=== PATIENT | female | born 1950 | race Caucasian/White ===

== ENCOUNTER 2023-01-20 10:33 | Outpatient (OUT) | payer MEDICARE, OTHER, SELFPAY ==
[2023-01-20 11:55] LABS: Alanine Aminotransferase 11 U/L (14-59); Albumin Globulin Ratio 0.6; Albumin Level 3.2 g/dL (3.4-5.0); Alkaline Phosphatase 88 U/L (46-116); Anion Gap 12.5; Aspartate Amino Transferase 9 U/L (15-37); BUN Creatinine Ratio 31.6; Bilirubin Total 0.4 mg/dL (0.2-1.0); Calcium 9.2 mg/dL (8.5-10.1); Carbon Dioxide 27.6 mmol/L (21.0-32.0); Chloride 102 mmol/L (98-107); Estimated GFR (African America >60 (>=60); Estimated GFR (Non-African Ame >60 (>=60); Glucose 208 mg/dL (74-106); Potassium 4.1 mmol/L (3.5-5.1); Sodium 138 mmol/L (136-145); Total Protein 8.2 g/dL (6.4-8.2)
[2023-01-20 14:35] LABS: Estimated Average Glucose 114 mg/dL; Glycohemoglobin A1C 5.6 % (4.5-6.2)
== END 2023-01-20 10:34 | disposition home or self-care (01) ==
LOC: LAB 10:38
PROVIDERS: PCP Family Medicine; Visit Provider Family Medicine
DX: E11.9 Type 2 diabetes mellitus without complications (principal)
CPT/HCPCS: 36415; 80053; 83036

== ENCOUNTER 2023-06-23 08:54 | Outpatient (OUT) | payer MEDICARE, OTHER, SELFPAY ==
--- NOTE | 2023-06-23 08:58 | MM_ITS ---
Patient Name: KEI JENSEN MR#: [id number] : 1950 Exam Date: 06/23/2023 Ordering Doctor: NANCY Pérez CNP RADIOLOGY REPORT PROCEDURE: MM TOMOSYNTHESIS SCREENING BI COMPARISON: None. INDICATIONS: Screening Calculator Name NCI Breast Cancer Risk Assessment Tool 5 Year Breast Cancer Risk 1.60% Lifetime Breast Cancer Risk 4.30% Personal Breast Cancer No Personal Ovarian Cancer No Treatments None Family Cancers None LOCATION: [facility] BREAST COMPOSITION: Heterogeneously dense,which may obscure small masses. FINDINGS: DIAGNOSTIC CATEGORY 0--INCOMPLETE: NEED ADDITIONAL IMAGING EVALUATION. RIGHT BREAST: No significant suspicious finding. Coarse benign-appearing calcifications within posterior inferior breast approximately 6 o'clock. LEFT BREAST: Grouping of tiny punctate calcifications within posterior upper-outer quadrant approximately 3 o'clock. No prior studies for comparison. Spot magnification views and ultrasound evaluation recommended. RECOMMENDATIONS: ADDITIONAL MAMMOGRAPHIC VIEWS REQUIRED: LEFT BREAST - LEFT CRANIOCAUDAL SPOT MAGNIFICATION VIEW - LEFT OBLIQUE SPOT MAGNIFICATION VIEW - ULTRASOUND: LEFT BREAST PLEASE NOTE: A NORMAL MAMMOGRAM DOES NOT EXCLUDE THE POSSIBILITY OF BREAST CANCER. A CLINICALLY SUSPICIOUS PALPABLE LUMP SHOULD BE BIOPSIED. Dictated by: Ming Recio M.D. on 06/25/2023 at 13:41 Approved by: Ming Recio M.D. on 06/25/2023 at 13:46
--- NOTE | 2023-06-23 08:58 | XR_ITS ---
[address] [address] Patient Name: KEI JENSEN MRN: [id number] date: 1950 Sex: F Assigned Patient Location: [facility] Current Patient Location: LAB Accession/Order Number: [id number] Exam Date: 06/23/2023 09:23 Report Date: 06/23/2023 10:02 At the request of: MAGNO ANTHONY Procedure: XR DEXA axial skeleton EXAMINATION: XR DEXA axial skeleton HISTORY: Osteoporosis M81.0 COMPARISON: No relevant comparison available. TECHNIQUE: Dual-energy X-ray absorptiometry (DXA) was performed. FINDINGS: SPINE ANALYSIS: Average bone mineral density is 1.151 g/cm2. T-score (standard deviation relative to young adult mean): -0.4 . HIP ANALYSIS: Lowest bone mineral density is within the right femoral trochanter, 0.577 g/cm2. T-score (standard deviation relative to young adult mean): -2.4 . XR/XR DEXA axial skeleton IMPRESSION: [employer] Classification: Osteopenia - Moderate Fracture Risk Electronically authenticated by: JEREMÍAS GALARZA Date: 06/23/2023 10:02
== END 2023-06-23 08:55 | disposition home or self-care (01) ==
LOC: MAMMO 08:54
PROVIDERS: PCP Nurse Practitioner; Visit Provider Nurse Practitioner
DX: Z12.31 Encounter for screening mammogram for malignant neoplasm of breast (principal); M81.0 Age-related osteoporosis without current pathological fracture; R92.8 Other abnormal and inconclusive findings on diagnostic imaging of breast; M85.80 Other specified disorders of bone density and structure, unspecified site
CPT/HCPCS: 77063; 77067; 77080

== ENCOUNTER 2023-06-23 09:34 | Outpatient (OUT) | payer MEDICARE, OTHER, SELFPAY ==
[2023-06-23 10:05] LABS: Basophils Percent Auto 0.3 % (0.2-2.0); Eosinophils Absolute Auto 0.1 10^3/uL (0.0-0.7); Eosinophils Percent Auto 1.6 % (0.9-7.0); Hemoglobin 13.8 g/dL (12.0-16.0); Immature Granulocytes Abs Auto 0.04 10^3/uL (0.00-0.03); Immature Granulocytes Pct Auto 0.5 % (0.0-0.5); Lymphocytes Absolute Auto 1.6 10^3/uL (1.2-3.8); Lymphocytes Percent Auto 18.4 % (20.5-60.0); Mean Corpuscular HGB Conc 31.4 g/dL (29.9-35.2); Mean Corpuscular Hemoglobin 26.5 pg (26.7-34.0); Mean Corpuscular Volume 84.6 fL (81.0-99.0); Mean Platelet Volume 9.2 fL (9.5-13.5); Monocytes Absolute Auto 0.5 10^3/uL (0.3-0.8); Monocytes Percent Auto 5.2 % (1.7-12.0); Neutrophils Absolute Auto 6.6 10^3/uL (1.4-6.5); Platelet Count 217 10^3/uL (150-450); Red Cell Distribution Width 14.2 % (11.0-15.0); White Blood Count 8.9 10^3/uL (4.0-11.0)
[2023-06-23 10:15] LABS: Microalbumin Urine Random 10.9 mg/dL (<=30.0)
[2023-06-23 10:20] LABS: Alanine Aminotransferase 16 U/L (14-59); Albumin Globulin Ratio 0.6; Albumin Level 3.1 g/dL (3.4-5.0); Alkaline Phosphatase 105 U/L (46-116); Anion Gap 10.9; Aspartate Amino Transferase 14 U/L (15-37); BUN Creatinine Ratio 26.2; Bilirubin Total 0.5 mg/dL (0.2-1.0); Calcium 9.1 mg/dL (8.5-10.1); Carbon Dioxide 31.5 mmol/L (21.0-32.0); Chloride 99 mmol/L (98-107); Chol HDL Ratio 3.2; Cholesterol 195 mg/dL (<=200); Estimated GFR (African America >60 (>=60); Estimated GFR (Non-African Ame >60 (>=60); Globulin 5.2 g/dL; Glucose 234 mg/dL (74-106); HDL Cholesterol 61 mg/dL (40-60); Potassium 4.4 mmol/L (3.5-5.1); Sodium 137 mmol/L (136-145); Total Protein 8.3 g/dL (6.4-8.2); Triglycerides 102 mg/dL (<=150); VLDL CHOLESTEROL 20.4 mg/dL
[2023-06-23 10:20] LABS: Bilirubin Urine NEGATIVE (NEGATIVE); Blood Urine SMALL (NEGATIVE); Color Urine LT. YELLOW (YELLOW); Glucose Urine UA 500 mg/dL (NEGATIVE); Ketones Urine NEGATIVE (NEGATIVE); Leukocyte Esterase Urine MODERATE (NEGATIVE); Nitrite Urine NEGATIVE (NEGATIVE); Protein Urine TRACE mg/dL (NEG/TRACE); Specific Gravity Urine 1.025 (1.005-1.025)
[2023-06-23 10:21] LABS: Clarity Urine SLIGHTLY CLOUDY (CLEAR)
[2023-06-23 10:30] LABS: Bacteria Urine MODERATE #/HPF (NONE SEEN); Mucus Urine NONE SEEN (NONE SEEN); RBC Urine 0-2 #/HPF (0-2); Squamous Epithelial Cell Urine MODERATE #/LPF (NONE/RARE)
[2023-06-23 11:03] LABS: Estimated Average Glucose 174 mg/dL; Glycohemoglobin A1C 7.7 % (4.5-6.2)
== END 2023-06-23 09:35 | disposition home or self-care (01) ==
PROVIDERS: PCP Nurse Practitioner; Visit Provider Nurse Practitioner
DX: E11.21 Type 2 diabetes mellitus with diabetic nephropathy (principal)
CPT/HCPCS: 36415; 80053; 80061; 81001; 82043; 83036; 85025

== ENCOUNTER 2023-07-11 13:24 | Outpatient (OUT) | payer MEDICARE, OTHER, SELFPAY ==
--- NOTE | 2023-07-11 13:36 | US_ITS ---
Patient Name: KEI JENSEN MR#: [id number] : 1950 Exam Date: 07/11/2023 Ordering Doctor: NANCY Pérez CNP RADIOLOGY REPORT PROCEDURE: MM DIAGNOSTIC MAMMO UNILAT LT, 07/11/2023, 13:36 US BREAST LT LIMITED, 07/11/2023, 13:58 COMPARISON: MM TOMOSYNTHESIS SCREENING BI, 06/23/2023. INDICATIONS: Left Breast Abnormality On Screening Mammogram Calculator Name NCI Breast Cancer Risk Assessment Tool 5 Year Breast Cancer Risk 1.60% Lifetime Breast Cancer Risk 4.30% Personal Breast Cancer No Personal Ovarian Cancer No Treatments None Family Cancers None LOCATION: [facility] BREAST COMPOSITION: Heterogeneously dense,which may obscure small masses. FINDINGS: DIAGNOSTIC CATEGORY 4--SUSPICIOUS FOR MALIGNANCY. FINDING DOES NOT EXHIBIT CLASSIC FINDINGS OF BREAST CANCER: Spot magnification demonstrates a cluster of suspicious microcalcifications upper outer quadrant, posterior breast. Ultrasound demonstrates normal fibroglandular tissue with no corresponding abnormality. As there are no prior comparisons. Stereotactic biopsy of the left breast calcifications is recommended RECOMMENDATIONS: STEREOTACTIC BREAST BIOPSY: LEFT BREAST PLEASE NOTE: A NORMAL MAMMOGRAM DOES NOT EXCLUDE THE POSSIBILITY OF BREAST CANCER. A CLINICALLY SUSPICIOUS PALPABLE LUMP SHOULD BE BIOPSIED. Dictated by: Deny Frias MD on 07/11/2023 at 14:22 Approved by: Deny Frias MD on 07/11/2023 at 14:48
== END 2023-07-11 13:25 | disposition home or self-care (01) ==
LOC: MAMMO 13:24
PROVIDERS: PCP Nurse Practitioner; Visit Provider Nurse Practitioner
DX: R92.8 Other abnormal and inconclusive findings on diagnostic imaging of breast (principal); R92.0 Mammographic microcalcification found on diagnostic imaging of breast
CPT/HCPCS: 76642; 77065

== ENCOUNTER 2023-07-31 12:19 | Day surgery (SDC) | payer MEDICARE, OTHER, SELFPAY ==
--- OUTSIDE RECORDS SUMMARY | 2023-07-31 12:22 | XMS_ITS | CCD ---
Author Name Unknown Address [address] [facility] [facility] [address] [place] [address] Organization [facility] Care Team Providers Care Sales Support Consultant Name Role Phone VikasChivo shin Unavailable Sheila Alvarez Unavailable NAVEEN, DR AGEE Attending Unavailable HOUSE, DR AGEE Consulting Unavailable HOUSE, DR AGEE Primary Care Unavailable HOUSE, DR AGEE Admitting Unavailable Sheila Alvarez Admitting Unavailable Sheila Alvarez Attending Unavailable Naveen, Gus Primary Care Unavailable Sheila Alvarez Admitting Unavailable Sheila Alvarez Attending Unavailable House, Gus Primary Care Unavailable Medications Current Medications Medication Drug Class(es) Dates Sig (Normalized) Sig (Original) gabapentin 600 mg oral tablet (8 sources) Anti-epileptic Agent Gabapentin 600 MG 1 capsule in am , 1 capsule in afternoon, and 2 capsules at bedtime Active Gabapentin Activ e glimepiride 2 mg oral tablet (8 sources) Sulfonylurea take 1 tablet by cecelia once daily at breakfast Glimepiride 2 MG 1 tablet with breakfast or the first main meal of the day Orally Active Glimepiride Acti ve pioglitazone 30 mg oral tablet (1 source) Peroxisome Proliferator Receptor alpha Agonist, Peroxisome Proliferator Receptor gamma Agonist, Thiazolidinedione Start: 04-15-2023 take 1 tablet by mouth every twenty-four hours Actos 30 MG 1 tablet Orally Once a day for 30 day(s) Mar, Active Problems Problem Classification Problem Date Documented Date Episodic/Chronic Diabetes mellitus without complication (4 sources) Type 2 diabetes mellitus without complications; Translations: [TYPE 2 DM WITHOUT COMPLICATIONS] Onset: 10-08-2022 Chronic Other diseases of veins and lymphatics (4 sources) Venous insufficiency of leg; Translations: [Venous insufficiency (chronic) (peripheral)] Episodic Other diseases of veins and lymphatics (2 sources) Venous insufficiency (chronic) (peripheral) Episodic Other diseases of veins and lymphatics (2 sources) Peripheral venous insufficiency; Translations: [Venous insufficiency (chronic) (peripheral)] Episodic Unclassified (1 source) Varicose veins of left lower extremity with pain; Translations: [Varicose veins of left lower extremity with pain] Onset: 06-21-2022 Varicose veins of lower extremity (20 sources) Varicose veins of lower extremity; Translations: [Varicose veins of bilateral lower extremities with pain] Onset: 09-03-2021 Resolved: 11-19-2021 Episodic Results Test Name Value Interpretation Reference Range Facility US venous duplex LE LTon US venous duplex LE LT [facility] [address] Ultrasound Report Signed Patient: Kei Davis MR#: [id number] [id number] : 1950 Acct:[id number] Age/Sex: 72 / F ADM Date: 11/11/22 Loc: [facility] Room: Type: [facility] Attending Dr: Sheila Alvarez INSTRUCTIONAL SUPERVISOR-C Ordering Provider: Sheila Alvarez APRN Date of Service: 11/11/22 US/US venous duplex LE LT: I83.812,S/P VENASEAL Copies to: Sheila Alvarez APRN Right lower extremity full functional venous duplex examination Indication for study: Venous insufficiency status post venous closure right greater saphenous vein PROCEDURE: Color-flow duplex scanning is used to interrogate the venous anatomy of the right lower extremity. There is no evidence for deep vein thrombosis. The right common femoral vein, femoral vein, and popliteal vein show good compressibility, color-flow, and augmentation. There is persistent reflux for greater than 5 seconds at the saphenofemoral junction. The distal component of the greater saphenous vein has been closed but due to difficulty with catheter passage the proximal greater saphenous vein from 30 cm remains open at this time. US/US venous duplex LE LT IMPRESSION: No evidence for deep vein thrombosis in the right lower extremity. The distal component of the greater saphenous vein has been closed. 30 cm of the proximal saphenous vein remains patent due to Inability to pass the catheter through that component. Impression dictated by: Chivo Bullard M.D.11/12/2022 2:36 PM Dictation Location: [place] [address] Tech: Kari Shon Transcribed By: CY 11/12/221435 Dictated By: Chivo Bullard MD 11/12/221432 Signed By: 11/12/22 143 [facility] CBC AUTO DIFFon 10-08-2022 BASO # 0.0 103/ul Normal 0.0-0.1 [facility] Comment on above: Performed By: #### C BC #### [facility] [address] [address] [address] Jj Torre Basophils/100 WBC (Bld) 0.4 % Normal 0.2-2.0 [facility] Comment on above: Performed By: #### C BC #### [facility] [address] [place] [address] Dr. Jj Torre EO # 0.1 103/ul Normal 0.0-0.7 [facility] Comment on above: Performed By: #### C BC #### [facility] [address] [address] [address] Jj Torre Eosinophils/100 WBC (Bld) 1.5 % Normal 0.9-7.0 [facility] Comment on above: Performed By: #### C BC #### [facility] [address] [place] [address] Dr. Jj Torre Erythrocyte distribution width (RBC) [Ratio] 13.5 % Normal 11.0-15.0 [facility] Comment on above: Performed By: #### C BC #### [facility] [address] [place] [address] Dr. Jj Torre Hematocrit (Bld) [Volume fraction] 45.1 % Normal 36.0-48.0 [facility] Comment on above: Performed By: #### C BC #### [facility] [address] [place] [address] Dr. Jj Torre Hemoglobin (Bld) [Mass/Vol] 15.0 g/dL Normal 12.0-16.0 [facility] Comment on above: Performed By: #### C BC #### [facility] [address] [place] [address] Dr. Jj Torre IG # 0.01 10e3/ul Normal 0.00-0.03 [facility] Comment on above: Performed By: #### C BC #### [facility] [address] [place] [address] Dr. Jj Torre IG % 0.1 % Normal 0.0-0.5 [facility] Comment on above: Performed By: #### C BC #### [facility] [address] [place] [address] Dr. Jj Torre LYMPH # 2.3 103/ul Normal 1.2-3.8 [facility] Comment on above: Performed By: #### C BC #### [facility] [address] [place] [address] Dr. Jj Torre Lymphocytes/100 WBC (Bld) 28.9 % Normal 20.5-60.0 [facility] Comment on above: Performed By: #### C BC #### [facility] [address] [place] [address] Dr. Jj Torre MANUAL DIFF REQ NO Normal [facility] Comment on above: Performed By: #### C BC #### [facility] [address] [place] [address] Dr. Jj Torre MCH (RBC) [Entitic mass] 26.7 pg Normal 26.7-34.0 [facility] Comment on above: Performed By: #### C BC #### [facility] [address] [place] [address] Dr. Jj Torre MCHC (RBC) [Mass/Vol] 33.3 g/dL Normal 29.9-35.2 [facility] Comment on above: Performed By: #### C BC #### [facility] [address] [place] [address] Dr. Jj Torre MCV (RBC) [Entitic vol] 80.2 fL Critically low 81.0-99.0 [facility] Comment on above: Performed By: #### C BC #### [facility] [address] [place] [address] Dr. Jj Torre MONO # 0.6 103/ul Normal 0.3-0.8 [facility] Comment on above: Performed By: #### C BC #### [facility] [address] [address] [address] Jj Torre Monocytes/100 WBC (Bld) 7.7 % Normal 1.7-12.0 [facility] Comment on above: Performed By: #### C BC #### [facility] [address] [address] [address] Jj Torre NEUT # 5.0 103/ul Normal 1.4-6.5 [facility] Comment on above: Performed By: #### C BC #### [facility] [address] [place] [address] Dr. Jj Torre Neutrophils/100 WBC (Bld) 61.4 % Normal 43.0-75.0 [facility] Comment on above: Performed By: #### C BC #### [facility] [address] [place] [address] Dr. Jj Torre Platelet mean volume (Bld) [Entitic vol] 9.2 fL Critically low 9.5-13.5 [facility] Comment on above: Performed By: #### C BC #### [facility] [address] [place] [address] Dr. Jj Torre PLT 214 103/ul Normal 150-450 [facility] Comment on above: Performed By: #### C BC #### [facility] [address] [place] [address] Dr. Jj Torre RBC 5.62 106/ul Critically high 4.20-5.40 [facility] Comment on above: Performed By: #### C BC #### [facility] [address] [place] [address] Dr. Jj Torre WBC 8.1 103/ul Normal 4.0-11.0 [facility] Comment on above: Performed By: #### C BC #### [facility] [address] [place] [address] Dr. Jj Torre GLYCOHEMOGLOBIN A1Con 2022 ADA RECOMMENDATION SEE BELOW Normal [facility] Comment on above: Result Comment: ADA RECOMMENDED LIMIT 4.0 - 6.0 ADA THERAPEUTIC TARGET < 7.0 ACTION SUGGESTED > 7.0 Performed By: #### A 1C #### [facility] [address] [place] [address] Dr. Jj Torre Glucose [Mass/Vol] 258 mg/dL Normal [facility] Comment on above: Performed By: #### A 1C #### [facility] [address] [place] [address] Dr. Jj Torre HbA1c (Bld) [Mass fraction] 10.6 % Critically high 4.5-6.2 [facility] Comment on above: Performed By: #### A 1C #### [facility] [address] [place] [address] Dr. Jj Torre MICROALBUMIN, RAND URon 09-25 mALB 1.7 mg/L Normal <=30.0 [facility] Comment on above: Performed By: #### M ALBR #### [facility] [address] [place] [address] Dr. Jj Torre PROF 14(COMP METB)on 023 Albumin [Mass/Vol] 3.3 g/dL Critically low 3.4-5.[address] [facility] Comment on above: Performed By: #### C MP #### [facility] [address] [place] [address] Dr. Jj Torre Albumin/Globulin [Mass ratio] 0.7 {ratio} Normal [facility] Comment on above: Performed By: #### C MP #### [facility] [address] [place] [address] Dr. Jj Torre ALP [Catalytic activity/Vol] 104 U/L Normal 46-116 [facility] Comment on above: Performed By: #### C MP #### [facility] [address] [place] [address] Dr. Jj Torre ALT [Catalytic activity/Vol] 13 U/L Critically low 14-59 [facility] Comment on above: Performed By: #### C MP #### [facility] [address] [address] [address] Jj Torre Anion gap [Moles/Vol] 7.8 mmol/L Normal [facility] Comment on above: Performed By: #### C MP #### [facility] [address] [place] [address] Dr. Jj Torre AST [Catalytic activity/Vol] 9 U/L Critically low 15-37 [facility] Comment on above: Performed By: #### C MP #### [facility] [address] [address] [address] Jj Torre Bilirubin [Mass/Vol] 0.5 mg/dL Normal 0.2-1.0 [facility] Comment on above: Performed By: #### C MP #### [facility] [address] [place] [address] Dr. Jj Torre Calcium [Mass/Vol] 9.6 mg/dL Normal 8.5-10.1 [facility] Comment on above: Performed By: #### C MP #### [facility] [address] [place] [address] Dr. Jj Torre Chloride [Moles/Vol] 100 mmol/L Normal 98-107 [facility] Comment on above: Performed By: #### C MP #### [facility] [address] [place] [address] Dr. Jj Torre CO2 [Moles/Vol] 30.1 mmol/L Normal 21.0-32.0 [facility] Comment on above: Performed By: #### C MP #### [facility] [address] [place] [address] Dr. Jj Torre Creatinine [Mass/Vol] 0.56 mg/dL Normal 0.55-1.02 [facility] Comment on above: Performed By: #### C MP #### [facility] [address] [place] [address] Dr. Jj Torre EGFR-AF [place] >60 Normal >=60 [facility] Comment on above: Performed By: #### C MP #### [facility] [address] [place] [address] Dr. Jj Torre EGFR-NON AF [place] >60 Normal >=60 [facility] Comment on above: Performed By: #### C MP #### [facility] [address] [place] [address] Dr. Jj Torre Globulin (S) [Mass/Vol] 4.5 g/dL Normal [facility] Comment on above: Performed By: #### C MP #### [facility] [address] [address] [address] Jj Torre Glucose [Mass/Vol] 343 mg/dL Critically high 74-106 [facility] Comment on above: Performed By: #### C MP #### [facility] [address] [address] [address] Jj Torre Potassium [Moles/Vol] 3.9 mmol/L Normal 3.5-5.1 [facility] Comment on above: Performed By: #### C MP #### [facility] [address] [address] [address] Jj Torre Protein [Mass/Vol] 7.8 g/dL Normal 6.4-8.2 [facility] Comment on above: Performed By: #### C MP #### [facility] [address] [place] [address] Dr. Jj Torre Sodium [Moles/Vol] 134 mmol/L Critically low 136-[address] [facility] Comment on above: Performed By: #### C MP #### [facility] [address] [address] [address] Jj Torre Urea nitrogen [Mass/Vol] 11.0 mg/dL Normal 7.0-18.0 [facility] Comment on above: Performed By: #### C MP #### [facility] [address] [address] [address] Jj Torre Urea nitrogen/Creatinine [Mass ratio] 19.6 mg/mg Normal [facility] Comment on above: Performed By: #### C MP #### [facility] [id number] Jj Torre US venous duplex LE BIon US venous duplex LE BI [facility] [address] Ultrasound Report Signed Patient: Kei Davis MR#: [id number] 755 : 1950 Acct:[id number] Age/Sex: 72 / F ADM Date: 06/21/22 Loc: Room: Type: [facility] Attending Dr: Sheila Alvarez INSTRUCTIONAL SUPERVISOR-C Ordering Provider: Sheila Alvarez APRN Date of Service: 06/21/22 US/US venous duplex LE BI: I83.811, I83.812 Copies to: Sheila Alvarez APRN BILATERAL LOWER EXTREMITY VENOUS DUPLEX INDICATION: Surveillance study after left lower extremity vein procedure. PROCEDURE: Color-flow duplex scanning is used to interrogate the deep venous system of the right and left lower extremities. US/US venous duplex LE BI IMPRESSION: NO EVIDENCE FOR DEEP VEIN THROMBOSIS IN THE RIGHT OR LEFT LOWER EXTREMITY. Impression dictated by: Armando Cramer MD06/24/2022 4:41 PM [facility] Tech: Yeimy Caesar Transcribed By: [facility] 06/24/22 1641 Dictated By: Armando Cramer MD 06/24/22 1640 Signed By: 06/24/22 1641 [facility] Vital Signs Date Time Vital Sign Value Performing Clinician Facility 04-15-2023 11:15-0400 Body height 172.72 cm Chivo Bullard Other [facility] Other 04-15-2023 11:15-0400 Body mass index (BMI) [Ratio] 27.06 kg/m2 Chivo Bullard Other [facility] Other 04-15-2023 11:15-0400 Body temperature 97.3 [degF] Chivo Bullard Other [facility] Other 04-15-2023 11:15-0400 Body weight 80.74 kg Chivo Bullard Other [facility] Other 04-15-2023 11:15-0400 Diastolic blood pressure 82 mm[Hg] Chivo Bullard Other [facility] Other 04-15-2023 11:15-0400 SaO2% (BldA) [Mass fraction] 98 % Chivo Bullard Other [facility] Other 04-15-2023 11:15-0400 Systolic blood pressure 138 mm[Hg] Chivo Bullard Other [facility] Other 11-26-2022 11:45-0400 Body height 172.72 cm Sheila Gonzalezyulissa Other [facility] Other 11-26-2022 11:45-0400 Body mass index (BMI) [Ratio] 27.06 kg/m2 Sheila Alvarez Other [facility] Other 11-26-2022 11:45-0400 Body temperature 97.8 [degF] Sheila Alvarez Other [facility] Other 11-26-2022 11:45-0400 Body weight 80.74 kg Sheila Alvarez Other [facility] Other 11-26-2022 11:45-0400 Diastolic blood pressure 72 mm[Hg] Sheila Villarreallinwood Other [facility] Other 11-26-2022 11:45-0400 SaO2% (BldA) [Mass fraction] 98 % Sheila Villarreallinwood Other [facility] Other 11-26-2022 11:45-0400 Systolic blood pressure 116 mm[Hg] Sheila Alvarez Other [facility] Other 07-01-2022 12:00-0500 Body height 172.72 cm Sheila Alvarez Other [facility] Other 07-01-2022 12:00-0500 Body mass index (BMI) [Ratio] 27.06 kg/m2 Sheila Alvarez Other [facility] Other 07-01-2022 12:00-0500 Body temperature 97.1 [degF] Sheila Alvarez Other [facility] Other 07-01-2022 12:00-0500 Body weight 80.74 kg Sheila Alvarez Other [facility] Other 07-01-2022 12:00-0500 Diastolic blood pressure 60 mm[Hg] Sheila Alvarez Other [facility] Other 07-01-2022 12:00-0500 SaO2% (BldA) [Mass fraction] 97 % Sheila Alvarez Other [facility] Other 07-01-2022 12:00-0500 Systolic blood pressure 142 mm[Hg] Sheila Alvarez Other [facility] Other 11-19-2021 12:00-0400 Body height 172.72 cm Chivo Bullard Other [facility] Other 11-19-2021 12:00-0400 Body mass index (BMI) [Ratio] 30.86 kg/m2 Chivo Buehrer Other [facility] Other 11-19-2021 12:00-0400 Body temperature 97 [degF] Chivo Buehrer Other [facility] Other 11-19-2021 12:00-0400 Body weight 92.08 kg Chivo Buehrer Other [facility] Other 11-19-2021 12:00-0400 Diastolic blood pressure 74 mm[Hg] Chivo Buehrer Other [facility] Other 11-19-2021 12:00-0400 SaO2% (BldA) [Mass fraction] 92 % Chivo Buehrer Other [facility] Other 11-19-2021 12:00-0400 Systolic blood pressure 138 mm[Hg] Chivo Buehrer Other [facility] Other 09-03-2021 13:00-0500 Body height 172.72 cm Chivo Sotorer Other [facility] Other 09-03-2021 13:00-0500 Body mass index (BMI) [Ratio] 30.86 kg/m2 Chivo Buehrer Other [facility] Other 09-03-2021 13:00-0500 Body temperature 98.5 [degF] Chivo Buehrer Other [facility] Other 09-03-2021 13:00-0500 Body weight 92.08 kg Chivo Buehrer Other [facility] Other 09-03-2021 13:00-0500 Diastolic blood pressure 92 mm[Hg] Chivo Bullard Other [facility] Other 09-03-2021 13:00-0500 SaO2% (BldA) [Mass fraction] 96 % Chivo Bullard Other [facility] Other 09-03-2021 13:00-0500 Systolic blood pressure 160 mm[Hg] Chivo Bullard Other [facility] Other Encounters Encounter Date Encounter Type Care Provider Facility Start: 04-15-2023 End: 04-15-2023 ambulatory Chivo Bullard Other [facility] Other Start: 04-15-2023 Office outpatient vi sit 25 minutes Chivo Bullard [facility] Start: 11-26-2022 End: 11-26-2022 ambulatory Sheila Alvarez Other [facility] Other Start: 11-26-2022 Patient encounter procedure Sheila Alvarez [facility] Start: 11-11-2022 End: 11-11-2022 ambulatory Sheila Alvarez Facility:[facility] Start: 11-08-2022 (EVLT) EVLT saphenou s vein ablation Chivo Bullard [facility] Start: 11-08-2022 End: 11-08-2022 ambulatory Chivo Bullard Other [facility] Other Start: 10-08-2022 End: 10-09-[address] GUS HODGE Facility: Start: 07-01-2022 End: 07-01-2022 ambulatory Sheila Alvarez Other [facility] Other Start: 07-01-2022 Follow-up encounter Sheila Gonzalezo [facility] Start: 06-21-2022 End: 06-21-2022 ambulatory Sheila R Carlosyulissa Facility:[facility] Start: 06-12-2022 (Sclerother) Sclerotherapy Sheila Alvarez [facility] Start: 06-12-2022 End: 06-12-2022 ambulatory Sheila Alvarez Other [facility] Other Start: 11-19-2021 End: 11-19-2021 ambulatory Chivo Buehrer Other [facility] Other Start: 11-19-2021 Office outpatient vi sit 15 minutes Chivo Sotorer [facility] Start: 10-24-2021 End: 10-24-2021 ambulatory Chivo Bumarlinerer Other [facility] Other Start: 10-24-2021 Telephone encounter Chivo Bullard [facility] Start: 09-03-2021 End: 09-03-2021 ambulatory Chivo Buehrer Other [facility] Other Start: 09-03-2021 Office outpatient vi sit 25 minutes Chivorichie Sotorer [facility] Payers Date Payer Category Payer Self-pay 1957 Medicare [id number] 2.1 [id number] 1957 Unknown [id number] 1950 Unknown [id number] Unknown [id number] Unknown [id number] [id number] Social History Date Type Detail Facility Sex Assigned At [facility] Other Evaluation note 04-15-2023 Note Date & Type Note Facility 04-15-2023 Evaluation note Encounter Date Diagnosis Assessment Notes Mar, Varicose veins of left leg with edema (ICD-10 - I83.892) Mar, Other Varicose veins I talk with this patient about potentially continuing treatment for her left leg varicose vein. She does not feel that her symptoms are severe enough at this time to warrant intervention. I advised her to consider at least [id number] r graded compression stockings to minimize the edema in both legs which she says is fairly significant by the end of the day. She could have her residual varix treated with Varithena quite easily. For now since she does not feel intervention is warranted I will see her back on an as-needed basis and she knows that she can call at any time should she wish additional treatment [facility] Other Evaluation note 11-26-2022 Note Date & Type Note Facility 11-26-2022 Evaluation note Encounter Date Diagnosis Assessment Notes November, Venous insufficiency (chronic) (peripheral) (ICD-10 - I87.2) She had good closure of the distal component of the greater saphenous vein with about 3 cm of the proximal saphenous vein remaining patent due to inability to pass the catheter through that component. She does complain of some achiness remaining in the leg but tells me at this point in time it is tolerable. She has mild edema in the ankle but wears her compression stockings with good relief. We discussed possible closure of the remaining portion of the GSV with Varithena foam sclerotherapy. I suggest we wait a couple of months and bring her back to evaluate her and see how she is doing prior to proceeding with any additional therapy. She will continue her conservative therapy efforts and knows the importance of this for long-term management of her chronic venous disease. We will see her at the end of the summer for reevaluation. She knows to call us in the meantime with any issues or concerns. [facility] Other History general Narrative - Reported 10-26-2022 Note Date & Type Note Facility 10-26-2022 History general N arrative - Reported Type Medical History type II diabetes Surgical History cholecystectomy Surgical History tubal ligation Surgical History MICRO PHLEBECTOMY RT LEG 2021 Surgical History Venaseal Left Leg 10/2022 [facility] Other Evaluation note 07-01-2022 Note Date & Type Note Facility 07-01-2022 Evaluation note Encounter Date Diagnosis Assessment Notes Jun, Symptomatic varicose veins of both lower extremities (ICD-10 - I83.893) Jun, Venous insufficiency of both lower extremities (ICD-10 - I87.2) We reviewed the duplex studies of her lower extremities. Ultrasound of the right lower extremity shows no compression in the area of the anterior mid araujo from recent Varithena treatment as expected. The left lower extremity full functional venous duplex indicates greater than 5-second reflux of the left GSV, SF J, CFV. We discussed recommendation for VenaSeal closure of the left GSV. Procedure, risk, benefits were discussed at length as well as medical/surgical alternatives. We discussed importance of continuing with conservative therapy efforts with use of graded compression stockings, leg elevation, good skin care moisturizer therapy along with weight management and frequent activity in the management of her chronic venous disease. She verbalizes understanding of all discussion and wishes to proceed with venous seal closure of the left GSV. Dr. Bullard in room to further discuss with patient. All of her questions were addressed. We will get this on the schedule in the near future. Patient denies any additional questions. [facility] Other Evaluation note 11-19-2021 Note Date & Type Note Facility 11-19-2021 Evaluation note Encounter Date Diagnosis Assessment Notes Oct, Varicose veins of bilateral lower extremities with other complications (ICD-10 - I83.893) Oct, Other Painful varicose veins She has a good outcome after microphlebectomy but still has residual secondary varicosities that will require treatment. Since summer is coming and she needs some period of healing to let the inflammation go away I will see her back in the fall at which time we will likely schedule her for Varithena treatment for the very large pretibial varicosities that she has. At this time she does not wish her left leg to be treated since she has minimal symptoms. [facility] Other Evaluation note 09-03-2021 Note Date & Type Note Facility 09-03-2021 Evaluation note Encounter Date Diagnosis Assessment Notes Aug, Varicose veins of bilateral lower extremities with other complications (ICD-10 - I83.893) Aug, Other [Painful varicose veins This patient has symptoms of significant discomfort associated with her varicose veins and has not received any relief from graded compression stockings. She has documented greater than 5 seconds of reflux at the right saphenofemoral junction which empties into a very large and easily visible anterior saphenous branch the continues down the length of the leg. Given the length and size of the vein I believe should be best treated with microphlebectomy . I described to her in detail the nature of the procedure she agrees to proceed.] [facility] Other Evaluation note Note Date & Type Note Facility Evaluation note No Information [facility] Other History general Narrative - Reported Note Date & Type Note Facility History general Narrative - Reported Type Medical History diabetes mallitus Medical History [ ] Surgical History cholecystectomy Surgical History tubal ligation Surgical History [ ] [facility] Other History general Narrative - Reported Note Date & Type Note Facility History general Narrative - Reported Type Medical History type II diabetes Surgical History cholecystectomy Surgical History tubal ligation Surgical History MICRO PHLEBECTOMY RT LEG 2021 [facility] Other Reason for visit Narrative Note Date & Type Note Facility Reason for visit Narrative VASC DR. BHARATHI CONTE WANTED TO SEE BEFORE DECIDING WHAT PROCEDURE TO DO, Painful varicose veins [facility] Other Summary Purpose Family History No Family History Records FoundNo Family History Records Found Advance Directives No Advanced Directives Records FoundNo Advanced Directives Records Found Additional Source Comments REASON FOR VISIT (unrecogniz ed section and content) 4 MO VV F/U NO TESTING, Foll ow-up varicose vein2 WK FOLLOW UP; VENASEAL LEFT LEG; ULTRASOUND 11/11/22VENASEAL LEFT LEGFOLLOW UP AFTER VARITHENA RIGHT LEG; ULTRASOUND DONE [facility] 06/21/22VARITHENA RT LEGVASC 2 WK S/P MICRO RIGHT LEG, Follow-up after microphlebectomy INFORMATION SOURCE (unrecogn ized section and content) DATE CREATED AUTHOR 10/15/2022 [facility] DATE CREATED AUTHOR AUTHOR'S OSWALDO CARDONA 11/22/2022 [facility] FOR RECORDS PERTAINING TO PATIENTS WHO ARE OR HAVE BEEN ENROLLED IN A CHEMICAL DEPENDENCY/SUBSTANCEABUSE PROGRAM, SOME INFORMATION MAY BE OMITTED. This clinical summary was aggregated from multiple sources. Caution should be exercised in using it in the provision of clinical care. This summary normalizes information from multiple sources, and as a consequence, information in this document may materially change the coding, format and clinical context of patient data. In addition, data may be omitted in some cases. CLINICAL DECISIONS SHOULD BE BASED ON THE PRIMARY CLINICAL RECORDS. [facility] [employer] provides no warranty or guarantee of the accuracy or completeness of information in this document.
--- NOTE | 2023-07-31 12:23 | MM_ITS ---
Patient Name: KEI JENSEN MR#: [id number] : 1950 Exam Date: 07/31/2023 Ordering Doctor: NANCY Pérez CNP RADIOLOGY REPORT PROCEDURE: MM BIOPSY LT VAC ASSIST COMPARISON: MM DIAGNOSTIC MAMMO UNILAT LT, 07/11/2023. INDICATIONS: left breast macrocalcification DESCRIPTION: Following informed consent, digital stereotactic mammographic views were obtained to localize the lesion. Multiple vacuum-assisted core biopsies were obtained. Specimen images were obtained to confirm proper sampling. The location of the biopsy was then marked as indicated below. FINDINGS: RECOMMENDATIONS: SPECIMEN #, LOCATION: 6 samples, left breast clustered calcifications SPECIMEN IMAGE: Targeted calcifications were present BIOPSY NEEDLE: 10 gauge Revolve(r) vacuum core biopsy needle. MARKER(S) PLACED: A single metallic marker was placed in the appropriate targeted location. MEDICATION: 2 cubic cm Buffered 1% lidocaine superficial; 8 cubic cm 1% lidocaine with epinephrine deep. COMPLICATIONS: None. PATHOLOGY / LAB: Pending. CONCLUSION: 1. Technically successful biopsy of the breast lesion. 2. Pathology results are pending. An addendum will be added when pathology results are final. Dictated by: Deny Frias MD on 08/01/2023 at 12:19 Approved by: Deny Frias MD on 08/01/2023 at 12:20
[2023-07-31 12:30] VITALS: BP 165/89; PULSE 88; O2SAT 97
--- NOTE | 2023-07-31 12:34 | MM_ITS ---
Patient Name: KEI JENSEN MR#: [id number] : 1950 Exam Date: 07/31/2023 Ordering Doctor: NANCY Pérez CNP This report includes an Addendum and supersedes previous reports for this exam. RADIOLOGY REPORT PROCEDURE: MAMMOGRAM POST BIOPSY IMAGES COMPARISON: MM DIAGNOSTIC MAMMO UNILAT LT, 07/11/2023. INDICATIONS: breast biopsy BREAST COMPOSITION: Heterogeneously dense,which may obscure small masses. FINDINGS: BIOPSY MARKER: A metallic marker has been placed in the targeted location within the upper outer quadrant of the left breast. BREAST FINDINGS: Post surgical changes Dictated by: Deny Frias MD on 07/31/2023 at 14:01 Approved by: Deny Frias MD on 07/31/2023 at 14:27 ADDENDUM: FINDINGS: DIAGNOSTIC CATEGORY 2--BENIGN FINDING: Final diagnosis: Negative for atypia and malignancy. No further evaluation is required RECOMMENDATIONS: ROUTINE MAMMOGRAM AND CLINICAL EVALUATION IN 12 MONTHS. COMPARISON: MM BIOPSY LT VAC ASSIST, 07/31/2023. Dictated by: Deny Frias MD on 08/07/2023 at 10:25 Approved by: Deny Frias MD on 08/07/2023 at 10:26
[2023-07-31] MEDS: LIDOCAINE HCL/EPINEPHRINE 10 ML, SODIUM BICARBONATE 1 MEQ INJ (13:10)
[2023-07-31] MEDS: LIDOCAINE HCL 10 ML, SODIUM BICARBONATE 1 MEQ INJ (13:10)
== END 2023-07-31 13:45 | disposition home or self-care (01) ==
LOC: MAMMO 12:19
PROVIDERS: Radiology Diagnostic Radiology; PCP Nurse Practitioner; Visit Provider Nurse Practitioner
DX: R92.0 Mammographic microcalcification found on diagnostic imaging of breast (principal)
CPT/HCPCS: 19081; 77065; 88305

== ENCOUNTER 2023-10-20 11:06 | Outpatient (OUT) | payer MEDICARE, OTHER, SELFPAY ==
--- OUTSIDE RECORDS SUMMARY | 2023-10-20 11:30 | XMS_ITS | CCD ---
Author Organization [facility] Care Team Providers Care University Controller Name Role Phone Chivo Bullard Unavailable Sheila Alvarez Unavailable NAVEEN, DR AGEE Attending Unavailable NAVEEN, DR AGEE Consulting Unavailable SOUTH HACKENSACK, DR AGEE Primary Care Unavailable NAVEEN, DR AGEE Admitting Unavailable Ruttino, Sheila Tesfaye Admitting Unavailable Kim, Sheila Tesfaye Attending Unavailable Naveen, Gus Primary Care Unavailable Kim, Sheila Tesfaye Admitting Unavailable Kim, Sheila Tesfaye Attending Unavailable Naveen, Gus Primary Care Unavailable Beto COTA, Almaz Unavailable Bryant Torres MD Primary Care Provider ALMAZ PÉREZ Attending Unavailable CA GARCIA Attending Unavailable CA GARCIA Referring Unavailable LUCHO SIMMONS Attending Unavailable CA GARCIA Referring Unavailable MARK DOWNEY Attending Unavailable CA GARCIA Referring Unavailable MARK DOWNEY Attending Unavailable CA GARCIA Referring Unavailable MARK DOWNEY Attending Unavailable CA GARCIA Referring Unavailable LUCHO SIMMONS Attending Unavailable CA GARCIA Referring Unavailable BRENNAN ADAIR Attending Unavailable CA GARCIA Referring Unavailable CA GARCIA Attending Unavailable LUCHO SIMMONS Attending Unavailable CA GARCIA Referring Unavailable MARK DOWNEY Attending Unavailable CA GARCIA Referring Unavailable Medications Current Medications Medication Drug Class(es) Dates Sig (Normalized) Sig (Original) gabapentin 600 mg oral tablet (16 sources) Anti-epileptic Agent Start: 08-21-2023 End: 11-19-2023 take 1 tablet by mouth in the morning, then take 1 tablet by mouth in the evening, then take 1 tablet by mouth at bedtime gabapentin (Neurontin) 600 MG tablet Indications: Diabetic polyneuropathy associated with type 2 diabetes mellitus (CMS/HCC) Take 1 tablet (600 mg) by mouth in the morning and 1 tablet (600 mg) in the evening and 1 tablet (600 mg) before bedtime. 360 tablet 0 08/21/2023 11/19/2023 Active Gabapentin 600 M G 1 capsule in am , 1 capsule in afternoon, and 2 capsules at bedtime Active Gabapentin Activ e glimepiride 2 mg oral tablet (16 sources) Sulfonylurea Start: 08-21-2023 End: 11-19-2023 take 1 tablet by mouth in the morning glimepiride (Amaryl) 2 MG tablet Indications: Type 2 diabetes mellitus with other specified complication, without long-term current use of insulin (CMS/HCC) Take 1 tablet (2 mg) by mouth in the morning and 1 tablet (2 mg) before bedtime. 180 tablet 0 08/21/2023 11/19/2023 Active take 1 tablet by cecelia th once daily at breakfast Glimepiride 2 MG 1 tablet with breakfast or the first main meal of the day Orally Active Glimepiride Acti ve meclizine hydrochloride 25 mg oral tablet (8 sources) Antiemetic Start: 04-28-2023 take 1 tablet by mouth three times daily as needed for dizziness meclizine (Antivert) 25 MG tablet Take 1 tablet by mouth 3 (three) times a day as needed for dizziness 0 04/28/2023 Active naproxen 500 mg delayed release oral tablet (6 sources) Nonsteroidal Anti-inflammatory Drug Start: 08-11-2023 End: 09-10-2023 take 1 tablet by mouth in the morning naproxen (EC Naprosyn) 500 MG EC tablet Indications: Acute pain of right shoulder , Adhesive capsulitis of right shoulder Take 1 tablet (500 mg) by mouth in the morning and 1 tablet (500 mg) in the evening. Take with meals. Do not crush, chew, or split. . 60 tablet 0 08/11/2023 09/10/2023 Active pioglitazone 30 mg oral tablet (9 sources) Peroxisome Proliferator Receptor alpha Agonist, Peroxisome Proliferator Receptor gamma Agonist, Thiazolidinedione Start: 08-21-2023 take 1 tablet by mouth in the morning pioglitazone (Actos) 30 MG tablet Indications: Type 2 diabetes mellitus with other specified complication, without long-term current use of insulin ([facility]) Take 1 tablet (30 mg) by mouth in the morning. 90 tablet 0 08/21/2023 Active Start: 04-15-2023 take 1 tablet by cecelia th every twenty-four hours Actos 30 MG 1 tablet Orally Once a day for 30 day(s) Mar, Active Problems Problem Classification Problem Date Documented Date Episodic/Chronic Diabetes mellitus with complications (8 sources) Neuropathy due to diabetes mellitus; Translations: [Type 2 diabetes mellitus with diabetic neuropathy, unspecified] Onset: 08-21-2023 08-21-2023 Chronic Diabetes mellitus without complication (12 sources) Type 2 diabetes mellitus without complications; Translations: [Diabetes mellitus] Onset: 10-08-2022 Chronic Nonmalignant breast conditions (8 sources) Mammographic calcification of left breast; Translations: [Mammographic calcification found on diagnostic imaging of breast] Onset: 07-13-2023 07-13-2023 Episodic Other connective tissue disease (8 sources) Bursitis of right shoulder; Translations: [Bursitis of right shoulder] Onset: 08-06-2023 08-06-2023 Episodic Other connective tissue disease (5 sources) Adhesive capsulitis of right shoulder; Translations: [Adhesive capsulitis of right shoulder] 09-04-2023 Episodic Other diseases of veins and lymphatics (4 sources) Venous insufficiency of leg; Translations: [Venous insufficiency (chronic) (peripheral)] Episodic Other diseases of veins and lymphatics (2 sources) Venous insufficiency (chronic) (peripheral) Episodic Other diseases of veins and lymphatics (2 sources) Peripheral venous insufficiency; Translations: [Venous insufficiency (chronic) (peripheral)] Episodic Other non-traumatic joint disorders (13 sources) Pain in right shoulder; Translations: [Pain in joint, shoulder region] Onset: 08-06-2023 08-06-2023 Episodic Other nutritional; endocrine; and metabolic disorders (8 sources) Body mass index 30+ - obesity; Translations: [Body mass index (BMI) 35.0-35.9, adult] Onset: 08-06-2023 08-06-2023 Chronic Unclassified (1 source) Varicose veins of left [...] LE LTon US venous duplex LE LT [facility] Main [place] [address] [place] [address] Ultrasound Report Signed Patient: Lidia Davis MR#: [id number] 755 : 1950 Acct:[id number] Age/Sex: 72 / F ADM Date: 11/11/22 Loc: [facility] Room: Type: [facility] Attending Dr: Sheila Alvarez TICKET MANAGER-C Ordering Provider: Sheila Alvarez APRN Date of [...] Chivo Bullard M.D.11/12/2022 2:36 PM Dictation Location: [facility] Tech: Kari Menendez Transcribed By: CY 11/12/221435 Dictated By: Chivo Bullard MD 11/12/221432 Signed By: 11/12/221435 [facility] CBC AUTO DIFFon 10-08-2022 BASO # 0.0 103/ul Normal 0.0-0.1 [facility] Comment on above: Performed By: #### C BC #### [facility] [address] [address] [address] Jj Torre Basophils/100 WBC (Bld) 0.4 % Normal 0.2-2.0 [facility] Comment on above: Performed By: #### C BC #### [facility] [address] [place] [address] Dr. Jj Torre EO # 0.1 103/ul Normal 0.0-0.7 [facility] Comment on above: Performed By: #### C BC #### [facility] [address] [place] [address] Dr. Jj Torre Eosinophils/100 WBC (Bld) 1.5 % Normal 0.9-7.0 [facility] Comment on above: Performed By: #### C BC #### [facility] [address] [place] [address] Dr. Jj Torre Erythrocyte distribution width (RBC) [Ratio] 13.5 % Normal 11.0-15.0 [facility] Comment on above: Performed By: #### C BC #### [facility] [address] [place] [address] Dr. Jj Torre Hematocrit (Bld) [Volume fraction] 45.1 % Normal 36.0-48.0 [facility] Comment on above: Performed By: #### C BC #### [facility] [address] [place] [address] Dr. Jj Torre Hemoglobin (Bld) [Mass/Vol] 15.0 g/dL Normal 12.0-16.0 [facility] Comment on above: Performed By: #### C BC #### [facility] [address] [place] [address] Dr. Jj Torre IG # 0.01 10e3/ul Normal 0.00-0.03 [facility] Comment on above: Performed By: #### C BC #### [facility] [address] [place] [address] Dr. Jj Torre IG % 0.1 % Normal 0.0-0.5 [facility] Comment on above: Performed By: #### C BC #### [facility] [address] [place] [address] Dr. Jj Torre LYMPH # 2.3 103/ul Normal 1.2-3.8 [facility] Comment on above: Performed By: #### C BC #### [facility] [address] [place] [address] Dr. Jj Torre Lymphocytes/100 WBC (Bld) 28.9 % Normal 20.5-60.0 [facility] Comment on above: Performed By: #### C BC #### [facility] [address] [place] [address] Dr. Jj Torre MANUAL DIFF REQ NO Normal [facility] Comment on above: Performed By: #### C BC #### [facility] [address] [place] [address] Dr. Jj Torre MCH (RBC) [Entitic mass] 26.7 pg Normal 26.7-34.0 [facility] Comment on above: Performed By: #### C BC #### [facility] [address] [place] [address] Dr. Jj Torre MCHC (RBC) [Mass/Vol] 33.3 g/dL Normal 29.9-35.2 [facility] Comment on above: Performed By: #### C BC #### [facility] [address] [place] [address] Dr. Jj Torre MCV (RBC) [Entitic vol] 80.2 fL Critically low 81.0-99.0 [facility] Comment on above: Performed By: #### C BC #### [facility] [address] [place] [address] Dr. Jj Torre MONO # 0.6 103/ul Normal 0.3-0.8 [facility] Comment on above: Performed By: #### C BC #### [facility] [address] [place] [address] Dr. Jj Torre Monocytes/100 WBC (Bld) 7.7 % Normal 1.7-12.0 [facility] Comment on above: Performed By: #### C BC #### [facility] [address] [place] [address] Dr. Jj Torre NEUT # 5.0 103/ul Normal 1.4-6.5 [facility] Comment on above: Performed By: #### C BC #### [facility] [address] [place] [address] Dr. Jj Torre Neutrophils/100 WBC (Bld) 61.4 % Normal 43.0-75.0 [facility] Comment on above: Performed By: #### C BC #### [facility] [address] [place] [address] Dr. Jj Torre Platelet mean volume (Bld) [Entitic vol] 9.2 fL Critically low 9.5-13.5 [facility] Comment on above: Performed By: #### C BC #### [facility] [address] [place] [address] Dr. Jj Torre PLT 214 103/ul Normal 150-450 [facility] Comment on above: Performed By: #### C BC #### [facility] [address] [place] [address] Dr. Jj Torre RBC 5.62 106/ul Critically high 4.20-5.40 [facility] Comment on above: Performed By: #### C BC #### [facility] [address] [place] [address] Dr. Jj Torre WBC 8.1 103/ul Normal 4.0-11.0 [facility] Comment on above: Performed By: #### C BC #### [facility] [address] [place] [address] Dr. Jj Torre GLYCOHEMOGLOBIN A1Con 2022 ADA RECOMMENDATION SEE BELOW Normal [facility] Comment on above: Result Comment: ADA RECOMMENDED LIMIT 4.0 - 6.0 ADA THERAPEUTIC TARGET < 7.0 ACTION SUGGESTED > 7.0 Performed By: #### A 1C #### [facility] [address] [place] [address] Dr. Jj Torre Glucose [Mass/Vol] 258 mg/dL Normal [facility] Comment on above: Performed By: #### A 1C #### [facility] [address] [place] [address] Dr. Jj Torre HbA1c (Bld) [Mass fraction] 10.6 % Critically high 4.5-6.2 [facility] Comment on above: Performed By: #### A 1C #### [facility] [address] [place] [address] Dr. Jj Torre MICROALBUMIN, RAND URon 09-25 mALB 1.7 mg/L Normal <=30.0 [facility] Comment on above: Performed By: #### M ALBR #### [facility] [address] [place] [address] Dr. Jj Torre PROF 14(COMP METB)on 023 Albumin [Mass/Vol] 3.3 g/dL Critically low 3.4-5.0 [facility] Comment on above: Performed By: #### C MP #### [facility] [address] [place] [address] Dr. Jj Torre Albumin/Globulin [Mass ratio] 0.7 {ratio} Normal [facility] Comment on above: Performed By: #### C MP #### [facility] [address] [place] [address] Dr. Jj Torre ALP [Catalytic activity/Vol] 104 U/L Normal 46-116 [facility] Comment on above: Performed By: #### C MP #### [facility] [address] [place] [address] Dr. Jj Torre ALT [Catalytic activity/Vol] 13 U/L Critically low 14-59 [facility] Comment on above: Performed By: #### C MP #### [facility] [address] [place] [address] Dr. Jj Torre Anion gap [Moles/Vol] 7.8 mmol/L Normal [facility] Comment on above: Performed By: #### C MP #### [facility] [address] [place] [address] Dr. Jj Torre AST [Catalytic activity/Vol] 9 U/L Critically low 15-37 [facility] Comment on above: Performed By: #### C MP #### [facility] [address] [address] [address] Jj Torre Bilirubin [Mass/Vol] 0.5 mg/dL Normal 0.2-1.0 [facility] Comment on above: Performed By: #### C MP #### [facility] [address] [address] [address] Jj Torre Calcium [Mass/Vol] 9.6 mg/dL Normal 8.5-10.1 [facility] Comment on above: Performed By: #### C MP #### [facility] [address] [place] [address] Dr. Jj Torre Chloride [Moles/Vol] 100 mmol/L Normal 98-107 [facility] Comment on above: Performed By: #### C MP #### [facility] [address] [address] [address] Jj Torre CO2 [Moles/Vol] 30.1 mmol/L Normal 21.0-32.0 [facility] Comment on above: Performed By: #### C MP #### [facility] [address] [place] [address] Dr. Jj Torre Creatinine [Mass/Vol] 0.56 mg/dL Normal 0.55-1.02 [facility] Comment on above: Performed By: #### C MP #### [facility] [address] [address] [address] Jj Torre EGFR-AF COLOMBIAN >60 Normal >=60 [facility] Comment on above: Performed By: #### C MP #### [facility] [address] [place] [address] Dr. Jj Torre EGFR-NON AF COLOMBIAN >60 Normal >=60 [facility] Comment on above: Performed By: #### C MP #### [facility] [address] [place] [address] Dr. Jj Torre Globulin (S) [Mass/Vol] 4.5 g/dL Normal [facility] Comment on above: Performed By: #### C MP #### [facility] [address] [address] [address] Jj Torre Glucose [Mass/Vol] 343 mg/dL Critically high 74-106 T [facility] Comment on above: Performed By: #### C MP #### [facility] [id number] Jj Torre Potassium [Moles/Vol] 3.9 mmol/L Normal 3.5-5.1 [facility] Comment on above: Performed By: #### C MP #### [facility] [address] [address] [address] Jj Torre Protein [Mass/Vol] 7.8 g/dL Normal 6.4-8.2 [facility] Comment on above: Performed By: #### C MP #### [facility] [address] [address] [address] Jj Torre Sodium [Moles/Vol] 134 mmol/L Critically low 136-145 [facility] Comment on above: Performed By: #### C MP #### [facility] [address] [address] [address] Jj Torre Urea nitrogen [Mass/Vol] 11.0 mg/dL Normal 7.0-18.0 [facility] Comment on above: Performed By: #### C MP #### [facility] [address] [address] [address] Jj Torre Urea nitrogen/Creatinine [Mass ratio] 19.6 mg/mg Normal [facility] Comment on above: Performed By: #### C MP #### [facility] [id number] Jj Torre US venous duplex GILLIAN Stanley US venous duplex [facility] Main [address] [id number] Ultrasound Report Signed Patient: Lidia Davis MR#: [id number] 755 : 1950 Acct:[id number] Age/Sex: 72 / F ADM Date: 06/21/22 Loc: Room: Type: [facility] Attending Dr: Sheila Alvarez TICKET MANAGER-C Ordering Provider: Sheila Alvarez APRN Date of [...] OR LEFT LOWER EXTREMITY. Impression dictated by: Ca Cramer MD06/24/2022 4:41 PM Dictation Location: [place] [address] Tech: Yeimy Maynard Transcribed By: [facility] 06/24/22 1641 Dictated By: Ca Cramer MD 06/24/22 1640 Signed By: 06/24/22 1641 [facility] Vital Signs Date Time Vital Sign Value Performing Clinician Facility 04-15-2023 11:15-0400 Body height 172.72 cm Chivo Bullard Other [facility] Other 04-15-2023 11:15-0400 Body mass index (BMI) [Ratio] 27.06 kg/m2 Chivo Bullard Other [facility] Other 04-15-2023 11:15-0400 Body temperature 97.3 [degF] Chivo Bullard Other [facility] Other 04-15-2023 11:15-0400 Body weight 80.74 kg Chivo Bullard Other [facility] Other 04-15-2023 11:15-0400 Diastolic blood pressure 82 mm[Hg] Chivo Bullard Other [facility] Other 04-15-2023 11:15-0400 SaO2% (BldA) [Mass fraction] 98 % Chivo Bullard Other [facility] Other 04-15-2023 11:15-0400 Systolic blood pressure 138 mm[Hg] Chivo Bullard Other [facility] Other 11-26-2022 11:45-0400 Body height 172.72 cm Sheila Villarreallinwood Other [facility] Other 11-26-2022 11:45-0400 Body mass index (BMI) [Ratio] 27.06 kg/m2 Sheila Villarreallinwood Other [facility] Other 11-26-2022 11:45-0400 Body temperature 97.8 [degF] Sheila Rutlinwood Other [facility] Other 11-26-2022 11:45-0400 Body weight 80.74 kg Sheila Villarreallinwood Other [facility] Other 11-26-2022 11:45-0400 Diastolic blood pressure 72 mm[Hg] Sheila Alvarez Other [facility] Other 11-26-2022 11:45-0400 SaO2% (BldA) [Mass fraction] 98 % Sheila Rutlinwood Other [facility] Other 11-26-2022 11:45-0400 Systolic blood pressure 116 mm[Hg] Sheila Gonzalezo Other [facility] Other 07-01-2022 12:00-0500 Body height 172.72 cm Sheila Alvarez Other [facility] Other 07-01-2022 12:00-0500 Body mass index (BMI) [Ratio] 27.06 kg/m2 Sheila Alvarez Other [facility] Other 07-01-2022 12:00-0500 Body temperature 97.1 [degF] Sheila Alvarez Other [facility] Other 07-01-2022 12:00-0500 Body weight 80.74 kg Sheila Alvarez Other [facility] Other 07-01-2022 12:00-0500 Diastolic blood pressure 60 mm[Hg] Sheila Alvarez Other [facility] Other 07-01-2022 12:00-0500 SaO2% (BldA) [Mass fraction] 97 % Sheila Alvarez Other [facility] Other 07-01-2022 12:00-0500 Systolic blood pressure 142 mm[Hg] Sheila Alvarez Other [facility] Other 11-19-2021 12:00-0400 Body height 172.72 cm Chivo Bullard Other [facility] Other 11-19-2021 12:00-0400 Body mass index (BMI) [Ratio] 30.86 kg/m2 Chivo Bullard Other [facility] Other 11-19-2021 12:00-0400 Body temperature 97 [degF] Chivo Bullard Other [facility] Other 11-19-2021 12:00-0400 Body weight 92.08 kg Chivo Sotorer Other [facility] Other 11-19-2021 12:00-0400 Diastolic blood pressure 74 mm[Hg] Chivo Buehrer Other [facility] Other 11-19-2021 12:00-0400 SaO2% (BldA) [Mass fraction] 92 % Chivo Buehrer Other [facility] Other 11-19-2021 12:00-0400 Systolic blood pressure 138 mm[Hg] Chivo Buehrer Other [facility] Other 09-03-2021 13:00-0500 Body height 172.72 cm Chivo Sotorer Other [facility] Other 09-03-2021 13:00-0500 Body mass index (BMI) [Ratio] 30.86 kg/m2 Chivo Beanehrer Other [facility] Other 09-03-2021 13:00-0500 Body temperature 98.5 [degF] Chivo Beanehrer Other [facility] Other 09-03-2021 13:00-0500 Body weight 92.08 kg Chivo Beanehrer Other [facility] Other 09-03-2021 13:00-0500 Diastolic blood pressure 92 mm[Hg] Chivo Buehrer Other [facility] Other 09-03-2021 13:00-0500 SaO2% (BldA) [Mass fraction] 96 % Chivo Bullard Other [facility] Other 09-03-2021 13:00-0500 Systolic blood pressure 160 mm[Hg] Chivo Bullard Other [facility] Other Encounters Encounter Date Encounter Type Care Provider Facility Start: 09-11-2023 Bamboo flowsheet Mark Gilsonelizabethsana P TA [facility] Start: 09-11-2023 Bamboo flowsheet Mark Rigginselizabethall P TA [facility] Start: 09-11-2023 End: 09-11-2023 ambulatory Mark Bucknersana DOCK SUPERINTENDENT [facility] Comment on above: Adhesive capsulitis of right shoulder (Primary Dx); Acute pain of right shoulder Start: 09-09-2023 Bamboo flowsheet Lucho vazquez PT Work Phone: [facility] Start: 09-09-2023 Bamboo flowsheet Lucho niceton PT Work Phone: [facility] Start: 09-09-2023 End: 09-09-2023 ambulatory Lucho Simmons PT Work Phone: [facility] Comment on above: Adhesive capsulitis of right shoulder (Primary Dx); Acute pain of right shoulder Start: 09-08-2023 End: 09-08-2023 ambulatory CA GARCIA Not Available Start: 09-08-2023 End: 09-08-2023 Office outpatient visit 10 minutes Ca Garcia PA Work Phone: [facility] Comment on above: Acute pain of right shoulder (Primary Dx); Adhesive capsulitis of right shoulder Start: 09-04-2023 Bamboo flowsheet Brennan Adair DOCK SUPERINTENDENT [facility] Start: 09-04-2023 Bamboo flowsheet Brennan Brink DOCK SUPERINTENDENT [facility] Start: 09-04-2023 End: 09-04-2023 ambulatory Brennan Brink DOCK SUPERINTENDENT [facility] Comment on above: Adhesive capsulitis of right shoulder (Primary Dx); Acute pain of right shoulder Start: 08-27-2023 End: 08-27-2023 ambulatory LUCHO SIMMONS Not Available Start: 08-25-2023 End: 08-25-2023 ambulatory MARK DOWNEY Not Available Start: 08-20-2023 End: 08-21-2023 ambulatory MARK DOWNEY Not Available Start: 08-18-2023 End: 08-18-2023 ambulatory MARK DOWNEY Not Available Start: 08-14-2023 End: 08-14-2023 ambulatory LUCHO SIMMONS Not Available Start: 08-11-2023 End: 08-12-2023 ambulatory CA GARCIA Not Available Start: 08-06-2023 End: 08-06-2023 ambulatory ALMAZ BAHLOTUS Not Available Start: 04-15-2023 End: 04-15-2023 ambulatory Chivo Bullard Other [facility] Other Start: 04-15-2023 Office outpatient vi sit 25 minutes Chivo Bullard [facility] Start: 11-26-2022 End: 11-26-2022 ambulatory Sheila Alvarez Other [facility] Other Start: 11-26-2022 Patient encounter procedure Sheila Alvarez [facility] Surgery Start: 11-11-2022 End: 11-11-2022 ambulatory Sheila Alvarez Facility:[facility] Start: 11-08-2022 (EVLT) EVLT saphenou s vein ablation Chivo Bullard [facility] Vascular Surgery Start: 11-08-2022 End: 11-08-2022 ambulatory Chivo Bullard Other [facility] Other Start: 10-08-2022 End: 10-09-[address] GUS HODGE Facility: Start: 07-01-2022 End: 07-01-2022 ambulatory Sheila Alvarez Other [facility] Other Start: 07-01-2022 Follow-up encounter Sheila [facility] Start: 06-21-2022 End: 06-21-2022 ambulatory Sheila Alvarez Facility:[facility] Start: 06-12-2022 (Sclerother) Sclerotherapy Sheila Alvarez [facility] Start: 06-12-2022 End: 06-12-2022 ambulatory Sheila Alvarez Other [facility] Other Start: 11-19-2021 End: 11-19-2021 ambulatory Chivo Beanmarlinerer Other [facility] Other Start: 11-19-2021 Office outpatient vi sit 15 minutes Chivo Sotorefred [facility] Start: 10-24-2021 End: 10-24-2021 ambulatory Chivo Sotorer Other [facility] Other Start: 10-24-2021 Telephone encounter Chivo Bullard [facility] Vascular Surgery Start: 09-03-2021 End: 09-03-2021 ambulatory Chivo Sotorer Other [facility] Other Start: 09-03-2021 Office outpatient vi sit 25 minutes Chivo Buehrer [facility] Vascular Surgery Procedures Date Procedure Procedure Detail Performing Clinician Start: 06-25-2023 Mammography Brennan light PTA Plan of Treatment Date Care Activity Detail Author Start: 06-25-2026 Screening for malign ant neoplasm of colon [facility] Start: 08-06-2024 Pneumococcal Vaccine : 65+ Years (1 - PCV) Pneumococcal Vaccine: 65+ Years (1 - PCV) [facility] Comment on above: Postponed from 04/20 (Patient Refused) Start: 08-06-2024 Pneumococcal Vaccine : 65+ Years (1 of 2 - PCV) Pneumococcal Vaccine: 65+ Years (1 of 2 - PCV) [facility] Comment on above: Postponed from 04/20 (Patient Refused) Start: 06-25-2024 Screening for malign ant neoplasm of breast Mammogram [facility] Start: 06-10-2024 Medicare Annual Wellness (AWV) Medicare Annual Wellness (AWV) [facility] Start: 01-25-2024 Influenza vaccination Influenza Vacc ine (#1) [facility] Comment on above: Postponed from 03/28 (Patient Refused) Start: 10-20-2023 End: 10-20-2023 Patient encounter procedure 10/20/2023 9:15 AM EDT Office Visit [facility] [address] [facility] [address] [place] [address] Ca Garcia PA [address] [place] [address] [facility] Start: 09-26-2023 End: 09-26-2023 ambulatory 09/26/2023 10:00 AM EST Treatment [facility] [address] [facility] [address] [place] [address] Brennan Adair PTA [facility] Start: 09-23-2023 Hemoglobin A1c measurement Diabetes: Hemoglobin A1C [facility] Start: 09-19-2023 End: 09-19-2023 ambulatory 09/19/2023 10:00 AM EST Treatment [facility] [address] [facility] [address] [place] [address] Brennan Adair PTA [facility] Start: 09-17-2023 End: 09-17-2023 Patient encounter procedure 09/17/2023 9:00 AM EST Office Visit [facility] [address] [address] Almaz Pérez, CIPRIANO [address] [place] [address] [facility] Start: 09-11-2023 End: 09-11-2023 ambulatory [facility] Comment on above: Adhesive capsulitis of right shoulder (Primary Dx); Acute pain of right shoulder Start: 09-09-2023 End: 09-09-2023 ambulatory 09/09/2023 10:00 AM EST Treatment [facility] [address] [place] [address] Lucho Simmons, PT [address] [place] [address] [facility] Start: 09-08-2023 Chart abstracting 09/08/2023 A bstract [facility] [address] [place] [address] Ca Garcia PA [address] [place] [address] [facility] Start: 09-08-2023 End: 09-08-2023 Patient encounter procedure 09/08/2023 9:30 AM EST Office Visit [facility] [address] [facility] [address] [place] [address] Ca Garcia PA [address] [facility] [address] [place] [address] [facility] Start: 1962 Glaucoma screening Diabetes: R etinopathy Screening [facility] Start: 1952 Screening for malign ant neoplasm of colon [facility] Payers Date Payer Category Payer Unknown GENERIC OTHER GE NERIC OTHER [id number] 2022-Present [phone] [address] [address] [place] [address] [id number] 2022 Self-pay 2018 Medicare MEDICARE MEDICAR E PART B [id number] 2018-[place] [address] [place] [address] Medicare [id number] 1959 Medicare [id number] 1959 Unknown [id number] 1952 Unknown [id number] [id number] 1952 Unknown [id number] 2.16.840.1.933281.3.579.2.125 9 1952 Unknown [id number] 2.16.840.1.252496.3.579.2.125 9 1952 Unknown [id number] 2.16.840.1.269481.3.579.2.125 9 1952 Unknown [id number] 2.16.840.1.623382.3.579.2.125 9 1952 Unknown [id number] 2.16.840.1.410113.3.579.2.125 9 1952 Unknown [id number] 2.16.840.1.673885.3.579.2.125 9 1952 Unknown [id number] 2.16.840.1.455762.3.579.2.125 9 1952 Unknown [id number] 2.16.840.1.332593.3.579.2.125 9 1952 Unknown [id number] 2.16.840.1.698373.3.579.2.125 9 1952 Unknown [id number] 2.16.840.1.818125.3.579.2.125 9 1952 Unknown [id number] 2.16.840.1.449863.3.579.2.125 9 1952 Unknown [id number] 2.16.840.1.438682.3.579.2.125 9 Unknown [id number] 2.16.840.1.495129.3.579.2.531 Unknown [id number] 2.16.840.1.252661.3.579.2.531 Social History Date Type Detail Facility Start: 08-11-2023 End: 09-08-2023 Sex Assigned At [facility] Other Start: 08-04-2023 Tobacco smoking status NHIS Never smoked tobacco [facility] Start: 08-11-2023 End: 09-08-2023 Alcohol intake Current drinker of alcohol (finding) [facility] Start: 08-11-2023 End: 09-08-2023 Alcohol intake [facility] Start: 08-04-2023 Alcohol Comment DAILY 7 DAYS A WEEK 1 DRINK [employer] [facility] Start: 1950 Sex Assigned At Not on file N [facility] Clinical Notes 09-03-2021 to 09-09-2023 Lucho Simmons PT - 09/09/2023 10:00 AM ANDIE Augirre - 09/08/2023 9:30 AM EST Note Date & Type Note Facility 09-09-2023 History of Presen t illness Narrative Physical Therapy Physical Therapy Treatment Visit Patient Name: Lidia Davis Today's Date: 09/10/2023 Encounter Diagnoses Name Primary? Adhesive capsulitis of right shoulder Yes Acute pain of right shoulder Visit number: 7 Supervised Time: 40 minutes Total Time: 55minutes Time IN: 10:00 AM Time OUT: 10:55 AM History: Pt. Presents to PT with c/c of right shoulder pain and limited ROM. Pt noticed her losing her right shoulder ROM around Thanksgiving. Occasional N/T in right UE. Difficulty perform ADLs and household activities due to limited shoulder ROM. Pt. In unable to perform activities 90 degrees. Increased shoulder pain while reaching behind her back. Precautions: as tolerated Objective: PT Evaluation (08/14/23) Right shoulder AROM: flexion 90 deg, abduction 90 deg, ER right ear, IR sacrum Right shoulder PROM: flexion 140 deg, abduction 120 deg, ER 75 deg, IR 50 deg Joint: moderate hypomobility Flexibility: posterior capsular tightness, moderate pectoralis muscle tightness Strength: 5/5 below 90 degrees, scapular 4/5 Palpation: TTP anterior shoulder UEFS: 46/80 Goals: To be met by 6 weeks 1) Pt. Will report of 0/10 right shoulder pain while reaching/lifting objects overhead to help improve her functional mobility and return to prior level of functional mobility. 2) Pt. Will demonstrate 160 degree of active shoulder flexion/abduction to help improve her functional mobility and quality of life. 3) Pt. Will demonstrate normal functional ER/IR to perform daily ADL and don/doff jacket to help improve her functional mobility. 4) Pt. Will demonstrate 5/5 right shoulder strength grossly in all planes to allow her to lift/carry objects to help improve her functional mobility and quality of life. 5) Pt. Will score 70 or greater UEFS to help improve her functional mobility. Subjective/Pain: Pt. Report ortho is pleased with her shoulder progress. Pt. Is compliant with HEP. Able to perform more household activities. TREATMENT: Manual: supine: MFR to right shoulder, PROM to right shoulder in all planes (12 minutes) Therapeutic Exercise: guided patient through skilled therapeutic exercises; exercises in grid (30 minutes) claudia/UBE 5 minutes Therapeutic Activity: Neuromuscular Re-education: Modalities: Assessment: The patient has participated in 7 outpatient PT sessions since start of care on 08/14/23. Pt. Will benefit from skilled PT services. PT treatment to focus on improving shoulder ROM and scapular strength. Pt. Continues to demonstrate good active and passive shoulder ROM in all planes. Good compliance with HEP. Plan: Recommend outpatient PT 2x/week for 4-6 weeks per above PT POC pending patient progress and medical necessity standards I hereby deem this POC medically necessary. Please sign below and fax back to the number below. Physician Signature: ____ Date: documented in this encounter [facility] 09-08-2023 History of Presen t illness Narrative Images from the original note were not included. HISTORY OF PRESENT ILLNESS: EST PT Lidia Davis is an 73 y.o. @ female. EST PT RECHECK RT SHOULDER PAIN - S/P [facility] CORTISONE INJ 08/11/23; GOOD RELIEF - S/P PT [facility] [place]; INCREASE ROM/STRENGTH XRAY RT SHOULDER TODAY CHANGE 08/11/23 NO MRI [facility]ORT[facility]ONE INJ 08/11/23 PT [facility] [place] PT IS PLEASED WITH PROGRESS- NOTES SOME DISCOMFORT WHEN REACHING BEHIND BACK- +NAPROXEN - LESS DIFFICULTY GETTING DRESSED -PT IS RT HAND DOMINANT ALLERGIES: No Known Allergies HOME MEDICATIONS: Current Outpatient Medications Medication Instructions gabapentin (NEURONTIN) 600 mg, Oral, 3 times daily glimepiride (AMARYL) 2 mg, Oral, 2 times daily meclizine (Antivert) 25 MG tablet 1 tablet, Oral, 3 times daily PRN naproxen (EC NAPROSYN) 500 mg, Oral, 2 times daily with meals, Do not crush, chew, or split. pioglitazone (ACTOS) 30 mg, Oral, Daily PHYSICAL EXAM: Shoulder Musculoskeletal Exam Inspection Right Right shoulder inspection is normal. Ecchymosis: none Peripheral edema: none Atrophy: none Masses: none Palpation Right Right shoulder palpation is normal. Crepitus: no crepitus Increased warmth: none Tenderness: present Anterior shoulder: mild Posterior shoulder: mild Clavicle: none AC joint: none Sternoclavicular joint: none Rotator cuff: none Greater tuberosity: none Trapezius: none Medial scapula: none Bicipital groove: none Proximal biceps: none Distal biceps: none Lateral arm: mild Elbow: none Range of Motion Right Right shoulder range of motion is normal. Active ROM: abnormal and pain. Active ROM comment: + pain on end rom.. Passive ROM: abnormal and pain. Active forward elevation: 130. Passive forward elevation: 150. Shoulder active abduction: 120. Passive abduction: 150. Active external rotation at side: 50. Passive external rotation at side: 70. Internal rotation: L5. Strength Right External rotation: 5/5. External rotation is not affected by pain. Internal rotation: 5/5. Internal rotation is not affected by pain. Abduction: 5/5. Abduction is not affected by pain. Biceps: 5/5. Triceps: 5/5. Neurovascular Right Radial pulse: normal and 2+ Capillary refill: <3 sec Axillary nerve sensory distribution: normal Scapula Right Right shoulder scapula is normal. Position: normal Winging: none Special Tests Right Rotator Cuff Signs Neer's test: negative Solis test: negative Biceps/taya Signs Speed's test: negative AC Joint Signs Active horizontal adduction pain: negative General Constitutional: appears stated age Labored breathing: no Neurological: alert and oriented x3 Vitals: There is no height or weight on file to calculate BMI. Tobacco Use: Unknown (08/11/2023) Patient History Smoking Tobacco Use: Never Smokeless Tobacco Use: Unknown Passive Exposure: Not on file Alcohol Use: Not on file IMAGING: Procedures No orders of the defined types were placed in this encounter. ASSESSMENT: No diagnosis found. PLAN: Firm endpoints, still consistent with frozen shoulder, no pain with stressing of the rotator cuff. Patient pleased with increased motion, she is significantly better than previous. She is dedicated to home exercises. I recommend she finish the next 2 scheduled physical therapies and scheduled 2 more appointments one-week apart once a week to ensure she has not regressing on her range motion as he transitioned to home exercise plan. We will recheck her progress in 6 weeks in the office. Patient appears to be functioning too well to consider MRI or TONY with discussion. Patient also aware that we can not rule out partial tear of the rotator cuff given her function. Patient pleased with progress. I am 100 percent better than before. Questions answered in laymen terms at the bedside. The diagnosis, home exercise plan and any ongoing restrictions/ recommendations reviewed. If unable to be reached in office, I recommend evaluation at nearest Emergency Room if any symptoms worsened or new symptoms develop for requiring urgent evaluation. CARYN Segal documented in this encounter [facility] 04-15-2023 Evaluation note Encounter Date Diagnosis Assessment Notes Mar, Varicose veins of left leg with edema (ICD-10 - I83.892) Mar, Other Varicose veins I talk with this patient about potentially continuing treatment for her left leg varicose vein. She does not feel that her symptoms are severe enough at this time to warrant intervention. I advised her to consider at least [id number] r graded compression stockings to minimize the [...] any time should she wish additional treatment [facility] Other 05-02-2023 Evaluation note* Encounter Date Diagnosis Assessment Notes Treatment Notes Treatment Clinical Notes November, Venous insufficiency (chronic) (peripheral) (ICD-10 [...] the meantime with any issues or concerns. [facility] Other 04-01-2023 History general Narrative - Reported* Type Description Date Medical History type II diabetes Surgical History cholecystectomy Surgical History tubal ligation Surgical History MICRO PHLEBECTOMY RT LEG 2021 Surgical History Venaseal Left Leg 10/2022 [facility] Other 12-05-2022 Evaluation note* Encounter Date Diagnosis Assessment Notes Treatment Notes Treatment Clinical Notes Jun, Symptomatic varicose veins of both [...] near future. Patient denies any additional questions. [facility] Other 04-25-2022 Evaluation note* Encounter Date Diagnosis Assessment Notes Treatment Notes Treatment Clinical Notes Oct, Varicose veins of bilateral lower extremities with other complications (ICD-10 - I83.893) Oct, Other Painful varicos e veins She has a good outcome after [...] be treated since she has minimal symptoms. [facility] Other 02-07-2022 Evaluation note* Encounter Date Diagnosis Assessment Notes Treatment Notes Treatment Clinical Notes Aug, Varicose veins of bilateral lower [...] I believe should be best treated with microphlebectomy. I described to her in detail the nature of the procedure she agrees to proceed.] [facility] Other Evaluation noteNo [employer] Other Evaluation note* Diagnosis Adhesive capsulitis of right shoulder- Primary Acute pain of right shoulder [facility] Diagnosis Acute pain of right shoulder- Primary Adhesive capsulitis of right shoulder documented in this encounter [facility]* Diagnosis Adhesive capsulitis of right shoulder- Primary Acute pain of right shoulder documented in this encounter [facility]* Diagnosis Adhesive capsulitis of right shoulder- Primary Acute pain of right shoulder documented in this encounter [facility] HealthcareHistory general Narrative - Reported* Type Description Date Medical History diabetes mallitus Medical History [ ] Surgical History cholecystectomy Surgical History tubal ligation Surgical History [ ] [facility] Other History general Narrative - Reported* Type Description Date Medical History type II diabetes Surgical History cholecystectomy Surgical History tubal ligation Surgical History MICRO PHLEBECTOMY RT LEG 2021 [facility] [employer] Other Reason for visit NarrativeVASC DR. BULLARD WANTED TO SEE BEFORE DECIDING WHAT PROCEDURE TO DO, [facility] Other reason for visit Narrative* Consultation (Routine) - Authorized Specialty Diagnoses / Procedures Referred By Iam valverde Referred To Contact Physical Therapy Diagnoses Acute pain of right shoulder Adhesive capsulitis of right shoulder Procedures ID OFFICE/OUTPATIENT NEW HIGH MDM 60 MINUTES Ca Garcia, PA [address] [facility] [address] [place] [address] Lucho Simmons, PT [address] [facility] [address] [place] [address] Referral ID Status Reason Start Date Expiration Date Visits Requested Visits Authorized [id number] Authorized Consult and Treat 08/11/2023 02/07/2024 10 30 [facility] Summary Purpose Family History No Family History Records FoundNo Family History Records FoundNo Family History Records Found Advance Directives No Advanced Directives Records FoundNo Advanced Directives Records FoundNo Advanced Directives Records Found Additional Source Comments REASON FOR VISIT (unrecogniz ed section and content) Reason Comments Pain 4 MO VV F/U NO TESTING, Follow-up varicose vein2 WK FOLLOW UP; VENASEAL LEFT LEG; ULTRASOUND 11/11/22VENASEAL LEFT LEGFOLLOW UP AFTER VARITHENA RIGHT LEG; ULTRASOUND DONE [facility] 11/25/22VARITHENA RT LEGVASC 2 WK S/P MICRO RIGHT LEG, Follow-up after microphlebectomy INFORMATION SOURCE (unrecogn ized section and content) DATE CREATED AUTHOR 10/15/2022 [facility] DATE CREATED AUTHOR AUTHOR'S ORGANIZ ATION 11/22/2022 [facility] DATE CREATED AUTHOR AUTHOR'S ORGANIZ ATION 09/13/2023 [facility] Care Teams (unrecognized sec tion and content) University [employer] Relationship Specialty Start Date End Date Bryant Torres MD [address] [place] [address] PCP - General Family Medicine 09/02/23 Almaz Pérez NP [address] [place] [address] Nurse Practitioner Family Medicine 04/27/23 University [employer] Relationship Specialty Start Date End Date Bryant Torres MD [address] [place] [address] PCP - General Family Medicine 09/02/23 Almaz Pérez NP [address] [place] [address] Nurse Practitioner Family Medicine 04/27/23 University [employer] Relationship Specialty Start Date End Date Bryant Torres MD [address] [place] [address] PCP - General Family Medicine 09/02/23 Almaz Pérez NP [address] [place] [address] Nurse Practitioner Family Medicine 04/27/23 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 04/27/23 FOR RECORDS PERTAINING TO PATIENTS WHO ARE [...] BE BASED ON THE PRIMARY CLINICAL RECORDS. [facility] [employer] [facility]. provides no warranty or guarantee of the accuracy or completeness of information in this document.
[2023-10-20 13:05] LABS: Anion Gap 13.8; BUN Creatinine Ratio 12.7; Calcium 9.2 mg/dL (8.5-10.1); Carbon Dioxide 31.1 mmol/L (21.0-32.0); Chloride 98 mmol/L (98-107); Estimated GFR (African America >60 (>=60); Estimated GFR (Non-African Ame >60 (>=60); Glucose 284 mg/dL (74-106); Potassium 3.9 mmol/L (3.5-5.1); Sodium 139 mmol/L (136-145)
[2023-10-20 13:48] LABS: Estimated Average Glucose 192 mg/dL; Glycohemoglobin A1C 8.3 % (4.5-6.2)
== END 2023-10-20 11:07 | disposition home or self-care (01) ==
LOC: LAB 11:09
PROVIDERS: PCP Nurse Practitioner; Visit Provider Nurse Practitioner
DX: E11.21 Type 2 diabetes mellitus with diabetic nephropathy (principal); I10 Essential (primary) hypertension
CPT/HCPCS: 36415; 80048; 83036

== ENCOUNTER 2023-11-27 10:05 | Outpatient (OUT) | payer MEDICARE, OTHER, SELFPAY ==
[2023-11-27 10:43] LABS: Basophils Percent Auto 0.3 % (0.2-2.0); Eosinophils Absolute Auto 0.2 10^3/uL (0.0-0.7); Eosinophils Percent Auto 2.3 % (0.9-7.0); Hematocrit 40.6 % (36.0-48.0); Immature Granulocytes Abs Auto 0.02 10^3/uL (0.00-0.03); Immature Granulocytes Pct Auto 0.3 % (0.0-0.5); Lymphocytes Absolute Auto 1.3 10^3/uL (1.2-3.8); Lymphocytes Percent Auto 16.1 % (20.5-60.0); Mean Corpuscular Hemoglobin 27.4 pg (26.7-34.0); Mean Corpuscular Volume 85.5 fL (81.0-99.0); Mean Platelet Volume 9.5 fL (9.5-13.5); Monocytes Absolute Auto 0.6 10^3/uL (0.3-0.8); Monocytes Percent Auto 7.8 % (1.7-12.0); Neutrophils Absolute Auto 5.7 10^3/uL (1.4-6.5); Neutrophils Percent Auto 73.2 % (43.0-75.0); Platelet Count 198 10^3/uL (150-450); Red Blood Count 4.75 10^6/uL (4.20-5.40); Red Cell Distribution Width 14.4 % (11.0-15.0); White Blood Count 7.8 10^3/uL (4.0-11.0)
[2023-11-27 10:44] LABS: Bilirubin Urine NEGATIVE (NEGATIVE); Blood Urine MODERATE (NEGATIVE); Clarity Urine CLEAR (CLEAR); Color Urine YELLOW (YELLOW); Glucose Urine UA 500 mg/dL (NEGATIVE); Ketones Urine NEGATIVE (NEGATIVE); Leukocyte Esterase Urine SMALL (NEGATIVE); Nitrite Urine NEGATIVE (NEGATIVE); Protein Urine 30 mg/dL (NEG/TRACE); Specific Gravity Urine >=1.030 (1.005-1.025); pH Urine 5.5 (5.0-9.0)
[2023-11-27 10:52] LABS: Urine Microscopic Indicated YES
[2023-11-27 10:57] LABS: Bacteria Urine LARGE #/HPF (NONE SEEN); Mucus Urine NONE SEEN (NONE SEEN); Squamous Epithelial Cell Urine MANY #/LPF (NONE/RARE); WBC Urine 20-50 #/HPF (NONE SEEN)
[2023-11-27 10:58] LABS: Urine Culture Indicated ALREADY ORDERED
[2023-11-27 11:11] LABS: Alanine Aminotransferase 16 U/L (14-59); Albumin Globulin Ratio 0.7; Albumin Level 3.2 g/dL (3.4-5.0); Alkaline Phosphatase 90 U/L (46-116); Anion Gap 10.3; Aspartate Amino Transferase 15 U/L (15-37); BUN Creatinine Ratio 22.1; Bilirubin Total 0.7 mg/dL (0.2-1.0); Calcium 9.7 mg/dL (8.5-10.1); Carbon Dioxide 30.2 mmol/L (21.0-32.0); Chloride 100 mmol/L (98-107); Estimated GFR (African America >60 (>=60); Estimated GFR (Non-African Ame >60 (>=60); Globulin 4.9 g/dL; Glucose 329 mg/dL (74-106); Potassium 3.5 mmol/L (3.5-5.1); Sodium 137 mmol/L (136-145); Total Protein 8.1 g/dL (6.4-8.2)
[2023-11-27 11:20] LABS: Thyroid Stimulating Hormone 2.268 uIU/mL (0.358-3.740)
[2023-11-27 11:47] LABS: Creatine Kinase 41 U/L (26-192); Creatine Kinase MB 0.76 ng/mL (<=3.60); Myoglobin 46 ng/mL (9-82); Troponin I High Sensitivity 4.8 pg/mL (4.0-51.3)
== END 2023-11-27 10:06 | disposition home or self-care (01) ==
LOC: LAB 10:07
PROVIDERS: PCP Nurse Practitioner; Visit Provider Nurse Practitioner
DX: E11.21 Type 2 diabetes mellitus with diabetic nephropathy (principal); R42 Dizziness and giddiness; R82.998 Other abnormal findings in urine
CPT/HCPCS: 36415; 80053; 81001; 82550; 82553; 83874; 84443; 84484; 85025; 87086

== ENCOUNTER 2024-04-19 13:03 | Outpatient (OUT) | payer MEDICARE, OTHER, SELFPAY ==
[2024-04-19 14:04] LABS: Estimated Average Glucose 126 mg/dL
[2024-04-19 15:16] LABS: Anion Gap 9.1; BUN Creatinine Ratio 34.8; Calcium 9.8 mg/dL (8.5-10.1); Carbon Dioxide 29.5 mmol/L (21.0-32.0); Chloride 101 mmol/L (98-107); Estimated GFR (African America >60 (>=60); Estimated GFR (Non-African Ame >60 (>=60); Glucose 144 mg/dL (74-106); Potassium 4.6 mmol/L (3.5-5.1); Sodium 135 mmol/L (136-145)
== END 2024-04-19 13:04 | disposition home or self-care (01) ==
LOC: LAB 13:06
PROVIDERS: PCP Nurse Practitioner; Visit Provider Nurse Practitioner
DX: E11.21 Type 2 diabetes mellitus with diabetic nephropathy (principal)
CPT/HCPCS: 36415; 80048; 83036

== ENCOUNTER 2024-08-10 11:21 | Outpatient (OUT) | payer MEDICARE, OTHER, SELFPAY ==
--- NOTE | 2024-08-10 11:25 | MM_ITS ---
Patient Name: KEI JENSEN MR#: [id number] : 1950 Exam Date: 08/10/2024 Ordering Doctor: NANCY Pérez CNP RADIOLOGY REPORT PROCEDURE: MM TOMOSYNTHESIS SCREENING BI COMPARISON: MAMMO POST BIOPSY LEFT, 07/31/2023. MM BIOPSY LT VAC ASSIST, 07/31/2023. MM DIAGNOSTIC MAMMO UNILAT LT, 07/11/2023. MM TOMOSYNTHESIS SCREENING BI, 06/23/2023. INDICATIONS: Screening Calculator Name NCI Breast Cancer Risk Assessment Tool 5 Year Breast Cancer Risk 2.40% Lifetime Breast Cancer Risk 6.10% Personal Breast Cancer No Personal Ovarian Cancer No Treatments None Family Cancers None LOCATION: [facility] BREAST COMPOSITION: The breasts are heterogeneously dense,which may obscure small masses. FINDINGS: DIAGNOSTIC CATEGORY 2--BENIGN FINDING: RIGHT BREAST: No significant suspicious finding. No significant change has occurred. LEFT BREAST: No significant suspicious finding. Biopsy marker clip posterior upper-outer quadrant with the cluster of previously seen calcifications no longer present. Otherwise no significant change has occurred. RECOMMENDATIONS: ROUTINE MAMMOGRAM AND CLINICAL EVALUATION IN 12 MONTHS. PLEASE NOTE: A NORMAL MAMMOGRAM DOES NOT EXCLUDE THE POSSIBILITY OF BREAST CANCER. A CLINICALLY SUSPICIOUS PALPABLE LUMP SHOULD BE BIOPSIED. Dictated by: Ming Recio M.D. on 08/10/2024 at 16:29 Approved by: Ming Recio M.D. on 08/10/2024 at 16:31
--- OUTSIDE RECORDS SUMMARY | 2024-08-10 11:25 | XMS_ITS | CCD ---
Author Organization [facility] CliniSysc Care Team Providers Care Gravity Prospecting Operator Helper Name Role Phone VikasChivo shin Unavailable Sheila Alvarez Unavailable NAVEEN, DR AGEE Attending Unavailable NAVEEN, DR AGEE Consulting Unavailable NAVEEN, DR AGEE Primary Care Unavailable NAVEEN, DR AGEE Admitting Unavailable Sheila Alvarez Admitting Unavailable Sheila Alvarez Attending Unavailable Gus Hodge Primary Care Unavailable RutSheila palumbo Admitting Unavailable Sheila Alvarez Attending Unavailable Gus Hodge Primary Care Unavailable Beto GILL BOX FIXER, Almaz Unavailable Bryant Torres MD Primary Care Provider Beto GILL BOX FIXER, Almaz Unavailable BETO, ALMAZ Attending Unavailable CA GARCIA Attending Unavailable CA [...] DOWNEY Attending Unavailable CA GARCIA Referring Unavailable AICHHOLZ, ALMAZ Attending Unavailable AICHHOLZ, ALMAZ Attending Unavailable AICHHOLZ, ALMAZ Attending Unavailable AICHHOLZ, ALMAZ Attending Unavailable AICHHOLZ, ALMAZ Attending Unavailable AICHHOLZ, ALMZA Attending Unavailable AICHHOLZ, ALMAZ Attending Unavailable Allergies Allergy Classification Reported Allergen(s) Allergy Type Date of Onset Reaction(s) Facility (10 sources) DULoxetine Drug Allergy GI intolerance [facility] Medications Current Medications Medication Drug Class(es) Dates Sig (Normalized) Sig (Original) aspirin 81 mg chewable tablet (12 sources) Platelet Aggregation Inhibitor, Nonsteroidal Anti-inflammatory Drug Start: 07-26-2024 End: 10-24-2024 aspirin 81 MG chewable tablet Indications: Type 2 diabetes with nephropathy (CMS/HCC) Chew 1 tablet (81 mg) Daily 90 tablet 3 07/26/2024 10/24/2024 Active Start: 01-20-2024 End: 07-20-2024 take 1 tablet by mouth once daily aspirin 81 MG EC tablet Indications: Type 2 diabetes with nephropathy (CMS/HCC) Take 1 tablet (81 mg) by mouth Daily 90 tablet 1 04/21/2024 07/20/2024 Active Blood Glucose Monitoring Suppl (True Metrix Air Glucose Meter) w/Device kit (10 sources) Start: 09-29-2022 Blood Glucose Monitoring Suppl (True Metrix Air Glucose Meter) w/Device kit USE DIRECTED to test BLOOD SUGAR ONCE DAILY 09/29/2022 Active fluticasone propionate 0.05 mg/actuat metered dose nasal spray (6 sources) Corticosteroid Start: 04-21-2024 End: 07-20-2024 take 2 spray(s) nasal route once daily fluticasone (Flonase) 50 MCG/ACT nasal spray Indications: Environmental and seasonal allergies Administer 2 sprays into each nostril Daily Shake gently. Before first use, prime pump. After use, clean tip and replace cap. 48 g 1 04/21/2024 Active gabapentin 600 mg oral tablet (20 sources) Anti-epileptic Agent Start: 08-21-2023 End: 04-16-2024 gabapentin (Neurontin) 600 MG tablet Indications: Diabetic polyneuropathy associated with type 2 diabetes mellitus (CMS/HCC) TAKE 1 TABLET BY MOUTH IN THE MORNING, then ONE TABLET BY MOUTH in the afternoon, and then 2 (TWO) TABLETS BY MOUTH AT BEDTIME 360 tablet 1 04/16/2024 Active Gabapentin 600 M G 1 capsule in am , 1 capsule in afternoon, and 2 capsules at bedtime Active Gabapentin Activ e glimepiride 2 mg oral tablet (20 sources) Sulfonylurea Start: 08-21-2023 End: 08-22-2024 take 1 tablet by mouth in the morning glimepiride (Amaryl) 2 MG tablet Indications: Type 2 diabetes mellitus with other specified complication, without long-term current use of insulin (CMS/HCC) Take 1 tablet (2 mg) by mouth in the morning and 1 tablet (2 mg) in the evening. Take before meals. 180 tablet 1 05/24/2024 08/22/2024 Active take 1 tablet by cecelia th once daily at breakfast Glimepiride 2 MG 1 tablet with breakfast or the first main meal of the day Orally Active Glimepiride Acti ve lisinopril 20 mg oral tablet (11 sources) Angiotensin Converting Enzyme Inhibitor Start: 04-09-2024 End: 10-10-2024 take 1 tablet by mouth in the morning lisinopril 20 MG tablet Indications: Primary hypertension (CMS/HCC) Take 1 tablet (20 mg) by mouth in the morning and 1 tablet (20 mg) before bedtime. 180 tablet 07/12/2024 10/10/2024 Active loratadine 10 mg oral tablet (6 sources) Start: 04-21-2024 End: 07-20-2024 take 1 tablet by mouth once daily loratadine (Claritin) 10 MG tablet Indications: Environmental and seasonal allergies Take 1 tablet (10 mg) by mouth Daily 90 tablet 1 04/21/2024 Active meclizine hydrochloride 25 mg oral tablet (14 sources) Antiemetic Start: 04-28-2023 End: 04-21-2024 take 1 tablet by mouth three times daily as needed for dizziness meclizine (Antivert) 25 MG tablet Take 1 tablet by mouth 3 (three) times a day as needed for dizziness 04/28/2023 04/21/2024 Discontinued (Therapy completed) 24 hr metFORMIN hydrochloride 500 mg extended release oral tablet (10 sources) Biguanide Start: 07-11-2024 End: 10-09-2024 take 2 tablets by mouth every twenty-four hours in the morning metFORMIN XR (Glucophage-XR) 500 MG 24 hr tablet Indications: Type 2 diabetes with nephropathy (CMS/HCC) Take 2 tablets (1,000 mg) by mouth in the morning and 2 tablets (1,000 mg) in the evening. Take before meals. Do not crush, chew, or split.. 360 tablet 07/11/2024 10/09/2024 Active Start: 01-20-2024 End: 04-19-2024 take 2 tablets by mouth every twenty-four hours in the morning metFORMIN XR (Glucophage-XR) 500 MG 24 hr tablet Indications: Type 2 diabetes with nephropathy (CMS/HCC) Take 2 tablets (1,000 mg) by mouth in the morning and 2 tablets (1,000 mg) in the evening. Take before meals. Do not crush, chew, or split.. 360 tablet 1 01/20/2024 Active naproxen 500 mg delayed release oral [...] 09/10/2023 Active pioglitazone 30 mg oral tablet (19 sources) Peroxisome Proliferator Receptor alpha Agonist, Peroxisome Proliferator Receptor gamma Agonist, Thiazolidinedione Start: 10-21-2023 End: 08-10-2024 take 1 tablet by mouth in the morning pioglitazone (Actos) 30 MG tablet Indications: Type 2 diabetes mellitus with other specified complication, without long-term current use of insulin (CMS/HCC) Take 1 tablet (30 mg) by mouth in the morning. 90 tablet 1 05/12/2024 08/10/2024 Active Start: 08-21-2023 take 1 tablet by cecelia th in the morning pioglitazone (Actos) 30 MG tablet Indications: Type 2 diabetes mellitus with other specified complication, without long-term current use of insulin (CMS/HCC) Take 1 tablet (30 mg) by mouth in the morning. 90 tablet 0 08/21/2023 Active Start: 04-15-2023 take 1 tablet by cecelia th every twenty-four hours Actos 30 MG 1 tablet Orally Once a day for 30 day(s) Mar, Active Problems Active Problems Problem Classification Problem Date Documented Date Episodic/Chronic Diabetes mellitus with complications (20 sources) Neuropathy due to diabetes mellitus; Translations: [Type 2 diabetes mellitus with diabetic neuropathy, unspecified] Onset: 08-21-2023 08-21-2023 Chronic Essential hypertension (14 sources) Essential hypertension; Translations: [Essential (primary) hypertension] Onset: 09-17-2023 09-17-2023 Chronic Mood disorders (12 sources) Mild major depression, single episode; Translations: [Major depressive disorder, single episode, mild] Onset: 10-21-2023 10-21-2023 Chronic Other connective tissue disease (5 sources) Adhesive [...] Translations: [Venous insufficiency (chronic) (peripheral)] Episodic Other nutritional; endocrine; and metabolic disorders (20 sources) Body mass index 30+ - obesity; Translations: [Body mass index (BMI) 35.0-35.9, adult] Onset: 08-06-2023 08-06-2023 Chronic Other nutritional; endocrine; and metabolic disorders (1 source) Obesity caused by energy imbalance; Translations: [Morbid (severe) obesity due to excess calories] Onset: 07-26-2024 07-26-2024 Chronic Other screening for suspected conditions (not mental disorders or infectious disease) (1 source) Patient encounter status; Translations: [Encounter for screening mammogram for malignant neoplasm of breast] Onset: 07-26-2024 07-26-2024 Episodic Other upper respiratory disease (8 sources) Allergic disposition; Translations: [Other allergic rhinitis] Onset: 04-21-2024 04-21-2024 Chronic Unclassified (1 source) Varicose veins of left lower extremity with pain; Translations: [Varicose veins of left lower extremity with pain] Onset: 06-21-2022 Varicose veins of lower extremity (20 sources) Varicose veins of lower extremity; Translations: [Varicose veins of bilateral lower extremities with pain] Onset: 09-03-2021 Resolved: 11-19-2021 Episodic Past or Other Problems Problem Classification Problem Date Documented Date Episodic/Chronic Conditions associated with dizziness or vertigo (10 sources) Dizziness; Translations: [Dizziness and giddiness] Onset: 11-27-2023 11-27-2023 Episodic Diabetes mellitus without complication (20 sources) Type 2 diabetes mellitus without complications; Translations: [Diabetes mellitus] Onset: 10-08-2022 Resolved: 09-17-2023 Chronic Genitourinary symptoms and ill-defined conditions (10 sources) Urinary symptoms ; Translations: [Unspecified symptoms and signs involving the genitourinary system] Onset: 11-28-2023 11-28-2023 Episodic Nonmalignant breast conditions (18 sources) Mammographic calcification of left breast; Translations: [Mammographic calcification found on diagnostic imaging of breast] Onset: 07-13-2023 07-13-2023 Episodic Other connective tissue disease (18 sources) Bursitis of right shoulder; Translations: [Bursitis of right shoulder] Onset: 08-06-2023 08-06-2023 Episodic Other non-traumatic joint disorders (20 sources) Pain in right shoulder; Translations: [Pain in joint, shoulder region] Onset: 08-06-2023 08-06-2023 Episodic Other upper respiratory disease (6 sources) Rhinitis; Translations: [Chronic rhinitis] Onset: 04-21-2024 Resolved: 04-21-2024 04-21-2024 Chronic Results Test Name Value Interpretation Reference Range Facility [facility] HEMOGLOBIN A1Con 024 Glucose [Mass/Vol] 126 mg/dL [facility] HbA1c (Bld) [Mass fraction] 6.0 % 4.5 - 6.2 % [facility] Comment on above: ADA RECOMMENDED LIMI T 4.0 - 6.0 ADA THERAPEUTIC TARGET < 7.0 ACTION SUGGESTED > 7.0 [facility] US venous duplex LE LTon US venous duplex [facility] [place] [address] Ultrasound Report Signed Patient: Lidia Davis MR#: [id number] 755 : 1950 Acct:[id number] Age/Sex: 72 / F ADM Date: 11/11/22 Loc: [facility] Room: Type: [facility] Attending Dr: Sheila Alvarez GILL BOX FIXER-C Ordering Provider: Sheila Alvarez APRN Date of [...] Chivo Bullard M.D.11/12/2022 2:36 PM Dictation Location: [place] [address] Tech: Kari Rossxler Transcribed By: CY 11/12/221435 Dictated By: Chivo Bullard MD 11/12/221432 Signed By: 11/12/22 143 [facility] CBC AUTO DIFFon 10-08-2022 BASO # 0.0 103/ul Normal 0.0-0.1 [facility] Comment on above: Performed By: #### C BC #### [facility] [address] [address] [address] Jj Torre Basophils/100 WBC (Bld) 0.4 % Normal 0.2-2.0 [facility] Comment on above: Performed By: #### C BC #### [facility] [address] [address] [address] Jj Torre EO # 0.1 103/ul Normal 0.0-0.7 [facility] Comment on above: Performed By: #### C BC #### [facility] [address] [place] [address] Dr. Jj Torre Eosinophils/100 WBC (Bld) 1.5 % Normal 0.9-7.0 [facility] Comment on above: Performed By: #### C BC #### [facility] [address] [place] [address] Dr. Jj Torre Erythrocyte distribution width (RBC) [Ratio] 13.5 % Normal 11.0-15.0 [facility] Comment on above: Performed By: #### C BC #### [facility] [address] [place] [address] Dr. Jj Torre Hematocrit (Bld) [Volume fraction] 45.1 % Normal 36.0-48.0 [facility] Comment on above: Performed By: #### C BC #### [facility] [address] [place] [address] Dr. Jj Torre Hemoglobin (Bld) [Mass/Vol] 15.0 g/dL Normal 12.0-16.0 [facility] Comment on above: Performed By: #### C BC #### [facility] [address] [place] [address] Dr. Jj Torre IG # 0.01 10e3/ul Normal 0.00-0.03 [facility] Comment on above: Performed By: #### C BC #### [facility] [address] [place] [address] Dr. Jj Torre IG % 0.1 % Normal 0.0-0.5 [facility] Comment on above: Performed By: #### C BC #### [facility] [address] [place] [address] Dr. Jj Torre LYMPH # 2.3 103/ul Normal 1.2-3.8 [facility] Comment on above: Performed By: #### C BC #### [facility] [address] [place] [address] Dr. Jj Torre Lymphocytes/100 WBC (Bld) 28.9 % Normal 20.5-60.0 [facility] Comment on above: Performed By: #### C BC #### [facility] [address] [place] [address] Dr. Jj Torre MANUAL DIFF REQ NO Normal [facility] Comment on above: Performed By: #### C BC #### [facility] [address] [place] [address] Dr. Jj Torre MCH (RBC) [Entitic mass] 26.7 pg Normal 26.7-34.0 [facility] Comment on above: Performed By: #### C BC #### [facility] [address] [place] [address] Dr. Jj Torre MCHC (RBC) [Mass/Vol] 33.3 g/dL Normal 29.9-35.2 [facility] Comment on above: Performed By: #### C BC #### [facility] [address] [place] [address] Dr. Jj Torre MCV (RBC) [Entitic vol] 80.2 fL Critically low 81.0-99.0 [facility] Comment on above: Performed By: #### C BC #### [facility] [address] [place] [address] Dr. Jj Torre MONO # 0.6 103/ul Normal 0.3-0.8 [facility] Comment on above: Performed By: #### C BC #### [facility] [address] [place] [address] Dr. Jj Torre Monocytes/100 WBC (Bld) 7.7 % Normal 1.7-12.0 [facility] Comment on above: Performed By: #### C BC #### [facility] [address] [place] [address] Dr. Jj Torre NEUT # 5.0 103/ul Normal 1.4-6.5 [facility] Comment on above: Performed By: #### C BC #### [facility] [address] [place] [address] Dr. Jj Torre Neutrophils/100 WBC (Bld) 61.4 % Normal 43.0-75.0 [facility] Comment on above: Performed By: #### C BC #### [facility] [address] [place] [address] Dr. Jj Torre Platelet mean volume (Bld) [Entitic vol] 9.2 fL Critically low 9.5-13.5 [facility] Comment on above: Performed By: #### C BC #### [facility] [address] [place] [address] Dr. Jj Torre PLT 214 103/ul Normal 150-450 [facility] Comment on above: Performed By: #### C BC #### [facility] [address] [place] [address] Dr. Jj Torre RBC 5.62 106/ul Critically high 4.20-5.40 [facility] Comment on above: Performed By: #### C BC #### [facility] [address] [place] [address] Dr. Jj Torre WBC 8.1 103/ul Normal 4.0-11.0 [facility] Comment on above: Performed By: #### C BC #### [facility] [address] [place] [address] Dr. Jj Torre GLYCOHEMOGLOBIN A1Con 2022 ADA RECOMMENDATION SEE BELOW Normal [facility] Comment on above: Result Comment: ADA RECOMMENDED LIMIT 4.0 - 6.0 ADA THERAPEUTIC TARGET < 7.0 ACTION SUGGESTED > 7.0 Performed By: #### A 1C #### [facility] [address] [place] [address] Dr. Jj Torre Glucose [Mass/Vol] 258 mg/dL Normal [facility] Comment on above: Performed By: #### A 1C #### [facility] [address] [place] [address] Dr. Jj Torre HbA1c (Bld) [Mass fraction] 10.6 % Critically high 4.5-6.2 [facility] Comment on above: Performed By: #### A 1C #### [facility] [address] [place] [address] Dr. Jj Torre MICROALBUMIN, RAND URon 03- mALB 1.7 mg/L Normal <=30.0 [facility] Comment on above: Performed By: #### M ALBR #### [facility] [address] [address] [address] Jj Torre PROF 14(COMP METB)on 023 Albumin [Mass/Vol] 3.3 g/dL Critically low 3.4-5.0 [facility] Comment on above: Performed By: #### C MP #### [facility] [address] [address] [address] Jj Torre Albumin/Globulin [Mass ratio] 0.7 {ratio} Normal [facility] Comment on above: Performed By: #### C MP #### [facility] [address] [place] [address] Dr. Jj Torre ALP [Catalytic activity/Vol] 104 U/L Normal 46-116 [facility] Comment on above: Performed By: #### C MP #### [facility] [address] [place] [address] Dr. Jj Torre ALT [Catalytic activity/Vol] 13 U/L Critically low 14-59 [facility] Comment on above: Performed By: #### C MP #### [facility] [address] [address] [address] Jj Torre Anion gap [Moles/Vol] 7.8 mmol/L Normal [facility] Comment on above: Performed By: #### C MP #### [facility] [address] [place] [address] Dr. Jj Torre AST [Catalytic activity/Vol] 9 U/L Critically low 15-37 [facility] Comment on above: Performed By: #### C MP #### [facility] [address] [address] [address] Jj Torre Bilirubin [Mass/Vol] 0.5 mg/dL Normal 0.2-1.0 [facility] Comment on above: Performed By: #### C MP #### [facility] [address] [address] [address] Jj Torre Calcium [Mass/Vol] 9.6 mg/dL Normal 8.5-10.1 [facility] Comment on above: Performed By: #### C MP #### [facility] [address] [place] [address] Dr. Jj Torre Chloride [Moles/Vol] 100 mmol/L Normal 98-107 [facility] Comment on above: Performed By: #### C MP #### [facility] [address] [address] [address] Jj Torre CO2 [Moles/Vol] 30.1 mmol/L Normal 21.0-32.0 [facility] Comment on above: Performed By: #### C MP #### [facility] [address] [place] [address] Dr. Jj Torre Creatinine [Mass/Vol] 0.56 mg/dL Normal 0.55-1.02 [facility] Comment on above: Performed By: #### C MP #### [facility] [address] [place] [address] Dr. Jj Torre EGFR-AF BAHAMIAN >60 Normal >=60 [facility] Comment on above: Performed By: #### C MP #### [facility] [address] [place] [address] Dr. Jj Torre EGFR-NON AF BAHAMIAN >60 Normal >=60 [facility] Comment on above: Performed By: #### C MP #### [facility] [address] [place] [address] Dr. Jj Torre Globulin (S) [Mass/Vol] 4.5 g/dL Normal [facility] Comment on above: Performed By: #### C MP #### [facility] [address] [place] [address] Dr. Jj Torre Glucose [Mass/Vol] 343 mg/dL Critically high 74-106 T [facility] Comment on above: Performed By: #### C MP #### [facility] [address] [place] [address] Dr. Jj Torre Potassium [Moles/Vol] 3.9 mmol/L Normal 3.5-5.1 [facility] Comment on above: Performed By: #### C MP #### [facility] [address] [place] [address] Dr. Jj Torre Protein [Mass/Vol] 7.8 g/dL Normal 6.4-8.2 [facility] Comment on above: Performed By: #### C MP #### [facility] [address] [address] [address] Jj Torre Sodium [Moles/Vol] 134 mmol/L Critically low 136-145 [facility] Comment on above: Performed By: #### C MP #### [facility] [address] [address] [address] Jj Torre Urea nitrogen [Mass/Vol] 11.0 mg/dL Normal 7.0-18.0 [facility] Comment on above: Performed By: #### C MP #### [facility] [address] [address] [address] Jj Torre Urea nitrogen/Creatinine [Mass ratio] 19.6 mg/mg Normal [facility] Comment on above: Performed By: #### C MP #### [facility] [address] [address] [address] Jj Torre US venous duplex LE BIon US venous duplex LE BI [place] [address] Ultrasound Report Signed Patient: Lidia Davis MR#: [id number] 755 : 1950 Acct:[id number] Age/Sex: 72 / F ADM Date: 06/21/22 Loc: Room: Type: [facility] Attending Dr: Sheila Alvarez GILL BOX FIXER-C Ordering Provider: Sheila Alvarez APRN Date of [...] Ca Cramer MD06/24/2022 4:41 PM Dictation Location: [place] [address] Tech: Yeimy Maynard Transcribed By: [facility] 06/24/22 1641 Dictated By: Ca Cramer MD 06/24/22 1640 Signed By: 06/24/22 1641 [facility] Vital Signs Date Time Vital Sign Value Performing Clinician Facility 04-21-2024 09:45-0400 Body height 170.2 cm Almaz Beto GILL BOX FIXER Work Phone: [facility] 04-21-2024 09:45-0400 Body mass index (BMI) [Ratio] 36.21 kg/m2 Almaz Aichholz GILL BOX FIXER Work Phone: [facility] 04-21-2024 09:45-0400 Body temperature 98.1 [degF] Almaz Aichholz [employer]OX FIXER Work Phone: [facility] 04-21-2024 09:45-0400 Body weight 104.87 kg Almaz Aichholz G[employer] BOX FIXER Work Phone: [facility] 04-21-2024 09:45-0400 Diastolic blood pressure 70 mm[Hg] Almaz Aichholz [employer]OX [employer]ER Work Phone: [facility] 04-21-2024 09:45-0400 Heart rate 86 /min Almaz Aichholz [employer]OX [employer]ER Work Phone: [facility] 04-21-2024 09:45-0400 Respiratory rate 19 /min Almaz Aichholz [employer] Work Phone: [facility] 04-21-2024 09:45-0400 SaO2% (BldA) [Mass fraction] 96 % Almaz Aichholz [employer]OX [employer]ER Work Phone: [facility] 04-21-2024 09:45-0400 Systolic blood pressure 130 mm[Hg] Almaz Aichholz [employer]OX [employer] Work Phone: [facility] 04-15-2023 11:15-0400 Body height 172.72 cm Chivo Bullard Other [facility] Other 04-15-2023 11:15-0400 Body mass index (BMI) [Ratio] 27.06 kg/m2 Chivo Kaurr Other [facility] Other 04-15-2023 11:15-0400 Body temperature 97.3 [degF] Chivo Sotorer Other [facility] Other 04-15-2023 11:15-0400 Body weight 80.74 kg Chivo Bullard Other [facility] Other 04-15-2023 11:15-0400 Diastolic blood pressure 82 mm[Hg] Chivo Kaurr Other [facility] Other 04-15-2023 11:15-0400 SaO2% (BldA) [Mass fraction] 98 % Chivo Bullard Other [facility] Other 04-15-2023 11:15-0400 Systolic blood pressure 138 mm[Hg] Chivo Sotorer Other [facility] Other 11-26-2022 11:45-0400 Body height 172.72 cm Sheila Alvarez Other [facility] Other 11-26-2022 11:45-0400 Body mass index (BMI) [Ratio] 27.06 kg/m2 Sheila Alvarez Other [facility] Other 11-26-2022 11:45-0400 Body temperature 97.8 [degF] Sheila Alvarez Other [facility] Other 11-26-2022 11:45-0400 Body weight 80.74 kg Sheila Alvarez Other [facility] Other 11-26-2022 11:45-0400 Diastolic blood pressure 72 mm[Hg] Sheila Gonzalezo Other [facility] Other 11-26-2022 11:45-0400 SaO2% (BldA) [Mass fraction] 98 % Sheila Gonzalezo Other [facility] Other 11-26-2022 11:45-0400 Systolic blood pressure 116 mm[Hg] Sheila Gonzalezo Other [facility] Other 07-01-2022 12:00-0500 Body height 172.72 cm Sheila Gonzalezo Other [facility] Other 07-01-2022 12:00-0500 Body mass index (BMI) [Ratio] 27.06 kg/m2 Sheila Gonzalezo Other [facility] Other 07-01-2022 12:00-0500 Body temperature 97.1 [degF] Sheila Gonzalezo Other [facility] Other 07-01-2022 12:00-0500 Body weight 80.74 kg Sheila Gonzalezo Other [facility] Other 07-01-2022 12:00-0500 Diastolic blood pressure 60 mm[Hg] Sheila Gonzalezo Other [facility] Other 07-01-2022 12:00-0500 SaO2% (BldA) [Mass fraction] 97 % Sheila Gonzalezo Other [facility] Other 07-01-2022 12:00-0500 Systolic blood pressure 142 mm[Hg] Sheila Alvarez Other [facility] Other 11-19-2021 12:00-0400 Body height 172.72 cm Chivo Buehrer Other [facility] Other 11-19-2021 12:00-0400 Body mass index (BMI) [Ratio] 30.86 kg/m2 Chivo Buehrer Other [facility] Other 11-19-2021 12:00-0400 Body temperature 97 [degF] Chivo Buehrer Other [facility] Other 11-19-2021 12:00-0400 Body weight 92.08 kg Chivo Buehrer Other [facility] Other 11-19-2021 12:00-0400 Diastolic blood pressure 74 mm[Hg] Chivo Buehrer Other [facility] Other 11-19-2021 12:00-0400 SaO2% (BldA) [Mass fraction] 92 % Chivo Buehrer Other [facility] Other 11-19-2021 12:00-0400 Systolic blood pressure 138 mm[Hg] Chivo Buehrer Other [facility] Other 09-03-2021 13:00-0500 Body height 172.72 cm Chivo Buehrer Other [facility] Other 09-03-2021 13:00-0500 Body mass index (BMI) [Ratio] 30.86 kg/m2 Chivo Sotonathalie Other [facility] Other 09-03-2021 13:00-0500 Body temperature 98.5 [degF] Chivo Kaurfred Other [facility] Other 09-03-2021 13:00-0500 Body weight 92.08 kg Chivo Kaurfred Other [facility] Other 09-03-2021 13:00-0500 Diastolic blood pressure 92 mm[Hg] Chivo Aleah Other [facility] Other 09-03-2021 13:00-0500 SaO2% (BldA) [Mass fraction] 96 % Chivo Beanaleida Other [facility] Other 09-03-2021 13:00-0500 Systolic blood pressure 160 mm[Hg] Chivo Kaurfred Other [facility] Other Encounters Encounter Date Encounter Type Care Provider Facility Start: 07-26-2024 End: 07-26-2024 Bamboo flowsheet Almaz Pérez [employer] Work Phone: [facility] Start: 07-26-2024 End: 07-26-2024 Bamboo flowsheet Almaz Pérez [employer] Work Phone: [facility] Start: 07-26-2024 Patient encounter procedure Almaz Pérez [employer] Work Phone: [facility] Start: 07-26-2024 End: 07-26-2024 ambulatory ALMAZ PÉREZ Not Available Start: 07-12-2024 End: 07-12-2024 Refill Almaz Pérez [employer] Work Phone: [facility] Comment on above: Primary hypertension (CMS/HCC) Start: 05-24-2024 End: 05-24-2024 Refill Almaz Aichholz [employer] Work Phone: [facility] Comment on above: Type 2 diabetes jimmy itus with other specified complication, without long-term current use of insulin (CMS/HCC) Start: 05-12-2024 End: 05-12-2024 Refill Almaz Aichholz [employer] Work Phone: [facility] Comment on above: Type 2 diabetes jimmy itus with other specified complication, without long-term current use of insulin ([facility]/HCC) Start: 04-21-2024 End: 04-21-2024 Bamboo flowsheet Almaz Aichholz [employer] Work Phone: [facility] Start: 04-21-2024 End: 04-21-2024 Bamboo flowsheet Almaz Aichholz [employer] Work Phone: [facility] Start: 04-21-2024 End: 04-21-2024 Office outpatient visit 25 minutes Almaz Aichholz [employer] Work Phone: [facility] Comment on above: 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); Primary hypertension ([facility]/HCC); Obesity (BMI 30-39.9); Current mild episode of major depressive disorder without prior episode (HCC) ([facility]); Environmental and seasonal allergies Start: 04-21-2024 End: 04-21-2024 ambulatory ALMAZ AICHHOLZ Not Available Start: 04-19-2024 End: 04-19-2024 Clinisync Result Encounter Almaz Aichholz [employer] Work Phone: [facility] External Department Unsolicited Start: 04-19-2024 End: 04-19-2024 Clinisync Result Encounter Almaz Aichholz [employer] Work Phone: [facility] External Department Unsolicited Start: 04-16-2024 End: 04-16-2024 Refill Almaz Aichholz [employer] Work Phone: [facility] Comment on above: Diabetic polyneuropa thy associated with type 2 diabetes mellitus (CMS/HCC) Start: 04-08-2024 End: 04-09-2024 Refill Almaz Aichholz [employer] Work Phone: [facility] Comment on above: Primary hypertension (CMS/HCC) Start: 01-20-2024 End: 01-20-2024 ambulatory ALMAZ AICHHOLZ Not Available Start: 12-16-2023 End: 12-16-2023 ambulatory ALMAZ AICHHOLZ Not Available Start: 11-27-2023 End: 11-27-2023 ambulatory ALMAZ AICHHOLZ Not Available Start: 10-21-2023 End: 10-21-2023 ambulatory ALMAZ AICHHOLZ Not Available Start: 09-17-2023 End: 09-17-2023 ambulatory ALMAZ AICHHOLZ Not Available Start: 09-11-2023 Bamboo flowsheet Mark Tatter linette [employer] [facility] Start: 09-11-2023 Bamboo flowsheet Mark Tatter linette [employer] [facility] Start: 09-11-2023 End: 09-11-2023 ambulatory Mark Tattersall [employer] [facility] Comment on above: Adhesive capsulitis of right shoulder (Primary Dx); Acute pain of right shoulder Start: 09-09-2023 Bamboo flowsheet Lucho vazquez PT Work Phone: [facility] Start: 09-09-2023 Bamboo flowsheet Lucho Chacon kston PT Work Phone: [facility] Start: 09-09-2023 End: 09-09-2023 ambulatory Lucho Simmons PT Work Phone: [facility] Comment on above: Adhesive capsulitis of right shoulder (Primary Dx); Acute pain of right shoulder Start: 09-08-2023 End: 09-08-2023 ambulatory CA AGRCIA Not Available Start: 09-08-2023 End: 09-08-2023 Office outpatient visit 10 minutes Ca Garcia PA Work Phone: [facility] Comment on above: Acute pain of right shoulder (Primary Dx); Adhesive capsulitis of right shoulder Start: 09-04-2023 Bamboo flowsheet Brennan Adair [employer] [facility] Start: 09-04-2023 Bamboo flowsheet Brennan Adair [employer] [facility] Start: 09-04-2023 End: 09-04-2023 ambulatory Brennan Adair [employer] [facility] Comment on above: Adhesive capsulitis of right shoulder (Primary Dx); Acute pain of right shoulder Start: 08-27-2023 End: 08-27-2023 ambulatory LUCHO Altaf HARIS Not Available Start: 08-25-2023 End: 08-25-2023 ambulatory MARK TATTERSALL Not Available Start: 08-20-2023 End: 08-20-2023 ambulatory MARK TATTERSALL Not Available Start: 08-18-2023 End: 08-18-2023 ambulatory MARK TATTERSALL Not Available Start: 08-14-2023 End: 08-14-2023 ambulatory LUCHO Valverde HARIS Not Available Start: 08-11-2023 End: 08-11-2023 ambulatory CA GARCIA Not Available Start: 08-06-2023 End: 08-06-2023 ambulatory ALMAZ BETO Not Available Start: 04-15-2023 End: 04-15-2023 ambulatory Chivo Bullard Other [facility] Other Start: 04-15-2023 Office outpatient vi sit [address] [facility] Start: 11-26-2022 End: 11-26-2022 ambulatory Sheila Alvarez Other [facility] Other Start: 11-26-2022 Patient encounter procedure Sheila Alvarez [facility] Start: 11-11-2022 End: 11-11-2022 ambulatory Sheila Alvarez Facility:[facility] Start: 11-08-2022 (EVLT) EVLT saphenou s vein ablation Chivo Bullard [facility] Start: 11-08-2022 End: 11-08-2022 ambulatory Chivo Sotorer Other [facility] Other Start: 10-08-2022 End: 10-09-[address] GUS HODGE Facility: Start: 07-01-2022 End: 07-01-2022 ambulatory Sheila Alvarez Other [facility] Other Start: 07-01-2022 Follow-up encounter Sheila Alvarez [facility] Start: 06-21-2022 End: 06-21-2022 ambulatory Sheila Alvarez Facility:[facility] Start: 06-12-2022 (Sclerother) Sclerotherapy Sheila Alvarez [facility] Start: 06-12-2022 End: 06-12-2022 ambulatory Sheila Alvarez Other [facility] Other Start: 11-19-2021 End: 11-19-2021 ambulatory Chivo Sotorer Other [facility] Other Start: 11-19-2021 Office outpatient vi sit 15 minutes Chivo Sotorefred [facility] Start: 10-24-2021 End: 10-24-2021 ambulatory Chivo Sotorer Other [facility] Other Start: 10-24-2021 Telephone encounter Chivo Bullard [facility] Start: 09-03-2021 End: 09-03-2021 ambulatory Chivo Sotorer Other [facility] Other Start: 09-03-2021 Office outpatient vi sit 25 minutes Chivo Buehrer [facility] Procedures Date Procedure Procedure Detail Performing Clinician Start: 04-19-2024 MLR HEMOGLOBIN A1C Almaz Pérez [employer] Work Phone: Start: 08-01-2023 Mammography Almaz pina [employer] Work Phone: Start: 06-25-2023 Mammography Brennan light [employer] Plan of Treatment Date Care Activity Detail Author Start: 06-25-2026 Screening for malign ant neoplasm of colon [facility] Start: 07-08-2025 Glaucoma screening Diabetes: R etinopathy Screening [facility] Start: 08-06-2024 Pneumococcal Vaccine : 65+ Years (1 - PCV) Pneumococcal Vaccine: 65+ Years (1 - PCV) [facility] Comment on above: Postponed from 04/20 (Patient Refused) Start: 08-06-2024 Pneumococcal Vaccine : 65+ Years (1 of 2 - PCV) Pneumococcal Vaccine: 65+ Years (1 of 2 - PCV) [facility] Comment on above: Postponed from 04/20 (Patient Refused) Start: 08-01-2024 Screening for malign ant neoplasm of breast Mammogram [facility] Start: 07-26-2024 End: 07-26-2024 Patient encounter procedure [facility] Comment on above: Encounter for subseq uent annual wellness visit (AWV) in Medicare patient (Primary Dx); Diabetic polyneuropathy associated with type 2 diabetes mellitus (CMS/HCC); Primary hypertension (CMS/HCC); BMI 35.0-35.9,adult; 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, unspecified retinopathy severity (CMS/HCC); Obesity (BMI 30-39.9); Type 2 diabetes with nephropathy (CMS/HCC); Morbid (severe) obesity due to excess calories (CMS/HCC); Body mass index (BMI) 36.0-36.9, adult; Encounter for screening mammogram for malignant neoplasm of breast Start: 07-19-2024 Hemoglobin A1c measurement Diabetes: Hemoglobin A1C [facility] Start: 07-15-2024 End: 07-15-2024 Patient encounter procedure 07/15/2024 1:20 PM EST Office Visit [facility] [address] [place] [address] Almaz Pérez NP [address] [place] [id number] [facility] Start: 06-25-2024 Screening for malign ant neoplasm of breast Mammogram [facility] Start: 06-23-2024 Urine screening for protein Diabetes: Urine Protein Screening [facility] Start: 06-10-2024 Medicare Annual Well ness (AWV) Medicare Annual Wellness (AWV) [facility] Start: 04-21-2024 End: 04-21-2024 Patient encounter procedure 04/21/2024 9:40 AM EDT Office Visit [facility] [address] [place] [address] Almaz Pérez, [employer] [address] [place] [address] [facility] Start: 01-25-2024 Influenza vaccination Influenza Vacc ine (#1) [facility] Comment on above: Postponed from 03/28 (Patient Refused) Start: 01-20-2024 Hemoglobin A1c measurement Diabetes: Hemoglobin A1C [facility] Start: 10-20-2023 End: 10-20-2023 Patient encounter procedure 10/20/2023 9:15 AM EDT Office Visit [facility] [address] [facility] [address] [place] [address] Ca Garcia PA [address] [place] [address] [facility] Start: 09-26-2023 End: 09-26-2023 ambulatory 09/26/2023 10:00 AM EST Treatment [facility] [address] [place] [address] Brennan Adair, [employer] [facility] Start: 09-23-2023 Hemoglobin A1c measurement Diabetes: Hemoglobin A1C [facility] Start: 09-19-2023 End: 09-19-2023 ambulatory 09/19/2023 10:00 AM EST Treatment [facility] [address] [place] [address] Brennan Adair, [employer]IN[employer] [facility] Start: 09-17-2023 End: 09-17-2023 Patient encounter procedure 09/17/2023 9:00 AM EST Office Visit [facility] [address] [place] [address] Almaz Pérez, CIPRIANO [address] [place] [address] [facility] Start: 09-11-2023 End: 09-11-2023 ambulatory [facility] Comment on above: Adhesive capsulitis of right shoulder (Primary Dx); Acute pain of right shoulder Start: 09-09-2023 End: 09-09-2023 ambulatory 09/09/2023 10:00 AM EST Treatment [facility] [address] [place] [address] Lucho Simmons, PT [address] [place] [address] [facility] Start: 09-08-2023 Chart abstracting 09/08/2023 A bstract [facility] [address] [place] [address] Ca Garcia PA [address] [place] [address] [facility] Start: 09-08-2023 End: 09-08-2023 Patient encounter procedure 09/08/2023 9:30 AM EST Office Visit [facility] [address] [place] [address] Ca Garcia PA [address] [place] [address] [facility] Start: 1960 Glaucoma screening Diabetes: R etinopathy Screening [facility] Start: 1950 Screening for malign ant neoplasm of colon [facility] Payers Date Payer Category Payer Other GENERIC OTHER [id number] 2022 Unknown GENERIC OTHER GE NERIC OTHER [id number] 2022-Present [phone] [place] [id number] 2022 Self-pay 2018 Medicare [id number] 1959 Medicare [id number] [id number] 1959 Unknown [id number] [id number] 1952 Unknown [id number] 2.16.840.1.088612.3.579.2.59 3 1952 Unknown [id number] 2.16.840.1.375628.3.579.2.12 59 1952 Unknown [id number] 2.16.840.1.273249.3.579.2.12 59 1952 Unknown [id number] 2.16.840.1.695268.3.579.2.12 59 1952 Unknown [id number] 2.16.840.1.009405.3.579.2.12 59 1952 Unknown [id number] 2.16.840.1.881836.3.579.2.12 59 1952 Unknown [id number] 2.16.840.1.444832.3.579.2.12 59 1952 Unknown [id number] 2.16.840.1.264356.3.579.2.12 59 1952 Unknown [id number] 2.16.840.1.736618.3.579.2.12 59 1952 Unknown [id number] 2.16.840.1.232797.3.579.2.12 59 1952 Unknown [id number] 2.16.840.1.410068.3.579.2.12 59 1952 Unknown [id number] 2.16.840.1.742660.3.579.2.12 59 1952 Unknown [id number] 2.16.840.1.297147.3.579.2.12 59 1952 Unknown [id number] 2.16.840.1.461860.3.579.2.12 59 1952 Unknown [id number] 2.16.840.1.347028.3.579.2.12 59 1952 Unknown [id number] 2.16.840.1.924599.3.579.2.12 59 1952 Unknown [id number] 2.16.840.1.563670.3.579.2.12 59 1952 Unknown [id number] 2.16.840.1.964988.3.579.2.12 59 1952 Unknown [id number] 2.16.840.1.213838.3.579.2.12 59 1952 Unknown [id number] 2.16.840.1.445732.3.579.2.12 59 Unknown [id number] 2.16.840.1.672548.3.579.2.53 1 Unknown [id number] 2.16.840.1.688643.3.579.2.53 1 Social History Date Type Detail Facility Start: 08-11-2023 End: 11-27-2023 Sex Assigned At [facility] Other Start: 08-04-2023 Tobacco smoking status NHIS Never smoked tobacco [facility] Start: 08-11-2023 End: 04-21-2024 Alcohol intake Current drinker of alcohol (finding) [facility] Start: 08-11-2023 End: 11-27-2023 Alcohol intake [facility] Start: 08-04-2023 Alcohol Comment DAILY 7 DAYS A WEEK 1 DRINK WHISKEY AND GINGERALE [facility] Start: 1950 Sex Assigned At Not on file N [facility] Medical Equipment Procedure Code Equipment Code Equipment Origin al Text Equipment Identifier Dates [id number] Start: 09-29-2022 Clinical Notes 09-03-2021 to 04-21-2024 Almaz Pérez NP - 04/21/2024 10:58 AM Mary Pérez NP - 04/21/2024 10:51 AM DAVID MARTINEZ - 04/21/2024 9:40 AM Mary Pérez NP - 04/21/2024 9:40 AM EDT Note Date & Type Note Facility 04-21-2024 History of Presen t illness Narrative Associated Problem(s): Type 2 diabetes with nephropathy (CMS/HCC) Significant improvement in A1c Will not make any changes in meds/doses Check blood sugars daily, notify if <70 or >200. Take medications (pills or insulin) as directed. Monitor for s/s of hypoglycemia (sweaty, dizziness, nausea, vomiting, or shakiness). Watch for increase in thirst, urination, or appetite. Inspect feet frequently monitoring for open wounds , and also recommend yearly eye exam. Pt should attempt to remain as physically active as chronic conditions allow, as well as trying to follow a diet low in carbohydrates, and simple sugars. Associated Problem(s): Primary hypertension (CMS/HCC) Blood pressure is good No med dose changes Fu in 3 months Ringing in ears-both ears Images from the original note were not included. Lidia Davis is a 74 y.o. female presents with chief complaint of No chief complaint on file. HPI: Diabetes She presents for her follow-up diabetic visit. She has type 2 diabetes mellitus. Her disease course has been improving. There are no hypoglycemic associated symptoms. Pertinent negatives for hypoglycemia include no dizziness, headaches, nervousness/anxiousness, seizures or tremors. Associated symptoms include polyuria (at HS). Pertinent negatives for diabetes include no blurred vision, no chest pain, no fatigue, no polydipsia and no polyphagia. There are no hypoglycemic complications. Symptoms are stable. Diabetic complications include peripheral neuropathy. Risk factors for coronary artery disease include diabetes mellitus, hypertension, obesity and sedentary lifestyle. Current diabetic treatment includes oral agent (dual therapy). She is compliant with treatment all of the time. She rarely participates in exercise. An LOLY inhibitor/angiotensin II receptor reyna is being taken. Eye exam is not current. Hypertension This is a chronic problem. The current episode started more than 1 year ago. The problem is unchanged. The problem is controlled. Associated symptoms include peripheral edema. Pertinent negatives include no blurred vision, chest pain, headaches, malaise/fatigue, palpitations or shortness of breath. There are no associated agents to hypertension. Risk factors for coronary artery disease include obesity, sedentary lifestyle, diabetes mellitus, dyslipidemia and post-menopausal state. Past treatments include LOLY inhibitors and calcium channel blockers. The current treatment provides significant improvement. There are no compliance problems. There is no history of CAD/OR or heart failure. SUBJECTIVE: MEDICATIONS: Current Outpatient Medications Medication Instructions aspirin 81 mg, Oral, Daily Blood Glucose Monitoring Suppl (True Metrix Air Glucose Meter) w/Device kit USE DIRECTED to test BLOOD SUGAR ONCE DAILY Drug [place] Unilet Lancets 30G misc USE DIRECTED to test sugar ONCE DAILY fluticasone (Flonase) 50 MCG/ACT nasal spray 2 sprays, Each Nostril, Daily, Shake gently. Before first use, prime pump. After use, clean tip and replace cap. gabapentin (Neurontin) 600 MG tablet TAKE 1 TABLET BY MOUTH IN THE MORNING, then ONE TABLET BY MOUTH in the afternoon, and then 2 (TWO) TABLETS BY MOUTH AT BEDTIME glimepiride (AMARYL) 2 mg, Oral, 2 times daily glucose blood (True Metrix Blood Glucose Test) test strip USE DIRECTED to test BLOOD SUGAR DAILY lisinopril 20 mg, Oral, 2 times daily loratadine (CLARITIN) 10 mg, Oral, Daily metFORMIN XR (GLUCOPHAGE-XR) 1,000 mg, Oral, 2 times daily before meals, Do not crush, chew, or split. pioglitazone (ACTOS) 30 mg, Oral, Daily ALLERGIES: Allergies Allergen Reactions Cymbalta [Duloxetine Hcl] GI intolerance Vomiting, nausea, dizziness REVIEW OF SYMPTOMS: Review of Systems Constitutional: Negative for appetite change, chills, fatigue, fever and malaise/fatigue. HENT: Positive for rhinorrhea, sinus pain and tinnitus. Negative for congestion, ear pain and sore throat. Eyes: Negative for blurred vision, pain, discharge, redness and visual disturbance. Respiratory: Negative for cough, shortness of breath and wheezing. Cardiovascular: Positive for leg swelling. Negative for chest pain and palpitations. Gastrointestinal: Negative for abdominal pain, blood in stool, constipation, diarrhea, nausea and vomiting. Genitourinary: Negative for difficulty urinating, dysuria and frequency. Musculoskeletal: Negative for arthralgias, back pain, joint swelling and myalgias. Skin: Negative for rash and wound. Neurological: Negative for dizziness, tremors, seizures, syncope and headaches. Psychiatric/Behavioral: Negative for behavioral problems, self-injury and suicidal ideas. The patient is not nervous/anxious. Hematological: Does not bruise/bleed easily. Endocrine: Positive for polyuria (at HS). Negative for polydipsia and polyphagia. Allergic/Immunologic: Negative for environmental allergies and food allergies. PAST MEDICAL HISTORY Past Medical History: Diagnosis Date Calcification of left breast on mammography 07/13/2023 Diabetes ([facility]) 08/21/2023 Diabetic neuropathy ([facility]) 08/21/2023 Type 2 diabetes with nephropathy ([facility]) 09/17/2023 metfromin caused severe hair loss Past Surgical History: Procedure Laterality Date GALLBLADDER SURGERY TUBAL LIGATION VASCULAR SURGERY Bilateral legs family history includes Diabetes in her half-sister and mother. OBJECTIVE: Visit Vitals BP 130/70 (BP Location: Left arm, Patient Position: Sitting, BP Cuff Size: Adult long) Pulse 86 Temp 98.1 F (Temporal) Resp 19 Ht 5' 7 Wt 231 lb 3.2 oz SpO2 96% BMI 36.21 kg/m Smoking Status Never BSA 2.23 m Physical Exam Vitals and nursing note reviewed. Constitutional: General: She is not in acute distress. Appearance: Normal appearance. HENT: Head: Normocephalic and atraumatic. Right Ear: Ear canal and external ear normal. Left Ear: Ear canal and external ear normal. Ears: Comments: Trace fluid Nose: Rhinorrhea present. No congestion. Mouth/Throat: Mouth: Mucous membranes are moist. Pharynx: No oropharyngeal exudate or posterior oropharyngeal erythema. Eyes: Extraocular Movements: Extraocular movements intact. Conjunctiva/sclera: Conjunctivae normal. Neck: Vascular: No carotid bruit. Cardiovascular: Rate and Rhythm: Normal rate and regular rhythm. Pulses: Normal pulses. Heart sounds: Normal heart sounds. Pulmonary: Effort: Pulmonary effort is normal. Breath sounds: Normal breath sounds. Abdominal: General: Bowel sounds are normal. There is no distension. Palpations: Abdomen is soft. There is no mass. Tenderness: There is no abdominal tenderness. Musculoskeletal: General: Normal range of motion. Cervical back: Normal range of motion and neck supple. Right lower leg: Edema present. Left lower leg: Edema present. Comments: Pre tibial and pedal edema Skin: General: Skin is warm and dry. Capillary Refill: Capillary refill takes 2 to 3 seconds. Findings: No rash. Neurological: General: No focal deficit present. Mental Status: She is alert and oriented to person, place, and time. Psychiatric: Mood and Affect: Mood normal. Behavior: Behavior normal. Thought Content: Thought content normal. Judgment: Judgment normal. ASSESSMENT AND PLAN: No follow-ups on file. Problem List Items Addressed This Visit Type 2 diabetes with nephropathy (CMS/HCC) - Primary Significant improvement in A1c Will not make any changes in meds/doses Check blood sugars daily, notify if <70 or >200. Take medications (pills or insulin) as directed. Monitor for s/s of hypoglycemia (sweaty, dizziness, nausea, vomiting, or shakiness). Watch for increase in thirst, urination, or appetite. Inspect feet frequently monitoring for open wounds , and also recommend yearly eye exam. Pt should attempt to remain as physically active as chronic conditions allow, as well as trying to follow a diet low in carbohydrates, and simple sugars. Relevant Medications aspirin 81 MG EC tablet Primary hypertension (CMS/HCC) Blood pressure is good No med dose changes Fu in 3 months Current mild episode of major depressive disorder without prior episode (HCC) (CMS/HCC) Obesity (BMI 30-39.9) Environmental and seasonal allergies Relevant Medications loratadine (Claritin) 10 MG tablet fluticasone (Flonase) 50 MCG/ACT nasal spray documented in this encounter [facility] 09-09-2023 History of Presen t illness Narrative [...] Signature: ____ Date: documented in this encounter [facility] 09-08-2023 History of Presen t illness Narrative [...] evaluation. CARYN Segal documented in this encounter [facility] 04-15-2023 Evaluation note Encounter Date Diagnosis Assessment Notes Mar, Varicose veins of left leg with edema (ICD-10 - I83.892) Mar, Other Varicose veins I talk with this patient about potentially continuing treatment for her left leg varicose vein. She does not feel that her symptoms are severe enough at this time to warrant intervention. I advised her to consider at least [id number] graded compression stockings to minimize the [...] any time should she wish additional treatment [facility] Other 05-02-2023 Evaluation note* Encounter Date Diagnosis [...] the meantime with any issues or concerns. [facility] Other 04-01-2023 History general Narrative - Reported* Type Description Date Medical History type II diabetes Surgical History cholecystectomy Surgical History tubal ligation Surgical History MICRO PHLEBECTOMY RT LEG 2021 Surgical History Venaseal Left Leg 10/2022 [facility] Other 12-05-2022 Evaluation note* Encounter Date Diagnosis [...] near future. Patient denies any additional questions. [facility] Other 04-25-2022 Evaluation note* Encounter Date Diagnosis [...] be treated since she has minimal symptoms. [facility] Other 02-07-2022 Evaluation note* Encounter Date Diagnosis [...] of the procedure she agrees to proceed.] [facility]* Diagnosis Adhesive capsulitis of right shoulder- Primary Acute pain of right shoulder documented in this encounter [facility] HealthcareEvaluation [facility]* Diagnosis Acute pain of right shoulder- Primary Adhesive capsulitis of right shoulder documented in this encounter [facility] HealthcareEvaluation note* Diagnosis Adhesive capsulitis of right shoulder- Primary Acute pain of right shoulder documented in this encounter [facility] HealthcareEvaluation [facility]* Diagnosis Adhesive capsulitis of right shoulder- Primary Acute pain of right shoulder documented in this encounter [facility] HealthcareEvaluation note* Diagnosis Calcification of left breast on mammography- Primary Acute bursitis of right shoulder- Primary BMI 35.0-35.9,adult Type 2 diabetes mellitus with diabetic neuropathy, without long-term current use of insulin (CMS/HCC)- Primary Type 2 diabetes mellitus with other specified complication, without long-term current use of insulin (CMS/HCC) Body mass index [BMI] 35.0-35.9, adult (Z68.35) Diabetic polyneuropathy associated with type 2 diabetes mellitus (CMS/HCC) Primary hypertension (CMS/HCC) Unspecified essential hypertension Diabetic polyneuropathy associated with type 2 diabetes mellitus (CMS/HCC)- Primary Primary hypertension (CMS/HCC) Unspecified essential hypertension Type 2 diabetes mellitus with other specified complication, without long-term current use of insulin (CMS/HCC) Current mild episode of major depressive disorder without prior episode (HCC) (CMS/HCC) 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 Obesity (BMI 30-39.9) Dizziness Dizziness and giddiness Primary hypertension (CMS/HCC) Unspecified essential hypertension 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 Primary hypertension (CMS/HCC) Unspecified essential hypertension Obesity (BMI 30-39.9) Dizziness Dizziness and giddiness 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 Primary hypertension (CMS/HCC) Unspecified essential hypertension Obesity (BMI 30-39.9) 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 Primary hypertension (CMS/HCC) Unspecified essential hypertension Obesity (BMI 30-39.9) Current mild episode of major depressive disorder without prior episode (HCC) (CMS/HCC) Environmental and seasonal allergies Type 2 diabetes mellitus with other specified complication, without long-term current use of insulin (CMS/HCC) documented in this encounter [facility] HealthcareEvaluation note* Diagnosis Primary hypertension (CMS/HCC) Unspecified essential hypertension documented in this encounter [facility] HealthcareEvaluation note* Diagnosis Calcification of left breast on mammography- Primary Acute bursitis of right shoulder- Primary BMI 35.0-35.9,adult Type 2 diabetes mellitus with diabetic neuropathy, without long-term current use of insulin (CMS/HCC)- Primary Type 2 diabetes mellitus with other specified complication, without long-term current use of insulin (CMS/HCC) Body mass index [BMI] 35.0-35.9, adult (Z68.35) Diabetic polyneuropathy associated with type 2 diabetes mellitus (CMS/HCC) Primary hypertension (CMS/HCC) Unspecified essential hypertension Diabetic polyneuropathy associated with type 2 diabetes mellitus (CMS/HCC)- Primary Primary hypertension (CMS/HCC) Unspecified essential hypertension Type 2 diabetes mellitus with other specified complication, without long-term current use of insulin (CMS/HCC) Current mild episode of major depressive disorder without prior episode (HCC) (CMS/HCC) 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 Obesity (BMI 30-39.9) Dizziness Dizziness and giddiness Primary hypertension (CMS/HCC) Unspecified essential hypertension 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 Primary hypertension (CMS/HCC) Unspecified essential hypertension Obesity (BMI 30-39.9) Dizziness Dizziness and giddiness 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 Primary hypertension (CMS/HCC) Unspecified essential hypertension Obesity (BMI 30-39.9) 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 Primary hypertension (CMS/HCC) Unspecified essential hypertension Obesity (BMI 30-39.9) Current mild episode of major depressive disorder without prior episode (HCC) (CMS/HCC) Environmental and seasonal allergies Primary hypertension (CMS/HCC) Unspecified essential hypertension documented in this encounter [facility] HealthcareEvaluation note* Diagnosis Diabetic polyneuropathy associated with type 2 diabetes mellitus (CMS/HCC) documented in this encounter [facility] HealthcareEvaluation note* Diagnosis 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 Primary hypertension (CMS/HCC) Unspecified essential hypertension Obesity (BMI 30-39.9) Current mild episode of major depressive disorder without prior episode (HCC) ([facility]/HCC) Environmental and seasonal allergies documented in this encounter [facility] HealthcareHistory general Narrative - Reported* Type Description Date Medical History diabetes mallitus Medical History [ ] Surgical History cholecystectomy Surgical History tubal ligation Surgical History [ ] [facility] Other History general Narrative - Reported* Type Description Date Medical History type II diabetes Surgical History cholecystectomy Surgical History tubal ligation Surgical History MICRO PHLEBECTOMY RT LEG 2021 [facility] Other reason for visit NarrativeVASC DR. BULLARD WANTED TO SEE BEFORE DECIDING WHAT PROCEDURE TO DO, [facility] [employer] Other reason for visit Narrative* Consultation (Routine) - Authorized Specialty Diagnoses / Procedures Referred By Iam valverde Referred To Contact Physical Therapy Diagnoses Acute pain of right shoulder Adhesive capsulitis of right shoulder Procedures SC OFFICE/OUTPATIENT NEW HIGH MDM 60 MINUTES Ca Garcia, [place] [address] [facility] [address] [place] [address] Lucho Simmons, PT [address] [facility] [address] [place] [address] Referral ID Status Reason Start Date Expiration Date Visits Requested Visits Authorized [id number] Authorized Consult and Treat 08/11/2023 02/07/2024 10 30 [facility] Summary Purpose Family History No Family History Records FoundNo Family History Records FoundNo Family History Records Found Advance Directives No Advanced Directives Records FoundNo Advanced Directives Records FoundNo Advanced Directives Records Found Additional Source Comments REASON FOR VISIT (unrecogniz ed section and content) Reason Comments Med Refill Reason Comments Pain 4 MO VV F/U NO TESTING, Follow-up varicose vein2 WK FOLLOW UP; VENASEAL LEFT LEG; ULTRASOUND 11/11/22VENASEAL LEFT LEGFOLLOW UP AFTER VARITHENA RIGHT LEG; ULTRASOUND DONE [facility] 06/21/22VARITHENA RT LEGVASC 2 WK S/P MICRO RIGHT LEG, Follow-up after microphlebectomy INFORMATION SOURCE (unrecogn ized section and content) DATE CREATED AUTHOR 10/15/2022 [facility] DATE CREATED AUTHOR AUTHOR'S ORGANIZ ATION 11/22/2022 [facility] DATE CREATED AUTHOR AUTHOR'S ORGANIZ ATION 07/27/2024 [facility] EPIC Care Teams (unrecognized sec tion and content) [employer] Operator Helper Relationship Specialty Start Date End Date Bryant Torres MD [address] [place] [address] PCP - General Family Medicine 09/02/23 Almaz Pérez NP [address] [place] [phone] Nurse Practitioner Family Medicine 04/27/23 [employer] Helper Relationship Specialty Start Date End Date Bryant Torres MD [address] [place] [phone] PCP - General Family Medicine 09/02/23 Almaz Pérez NP [address] [place] [phone] Nurse Practitioner Family Medicine 04/27/23 [employer] Helper Relationship Specialty Start Date End Date Bryant Torres MD [address] [place] [phone] PCP - General Family Medicine 09/02/23 Almaz Pérez NP [address] [place] [phone] Nurse Practitioner Family Medicine 04/27/23 [employer] Helper Relationship Specialty Start Date End Date Bryant Torres MD [address] [place] [phone] PCP - General Family Medicine 09/02/23 Almaz Pérez NP [address] [place] [phone] Nurse Practitioner Family Medicine 04/27/23 [employer] Helper Relationship Specialty Start Date End Date Bryant Torres MD [address] [place] [phone] PCP - General Family Medicine 09/02/23 Almaz Pérez NP [address] [place] [phone] Nurse Practitioner Family Medicine 04/27/23 [employer] Helper Relationship Specialty Start Date End Date Bryant Torres MD [address] [place] [phone] PCP - General Family Medicine 09/02/23 Almaz Pérez NP [address] [place] [phone] Nurse Practitioner Family Medicine 04/27/23 [employer] Helper Relationship Specialty Start Date End Date Bryant Torres MD [address] [place] [phone] PCP - General Family Medicine 09/02/23 Almaz Pérez NP [address] [place] [phone] Nurse Practitioner Family Medicine 04/27/23 [employer] Helper Relationship Specialty Start Date End Date Bryant Torres MD [address] [place] [phone] PCP - General Family Medicine 09/02/23 Almaz Pérez NP [address] [place] [phone] Nurse Practitioner Family Medicine 04/27/23 [employer] Operator Helper Relationship Specialty Start Date End Date Bryant Torres MD [address] [place] [phone] PCP - General Family Medicine 09/02/23 Almaz Pérez NP [address] [place] [phone] Nurse Practitioner Family Medicine 04/27/23 [employer] Operator Helper Relationship Specialty Start Date End Date Bryant Torres MD [address] [place] [phone] PCP - General Family Medicine 09/02/23 Almaz Pérez NP [address] [place] [phone] Nurse Practitioner Family Medicine 04/27/23 [employer] Operator Helper Relationship Specialty Start Date End Date Bryant Torres MD [address] [place] [phone] PCP - General Family Medicine 09/02/23 Almaz Pérez NP [address] [place] [phone] Nurse Practitioner Family Medicine 04/27/23 [employer] Operator Helper Relationship Specialty Start Date End Date Bryant Torres MD [address] [place] [phone] PCP - General Family Medicine 09/02/23 Almaz Pérez NP [address] [place] [phone] Nurse Practitioner Family Medicine 04/27/23 FOR RECORDS PERTAINING TO PATIENTS WHO [...] BE BASED ON THE PRIMARY CLINICAL RECORDS. [facility] [employer] [facility]. provides no warranty or guarantee of the accuracy or completeness of information in this document.
== END 2024-08-10 11:22 | disposition home or self-care (01) ==
LOC: MAMMO 11:21
PROVIDERS: PCP Nurse Practitioner; Visit Provider Nurse Practitioner
DX: Z12.31 Encounter for screening mammogram for malignant neoplasm of breast (principal)
CPT/HCPCS: 77063; 77067

== ENCOUNTER 2024-09-08 10:42 | Outpatient (OUT) | payer MEDICARE, OTHER, SELFPAY ==
--- OUTSIDE RECORDS SUMMARY | 2024-09-08 10:51 | XMS_ITS | CCD ---
Author Organization [facility] Care Team Providers Care Swedger Name Role Phone VikasChivo shin Unavailable Sheila Alvarez Unavailable NAVEEN, DR AGEE Attending Unavailable NAVEEN, DR AGEE Consulting Unavailable NAVEEN, DR AGEE Primary Care Unavailable NAVEEN, DR AGEE Admitting Unavailable Sheila Alvarez Admitting Unavailable Sheila Alvarez Attending Unavailable Gus Hodge Primary Care Unavailable Sheila Alvarez Admitting Unavailable Sheila Alvarez Attending Unavailable Gus Hodge Primary Care Unavailable Beto REPAIR SERVICE DISPATCHER, Almaz Unavailable Bryant Torres MD Primary Care Provider [phone] Beto REPAIR SERVICE DISPATCHER, Almaz Unavailable BETO, ALMAZ Attending Unavailable CA [...] ALMAZ Attending Unavailable AICHHOLZ, ALMAZ Attending Unavailable Aichholz REPAIR SERVICE DISPATCHER, Almaz Unavailable Allergies Allergy Classification Reported Allergen(s) Allergy Type Date of Onset Reaction(s) Facility (13 sources) DULoxetine Drug Allergy GI intolerance [facility] Medications Current Medications Medication Drug Class(es) Dates Sig (Normalized) Sig (Original) amitriptyline hydrochloride 10 mg oral tablet (5 sources) Tricyclic Antidepressant Start: 07-26-2024 End: 12-06-2024 amitriptyline (Elavil) 10 MG tablet Indications: 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, unspecified retinopathy severity (CMS/HCC) Take 1 tablet (10 mg) by mouth at bedtime 90 tablet 1 09/07/2024 12/06/2024 Active aspirin 81 mg chewable tablet (15 sources) Platelet Aggregation Inhibitor, Nonsteroidal Anti-inflammatory Drug [...] Daily 90 tablet 1 04/21/2024 07/20/2024 Active atorvastatin 10 mg oral tablet (2 sources) HMG-CoA Reductase Inhibitor Start: 09-07-2024 End: 10-07-2024 take 1 tablet by mouth in the evening atorvastatin (Lipitor) 10 MG tablet Indications: Type 2 diabetes with nephropathy (CMS/HCC) Take 1 tablet (10 mg) by mouth in the evening 30 tablet 1 09/07/2024 10/07/2024 Active Blood Glucose Monitoring Suppl (True Metrix Air Glucose Meter) w/Device kit (13 sources) Start: 09-29-2022 Blood Glucose Monitoring Suppl (True Metrix Air Glucose Meter) w/Device kit USE DIRECTED to test BLOOD SUGAR ONCE DAILY 09/29/2022 Active fluticasone propionate 0.05 mg/actuat metered dose nasal spray (9 sources) Corticosteroid Start: 07-26-2024 End: 10-24-2024 take 2 spray(s) nasal route once daily fluticasone (Flonase) 50 MCG/ACT nasal spray Indications: Environmental and seasonal allergies Administer 2 sprays into each nostril Daily Shake gently. Before first use, prime pump. After use, clean tip and replace cap. 48 g 1 07/26/2024 10/24/2024 Active Start: 04-21-2024 End: 07-20-2024 take 2 spray(s) nasal route once daily fluticasone (Flonase) 50 MCG/ACT nasal spray Indications: Environmental and seasonal allergies Administer 2 sprays into each nostril Daily Shake gently. Before first use, prime pump. After use, clean tip and replace cap. 48 g 1 04/21/2024 Active gabapentin 600 mg oral tablet (20 sources) Anti-epileptic Agent Start: 07-26-2024 gabapenti n (Neurontin) 600 MG tablet Indications: Diabetic polyneuropathy associated with type 2 diabetes mellitus (CMS/HCC) 1 pill in am, 1 pill in the afternoon and 2 pills at bedtime 120 tablet 5 07/26/2024 Active Start: 08-21-2023 End: 04-16-2024 gabapentin (Neurontin) 600 M G tablet Indications: Diabetic polyneuropathy associated with type [...] tablet (20 sources) Sulfonylurea Start: 08-21-2023 End: 10-24-2024 take 1 tablet by mouth in the morning glimepiride (Amaryl) 2 MG tablet Indications: Type 2 diabetes mellitus with other specified complication, without long-term current use of insulin (CMS/HCC) Take 1 tablet (2 mg) by mouth in the morning and 1 tablet (2 mg) in the evening. Take before meals. 180 tablet 1 07/26/2024 10/24/2024 Active take 1 tablet by cecelia th once daily at breakfast Glimepiride 2 MG 1 tablet with breakfast or the first main meal of the day Orally Active Glimepiride Acti ve lisinopril 20 mg oral tablet (14 sources) Angiotensin Converting Enzyme Inhibitor Start: 04-09-2024 End: 10-24-2024 take 1 tablet by mouth in the morning lisinopril 20 MG tablet Indications: Primary hypertension (CMS/HCC) Take 1 tablet (20 mg) by mouth in the morning and 1 tablet (20 mg) before bedtime. 180 tablet 1 07/26/2024 10/24/2024 Active loratadine 10 mg oral tablet (9 sources) Start: 07-26-2024 End: 10-24-2024 take 1 tablet by mouth once daily loratadine (Claritin) 10 MG tablet Indications: Environmental and seasonal allergies Take 1 tablet (10 mg) by mouth Daily 90 tablet 1 07/26/2024 10/24/2024 Active Start: 04-21-2024 End: 07-20-2024 take 1 tablet [...] hydrochloride 500 mg extended release oral tablet (13 sources) Biguanide Start: 07-11-2024 End: 10-24-2024 take 2 tablets by mouth every twenty-four hours in the morning metFORMIN XR (Glucophage-XR) 500 MG 24 hr tablet Indications: Type 2 diabetes with nephropathy (CMS/HCC) Take 2 tablets (1,000 mg) by mouth in the morning and 2 tablets (1,000 mg) in the evening. Take before meals. Do not crush, chew, or split.. 360 tablet 1 07/26/2024 10/24/2024 Active Start: 01-20-2024 End: 04-19-2024 take 2 [...] 09/10/2023 Active pioglitazone 30 mg oral tablet (20 sources) Peroxisome Proliferator Receptor alpha Agonist, Peroxisome Proliferator Receptor gamma Agonist, Thiazolidinedione Start: 10-21-2023 End: 10-24-2024 take 1 tablet by mouth in the morning pioglitazone (Actos) 30 MG tablet Indications: Type 2 diabetes mellitus with other specified complication, without long-term current use of insulin (CMS/HCC) Take 1 tablet (30 mg) by mouth in the morning. 90 tablet 1 07/26/2024 10/24/2024 Active Start: 08-21-2023 take 1 tablet by [...] mellitus with diabetic neuropathy, unspecified] Onset: 08-21-2023 Resolved: 09-07-2024 08-21-2023 Chronic Essential hypertension (20 sources) Essential hypertension; Translations: [Essential (primary) hypertension] Onset: 09-17-2023 09-17-2023 Chronic Mood disorders (15 sources) Mild major depression, single episode; Translations: [Major depressive disorder, single episode, mild] Onset: 10-21-2023 10-21-2023 Chronic Nonspecific chest pain (6 sources) Chest pain; Translations: [Other chest pain] Onset: 09-07-2024 09-07-2024 Episodic Other aftercare (4 sources) Drug therapy finding; Translations: [Other termite exterminator helper (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) drug therapy] Onset: 09-07-2024 09-07-2024 Episodic Other connective tissue disease (5 sources) [...] Episodic Other nutritional; endocrine; and metabolic disorders (6 sources) Obesity caused by energy imbalance; Translations: [Morbid (severe) obesity due to excess calories] Onset: 07-26-2024 07-26-2024 Chronic Other screening for suspected conditions (not mental disorders or infectious disease) (4 sources) Patient encounter status; Translations: [Encounter for screening mammogram for malignant neoplasm of breast] Onset: 07-26-2024 07-26-2024 Episodic Other upper respiratory disease (11 sources) Allergic disposition; Translations: [Other allergic rhinitis] Onset: 04-21-2024 04-21-2024 Chronic Residual codes; unclassified (6 sources) Bilateral lower limb edema; Translations: [Localized edema] Onset: 09-07-2024 09-07-2024 Episodic Unclassified (1 source) Varicose veins of [...] Episodic/Chronic Conditions associated with dizziness or vertigo (13 sources) Dizziness; Translations: [Dizziness and giddiness] Onset: 11-27-2023 11-27-2023 Episodic Diabetes mellitus without complication (20 sources) Type 2 diabetes mellitus without complications; Translations: [Diabetes mellitus] Onset: 10-08-2022 Resolved: 09-17-2023 Chronic Genitourinary symptoms and ill-defined conditions (13 sources) Urinary symptoms ; Translations: [Unspecified symptoms and signs involving the genitourinary system] Onset: 11-28-2023 11-28-2023 Episodic Mood disorders (3 sources) Mood disorders Onset: 07-26-2024 07-26-2024 Nonmalignant breast conditions (20 sources) Mammographic calcification of left breast; Translations: [Mammographic calcification found on diagnostic imaging of breast] Onset: 07-13-2023 07-13-2023 Episodic Other connective tissue disease (20 sources) Bursitis of right shoulder; Translations: [Bursitis of right shoulder] Onset: 08-06-2023 08-06-2023 Episodic Other non-traumatic joint disorders (20 sources) Pain in right shoulder; Translations: [Pain in joint, shoulder region] Onset: 08-06-2023 08-06-2023 Episodic Other nutritional; endocrine; and metabolic disorders (20 sources) Body mass index 30+ - obesity; Translations: [Body mass index (BMI) 35.0-35.9, adult] Onset: 08-06-2023 Resolved: 09-07-2024 08-06-2023 Chronic Other upper respiratory disease (9 sources) Rhinitis; Translations: [Chronic rhinitis] Onset: 04-21-2024 Resolved: 04-21-2024 04-21-2024 Chronic Results Test Name Value Interpretation Reference Range Facility [facility] HEMOGLOBIN A1Con 024 Glucose [Mass/Vol] 126 mg/dL [facility] HbA1c (Bld) [Mass fraction] 6.0 % 4.5 - 6.2 % [facility] Comment on above: ADA RECOMMENDED LIMI T 4.0 - 6.0 ADA THERAPEUTIC TARGET < 7.0 ACTION SUGGESTED > 7.0 [facility] US venous duplex LE LTon US venous duplex [facility] [place] [address] Ultrasound Report Signed Patient: Lidia Davis MR#: [id number] [id number] : 1950 Acct:[id number] Age/Sex: 72 / F ADM Date: 11/11/22 Loc: [facility] Room: Type: [facility] Attending Dr: Sheila Alvarez REPAIR SERVICE DISPATCHER-C Ordering Provider: Sheila Alvarez APRN Date of Service: 11/11/22 US/US venous duplex LE LT: I83.812,S/P VENASEAL Copies to: Sheila Alvarez, JOSE Right lower extremity full functional venous duplex [...] Chivo Bullard M.D.11/12/2022 2:36 PM Dictation Location: [facility] Tech: Kari Menendez Transcribed By: CY 11/12/221435 Dictated By: Chivo Bullard MD 11/12/221432 Signed By: 11/12/22 143 [facility] CBC AUTO DIFFon 10-08-2022 BASO # 0.0 103/ul Normal 0.0-0.1 [facility] Comment on above: Performed By: #### C BC #### [facility] [address] [address] [address] Jj Torre Basophils/100 WBC (Bld) 0.4 % Normal 0.2-2.0 [facility] Comment on above: Performed By: #### C BC #### [facility] [address] [place] [address] Dr. Jj Torre EO # 0.1 103/ul Normal 0.0-0.7 [facility] Comment on above: Performed By: #### C BC #### [facility] [address] [place] [address] Dr. Jj Torre Eosinophils/100 WBC (Bld) 1.5 % Normal 0.9-7.0 [facility] Comment on above: Performed By: #### C BC #### [facility] [address] [place] [address] Dr. Jj Torre Erythrocyte distribution width (RBC) [Ratio] 13.5 % Normal 11.0-15.0 [facility] Comment on above: Performed By: #### C BC #### [facility] [address] [place] [address] Dr. Jj Torre Hematocrit (Bld) [Volume fraction] 45.1 % Normal 36.0-48.0 [facility] Comment on above: Performed By: #### C BC #### [facility] [address] [place] [address] Dr. Jj Torre Hemoglobin (Bld) [Mass/Vol] 15.0 g/dL Normal 12.0-16.0 [facility] Comment on above: Performed By: #### C BC #### [facility] [address] [place] [address] Dr. Jj Torre IG # 0.01 10e3/ul Normal 0.00-0.03 [facility] Comment on above: Performed By: #### C BC #### [facility] [address] [place] [address] Dr. Jj Torre IG % 0.1 % Normal 0.0-0.5 [facility] Comment on above: Performed By: #### C BC #### [facility] [address] [place] [address] Dr. Jj Torre LYMPH # 2.3 103/ul Normal 1.2-3.8 [facility] Comment on above: Performed By: #### C BC #### [facility] [address] [place] [address] Dr. Jj Torre Lymphocytes/100 WBC (Bld) 28.9 % Normal 20.5-60.0 [facility] Comment on above: Performed By: #### C BC #### [facility] [address] [place] [address] Dr. Jj Torre MANUAL DIFF REQ NO Normal [facility] Comment on above: Performed By: #### C BC #### [facility] [address] [place] [address] Dr. Jj Torre MCH (RBC) [Entitic mass] 26.7 pg Normal 26.7-34.0 [facility] Comment on above: Performed By: #### C BC #### [facility] [address] [place] [address] Dr. Jj Torre MCHC (RBC) [Mass/Vol] 33.3 g/dL Normal 29.9-35.2 [facility] Comment on above: Performed By: #### C BC #### [facility] [address] [place] [address] Dr. Jj Torre MCV (RBC) [Entitic vol] 80.2 fL Critically low 81.0-99.0 [facility] Comment on above: Performed By: #### C BC #### [facility] [address] [place] [address] Dr. Jj Torre MONO # 0.6 103/ul Normal 0.3-0.8 [facility] Comment on above: Performed By: #### C BC #### [facility] [address] [place] [address] Dr. Jj Torre Monocytes/100 WBC (Bld) 7.7 % Normal 1.7-12.0 [facility] Comment on above: Performed By: #### C BC #### [facility] [address] [place] [address] Dr. Jj Torre NEUT # 5.0 103/ul Normal 1.4-6.5 [facility] Comment on above: Performed By: #### C BC #### [facility] [address] [address] [address] Jj Torre Neutrophils/100 WBC (Bld) 61.4 % Normal 43.0-75.0 [facility] Comment on above: Performed By: #### C BC #### [facility] [address] [address] [address] Jj Torre Platelet mean volume (Bld) [Entitic vol] 9.2 fL Critically low 9.5-13.5 [facility] Comment on above: Performed By: #### C BC #### [facility] [address] [address] [address] Jj Torre PLT 214 103/ul Normal 150-450 [facility] Comment on above: Performed By: #### C BC #### [facility] [address] [place] [address] Dr. Jj Torre RBC 5.62 106/ul Critically high 4.20-5.40 [facility] Comment on above: Performed By: #### C BC #### [facility] [address] [address] [address] Jj Torre WBC 8.1 103/ul Normal 4.0-11.0 [facility] Comment on above: Performed By: #### C BC #### [facility] [address] [place] [address] Dr. Jj Torre GLYCOHEMOGLOBIN A1Con 2022 ADA RECOMMENDATION SEE BELOW Normal [facility] Comment on above: Result Comment: ADA RECOMMENDED LIMIT 4.0 - 6.0 ADA THERAPEUTIC TARGET < 7.0 ACTION SUGGESTED > 7.0 Performed By: #### A 1C #### [facility] [address] [address] [address] Jj Torre Glucose [Mass/Vol] 258 mg/dL Normal [facility] Comment on above: Performed By: #### A 1C #### [facility] [address] [place] [address] Dr. Jj Torre HbA1c (Bld) [Mass fraction] 10.6 % Critically high 4.5-6.2 [facility] Comment on above: Performed By: #### A 1C #### [facility] [address] [place] [address] Dr. Jj Torre MICROALBUMIN, RAND URon 09-25 mALB 1.7 mg/L Normal <=30.0 [facility] Comment on above: Performed By: #### M ALBR #### [facility] [address] [place] [address] Dr. Jj Torre PROF 14(COMP METB)on 023 Albumin [Mass/Vol] 3.3 g/dL Critically low 3.4-5.0 [facility] Comment on above: Performed By: #### C MP #### [facility] [address] [place] [address] Dr. Jj Torre Albumin/Globulin [Mass ratio] 0.7 {ratio} Normal [facility] Comment on above: Performed By: #### C MP #### [facility] [address] [place] [address] Dr. Jj Torre ALP [Catalytic activity/Vol] 104 U/L Normal 46-116 [facility] Comment on above: Performed By: #### C MP #### [facility] [address] [place] [address] Dr. Jj Torre ALT [Catalytic activity/Vol] 13 U/L Critically low 14-59 [facility] Comment on above: Performed By: #### C MP #### [facility] [address] [place] [address] Dr. Jj Torre Anion gap [Moles/Vol] 7.8 mmol/L Normal [facility] Comment on above: Performed By: #### C MP #### [facility] [address] [place] [address] Dr. Jj Torre AST [Catalytic activity/Vol] 9 U/L Critically low 15-37 [facility] Comment on above: Performed By: #### C MP #### [facility] [address] [place] [address] Dr. Jj Torre Bilirubin [Mass/Vol] 0.5 mg/dL Normal 0.2-1.0 [facility] Comment on above: Performed By: #### C MP #### [facility] [address] [address] [address] Jj Torre Calcium [Mass/Vol] 9.6 mg/dL Normal 8.5-10.1 [facility] Comment on above: Performed By: #### C MP #### [facility] [address] [address] [address] Jj Torre Chloride [Moles/Vol] 100 mmol/L Normal 98-107 [facility] Comment on above: Performed By: #### C MP #### [facility] [address] [address] [address] Jj Torre CO2 [Moles/Vol] 30.1 mmol/L Normal 21.0-32.0 [facility] Comment on above: Performed By: #### C MP #### [facility] [address] [address] [address] Jj Torre Creatinine [Mass/Vol] 0.56 mg/dL Normal 0.55-1.02 [facility] Comment on above: Performed By: #### C MP #### [facility] [address] [address] [address] Jj Torre EGFR-AF CUBAN >60 Normal >=60 [facility] Comment on above: Performed By: #### C MP #### [facility] [address] [address] [address] Jj Torre EGFR-NON AF CUBAN >60 Normal >=60 [facility] Comment on above: Performed By: #### C MP #### [facility] [address] [address] [address] Jj Torre Globulin (S) [Mass/Vol] 4.5 g/dL Normal [facility] Comment on above: Performed By: #### C MP #### [facility] [address] [place] [address] Dr. Jj Torre Glucose [Mass/Vol] 343 mg/dL Critically high 74-106 [facility] Comment on above: Performed By: #### C MP #### [facility] [address] [address] [address] Jj Torre Potassium [Moles/Vol] 3.9 mmol/L Normal 3.5-5.1 [facility] Comment on above: Performed By: #### C MP #### [facility] [address] [address] [address] Jj Torre Protein [Mass/Vol] 7.8 g/dL Normal 6.4-8.2 [facility] Comment on above: Performed By: #### C MP #### [facility] [address] [address] [address] Jj Torre Sodium [Moles/Vol] 134 mmol/L Critically low 136-145 [facility] Comment on above: Performed By: #### C MP #### [facility] [address] [address] [address] Jj Torre Urea nitrogen [Mass/Vol] 11.0 mg/dL Normal 7.0-18.0 [facility] Comment on above: Performed By: #### C MP #### [facility] [address] [address] [address] Jj Torre Urea nitrogen/Creatinine [Mass ratio] 19.6 mg/mg Normal [facility] Comment on above: Performed By: #### C MP #### [facility] [address] [address] [address] Jj Torre US venous duplex LE BIon US venous duplex LE [facility] [address] Ultrasound Report Signed Patient: Lidia Davis MR#: [id number] [id number] : 1950 Acct:[id number] Age/Sex: 72 / F ADM Date: 06/21/22 Loc: Room: Type: [facility] Attending Dr: Sheila Alvarez REPAIR SERVICE DISPATCHERTemitopeC Ordering Provider: Sheila Alvarez APRN Date of [...] Ca Cramer MD06/24/2022 4:41 PM Dictation Location: [address] [address] Tech: Yeimy Maynard Transcribed By: [facility] 06/24/22 1641 Dictated By: Ca Cramer MD 06/24/22 1640 Signed By: 06/24/22 1641 [facility] Vital Signs Date Time Vital Sign Value Performing Clinician Facility 09-07-2024 14:20-0500 Diastolic blood pressure 90 mm[Hg] Almaz Pérez REPAIR SERVICE DISPATCHER Work Phone: [facility] 09-07-2024 14:20-0500 Systolic blood pressure 148 mm[Hg] Almaz Pérez REPAIR SERVICE DISPATCHER Work Phone: [facility] 09-07-2024 14:14-0500 Body mass index (BMI) [Ratio] 37.56 kg/m2 Almaz Beto REPAIR SERVICE DISPATCHER Work Phone: [facility] 09-07-2024 14:14-0500 Body temperature 98.49 [degF] Almaz Beto REPAIR SERVICE DISPATCHER Work Phone: [facility] 09-07-2024 14:14-0500 Body weight 108.77 kg Almaz Beto REPAIR SERVICE DISPATCHER Work Phone: [facility] 09-07-2024 14:14-0500 Heart rate 77 /min Almaz Humphreyz REPAIR SERVICE DISPATCHER Work Phone: [facility] 09-07-2024 14:14-0500 Respiratory rate 18 /min Almaz Beto REPAIR SERVICE DISPATCHER Work Phone: [facility] 09-07-2024 14:14-0500 SaO2% (BldA) [Mass fraction] 94 % Almaz Pérez REPAIR SERVICE DISPATCHER Work Phone: [facility] 04-21-2024 09:45-0400 Body height 170.2 cm Almaz Yinz REPAIR SERVICE DISPATCHER Work Phone: [facility] 04-21-2024 09:45-0400 Body mass index (BMI) [Ratio] 36.21 kg/m2 Almaz Miahhholz REPAIR SERVICE DISPATCHER Work Phone: [facility] 04-21-2024 09:45-0400 Body temperature 98.1 [degF] Almaz Miahhholz REPAIR SERVICE DISPATCHER Work Phone: [facility] 04-21-2024 09:45-0400 Body weight 104.87 kg Almaz Miahhholz REPAIR SERVICE DISPATCHER Work Phone: [facility] 04-21-2024 09:45-0400 Diastolic blood pressure 70 mm[Hg] Almaz Miahhholz REPAIR SERVICE DISPATCHER Work Phone: [facility] 04-21-2024 09:45-0400 Heart rate 86 /min Alamz Jordynholz REPAIR SERVICE DISPATCHER Work Phone: [facility] 04-21-2024 09:45-0400 Respiratory rate 19 /min Almaz Miahhholz REPAIR SERVICE DISPATCHER Work Phone: [facility] 04-21-2024 09:45-0400 SaO2% (BldA) [Mass fraction] 96 % Almaz Jordynholz REPAIR SERVICE DISPATCHER Work Phone: [facility] 04-21-2024 09:45-0400 Systolic blood pressure 130 mm[Hg] Almaz Jordynholz REPAIR SERVICE DISPATCHER Work Phone: [facility] 04-15-2023 11:15-0400 Body height 172.72 cm Chivo Bullard Other [facility] Other 04-15-2023 11:15-0400 Body mass index (BMI) [Ratio] 27.06 kg/m2 Chivo Bullard Other [facility] Other 04-15-2023 11:15-0400 Body temperature 97.3 [degF] Chivo Bullard Other [facility] Other 04-15-2023 11:15-0400 Body weight 80.74 kg Chivo Bullard Other [facility] Other 04-15-2023 11:15-0400 Diastolic blood pressure 82 mm[Hg] Chivo Bullard Other [facility] Other 04-15-2023 11:15-0400 SaO2% (BldA) [Mass fraction] 98 % Chivo Bullard Other [facility] Other 04-15-2023 11:15-0400 Systolic blood pressure 138 mm[Hg] Chivo Bullard Other [facility] Other 11-26-2022 11:45-0400 Body height 172.72 cm Sheila Villarreallinwood Other [facility] Other 11-26-2022 11:45-0400 Body mass index (BMI) [Ratio] 27.06 kg/m2 Sheila Villarreallinwood Other [facility] Other 11-26-2022 11:45-0400 Body temperature 97.8 [degF] Sheila Villarreallinwood Other [facility] Other 11-26-2022 11:45-0400 Body weight 80.74 kg Sheila Villarreallinwood Other [facility] Other 11-26-2022 11:45-0400 Diastolic blood pressure 72 mm[Hg] Sheila Alvarez Other [facility] Other 11-26-2022 11:45-0400 SaO2% (BldA) [Mass fraction] 98 % Sheila Alvarez Other [facility] Other 11-26-2022 11:45-0400 Systolic blood pressure 116 mm[Hg] Sheila Gonzalezo Other [facility] Other 07-01-2022 12:00-0500 Body height 172.72 cm Sheila Alvarez Other [facility] Other 07-01-2022 12:00-0500 Body mass index (BMI) [Ratio] 27.06 kg/m2 Sheila Alvarez Other [facility] Other 07-01-2022 12:00-0500 Body temperature 97.1 [degF] Sheila Alvarez Other [facility] Other 07-01-2022 12:00-0500 Body weight 80.74 kg Sheila Alvarez Other [facility] Other 07-01-2022 12:00-0500 Diastolic blood pressure 60 mm[Hg] Sheila Gonzalezo Other [facility] Other 07-01-2022 12:00-0500 SaO2% (BldA) [Mass fraction] 97 % Sheila Gonzalezo Other [facility] Other 07-01-2022 12:00-0500 Systolic blood pressure 142 mm[Hg] Sheila Gonzalezo Other [facility] Other 11-19-2021 12:00-0400 Body height 172.72 cm Chivo Buehrer Other [facility] Other 11-19-2021 12:00-0400 Body mass index (BMI) [Ratio] 30.86 kg/m2 Chivo Buehrer Other [facility] Other 11-19-2021 12:00-0400 Body temperature 97 [degF] Chivo Buehrer Other [facility] Other 11-19-2021 12:00-0400 Body weight 92.08 kg Chivo Buehrer Other [facility] Other 11-19-2021 12:00-0400 Diastolic blood pressure 74 mm[Hg] Chivo Buehrer Other [facility] Other 11-19-2021 12:00-0400 SaO2% (BldA) [Mass fraction] 92 % Chivo Buehrer Other [facility] Other 11-19-2021 12:00-0400 Systolic blood pressure 138 mm[Hg] Chivo Buehrer Other [facility] Other 09-03-2021 13:00-0500 Body height 172.72 cm Chivo Buehrer Other [facility] Other 09-03-2021 13:00-0500 Body mass index (BMI) [Ratio] 30.86 kg/m2 Chivo Buehrer Other [facility] Other 09-03-2021 13:00-0500 Body temperature 98.5 [degF] Chivo Buehrer Other [facility] Other 09-03-2021 13:00-0500 Body weight 92.08 kg Chivo Bullard Other [facility] Other 09-03-2021 13:00-0500 Diastolic blood pressure 92 mm[Hg] Chivo Bullard Other [facility] Other 09-03-2021 13:00-0500 SaO2% (BldA) [Mass fraction] 96 % Chivo Bullard Other [facility] Other 09-03-2021 13:00-0500 Systolic blood pressure 160 mm[Hg] Chivo Bullard Other [facility] Other Encounters Encounter Date Encounter Type Care Provider Facility Start: 09-07-2024 End: 09-07-2024 Bamboo flowsheet Almaz Pérez REPAIR SERVICE DISPATCHER Work Phone: [facility] Start: 09-07-2024 End: 09-07-2024 Bamboo flowsheet Almaz Pérez REPAIR SERVICE DISPATCHER Work Phone: [facility] Start: 09-07-2024 End: 09-07-2024 Office outpatient visit 25 minutes Almaz Pérez NP Work Phone: [facility] Comment on above: Other chest pain (Pr imary Dx); Type 2 diabetes mellitus with other specified complication (CMS/HCC); Type 2 diabetes mellitus with diabetic polyneuropathy (CMS/HCC); Morbid (severe) obesity due to excess calories (CMS/HCC); Primary hypertension (CMS/HCC); Type 2 diabetes with nephropathy (CMS/HCC); Bilateral lower extremity edema; 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, unspecified retinopathy severity ([facility]/HCC); On statin therapy Start: 07-26-2024 End: 07-26-2024 Bamboo flowsheet Almaz Aichholz REPAIR SERVICE DISPATCHER Work Phone: [facility] Start: 07-26-2024 End: 07-26-2024 Bamboo flowsheet Almaz Aichholz REPAIR SERVICE DISPATCHER Work Phone: [facility] Start: 07-26-2024 Patient encounter procedure Almaz Aichholz REPAIR SERVICE DISPATCHER Work Phone: [facility] Start: 07-26-2024 End: 07-26-2024 ambulatory ALMAZ AICHHOLZ Not Available Start: 07-12-2024 End: 07-12-2024 Refill Almaz Aichholz REPAIR SERVICE DISPATCHER Work Phone: [facility] Comment on above: Primary hypertension (CMS/HCC) Start: 05-24-2024 End: 05-24-2024 Refill Almaz Aichholz REPAIR SERVICE DISPATCHER Work Phone: [facility] Comment on above: Type 2 diabetes jimmy itus with other specified complication, without long-term current use of insulin (CMS/HCC) Start: 05-12-2024 End: 05-12-2024 Refill Almaz Aichholz REPAIR SERVICE DISPATCHER Work Phone: [facility] Comment on above: Type 2 diabetes jimmy itus with other specified complication, without long-term current use of insulin (CMS/HCC) Start: 04-21-2024 End: 04-21-2024 Bamboo flowsheet Almaz Aichholz REPAIR SERVICE DISPATCHER Work Phone: [facility] Start: 04-21-2024 End: 04-21-2024 Bamboo flowsheet Almaz Aichholz REPAIR SERVICE DISPATCHER Work Phone: [facility] Start: 04-21-2024 End: 04-21-2024 Office outpatient visit 25 minutes Almaz Aichholz REPAIR SERVICE DISPATCHER Work Phone: [facility] Comment on above: 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); Primary hypertension (CMS/HCC); Obesity (BMI 30-39.9); Current mild episode of major depressive disorder without prior episode (HCC) ([facility]); Environmental and seasonal allergies Start: 04-21-2024 End: 04-21-2024 ambulatory ALMAZ AICHHOLZ Not Available Start: 04-19-2024 End: 04-19-2024 Clinisync Result Encounter Almaz Aichholz REPAIR SERVICE DISPATCHER Work Phone: [facility] Unsolicited Start: 04-19-2024 End: 04-19-2024 Clinisync Result Encounter Almaz Aichholz REPAIR SERVICE DISPATCHER Work Phone: [facility] Unsolicited Start: 04-16-2024 End: 04-16-2024 Refill Almaz Aichholz REPAIR SERVICE DISPATCHER Work Phone: [facility] Comment on above: Diabetic polyneuropa thy associated with type 2 diabetes mellitus ([facility]) Start: 04-08-2024 End: 04-09-2024 Refill Almaz Aichholz REPAIR SERVICE DISPATCHER Work Phone: [facility] Comment on above: Primary hypertension ([facility]) Start: 01-20-2024 End: 01-20-2024 ambulatory ALMAZ AICHHOLZ Not Available Start: 12-16-2023 End: 12-16-2023 ambulatory ALMAZ AICHHOLZ Not Available Start: 11-27-2023 End: 11-27-2023 ambulatory ALMAZ AICHHOLZ Not Available Start: 10-21-2023 End: 10-21-2023 ambulatory ALMAZ AICHHOLZ Not Available Start: 09-17-2023 End: 09-17-2023 ambulatory ALMAZ AICHHOLZ Not Available Start: 09-11-2023 Bamboo flowsheet Mark Tatter linette FLIGHT TEST SHOP MECHANIC [facility] Start: 09-11-2023 Bamboo flowsheet Mark Tatter linette FLIGHT TEST SHOP MECHANIC [facility] Start: 09-11-2023 End: 09-11-2023 ambulatory Mark Tattersall FLIGHT TEST SHOP MECHANIC [facility] Comment on above: Adhesive capsulitis of right shoulder (Primary Dx); Acute pain of right shoulder Start: 09-09-2023 Bamboo flowsheet Lucho vazquez PT Work Phone: [facility] Start: 09-09-2023 Bamboo flowsheet Lucho vazquez PT Work Phone: [facility] Start: 09-09-2023 End: 09-09-2023 ambulatory Luchoconnie Simmons PT Work Phone: [facility] [...] right shoulder Start: 09-04-2023 Bamboo flowsheet Brennan Brink FLIGHT TEST SHOP MECHANIC [facility] Start: 09-04-2023 Bamboo flowsheet Brennan Brink FLIGHT TEST SHOP MECHANIC [facility] Start: 09-04-2023 End: 09-04-2023 ambulatory Brennan Brink FLIGHT TEST SHOP MECHANIC [facility] Comment on above: Adhesive capsulitis of right shoulder (Primary Dx); Acute pain of right shoulder Start: 08-27-2023 End: 08-27-2023 ambulatory LUCHO Altaf HARIS Not Available Start: 08-25-2023 End: 08-25-2023 ambulatory MARK JEAN-BAPTISTEMARGOTH Not Available Start: 08-20-2023 End: 08-20-2023 ambulatory MARK JEAN-BAPTISTEMARGOTH Not Available Start: 08-18-2023 End: 08-18-2023 ambulatory MARK TATTERSALL Not Available Start: 08-14-2023 End: 08-14-2023 ambulatory LUCHO Altaf HARIS Not Available Start: 08-11-2023 End: 08-11-2023 ambulatory CA GARCIA Not Available Start: 08-06-2023 End: 08-06-2023 ambulatory ALMAZ PÉREZ Not Available Start: 04-15-2023 End: 04-15-2023 ambulatory Chivo Bullard Other [facility] Other Start: 04-15-2023 Office outpatient vi sit 25 minutes Chivo Bullard [facility] Start: 11-26-2022 End: 11-26-2022 ambulatory Sheila Villarreallinwood Other [facility] Other Start: 11-26-2022 Patient encounter procedure Sheila Kim [facility] Start: 11-11-2022 End: 11-11-2022 ambulatory Sheila Alvarez Facility:[facility] Start: 11-08-2022 (EVLT) EVLT saphenou s vein ablation Chivo Bullard [facility] Start: 11-08-2022 End: 11-08-2022 ambulatory Chivo Bullard Other [facility] Other Start: 10-08-2022 End: 10-09-[address] GUS HODGE Facility: Start: 07-01-2022 End: 07-01-2022 ambulatory Sheila Kim Other [facility] Other Start: 07-01-2022 Follow-up encounter Sheila Rome [facility] Start: 06-21-2022 End: 06-21-2022 ambulatory Sheila Alvarez Facility:[facility] Start: 06-12-2022 (Sclerother) Sclerotherapy Sheila Alvarez [facility] Start: 06-12-2022 End: 06-12-2022 ambulatory Sheila Kim Other [facility] Other Start: 11-19-2021 End: 11-19-2021 ambulatory Chivo Bullard Other [facility] Other Start: 11-19-2021 Office outpatient vi sit 15 minutes Chivo Bullard [facility] Start: 10-24-2021 End: 10-24-2021 ambulatory Chivo Bullard Other [facility] Other Start: 10-24-2021 Telephone encounter Chivo Beanaleida [facility] Surgery Start: 09-03-2021 End: 09-03-2021 ambulatory Chivo Bullard Other [facility] Other Start: 09-03-2021 Office outpatient vi sit 25 minutes Chivo Bullard [facility] Procedures Date Procedure Procedure Detail Performing Clinician Start: 08-10-2024 Mammography Almaz pina REPAIR SERVICE DISPATCHER Work Phone: Start: 04-19-2024 MLR HEMOGLOBIN A1C Almaz Pérez REPAIR SERVICE DISPATCHER Work Phone: Start: 08-01-2023 Mammography Almaz pina REPAIR SERVICE DISPATCHER Work Phone: Start: 06-25-2023 Mammography Brennan light FLIGHT TEST SHOP MECHANIC Plan of Treatment Date Care Activity Detail Author Start: 06-25-2026 Screening for malignant neoplasm of colon [facility] Start: 08-10-2025 Screening for malignant neoplasm of breast Mammogram [facility] Start: 07-26-2025 Medicare Annual Wellness (AWV) Medicare Annual Wellness (AWV) [facility] Start: 07-26-2025 End: 07-26-2025 Patient encounter procedure 07/26/2025 10:30 AM EST Office Visit [facility] [address] [place] [address] Almaz Pérez NP [address] [place] [address] [facility] Start: 07-08-2025 Glaucoma screening Diabetes: Retinopathy Screening [facility] Start: 11-05-2024 End: 09-07-2025 Alanine aminotransferase [Enzymatic activity/volume] in Serum or Plasma ALT Lab Routine On statin therapy Expected: 11/05/2024 (Approximate), Expires: 09/07/2025 [facility] Comment on above: Expected: 11/05/2024 (Approximate), Expi res: 09/07/2025 Start: 11-05-2024 End: 09-07-2025 Aspartate aminotransferase [Enzymatic activity/volume] in Serum or Plasma AST Lab Routine On statin therapy Expected: 11/05/2024 (Approximate), Expires: 09/07/2025 [facility] Comment on above: Expected: 11/05/2024 (Approximate), Expi res: 09/07/2025 Start: 11-05-2024 End: 09-07-2025 Lipid 1996 panel - Serum or Plasma Lipid panel Lab Routine On statin therapy Expected: 11/05/2024 (Approximate), Expires: 09/07/2025 [facility] Comment on above: Expected: 11/05/2024 (Approximate), Expi res: 09/07/2025 Start: 10-24-2024 Hemoglobin A1c measurement Diabetes: Hemoglobin A1C [facility] Start: 10-06-2024 End: 10-06-2024 Patient encounter procedure 10/06/2024 2:00 PM EDT Office Visit [facility] [address] [place] [address] Almaz Pérez NP [address] [place] [address] [facility] Start: 09-07-2024 End: 09-07-2025 ECG 12 lead ECG 12 lead ECG Routine Primary hypertension (CMS/HCC) Type 2 diabetes with nephropathy (CMS/HCC) Other chest pain Expected: 09/07/2024 (Approximate), Expires: 09/07/2025 [facility] Comment on above: Expected: 09/07/2024 (Approximate), Expi res: 09/07/2025 Start: 09-07-2024 End: 09-07-2026 Echocardiogram 2D complete Echocardiogram 2D complete Echocardiography High Priority Primary hypertension (CMS/HCC) Other chest pain Bilateral lower extremity edema Expected: 09/07/2024 (Approximate), Expires: 09/07/2026 [facility] Work Phone: Comment on above: Expected: 09/07/2024 (Approximate), Expi res: 09/07/2026 Start: 09-07-2024 End: 09-07-2024 Patient encounter procedure 09/07/2024 2:00 PM EST Office Visit [facility] [address] [place] [address] Almaz Pérez NP [address] [place] [address] Primary hypertension (CMS/HCC) (Primary Dx); Type 2 diabetes mellitus with other specified complication (CMS/HCC); Type 2 diabetes mellitus with diabetic polyneuropathy (CMS/HCC); Morbid (severe) obesity due to excess calories (CMS/HCC); Type 2 diabetes with nephropathy (CMS/HCC) [facility] Comment on above: Primary hypertension (CMS/HCC) (Primary Dx); Type 2 diabetes mellitus with other specified complication (CMS/HCC); Type 2 diabetes mellitus with diabetic polyneuropathy (CMS/HCC); Morbid (severe) obesity due to excess calories (CMS/HCC); Type 2 diabetes with nephropathy (CMS/HCC) Start: 08-06-2024 Pneumococcal Vaccine: 65+ Years (1 - PCV) Pneumococcal Vaccine: 65+ Years (1 - PCV) [facility] Comment on above: Postponed from 1958 (Patient Refus ed) Start: 08-06-2024 Pneumococcal Vaccine: 65+ Years (1 of 2 - PCV) Pneumococcal Vaccine: 65+ Years (1 of 2 - PCV) [facility] Comment on above: Postponed from 1958 (Patient Refus ed) Start: 08-01-2024 Screening for malignant neoplasm of breast Mammogram [facility] Start: 07-26-2024 End: 07-26-2024 Patient encounter procedure [facility] Comment on above: Encounter for subsequent annual wellness visit (AWV) in Medicare patient [...] 07-19-2024 Hemoglobin A1c measurement Diabetes: Hemoglobin A1C [facility] Start: 07-15-2024 End: 07-15-2024 Patient encounter procedure 07/15/2024 1:20 PM EST Office Visit [facility] [address] [place] [address] Almaz Pérez NP [address] [place] [phone] [facility] Start: 06-25-2024 Screening for malignant neoplasm of breast Mammogram [facility] Start: 06-23-2024 Urine screening for protein Diabetes: Urine Protein Screening [facility] Start: 06-10-2024 Medicare Annual Wellness (AWV) Medicare Annual Wellness (AWV) [facility] Start: 04-21-2024 End: 04-21-2024 Patient encounter procedure 04/21/2024 9:40 AM EDT Office Visit [facility] [address] [place] [address] Almaz Pérez, CIPRIANO [address] [place] [address] [facility] Start: 01-25-2024 Influenza vaccination Influenza Vaccine (#1) [facility] Comment on above: Postponed from 03/28/2023 (Patient Refus ed) Start: 01-20-2024 Hemoglobin A1c measurement Diabetes: Hemoglobin A1C [facility] Start: 10-20-2023 End: 10-20-2023 Patient encounter procedure 10/20/2023 9:15 AM EDT Office Visit [facility] [address] [facility] [address] [place] [address] Ca Garcia PA [address] [facility] [address] [place] [address] [facility] Start: 09-26-2023 End: 09-26-2023 ambulatory 09/26/2023 10:00 AM EST Treatment [facility] [address] [facility] [address] [place] [address] Brennan Adair PTA [facility] Start: 09-23-2023 Hemoglobin A1c measurement Diabetes: Hemoglobin A1C [facility] Start: 09-19-2023 End: 09-19-2023 ambulatory 09/19/2023 10:00 AM EST Treatment [facility] [address] [facility] [address] [place] [address] Brennan Adair PTA [facility] Start: 09-17-2023 End: 09-17-2023 Patient encounter procedure 09/17/2023 9:00 AM EST Office Visit [facility] [address] [place] [address] Almaz Pérez, CIPRIANO [address] [place] [address] [facility] Start: 09-11-2023 End: 09-11-2023 ambulatory [facility] Comment on above: Adhesive capsulitis of right shoulder (P rimary Dx); Acute pain of right shoulder Start: 09-09-2023 End: 09-09-2023 ambulatory 09/09/2023 10:00 AM EST Treatment [facility] [address] [facility] [address] [place] [address] Lucho Simmons, PT [address] [facility] [address] [place] [address] [facility] Start: 09-08-2023 Chart abstracting 09/08/2023 Abstract [facility] [address] [facility] [address] [place] [address] Ca Garcia, PA [address] [facility] [address] [place] [address] [facility] Start: 09-08-2023 End: 09-08-2023 Patient encounter procedure 09/08/2023 9:30 AM EST Office Visit [facility] [address] [facility] [address] [place] [address] Ca Garcia PA [address] [facility] [address] [place] [address] [facility] Start: 1962 Glaucoma screening Diabetes: Retinopathy Screening [facility] Start: 1956 Pneumococcal Vaccine: 65+ Years (1 of 2 - PCV) Pneumococcal Vaccine: 65+ Years (1 of 2 - PCV) [facility] Start: 1952 Screening for malignant neoplasm of colon [facility] Payers Date Payer Category Payer Other GENERIC OTHER [place] [id number] 2022 Unknown GENERIC OTHER GE NERIC OTHER [id number] 2022-Present [phone] [place] [id number] 2022 Self-pay 2018 Medicare [id number] 1959 Medicare [id number] [id number] 1959 Unknown [id number] 2.16.840.1.343711.19 1952 Unknown [id number] 2.16.840.1.831845.3.579.2.59 3 1952 Unknown [id number] 2.16.840.1.177220.3.579.2.12 59 1952 Unknown [id number] 2.16.840.1.918502.3.579.2.12 59 1952 Unknown [id number] 2.16.840.1.744535.3.579.2.12 59 1952 Unknown [id number] 2.16.840.1.753645.3.579.2.12 59 1952 Unknown [id number] 2.16.840.1.958328.3.579.2.12 59 1952 Unknown [id number] 2.16.840.1.186404.3.579.2.12 59 1952 Unknown [id number] 2.16.840.1.149299.3.579.2.12 59 1952 Unknown [id number] 2.16.840.1.610625.3.579.2.12 59 1952 Unknown [id number] 2.16.840.1.124319.3.579.2.12 59 1952 Unknown [id number] 2.16.840.1.144679.3.579.2.12 59 1952 Unknown [id number] 2.16.840.1.223572.3.579.2.12 59 1952 Unknown [id number] 2.16.840.1.575101.3.579.2.12 59 1952 Unknown [id number] 2.16.840.1.647508.3.579.2.12 59 1952 Unknown [id number] 2.16.840.1.972810.3.579.2.12 59 1952 Unknown [id number] 2.16.840.1.994305.3.579.2.12 59 1952 Unknown [id number] 2.16.840.1.631358.3.579.2.12 59 1952 Unknown [id number] 2.16.840.1.190660.3.579.2.12 59 1952 Unknown [id number] 2.16.840.1.880098.3.579.2.12 59 1952 Unknown [id number] 2.16.840.1.009423.3.579.2.12 59 Unknown [id number] 2.16.840.1.972995.3.579.2.53 1 Unknown [id number] 2.16.840.1.104937.3.579.2.53 1 Social History Date Type Detail Facility Start: 08-11-2023 End: 07-26-2024 Sex Assigned At [facility] Other Start: 08-04-2023 Tobacco smoking status MAIS Never smoked tobacco [facility] Start: 08-11-2023 End: 09-07-2024 Alcohol intake Current drinker of alcohol (finding) [facility] Start: 08-11-2023 End: 07-26-2024 Alcohol intake [facility] Start: 08-04-2023 Alcohol Comment DAILY 7 DAYS A WEEK 1 DRINK WHISKEY AND GINGERALE [facility] Start: 1950 Sex Assigned At Not on file [place] [facility] Medical Equipment Procedure Code Equipment Code Equipment Origin al Text Equipment Identifier Dates [id number] Start: 09-29-2022 Clinical Notes 09-03-2021 to 09-07-2024 Almaz Pérez, REPAIR SERVICE DISPATCHER - 09/07/2024 3:00 PM ESTAlmaz Pérez, REPAIR SERVICE DISPATCHER - 09/07/2024 2:58 PM Dain Pérez, REPAIR SERVICE DISPATCHER - 09/07/2024 2:00 PM Dain Pérez, REPAIR SERVICE DISPATCHER - 09/07/2024 7:39 AM ESTPatient Instructions Note Date & Type Note Facility 09-07-2024 History of Presen t illness Narrative Associated Problem(s): Other chest pain At this point strong risk factors for CAD: HTN , DM Is on statin, loly, asa, Check EKG, and ECHO, then stress test based on EKG and ECHO Associated Problem(s): Bilateral lower extremity edema Elevated legs, limit sodium Possible side effect for pioglitazone Check labs and ECHO Consider diuretic Images from the original note were not included. Lidia Davis is a 74 y.o. female presents with chief complaint of No chief complaint on file. HPI: Recheck of DN: last appt added elavil to her gabapentin dose Is happy with the results, would like to stay on the medications Hypertension This is a chronic problem. The current episode started more than 1 year ago. The problem is unchanged. The problem is uncontrolled. Associated symptoms include chest pain, peripheral edema and shortness of breath. Pertinent negatives include no headaches or palpitations. Risk factors for coronary artery disease include diabetes mellitus, dyslipidemia, obesity and sedentary lifestyle. Past treatments include LOLY inhibitors. The current treatment provides moderate improvement. There are no compliance problems. There is no history of kidney disease, CAD/SD, heart failure or PVD. Identifiable causes of hypertension include a thyroid problem. Chest Pain This is a recurrent problem. The current episode started more than 1 month ago. The onset quality is undetermined. The problem occurs intermittently. The problem has been waxing and waning. The pain is present in the substernal region. The pain is moderate. The quality of the pain is described as heavy, tightness and pressure. Radiates to: from shoulders down to mid chest. Associated symptoms include exertional chest pressure, lower extremity edema, shortness of breath and weakness. Pertinent negatives include no abdominal pain, back pain, cough, diaphoresis, dizziness, fever, headaches, hemoptysis, irregular heartbeat, leg pain, nausea, near-syncope, palpitations, syncope or vomiting. Risk factors include post-menopausal, sedentary lifestyle, obesity, lack of exercise and alcohol intake. Her past medical history is significant for diabetes, hypertension and thyroid problem. Pertinent negatives for past medical history include no aneurysm, no CAD, no CHF, no mitral valve prolapse, no pacemaker, no PVD and no seizures. Her family medical history is significant for diabetes. Pertinent negatives for family medical history include: no CAD and no heart disease. SUBJECTIVE: MEDICATIONS: Current Outpatient Medications Medication Instructions amitriptyline (ELAVIL) 10 mg, Oral, Nightly aspirin 81 mg, Oral, Daily Blood Glucose Monitoring Suppl (True Metrix Air Glucose Meter) w/Device kit USE DIRECTED to test BLOOD SUGAR ONCE DAILY Drug Melvin Unilet Lancets 30G misc USE DIRECTED to test sugar ONCE DAILY fluticasone (Flonase) 50 MCG/ACT nasal spray 2 sprays, Each Nostril, Daily, Shake gently. Before first use, prime pump. After use, clean tip and replace cap. gabapentin (Neurontin) 600 MG tablet 1 pill in am, 1 pill in the afternoon and 2 pills at bedtime glimepiride (AMARYL) 2 mg, Oral, 2 times daily before meals glucose blood (True Metrix Blood Glucose Test) test strip USE DIRECTED to test BLOOD SUGAR DAILY lisinopril 20 mg, Oral, 2 times daily loratadine (CLARITIN) 10 mg, Oral, Daily metFORMIN XR (GLUCOPHAGE-XR) 1,000 mg, Oral, 2 times daily before meals, Do not crush, chew, or split. pioglitazone (ACTOS) 30 mg, Oral, Every morning ALLERGIES: Allergies Allergen Reactions Cymbalta [Duloxetine Hcl] GI intolerance Vomiting, nausea, dizziness REVIEW OF SYMPTOMS: Review of Systems Constitutional: Negative for appetite change, chills, diaphoresis and fever. HENT: Negative for congestion, ear pain and sore throat. Eyes: Negative for pain, discharge, redness and visual disturbance. Respiratory: Positive for shortness of breath. Negative for cough, hemoptysis and wheezing. Cardiovascular: Positive for chest pain and leg swelling. Negative for palpitations, syncope and near-syncope. Gastrointestinal: Negative for abdominal pain, blood in stool, constipation, diarrhea, nausea and vomiting. Genitourinary: Negative for difficulty urinating, dysuria and frequency. Musculoskeletal: Negative for arthralgias, back pain, joint swelling and myalgias. Skin: Negative for rash and wound. Neurological: Positive for weakness and light-headedness. Negative for dizziness, tremors, seizures, syncope and headaches. Psychiatric/Behavioral: Negative for behavioral problems, self-injury and suicidal ideas. The patient is not nervous/anxious. Hematological: Does not bruise/bleed easily. Endocrine: Negative for polydipsia, polyphagia and polyuria. Allergic/Immunologic: Negative for environmental allergies and food allergies. PAST MEDICAL HISTORY Past Medical History: Diagnosis Date Calcification of left breast on mammography 07/13/2023 Diabetes ([facility]) 08/21/2023 Diabetic neuropathy ([facility]) 08/21/2023 Type 2 diabetes with nephropathy ([facility]) 09/17/2023 metfromin caused severe hair loss Past Surgical History: Procedure Laterality Date GALLBLADDER SURGERY TUBAL LIGATION VASCULAR SURGERY Bilateral legs family history includes Diabetes in her half-sister and mother. OBJECTIVE: Visit Vitals BP 148/90 (BP Location: Right arm, Patient Position: Sitting, BP Cuff Size: Adult long) Pulse 77 Temp 98.5 F (Temporal) Resp 18 Wt 239 lb 12.8 oz SpO2 94% BMI 37.56 kg/m Smoking Status Never BSA 2.27 m Physical Exam Vitals and nursing note reviewed. Constitutional: General: She is not in acute distress. Appearance: Normal appearance. She is obese. She is not ill-appearing. HENT: Head: Normocephalic and atraumatic. Right Ear: Tympanic membrane, ear canal and external ear normal. Left Ear: Tympanic membrane, ear canal and external ear normal. Nose: Nose normal. Mouth/Throat: Mouth: Mucous membranes are moist. Pharynx: No oropharyngeal exudate or posterior oropharyngeal erythema. Eyes: Extraocular Movements: Extraocular movements intact. Conjunctiva/sclera: Conjunctivae normal. Neck: Vascular: No carotid bruit. Cardiovascular: Rate and Rhythm: Normal rate and regular rhythm. Pulses: Normal pulses. Heart sounds: Normal heart sounds. No murmur heard. Pulmonary: Effort: Pulmonary effort is normal. Breath sounds: Normal breath sounds. No wheezing or rhonchi. Abdominal: General: Bowel sounds are normal. There is no distension. Palpations: Abdomen is soft. There is no mass. Tenderness: There is no abdominal tenderness. Musculoskeletal: General: Normal range of motion. Cervical back: Normal range of motion and neck supple. Right lower leg: Edema present. Left lower leg: Edema present. Comments: Edema 1+ pedal/pre tibial Skin: General: Skin is warm and dry. [...] file. Problem List Items Addressed This Visit RESOLVED: Type 2 diabetes with nephropathy ([facility]) Relevant Medications atorvastatin (Lipitor) 10 MG tablet Other Relevant Orders ECG 12 lead Primary hypertension ([facility]) Please check blood pressure daily and record DASH diet Limit caffeine Take medication as directed Contact office if chest pain, pressure, dizziness, shortness of breath, swelling legs Recommend slow position changes Current meds: loly Will check ECHO further evaluation cardiac garay Relevant Orders Echocardiogram 2D complete ECG 12 lead 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 We have also discussed lifestyle modifications: attempts to perform physical activity as chronic conditions allow, also to monitor dietary intake: increasing protein/fruits/veggies and lowering carb intake (unless contraindicated). Limit sodas, juices, and sugary drinks. Type 2 diabetes mellitus with other specified complication ([facility]) Check blood sugars daily, notify if <70 [...] diet low in carbohydrates, and simple sugars. Current meds: asa, loly, metformin, pioglitazone, and BATRES Added statin today, atorvastatin A1c: 5.8% 07/16/24 Type 2 diabetes mellitus with diabetic polyneuropathy ([facility]/HCC) Current meds gabapentin and elavil OARRS reviewed Recommend good glycemic control Other chest pain - Primary At this point strong risk factors for CAD: HTN , DM Is on statin, loly, asa, Check EKG, and ECHO, then stress test based on EKG and ECHO Relevant Orders Echocardiogram 2D complete ECG 12 lead Bilateral lower extremity edema Elevated legs, limit sodium Possible side effect for pioglitazone Check labs and ECHO Consider diuretic Relevant Orders Echocardiogram 2D complete Associated Problem(s): Type 2 diabetes mellitus with other specified complication (CMS/HCC) Check blood sugars daily, notify if <70 [...] diet low in carbohydrates, and simple sugars. Current meds: asa, loly, metformin, pioglitazone, and BATRES Added statin today, atorvastatin A1c: 5.8% 07/16/24 Associated Problem(s): Morbid (severe) obesity due to excess calories (CMS/HCC) Discussed with patient their BMI (actual, verses recommended). We have also discussed lifestyle modifications: attempts to perform physical activity as chronic conditions allow, also to monitor dietary intake: increasing protein/fruits/veggies and lowering carb intake (unless contraindicated). Limit sodas, juices, and sugary drinks. Associated Problem(s): Primary hypertension (CMS/HCC) Please check blood pressure daily and record DASH diet Limit caffeine Take medication as directed Contact office if chest pain, pressure, dizziness, shortness of breath, swelling legs Recommend slow position changes Current meds: loly Will check ECHO further evaluation cardiac garay Associated Problem(s): Type 2 diabetes mellitus with diabetic polyneuropathy (CMS/HCC) Current meds gabapentin and elavil OARRS reviewed Recommend good glycemic control documented in this encounter [facility] 09-07-2024 Instructions Almaz Pérez NP - 09/07/2024 2:00 PM EST Neuropathy: Continue amitriptyline at bedtime with gabapentin as well Chest Pain: we will order EKG, and US of your heart, likely will also need a stress test Adding a cholesterol pill at night time, called atorvastatin (lipitor) 10mg daily. If severe muscle aches, abd pain, yellowing of the skin occur, call me immediately. Follow up in office in 4 weeks documented in this encounter [facility] 04-21-2024 History of Presen t illness Narrative Associated Problem(s): Type 2 diabetes with nephropathy ([facility]) Significant improvement in A1c Will not make [...] compliance problems. There is no history of CAD/SD or heart failure. SUBJECTIVE: MEDICATIONS: Current Outpatient Medications Medication Instructions aspirin 81 mg, Oral, Daily Blood Glucose Monitoring Suppl (True Metrix Air Glucose Meter) w/Device kit USE DIRECTED to test BLOOD SUGAR ONCE DAILY Drug Melvin Unilet Lancets 30G [facility] USE DIRECTED to test sugar ONCE DAILY [...] of left breast on mammography 07/13/2023 Diabetes ([facility]) 08/21/2023 Diabetic neuropathy ([facility]) 08/21/2023 Type 2 diabetes with nephropathy ([facility]) 09/17/2023 metfromin caused severe hair loss Past [...] This Visit Type 2 diabetes with nephropathy ([facility]) - Primary Significant improvement in A1c Will [...] MCG/ACT nasal spray documented in this encounter [facility] 09-09-2023 History of Presen t illness Narrative [...] back to the number below. Physician Signature: Date: documented in this encounter [facility] 09-08-2023 History of Presen t illness Narrative Images from the original note were not included. HISTORY OF PRESENT ILLNESS: EST PT Lidiafabio Davis is an 73 y.o. @ female. [...] symptoms develop for requiring urgent evaluation. CARYN Segla documented in this encounter [facility] 04-15-2023 Evaluation note Encounter Date Diagnosis Assessment Notes Mar, Varicose veins of left leg with edema (ICD-10 - I83.892) Mar, Other Varicose veins I talk with this patient about potentially continuing treatment for her left leg varicose vein. She does not feel that her symptoms are severe enough at this time to warrant intervention. I advised her to consider at least [id number] graded compression stockings to minimize the [...] any time should she wish additional treatment [facility] Other 05-02-2023 Evaluation note* Encounter Date Diagnosis [...] the meantime with any issues or concerns. [facility] Other 04-01-2023 History general Narrative - Reported* Type Description Date Medical History type II diabetes Surgical History cholecystectomy Surgical History tubal ligation Surgical History MICRO PHLEBECTOMY RT LEG 2021 Surgical History Venaseal Left Leg 10/2022 [facility] Other 12-05-2022 Evaluation note* Encounter Date Diagnosis [...] near future. Patient denies any additional questions. [facility] Other 04-25-2022 Evaluation note* Encounter Date Diagnosis [...] be treated since she has minimal symptoms. [facility] Other 02-07-2022 Evaluation note* Encounter Date Diagnosis [...] of the procedure she agrees to proceed.] [facility] Other Evaluation noteNo InformationNort Memeo Other Evaluation note* Diagnosis Adhesive capsulitis of right shoulder- Primary Acute pain of right shoulder documented in this encounter [facility]* Diagnosis Acute pain of right shoulder- Primary Adhesive capsulitis of right shoulder documented in this encounter [facility]* Diagnosis Adhesive capsulitis of right shoulder- Primary Acute pain of right shoulder documented in this encounter [facility]* Diagnosis Adhesive capsulitis of right shoulder- Primary Acute pain of right shoulder documented in this encounter [facility]* Diagnosis Calcification of left breast [...] of insulin (CMS/HCC) documented in this encounter [facility] HealthcareEvaluation note* Diagnosis Primary hypertension (CMS/HCC) Unspecified essential hypertension documented [facility]* Diagnosis Calcification of left breast [...] Unspecified essential hypertension documented [facility]* Diagnosis Diabetic polyneuropathy associated with type 2 diabetes mellitus (CMS/HCC) documented in this encounter [facility]* Diagnosis 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 Primary hypertension (CMS/HCC) Unspecified essential hypertension Obesity (BMI 30-39.9) Current mild episode of major depressive disorder without prior episode (HCC) (CMS/HCC) Environmental and seasonal allergies documented in this encounter [facility]* Diagnosis Calcification of left breast [...] episode (HCC) (CMS/HCC) Environmental and seasonal allergies Encounter for subsequent annual wellness visit (AWV) in Medicare patient- Primary Diabetic polyneuropathy associated with type 2 diabetes mellitus (CMS/HCC) Primary hypertension (CMS/HCC) Unspecified essential hypertension BMI 35.0-35.9,adult 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, unspecified retinopathy severity (CMS/HCC) Obesity (BMI 30-39.9) Type 2 diabetes mellitus with other specified complication, without long-term current use of insulin (CMS/HCC) Morbid (severe) obesity due to excess calories (CMS/HCC) Body mass index (BMI) 36.0-36.9, adult Encounter for screening mammogram for malignant neoplasm of breast Environmental and seasonal allergies Other chest pain- Primary Type 2 diabetes mellitus with other specified complication (CMS/HCC) Type 2 diabetes mellitus with diabetic polyneuropathy ([facility]) Morbid (severe) obesity due to excess calories ([facility]) Primary hypertension ([facility]) Unspecified essential hypertension Type 2 diabetes with nephropathy ([facility]) Bilateral lower extremity edema 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, unspecified retinopathy severity ([facility]) On statin therapy documented [facility] Narrative - Reported* Type Description Date Medical History diabetes mallitus Medical History [ ] Surgical History cholecystectomy Surgical History tubal ligation Surgical History [ ] [facility] Other History general Narrative - Reported* Type Description Date Medical History type II diabetes Surgical History cholecystectomy Surgical History tubal ligation Surgical History MICRO PHLEBECTOMY RT LEG 2021 [facility] [employer] Other Reason for visit NarrativeVASC DR. BULLARD WANTED TO SEE BEFORE DECIDING WHAT PROCEDURE TO DO, [facility] [employer] Other reason for visit Narrative* Consultation (Routine) - Authorized Specialty Diagnoses / Procedures Referred By Iam valverde Referred To Contact Physical Therapy Diagnoses Acute pain of right shoulder Adhesive capsulitis of right shoulder Procedures AR OFFICE/OUTPATIENT NEW HIGH MDM 60 MINUTES Ca Garcia, PA [address] [facility] [address] [place] [address] Lucho Simmons, PT [address] [facility] [address] [place] [address] Referral ID Status Reason Start Date Expiration Date Visits Requested Visits Authorized [id number] Authorized Consult and Treat 08/11/2023 02/07/2024 10 30 [facility] Healthcare Summary Purpose Family History No [...] VARITHENA RIGHT LEG; ULTRASOUND DONE [facility] 06/21/22VARITHENA RT LEGVASC 2 WK S/P MICRO RIGHT LEG, Follow-up after microphlebectomy INFORMATION SOURCE (unrecogn ized section and content) DATE CREATED AUTHOR 10/15/2022 [facility] DATE CREATED AUTHOR AUTHOR'S ORGANIZ ATION 11/22/2022 [facility] DATE CREATED AUTHOR AUTHOR'S ORGANIZ ATION 07/27/2024 [facility] Care Teams (unrecognized sec tion and content) Swedger Relationship Specialty Start Date End Date Bryant Torres MD [address] [place] [phone] PCP - General Family Medicine 09/02/23 Almaz Pérez NP [address] [place] [phone] Nurse Practitioner Family Medicine 04/27/23 Swedger Relationship Specialty Start Date End Date Bryant Torres MD [address] [place] [phone] PCP - General Family Medicine 09/02/23 Almaz Pérez NP [address] [place] [phone] Nurse Practitioner Family Medicine 04/27/23 Swedger Relationship Specialty Start Date End Date Bryant Torres MD [address] [place] [phone] PCP - General Family Medicine 09/02/23 Almaz Pérez NP [address] [place] [phone] Nurse Practitioner Family Medicine 04/27/23 Swedger Relationship Specialty Start Date End Date Bryant Torres MD [address] [place] [phone] PCP - General Family Medicine 09/02/23 Almaz Pérez NP [address] [place] [phone] Nurse Practitioner Family Medicine 04/27/23 Swedger Relationship Specialty Start Date End Date Bryant Torres MD [address] [place] [phone] PCP - General Family Medicine 09/02/23 Almaz Pérez NP [address] [place] [phone] Nurse Practitioner Family Medicine 04/27/23 Swedger Relationship Specialty Start Date End Date Bryant Torres MD [address] [place] [phone] PCP - General Family Medicine 09/02/23 Almaz Pérez NP [address] [place] [phone] Nurse Practitioner Family Medicine 04/27/23 Swedger Relationship Specialty Start Date End Date Bryant Torres MD [address] [place] [phone] PCP - General Family Medicine 09/02/23 Almaz Pérez NP [address] [place] [phone] Nurse Practitioner Family Medicine 04/27/23 Swedger Relationship Specialty Start Date End Date Bryant Torres MD [address] [place] [phone] PCP - General Family Medicine 09/02/23 Almaz Pérez NP [address] [place] [address] Nurse Practitioner Family Medicine 04/27/23 Swedger Relationship Specialty Start Date End Date Bryant Torres MD [address] [place] [phone] PCP - General Family Medicine 09/02/23 Almaz Pérez NP [address] [place] [phone] Nurse Practitioner Family Medicine 04/27/23 Swedger Relationship Specialty Start Date End Date Bryant Torres MD [address] [place] [phone] PCP - General Family Medicine 09/02/23 Almaz Pérez NP [address] [place] [address] Nurse Practitioner Family Medicine 04/27/23 Swedger Relationship Specialty Start Date End Date Bryant Torres MD [address] [place] [phone] PCP - General Family Medicine 09/02/23 Almaz Pérez NP [address] [place] [phone] Nurse Practitioner Family Medicine 04/27/23 Swedger Relationship Specialty Start Date End Date Bryant Torres MD [address] [place] [phone] PCP - General Family Medicine 09/02/23 Almaz Pérez NP [address] [place] [phone] Nurse Practitioner Family Medicine 04/27/23 Swedger Relationship Specialty Start Date End Date Bryant Torres MD [address] [place] [phone] PCP - General Family Medicine 09/02/23 Almaz Pérez NP [address] [place] [phone] PCP - ACO Reach 09/03/24 Almaz Pérez NP [address] [place] [phone] Nurse Practitioner Family Medicine 04/27/23 Swedger Relationship Specialty Start Date End Date Bryant Torres MD [address] [place] [phone] PCP - General Family Medicine 09/02/23 Almaz Pérez NP [address] [place] [phone] PCP - ACO Reach 09/03/24 Almaz Pérez NP [address] [place] [address] Nurse Practitioner Family Medicine 04/27/23 FOR RECORDS [...] BE BASED ON THE PRIMARY CLINICAL RECORDS. [employer] [facility]. provides no warranty or guarantee of the accuracy or completeness of information in this document.
[2024-09-08 10:57] LABS: Basophils Percent Auto 0.5 % (0.2-2.0); Eosinophils Absolute Auto 0.2 10^3/uL (0.0-0.7); Eosinophils Percent Auto 3.2 % (0.9-7.0); Hematocrit 41.8 % (36.0-48.0); Hemoglobin 13.4 g/dL (12.0-16.0); Immature Granulocytes Abs Auto 0.03 10^3/uL (0.00-0.03); Immature Granulocytes Pct Auto 0.4 % (0.0-0.5); Lymphocytes Absolute Auto 1.8 10^3/uL (1.2-3.8); Lymphocytes Percent Auto 23.2 % (20.5-60.0); Mean Corpuscular HGB Conc 32.1 g/dL (29.9-35.2); Mean Corpuscular Hemoglobin 27.6 pg (26.7-34.0); Mean Corpuscular Volume 86.2 fL (81.0-99.0); Mean Platelet Volume 9.3 fL (9.5-13.5); Monocytes Absolute Auto 0.5 10^3/uL (0.3-0.8); Monocytes Percent Auto 6.7 % (1.7-12.0); Platelet Count 230 10^3/uL (150-450); Red Blood Count 4.85 10^6/uL (4.20-5.40); Red Cell Distribution Width 14.7 % (11.0-15.0); White Blood Count 7.6 10^3/uL (4.0-11.0)
[2024-09-08 11:11] LABS: Creatinine Urine Random 42.33 mg/dL (20.00-300.00); Microalbum Creatinine Ratio Ur 219.7 mg/g (0.0-29.9); Microalbumin Urine Random 9.3 mg/dL (<=30.0)
[2024-09-08 11:27] LABS: Bilirubin Urine NEGATIVE (NEGATIVE); Blood Urine TRACE-I (NEGATIVE); Clarity Urine CLEAR (CLEAR); Color Urine LT. YELLOW (YELLOW); Glucose Urine UA NEGATIVE (NEGATIVE); Ketones Urine NEGATIVE (NEGATIVE); Leukocyte Esterase Urine MODERATE (NEGATIVE); Nitrite Urine NEGATIVE (NEGATIVE); Protein Urine TRACE mg/dL (NEG/TRACE); Specific Gravity Urine 1.015 (1.005-1.025); pH Urine 6.5 (5.0-9.0)
[2024-09-08 11:32] LABS: Alanine Aminotransferase 18 U/L (14-59); Albumin Globulin Ratio 0.6; Albumin Level 3.1 g/dL (3.4-5.0); Alkaline Phosphatase 101 U/L (46-116); Anion Gap 10.7; Aspartate Amino Transferase 14 U/L (15-37); BUN Creatinine Ratio 27.7; Bilirubin Total 0.3 mg/dL (0.2-1.0); Calcium 9.6 mg/dL (8.5-10.1); Carbon Dioxide 32.7 mmol/L (21.0-32.0); Chloride 101 mmol/L (98-107); Chol HDL Ratio 3.5; Cholesterol 185 mg/dL (<=200); Estimated GFR (African America >60 (>=60 mL/min/1.73m^2); Estimated GFR (Non-African Ame >60 (>=60 mL/min/1.73m^2); Globulin 5.2 g/dL; Glucose 187 mg/dL (74-106); HDL Cholesterol 53 mg/dL (40-60); Potassium 4.4 mmol/L (3.5-5.1); Sodium 140 mmol/L (136-145); Total Protein 8.3 g/dL (6.4-8.2); Triglycerides 235 mg/dL (<=150)
[2024-09-08 12:02] LABS: Urine Microscopic Indicated YES
[2024-09-08 12:05] LABS: Bacteria Urine SMALL #/HPF (NONE SEEN); Mucus Urine TRACE (NONE SEEN); RBC Urine 0-2 #/HPF (0-2); Squamous Epithelial Cell Urine MODERATE #/LPF (NONE/RARE)
== END 2024-09-08 10:43 | disposition home or self-care (01) ==
PROVIDERS: PCP Nurse Practitioner; Visit Provider Nurse Practitioner
DX: E11.21 Type 2 diabetes mellitus with diabetic nephropathy (principal); I10 Essential (primary) hypertension
CPT/HCPCS: 36415; 80053; 80061; 81001; 82043; 82570; 85025

== ENCOUNTER 2024-09-16 13:47 | Outpatient (OUT) | payer MEDICARE, OTHER, SELFPAY ==
--- NOTE | 2024-09-16 | ECG_ITS ---
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
--- NOTE | 2024-09-16 14:00 | CA_ITS ---
Patient Name: KEI JENSEN MR#: [id number] : 1950 Exam Date: 09/16/2024 Ordering Doctor: NANCY Pérez CNP ECHOCARDIOGRAM REPORT PROCEDURE: CA ECHO DOPPLER COMPLETE INDICATIONS: HTN, Chest pain COMPARISON: None. DESCRIPTION: COMPLETE ECHOCARDIOGRAM Real-time transthoracic echocardiography with 2D, M-mode, spectral and color flow Doppler performed. QUALITY: Technical quality was good. LEFT VENTRICLE: Normal chamber size. Moderate concentric hypertrophy. Global left ventricular systolic function is normal. LV EF: Estimated left ventricular ejection fraction is 55-60 %. DIASTOLIC: Diastolic function is indeterminate. ATRIAL SEPTUM: LEFT ATRIUM: Moderate dilatation. RIGHT ATRIUM: Mild dilatation. RIGHT VENTRICLE: Normal chamber size. Normal right ventricular systolic function. TRICUSPID VALVE: Normal mobility and thickness. No stenosis with trivial regurgitation. No evidence of pulmonary hypertension. RVSP 33 mmHg MITRAL VALVE: Normal mobility and thickness. No evidence of mitral valve stenosis. Mild mitral annular calcification. Trivial mitral regurgitation. AORTIC VALVE: Normal trileaflet appearance. Mildly diminished mobility. No evidence of aortic valve stenosis. Mildly calcified noncoronary cusp. No aortic regurgitation. AORTIC ROOT: Normal diameter and appearance. Ascending aorta is normal in size and measures 3.6 cm. PULMONIC VALVE: Normal thickness and mobility. No stenosis. No regurgitation. PERICARDIUM: No evidence of pericardial effusion. IVC: Collapses with inspirations. Normal size. PLEURA: CONCLUSION: 1. Moderate concentric left ventricular hypertrophy with normal systolic function. Estimated LVEF is 55 to 60%. 2. Normal right ventricular size and systolic function. 3. Mild to moderate biatrial dilatation. 4. Mildly calcified aortic valve without stenosis or regurgitation. 5. Normal right-sided pressures. Adult Echocardiography Procedure Report Left Ventricle LVEDD (3.7 - 5.6 cm): 3.71 cm LVESD (2.2 - 4.0 cm): 2.56 cm LVIVS thickness (0.6 - 1.2 cm): 1.79 cm LVPW thickness (0.5 - 1.0 cm): 1.33 cm e': 0.09 m/s E - e': 10.94 LVOT Max Gradient: 4.86 mm[Hg] LVOT Area (cm2): 1.10 m/s Peak Velocity (LVOT): 1.10 m/s Mean Velocity (LVOT): 0.77 m/s LVOT Diameter 2.00 cm Left Atrium LA Volume Index (2D A2C): 48.78 ml/m2 Left Atrium Systolic Dimension: 3.36 cm Mitral Valve MV E to A Ratio: 1.15 Mitral Valve A-Wave Peak Velocity: 0.82 m/s Mitral Valve E-Wave Peak Velocity: 0.94 m/s Right Ventricle RV Internal Diastolic Dimension: 3.56 cm Aorta AO Root Diam: 3.42 cm Ascending Ao Diam: 3.62 cm Aortic Valve AoV Area (Pe[place]): 2.47 cm2, 2.47 cm2 AoV Area (VTI): 2.60 cm2, 2.60 cm2 Peak Velocity(Antegrade Flow): 1.40 m/s Peak Gradient(Antegrade Flow): 7.85 mm[Hg] Mean Velocity(Antegrade Flow): 0.90 m/s Mean Gradient(Antegrade Flow): 3.70 mm[Hg] Velocity Time Integral: 29.13 cm Tricuspid Valve Peak Velocity (Regurgitant Flow): 2.74 m/s, 2.73 m/s, 2.65 m/s Pulmonic Valve Mean Gradient: 3.43 mm[Hg], 2.52 mm[Hg] Mean Velocity: 0.87 m/s, 0.74 m/s Peak Velocity: 1.23 m/s Peak Gradient: 6.86 mm[Hg], 5.31 mm[Hg] Right Atrium Right Atrium Systolic Pressure: 44.62 ml, 44.62 ml Dictated by: John White M.D. on 09/16/2024 at 17:47 Approved by: John White M.D. on 09/16/2024 at 17:51
--- OUTSIDE RECORDS SUMMARY | 2024-09-16 14:03 | XMS_ITS | CCD ---
Author Organization [facility] Care Team Providers Care Siderographer Name Role Phone VikasChivo shin Unavailable Sheila Alvarez Unavailable NAVEEN, DR AGEE Attending Unavailable [place], DR AGEE Consulting Unavailable [place], DR AGEE Primary Care Unavailable NAVEEN, DR AGEE Admitting Unavailable Ruttino, Sheila Tesfaye Admitting Unavailable [place], Sheila Tesfaye Attending Unavailable Gus Hodge Primary Care Unavailable Ruttino, Sheila Tesfaye Admitting Unavailable Kim, Sheila Tesfaye Attending Unavailable Gus Hodge Primary Care Unavailable Aicalfonzo FRAMEWORK DEVELOPER, Almaz Unavailable Bryant Torres MD Primary Care Provider Aichholz FRAMEWORK DEVELOPER, Almaz Unavailable Aicgabeholz FRAMEWORK DEVELOPER, Almaz Unavailable AICWAYNEZ, ALMAZ Attending Unavailable MARK DOWNEY Attending Unavailable CA GARCIA Referring Unavailable AICHHOLZ, ALMAZ Attending Unavailable AICHHOLZ, ALMAZ Attending Unavailable AICHHOLZ, ALMAZ Attending Unavailable AICHHOLZ, ALMAZ Attending Unavailable AICHHOLZ, ALMAZ Attending Unavailable AICHHOLZ, ALMAZ Attending Unavailable AICHHOLZ, ALMAZ Attending Unavailable Allergies Allergy Classification Reported Allergen(s) Allergy Type Date of Onset Reaction(s) Facility (15 sources) DULoxetine Drug Allergy 4 GI intolerance [facility] Medications Current Medications Medication Drug Class(es) Dates Sig (Normalized) Sig (Original) amitriptyline hydrochloride 10 mg oral tablet (7 sources) Tricyclic Antidepressant Start: 07-26-2024 End: 12-06-2024 amitriptyline (Elavil) 10 MG tablet Indications: 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, unspecified retinopathy severity (CMS/HCC) Take 1 tablet (10 mg) by mouth at bedtime 90 tablet 1 09/07/2024 12/06/2024 Active aspirin 81 mg chewable tablet (17 sources) Platelet Aggregation Inhibitor, Nonsteroidal Anti-inflammatory Drug [...] 07/20/2024 Active atorvastatin 10 mg oral tablet (4 sources) HMG-CoA Reductase Inhibitor Start: 09-07-2024 End: 10-07-2024 take 1 tablet by mouth in the evening atorvastatin (Lipitor) 10 MG tablet Indications: Type 2 diabetes with nephropathy (CMS/HCC) Take 1 tablet (10 mg) by mouth in the evening 30 tablet 1 09/07/2024 10/07/2024 Active Blood Glucose Monitoring Suppl (True Metrix Air Glucose Meter) w/Device kit (15 sources) Start: 09-29-2022 Blood Glucose Monitoring Suppl (True Metrix Air Glucose Meter) w/Device kit USE DIRECTED to test BLOOD SUGAR ONCE DAILY 09/29/2022 Active fluticasone propionate 0.05 mg/actuat metered dose nasal spray (11 sources) Corticosteroid Start: 07-26-2024 End: 10-24-2024 take [...] Acti ve lisinopril 20 mg oral tablet (16 sources) Angiotensin Converting Enzyme Inhibitor Start: 04-09-2024 End: 10-24-2024 take 1 tablet by mouth in the morning lisinopril 20 MG tablet Indications: Primary hypertension (CMS/HCC) Take 1 tablet (20 mg) by mouth in the morning and 1 tablet (20 mg) before bedtime. 180 tablet 1 07/26/2024 10/24/2024 Active loratadine 10 mg oral tablet (11 sources) Start: 07-26-2024 End: 10-24-2024 take 1 [...] hydrochloride 500 mg extended release oral tablet (15 sources) Biguanide Start: 07-11-2024 End: 10-24-2024 take [...] unspecified] Onset: 08-21-2023 Resolved: 09-07-2024 08-21-2023 Chronic Disorders of lipid metabolism (2 sources) Mixed hyperlipidemia; Translations: [Mixed hyperlipidemia] Onset: 09-08-2024 09-08-2024 Chronic Essential hypertension (20 sources) Essential hypertension; Translations: [Essential (primary) hypertension] Onset: 09-17-2023 09-17-2023 Chronic Mood disorders (17 sources) Mild major depression, single episode; Translations: [Major depressive disorder, single episode, mild] Onset: 10-21-2023 10-21-2023 Chronic Nonspecific chest pain (8 sources) Chest pain; Translations: [Other chest pain] Onset: 09-07-2024 09-07-2024 Episodic Other aftercare (6 sources) Drug therapy finding; Translations: [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 therapy] Onset: 09-07-2024 09-07-2024 Episodic [...] nutritional; endocrine; and metabolic disorders (8 sources) Obesity caused by energy imbalance; Translations: [Morbid (severe) obesity due to excess calories] Onset: 07-26-2024 07-26-2024 Chronic Other screening for suspected conditions (not mental disorders or infectious disease) (6 sources) Patient encounter status; Translations: [Encounter for screening mammogram for malignant neoplasm of breast] Onset: 07-26-2024 07-26-2024 Episodic Other upper respiratory disease (13 sources) Allergic disposition; Translations: [Other allergic rhinitis] Onset: 04-21-2024 04-21-2024 Chronic Residual codes; unclassified (8 sources) Bilateral lower limb edema; Translations: [Localized [...] Episodic/Chronic Conditions associated with dizziness or vertigo (15 sources) Dizziness; Translations: [Dizziness and giddiness] Onset: 11-27-2023 11-27-2023 Episodic Diabetes mellitus without complication (20 sources) Type 2 diabetes mellitus without complications; Translations: [Diabetes mellitus] Onset: 10-08-2022 Resolved: 09-17-2023 Chronic Genitourinary symptoms and ill-defined conditions (15 sources) Urinary symptoms ; Translations: [Unspecified symptoms and signs involving the genitourinary system] Onset: 11-28-2023 11-28-2023 Episodic Mood disorders (5 sources) Mood disorders Onset: 07-26-2024 07-26-2024 Nonmalignant [...] 09-07-2024 08-06-2023 Chronic Other upper respiratory disease (11 sources) Rhinitis; Translations: [Chronic rhinitis] Onset: 04-21-2024 Resolved: 04-21-2024 04-21-2024 Chronic Results Test Name Value Interpretation Reference Range Facility ALL CBC WITH AUTO DIFFon BASOPHILS ABSOLUTE AUTO 0 [facility] Basophils/100 WBC (Bld) 0.5 % 0.2 - 2.0 % [facility] Eosinophils/100 WBC (Bld) 3.2 % 0.9 - 7.0 % [facility] Erythrocyte distribution width (RBC) [Ratio] 14.7 % 11.0 - 15.0 % [facility] Hematocrit (Bld) [Volume fraction] 41.8 % 36.0 - 48.0 % [facility] [Mass/Vol] 13.4 g/dL 12.0 - 16.0 g/dL [facility] IMMATURE GRANULOCYTES ABS AUTO 0.03 [facility] Immature granulocytes/100 WBC (Bld) 0.4 % 0.0 - 0.5 % [facility] Interpretation and review of laboratory results Abnormal [facility] LYMPHOCYTES ABSOLUTE AUTO 1.8 [facility] Lymphocytes/100 WBC (Bld) 23.2 % 20.5 - 60.0 % [facility] MCH (RBC) [Entitic mass] 27.6 pg 26.7 - 34.0 pg [facility] MCHC (RBC) [Mass/Vol] 32.1 g/dL 29.9 - 35.2 g/dL [facility] MCV (RBC) [Entitic vol] 86.2 fL 81.0 - 99.0 fL [facility] MONOCYTES ABSOLUTE AUTO 0.5 [facility] Monocytes/100 WBC (Bld) 6.7 % 1.7 - 12.0 % [facility] NEUTROPHILS ABSOLUTE AUTO 5 [facility] Neutrophils/100 WBC (Bld) 66 % 43.0 - 75.0 % [facility] Platelet mean volume (Bld) [Entitic vol] 9.3 fL Low 9.5 - 13.5 fL [facility] EO # 0.2 [facility] PLT 230 [facility] RBC 4.85 [facility] WBC 7.6 [facility] MLR HEMOGLOBIN A1Con 024 Glucose [Mass/Vol] 126 mg/dL [facility] HbA1c (Bld) [Mass fraction] 6.0 % 4.5 - 6.2 % [facility] Comment on above: ADA RECOMMENDED LIMI T 4.0 - 6.0 ADA THERAPEUTIC TARGET < 7.0 ACTION SUGGESTED > 7.0 [facility] US venous duplex LE LTon US venous duplex [facility] [place] [address] Ultrasound Report Signed Patient: Lidia Davis MR#: [id number] [id number] : 1950 Acct:[id number] Age/Sex: 72 / F ADM Date: 11/11/22 Loc: [facility] Room: Type: [facility] Attending Dr: Sheila Alvarez FRAMEWORK DEVELOPER-C Ordering Provider: Sheila Alvarez APRN Date of Service: 11/11/22 US/US venous duplex [facility]: I83.812,S/P VENASEAL Copies to: Sheila Alvarez APRN [...] Chivo Bullard M.D.11/12/2022 2:36 PM Dictation Location: [place] [address] Tech: Kari Shon Transcribed By: CY 11/12/22 143 Dictated By: Chivo Bullard MD 11/12/22 143 Signed By: 11/12/22 1436 [facility] [place] [facility] CBC AUTO DIFFon 10-08-2022 BASO # 0.0 103/ul Normal 0.0-0.1 [facility] Comment on above: Performed By: #### C BC #### [facility] [address] [place] [address] Dr. Jj Torre Basophils/100 WBC (Bld) 0.4 % Normal 0.2-2.0 [facility] Comment on above: Performed By: #### C BC #### [facility] [address] [place] [address] Dr. Jj Torre EO # 0.1 103/ul Normal 0.0-0.7 [facility] Comment on above: Performed By: #### C BC #### [facility] [address] [address] [address] Jj Torre Eosinophils/100 WBC (Bld) 1.5 % Normal 0.9-7.0 [facility] Comment on above: Performed By: #### C BC #### [facility] [address] [place] [address] Dr. Jj Torre Erythrocyte distribution width (RBC) [Ratio] 13.5 % Normal 11.0-15.0 [facility] Comment on above: Performed By: #### C BC #### [facility] [address] [place] [address] Dr. Jj Torre Hematocrit (Bld) [Volume fraction] 45.1 % Normal 36.0-48.0 [facility] Comment on above: Performed By: #### C BC #### [facility] [address] [place] [address] Dr. Jj Torre Hemoglobin (Bld) [Mass/Vol] 15.0 g/dL Normal 12.0-16.0 [facility] Comment on above: Performed By: #### C BC #### [facility] [address] [place] [address] Dr. Jj Torre IG # 0.01 10e3/ul Normal 0.00-0.03 [facility] Comment on above: Performed By: #### C BC #### [facility] [address] [place] [address] Dr. Jj Torre IG % 0.1 % Normal 0.0-0.5 [facility] Comment on above: Performed By: #### C BC #### [facility] [address] [place] [address] Dr. Jj Torre LYMPH # 2.3 103/ul Normal 1.2-3.8 [facility] Comment on above: Performed By: #### C BC #### [facility] [address] [place] [address] Dr. Jj Torre Lymphocytes/100 WBC (Bld) 28.9 % Normal 20.5-60.0 [facility] Comment on above: Performed By: #### C BC #### [facility] [address] [place] [address] Dr. Jj Torre MANUAL DIFF REQ NO Normal [facility] Comment on above: Performed By: #### C BC #### [facility] [address] [place] [address] Dr. Jj Torre MCH (RBC) [Entitic mass] 26.7 pg Normal 26.7-34.0 [facility] Comment on above: Performed By: #### C BC #### [facility] [address] [place] [address] Dr. Jj Torre MCHC (RBC) [Mass/Vol] 33.3 g/dL Normal 29.9-35.2 [facility] Comment on above: Performed By: #### C BC #### [facility] [address] [place] [address] Dr. Jj Torre MCV (RBC) [Entitic vol] 80.2 fL Critically low 81.0-99.0 [facility] Comment on above: Performed By: #### C BC #### [facility] [address] [place] [address] Dr. Jj Torre MONO # 0.6 103/ul Normal 0.3-0.8 [facility] Comment on above: Performed By: #### C BC #### [facility] [address] [place] [address] Dr. Jj Torre Monocytes/100 WBC (Bld) 7.7 % Normal 1.7-12.0 [facility] Comment on above: Performed By: #### C BC #### [facility] [address] [place] [address] Dr. Jj Torre NEUT # 5.0 103/ul Normal 1.4-6.5 [facility] Comment on above: Performed By: #### C BC #### [facility] [address] [place] [address] Dr. Jj Torre Neutrophils/100 WBC (Bld) 61.4 % Normal 43.0-75.0 [facility] Comment on above: Performed By: #### C BC #### [facility] [address] [place] [address] Dr. Jj Torre Platelet mean volume (Bld) [Entitic vol] 9.2 fL Critically low 9.5-13.5 [facility] Comment on above: Performed By: #### C BC #### [facility] [address] [place] [address] Dr. Jj Torre PLT 214 103/ul Normal 150-450 [facility] Comment on above: Performed By: #### C BC #### [facility] [address] [place] [address] Dr. Jj Torre RBC 5.62 106/ul Critically high 4.20-5.40 [facility] Comment on above: Performed By: #### C BC #### [facility] [address] [place] [address] Dr. Jj Torre WBC 8.1 103/ul Normal 4.0-11.0 [facility] Comment on above: Performed By: #### C BC #### [facility] [address] [place] [address] Dr. Jj Torre GLYCOHEMOGLOBIN A1Con 2022 ADA RECOMMENDATION SEE BELOW Normal [facility] Comment on above: Result Comment: ADA RECOMMENDED LIMIT 4.0 - 6.0 ADA THERAPEUTIC TARGET < 7.0 ACTION SUGGESTED > 7.0 Performed By: #### A 1C #### [facility] [address] [place] [address] Dr. Jj Torre Glucose [Mass/Vol] 258 mg/dL Normal [facility] Comment on above: Performed By: #### A 1C #### [facility] [address] [place] [address] Dr. Jj Torre HbA1c (Bld) [Mass fraction] 10.6 % Critically high 4.5-6.2 [facility] Comment on above: Performed By: #### A 1C #### [facility] [address] [place] [address] Dr. Jj Torre MICROALBUMIN, RAND URon 09-25 mALB 1.7 mg/L Normal <=30.0 [facility] Comment on above: Performed By: #### M ALBR #### [facility] [address] [place] [address] Dr. Jj Torre PROF 14(COMP METB)on 023 Albumin [Mass/Vol] 3.3 g/dL Critically low 3.4-5.0 [facility] Comment on above: Performed By: #### C MP #### [facility] [address] [address] [address] Jj Torre Albumin/Globulin [Mass ratio] 0.7 {ratio} Normal [facility] Comment on above: Performed By: #### C MP #### [facility] [address] [address] [address] Jj Torre ALP [Catalytic activity/Vol] 104 U/L Normal 46-116 [facility] Comment on above: Performed By: #### C MP #### [facility] [address] [address] [address] Jj Torre ALT [Catalytic activity/Vol] 13 U/L Critically low 14-59 [facility] Comment on above: Performed By: #### C MP #### [facility] [address] [place] [address] Dr. Jj Torre Anion gap [Moles/Vol] 7.8 mmol/L Normal [facility] Comment on above: Performed By: #### C MP #### [facility] [address] [place] [address] Dr. Jj Torre AST [Catalytic activity/Vol] 9 U/L Critically low 15-37 [facility] Comment on above: Performed By: #### C MP #### [facility] [address] [place] [address] Dr. Jj Torre Bilirubin [Mass/Vol] 0.5 mg/dL Normal 0.2-1.0 [facility] Comment on above: Performed By: #### C MP #### [facility] [address] [place] [address] Dr. Jj Torre Calcium [Mass/Vol] 9.6 mg/dL Normal 8.5-10.1 [facility] Comment on above: Performed By: #### C MP #### [facility] [address] [place] [address] Dr. Jj Torre Chloride [Moles/Vol] 100 mmol/L Normal 98-107 [facility] Comment on above: Performed By: #### C MP #### [facility] [address] [place] [address] Dr. Jj Torre CO2 [Moles/Vol] 30.1 mmol/L Normal 21.0-32.0 [facility] Comment on above: Performed By: #### C MP #### [facility] [address] [address] [address] Jj Torre Creatinine [Mass/Vol] 0.56 mg/dL Normal 0.55-1.02 [facility] Comment on above: Performed By: #### C MP #### [facility] [address] [address] [address] Jj Torre EGFR-AF DOMINICAN >60 Normal >=60 [facility] Comment on above: Performed By: #### C MP #### [facility] [address] [address] [address] Jj Torre EGFR-NON AF DOMINICAN >60 Normal >=60 [facility] Comment on above: Performed By: #### C MP #### [facility] [address] [address] [address] Jj Torre Globulin (S) [Mass/Vol] 4.5 g/dL Normal [facility] Comment on above: Performed By: #### C MP #### [facility] [address] [address] [address] Jj Torre Glucose [Mass/Vol] 343 mg/dL Critically high 74-106 [facility] Comment on above: Performed By: #### C MP #### [facility] [address] [place] [address] Dr. Jj Torre Potassium [Moles/Vol] 3.9 mmol/L Normal 3.5-5.1 [facility] Comment on above: Performed By: #### C MP #### [facility] [address] [address] [address] Jj Torre Protein [Mass/Vol] 7.8 g/dL Normal 6.4-8.2 [facility] Comment on above: Performed By: #### C MP #### [facility] [address] [place] [address] Dr. Jj Torre Sodium [Moles/Vol] 134 mmol/L Critically low 136-145 [facility] Comment on above: Performed By: #### C MP #### [facility] [address] [place], [place] [address] Dr. Jj Torre Urea nitrogen [Mass/Vol] 11.0 mg/dL Normal 7.0-18.0 [facility] Comment on above: Performed By: #### C MP #### [facility] [address] [place], [place] [address] Dr. Jj Torre Urea nitrogen/Creatinine [Mass ratio] 19.6 mg/mg Normal [facility] Comment on above: Performed By: #### C MP #### [facility] [address] [place], [place] [address] Dr. Jj Torre US venous duplex LE BIon US venous duplex LE BI [facility] [place] [address] Ultrasound Report Signed Patient: Lidia Davis MR#: [id number] [id number] : 1950 Acct:[id number] Age/Sex: 72 / F ADM Date: 06/21/22 Loc: Room: Type: [facility] Attending Dr: Sheila Alvarez FRAMEWORK DEVELOPER-C Ordering Provider: Sheila Alvarez APRN Date of [...] Ca Cramer MD06/24/2022 4:41 PM Dictation Location: [facility] Tech: Yeimy Maynard Transcribed By: [facility] 06/24/221640 Dictated By: Ca Cramer MD 06/24/22 1640 Signed By: 06/24/22 1641 Normal [facility] Vital Signs Date Time Vital Sign Value Performing Clinician Facility 09-07-2024 14:20-0500 Diastolic blood pressure 90 mm[Hg] Almaz Yinz FRAMEWORK DEVELOPER Work Phone: [facility] 09-07-2024 14:20-0500 Systolic blood pressure 148 mm[Hg] Almaz Jordynholz FRAMEWORK DEVELOPER Work Phone: [facility] 09-07-2024 14:14-0500 Body mass index (BMI) [Ratio] 37.56 kg/m2 Almaz Jordynholz FRAMEWORK DEVELOPER Work Phone: [facility] 09-07-2024 14:14-0500 Body temperature 98.49 [degF] Almaz Aichholz FRAMEWORK DEVELOPER Work Phone: [facility] 09-07-2024 14:14-0500 Body weight 108.77 kg Almaz Jordynholz FRAMEWORK DEVELOPER Work Phone: [facility] 09-07-2024 14:14-0500 Heart rate 77 /min Almaz Jordynholz FRAMEWORK DEVELOPER Work Phone: [facility] 09-07-2024 14:14-0500 Respiratory rate 18 /min Almaz Miahhholz FRAMEWORK DEVELOPER Work Phone: [facility] 09-07-2024 14:14-0500 SaO2% (BldA) [Mass fraction] 94 % Almaz Jordynholz FRAMEWORK DEVELOPER Work Phone: [facility] 04-21-2024 09:45-0400 Body height 170.2 cm Almaz Jordynholz FRAMEWORK DEVELOPER Work Phone: [facility] 04-21-2024 09:45-0400 Body mass index (BMI) [Ratio] 36.21 kg/m2 Almaz Miahhholz FRAMEWORK DEVELOPER Work Phone: [facility] 04-21-2024 09:45-0400 Body temperature 98.1 [degF] Almaz Jordynholz FRAMEWORK DEVELOPER Work Phone: [facility] 04-21-2024 09:45-0400 Body weight 104.87 kg Almaz Miahhholz FRAMEWORK DEVELOPER Work Phone: [facility] 04-21-2024 09:45-0400 Diastolic blood pressure 70 mm[Hg] Almaz Pérez FRAMEWORK DEVELOPER Work Phone: [facility] 04-21-2024 09:45-0400 Heart rate 86 /min Almaz Pérez FRAMEWORK DEVELOPER Work Phone: [facility] 04-21-2024 09:45-0400 Respiratory rate 19 /min Almaz Pérez FRAMEWORK DEVELOPER Work Phone: [facility] 04-21-2024 09:45-0400 SaO2% (BldA) [Mass fraction] 96 % Almaz Pérez FRAMEWORK DEVELOPER Work Phone: [facility] 04-21-2024 09:45-0400 Systolic blood pressure 130 mm[Hg] Almaz Pérez FRAMEWORK DEVELOPER Work Phone: [facility] 04-15-2023 11:15-0400 Body height 172.72 cm Chivo Bullard Other [facility] Other 04-15-2023 11:15-0400 Body mass index (BMI) [Ratio] 27.06 kg/m2 Chivo Bullard Other [facility] Other 04-15-2023 11:15-0400 Body temperature 97.3 [degF] Chivo Bullard Other [facility] Other 04-15-2023 11:15-0400 Body weight 80.74 kg Chivo Bullard Other [facility] Other 04-15-2023 11:15-0400 Diastolic blood pressure 82 mm[Hg] Chivo Bullard Other [facility] Other 04-15-2023 11:15-0400 SaO2% (BldA) [Mass fraction] 98 % Chivo Bullard Other [facility] Other 04-15-2023 11:15-0400 Systolic blood pressure 138 mm[Hg] Chivo Bullard Other [facility] Other 11-26-2022 11:45-0400 Body height 172.72 cm Sheila Villarreallinwood Other [facility] Other 11-26-2022 11:45-0400 Body mass index (BMI) [Ratio] 27.06 kg/m2 Sheila Villarrealraúlo Other [facility] Other 11-26-2022 11:45-0400 Body temperature 97.8 [degF] Sheila Villarreallinwood Other [facility] Other 11-26-2022 11:45-0400 Body weight 80.74 kg Sheila Villarrealraúlo Other [facility] Other 11-26-2022 11:45-0400 Diastolic blood pressure 72 mm[Hg] Sheila Villarrealraúlo Other [facility] Other 11-26-2022 11:45-0400 SaO2% (BldA) [Mass fraction] 98 % Sheila Villarrealraúlo Other [facility] Other 11-26-2022 11:45-0400 Systolic blood pressure 116 mm[Hg] Sheila Carloso Other [facility] Other 07-01-2022 12:00-0500 Body height 172.72 cm Sheila Kim Other [facility] Other 07-01-2022 12:00-0500 Body mass index (BMI) [Ratio] 27.06 kg/m2 Sheila Alvarez Other [facility] Other 07-01-2022 12:00-0500 Body temperature 97.1 [degF] Sheila Alvarez Other [facility] Other 07-01-2022 12:00-0500 Body weight 80.74 kg Sheila Alvarez Other [facility] Other 07-01-2022 12:00-0500 Diastolic blood pressure 60 mm[Hg] Sheila Alvarez Other [facility] Other 07-01-2022 12:00-0500 SaO2% (BldA) [Mass fraction] 97 % Sheila Alvarez Other [facility] Other 07-01-2022 12:00-0500 Systolic blood pressure 142 mm[Hg] Sheila Alvarez Other [facility] Other 11-19-2021 12:00-0400 Body height 172.72 cm Chivo Bullard Other [facility] Other 11-19-2021 12:00-0400 Body mass index (BMI) [Ratio] 30.86 kg/m2 Chivo Bullard Other [facility] Other 11-19-2021 12:00-0400 Body temperature 97 [degF] Chiov Bullard Other [facility] Other 11-19-2021 12:00-0400 Body weight 92.08 kg Chivo Buehrer Other [facility] Other 11-19-2021 12:00-0400 Diastolic blood pressure 74 mm[Hg] Chivo Buehrer Other [facility] Other 11-19-2021 12:00-0400 SaO2% (BldA) [Mass fraction] 92 % Chivo Buehrer Other [facility] Other 11-19-2021 12:00-0400 Systolic blood pressure 138 mm[Hg] Chivo Buehrer Other [facility] Other 09-03-2021 13:00-0500 Body height 172.72 cm Chivo Vikasehrer Other [facility] Other 09-03-2021 13:00-0500 Body mass index (BMI) [Ratio] 30.86 kg/m2 Chivo Buehrer Other [facility] Other 09-03-2021 13:00-0500 Body temperature 98.5 [degF] Chivo Sotorer Other [facility] Other 09-03-2021 13:00-0500 Body weight 92.08 kg Chivo Buehrer Other [facility] Other 09-03-2021 13:00-0500 Diastolic blood pressure 92 mm[Hg] Chivo Buehrer Other [facility] Other 09-03-2021 13:00-0500 SaO2% (BldA) [Mass fraction] 96 % Chivo Buehrer Other [facility] Other 09-03-2021 13:00-0500 Systolic blood pressure 160 mm[Hg] Chivo Bullard Other [facility] Other Encounters Encounter Date Encounter Type Care Provider Facility Start: 09-08-2024 End: 09-08-2024 Clinisync Result Encounter Almaz Pérez FRAMEWORK DEVELOPER Work Phone: [facility] Unsolicited Start: 09-08-2024 End: 09-08-2024 Clinisync Result Encounter Almaz Beto FRAMEWORK DEVELOPER Work Phone: [facility] Unsolicited Start: 09-08-2024 End: 09-08-2024 Orders Only Almaz Beto FRAMEWORK DEVELOPER Work Phone: [facility] Comment on above: Mixed hyperlipidemia (CMS/HCC) (Primary Dx) Start: 09-07-2024 End: 09-07-2024 Bamboo flowsheet Almaz Beto FRAMEWORK DEVELOPER Work Phone: [facility] Start: 09-07-2024 End: 09-07-2024 Bamboo flowsheet Almaz Miahhdavidz FRAMEWORK DEVELOPER Work Phone: [facility] Start: 09-07-2024 End: 09-07-2024 Office outpatient visit 25 minutes Almaz Pérez FRAMEWORK DEVELOPER Work Phone: [facility] Comment on [...] type 2 diabetes mellitus, unspecified retinopathy severity ([facility]/HCC); On statin therapy Start: 09-07-2024 End: 09-07-2024 ambulatory ALMAZ JORDYNHOLZ Not Available Start: 07-26-2024 End: 07-26-2024 Bamboo flowsheet Almaz Aichholz FRAMEWORK DEVELOPER Work Phone: [facility] Start: 07-26-2024 End: 07-26-2024 Bamboo flowsheet Almaz Aichholz FRAMEWORK DEVELOPER Work Phone: [facility] Start: 07-26-2024 Patient encounter procedure Almaz Aichholz FRAMEWORK DEVELOPER Work Phone: [facility] Start: 07-26-2024 End: 07-26-2024 ambulatory ALMAZ AICHHOLZ Not Available Start: 07-12-2024 End: 07-12-2024 Refill Almaz Aichholz FRAMEWORK DEVELOPER Work Phone: [facility] Comment on above: Primary hypertension (CMS/HCC) Start: 05-24-2024 End: 05-24-2024 Refill Almaz Aichholz FRAMEWORK DEVELOPER Work Phone: [facility] Comment on above: Type 2 diabetes jimmy itus with other specified complication, without long-term current use of insulin (CMS/HCC) Start: 05-12-2024 End: 05-12-2024 Refill Almaz Aichholz FRAMEWORK DEVELOPER Work Phone: [facility] Comment on above: Type 2 diabetes jimmy itus with other specified complication, without long-term current use of insulin (CMS/HCC) Start: 04-21-2024 End: 04-21-2024 Bamboo flowsheet Almaz Aichholz FRAMEWORK DEVELOPER Work Phone: [facility] Start: 04-21-2024 End: 04-21-2024 Bamboo flowsheet Almaz Aichholz FRAMEWORK DEVELOPER Work Phone: [facility] Start: 04-21-2024 End: 04-21-2024 Office outpatient visit 25 minutes Almaz Aichholz FRAMEWORK DEVELOPER Work Phone: [facility] Comment on above: 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); Primary hypertension (CMS/HCC); Obesity (BMI 30-39.9); Current mild episode of major depressive disorder without prior episode (HCC) ([facility]); Environmental and seasonal allergies Start: 04-21-2024 End: 04-21-2024 ambulatory AMLAZ AICHHOLZ Not Available Start: 04-19-2024 End: 04-19-2024 Clinisync Result Encounter Almazoskar Cobbholz FRAMEWORK DEVELOPER Work Phone: [facility] Unsolicited Start: 04-19-2024 End: 04-19-2024 Clinisync Result Encounter Almaz Jordynholz FRAMEWORK DEVELOPER Work Phone: [facility] Unsolicited Start: 04-16-2024 End: 04-16-2024 Refill Almaz Aichholz FRAMEWORK DEVELOPER Work Phone: [facility] Comment on above: Diabetic polyneuropa thy associated with type 2 diabetes mellitus ([facility]) Start: 04-08-2024 End: 04-09-2024 Refill Almaz Aichholz FRAMEWORK DEVELOPER Work Phone: [facility] Comment on above: Primary hypertension ([facility]) Start: 01-20-2024 End: 01-20-2024 ambulatory ALMAZ AICHHOLZ Not Available Start: 12-16-2023 End: 12-16-2023 ambulatory ALMAZ AICHHOLZ Not Available Start: 11-27-2023 End: 11-27-2023 ambulatory ALMAZ AICHHOLZ Not Available Start: 10-21-2023 End: 10-21-2023 ambulatory ALMAZ AICHHOLZ Not Available Start: 09-17-2023 End: 09-17-2023 ambulatory ALMAZ AICHHOLZ Not Available Start: 09-11-2023 Bamboo flowsheet Mark Tatter linette ETCHED CIRCUIT PROCESSOR [facility] Start: 09-11-2023 Bamboo flowsheet Mark Tatter linette ETCHED CIRCUIT PROCESSOR [facility] Start: 09-11-2023 End: 09-11-2023 ambulatory Mark Tattersall ETCHED CIRCUIT PROCESSOR [facility] Comment on above: Adhesive capsulitis of right shoulder (Primary Dx); Acute pain of right shoulder Start: 09-09-2023 Bamboo flowsheet Shimon vaqzuez PT Work Phone: [facility] Start: 09-09-2023 Bamboo flowsheet Shimon vazquez PT Work Phone: [facility] Start: 09-09-2023 End: 09-09-2023 ambulatory Shimon Simmons PT Work Phone: [facility] Comment on above: Adhesive capsulitis of right shoulder (Primary Dx); Acute pain of right shoulder Start: 09-08-2023 End: 09-08-2023 Office outpatient visit 10 minutes Ca Garcia PA Work Phone: [facility] Comment on above: Acute pain of right shoulder (Primary Dx); Adhesive capsulitis of right shoulder Start: 09-04-2023 Bamboo flowsheet Brennan Brink ETCHED CIRCUIT PROCESSOR [facility] Start: 09-04-2023 Bamboo flowsheet Brennan Brink ETCHED CIRCUIT PROCESSOR [facility] Start: 09-04-2023 End: 09-04-2023 ambulatory Brennan Brink ETCHED CIRCUIT PROCESSOR [facility] Comment on above: Adhesive capsulitis of right shoulder (Primary Dx); Acute pain of right shoulder Start: 04-15-2023 End: 04-15-2023 ambulatory Chivo Bullard Other [facility] Other Start: 04-15-2023 Office outpatient vi sit 25 minutes Chivo Bullard [facility] Vascular Surgery Start: 11-26-2022 End: 11-26-2022 ambulatory Sheila Alvarez Other [facility] Other Start: 11-26-2022 Patient encounter procedure Sheila Alvarez [facility] V[facility] Surgery Start: 11-11-2022 End: 11-11-2022 ambulatory Sheila Alvarez Facility:[facility] Start: 11-08-2022 (EVLT) EVLT saphenou s vein ablation Chivo Bullard [facility] Vascular Surgery Start: 11-08-2022 End: 11-08-2022 ambulatory Chivo Bullard Other [facility] Other Start: 10-08-2022 End: 10-09-[address] GUS HODGE Facility: Start: 07-01-2022 End: 07-01-2022 ambulatory Sheila Alvarez Other [facility] Other Start: 07-01-2022 Follow-up encounter Sheila Alvarez [facility] Start: 06-21-2022 End: 06-21-2022 ambulatory Sheila Alvarez Facility:[facility] Start: 06-12-2022 (Sclerother) Sclerotherapy Sheila Kim [facility] Start: 06-12-2022 End: 06-12-2022 ambulatory Sheila Kim Other [facility] Other Start: 11-19-2021 End: 11-19-2021 ambulatory Chivo Bullard Other [facility] Other Start: 11-19-2021 Office outpatient vi sit 15 minutes Chivo Bullard [facility] Start: 10-24-2021 End: 10-24-2021 ambulatory Chivo Sotorer Other [facility] Other Start: 10-24-2021 Telephone encounter Chivo Bullard [facility] Start: 09-03-2021 End: 09-03-2021 ambulatory Chivo Kaurr Other [facility] Other Start: 09-03-2021 Office outpatient vi sit 25 minutes Chivo Sotorer [facility] Procedures Date Procedure Procedure Detail Performing Clinician Start: 09-08-2024 ALL CBC WITH AUTO DIFF Almaz Pérez FRAMEWORK DEVELOPER Work Phone: Start: 08-10-2024 Mammography Almaz pina FRAMEWORK DEVELOPER Work Phone: Start: 04-19-2024 MLR HEMOGLOBIN A1C Almaz Pérez FRAMEWORK DEVELOPER Work Phone: Start: 08-01-2023 Mammography Almaz pina FRAMEWORK DEVELOPER Work Phone: Start: 06-25-2023 Mammography Brennan light ETCHED CIRCUIT PROCESSOR Plan of Treatment Date Care Activity Detail Author Start: 06-25-2026 Screening for malignant neoplasm of colon [facility] Start: 09-08-2025 Urine screening for protein Diabetes: Urine Protein Screening [facility] Start: 08-10-2025 Screening for malignant neoplasm of breast Mammogram [facility] Start: 07-26-2025 Medicare Annual Wellness (AWV) Medicare Annual Wellness (AWV) [facility] Start: 07-26-2025 End: 07-26-2025 Patient encounter procedure 07/26/2025 10:30 AM EST Office Visit [facility] [address] [place] [address] Almaz Pérez, CIPRIANO [address] [place] [address] [facility] Start: 07-08-2025 Glaucoma screening Diabetes: Retinopathy Screening [facility] Start: 11-08-2024 End: 09-08-2025 Alanine aminotransferase [Enzymatic activity/volume] in Serum or Plasma ALT Lab Routine Mixed hyperlipidemia (CMS/HCC) Expected: 11/08/2024 (Approximate), Expires: 09/08/2025 [facility] Work Phone: Comment on above: Expected: 11/08/2024 (Approximate), Expi res: 09/08/2025 Start: 11-08-2024 End: 09-08-2025 Aspartate aminotransferase [Enzymatic activity/volume] in Serum or Plasma AST Lab Routine Mixed hyperlipidemia (CMS/HCC) Expected: 11/08/2024 (Approximate), Expires: 09/08/2025 [facility] Comment on above: Expected: 11/08/2024 (Approximate), Expi res: 09/08/2025 Start: 11-08-2024 End: 09-08-2025 Lipid 1996 panel - Serum or Plasma Lipid panel Lab Routine Mixed hyperlipidemia (CMS/HCC) Expected: 11/08/2024 (Approximate), Expires: 09/08/2025 [facility] Comment on above: Expected: 11/08/2024 (Approximate), Expi res: 09/08/2025 Start: 11-05-2024 End: 09-07-2025 Alanine aminotransferase [Enzymatic activity/volume] in Serum or Plasma ALT Lab Routine On statin therapy Expected: 11/05/2024 (Approximate), Expires: 09/07/2025 [facility] Comment on above: Expected: 11/05/2024 (Approximate), Expi res: 09/07/2025 Start: 11-05-2024 End: 09-07-2025 Aspartate aminotransferase [Enzymatic activity/volume] in Serum or Plasma AST Lab Routine On statin therapy Expected: 11/05/2024 (Approximate), Expires: 09/07/2025 [facility] Comment on above: Expected: 11/05/2024 (Approximate), Expi res: 09/07/2025 Start: 11-05-2024 End: 09-07-2025 Lipid 1996 panel - Serum or Plasma Lipid panel Lab Routine On statin therapy Expected: 11/05/2024 (Approximate), Expires: 09/07/2025 [facility] Comment on above: Expected: 11/05/2024 (Approximate), Expi res: 09/07/2025 Start: 10-24-2024 Hemoglobin A1c measurement Diabetes: Hemoglobin A1C [facility] Start: 10-06-2024 End: 10-06-2024 Patient encounter procedure 10/06/2024 2:00 PM EDT Office Visit [facility] [address] [place] [address] Almaz Pérez NP [address] [place] [address] [facility] Start: 09-07-2024 End: 09-07-2025 ECG 12 lead ECG 12 lead ECG Routine Primary hypertension (CMS/HCC) Type 2 diabetes with nephropathy (CMS/HCC) Other chest pain Expected: 09/07/2024 (Approximate), Expires: 09/07/2025 [facility] Comment on above: Expected: 09/07/2024 (Approximate), Expi res: 09/07/2025 Start: 09-07-2024 End: 09-07-2026 Echocardiogram 2D complete Echocardiogram 2D complete Echocardiography High Priority Primary hypertension (CMS/HCC) Other chest pain Bilateral lower extremity edema Expected: 09/07/2024 (Approximate), Expires: 09/07/2026 [facility] Work Phone: Comment on above: Expected: 09/07/2024 (Approximate), Expi res: 09/07/2026 Start: 09-07-2024 End: 09-07-2024 Patient encounter procedure 09/07/2024 2:00 PM EST Office Visit [facility] [address] [place] [phone] Almaz Pérez, CIPRIANO [address] [place] [phone] Primary hypertension (CMS/HCC) (Primary Dx); Type 2 diabetes mellitus with other specified complication (CMS/HCC); Type 2 diabetes mellitus with diabetic polyneuropathy (CMS/HCC); Morbid (severe) obesity due to excess calories (CMS/HCC); Type 2 diabetes with nephropathy (CMS/HCC) [facility] Comment on above: Primary hypertension (CMS/HCC) (Primary Dx); Type 2 diabetes mellitus with other specified complication (CMS/HCC); Type 2 diabetes mellitus with diabetic polyneuropathy (CMS/HCC); Morbid (severe) obesity due to excess calories (CMS/HCC); Type 2 diabetes with nephropathy (CMS/HCC) Start: 08-06-2024 Pneumococcal Vaccine: 65+ Years (1 - PCV) Pneumococcal Vaccine: 65+ Years (1 - PCV) [facility] Comment on above: Postponed from 1958 (Patient Refus ed) Start: 08-06-2024 Pneumococcal Vaccine: 65+ Years (1 of 2 - PCV) Pneumococcal Vaccine: 65+ Years (1 of 2 - PCV) [facility] Comment on above: Postponed from 1958 (Patient Refus ed) Start: 08-01-2024 Screening for malignant neoplasm of breast Mammogram [facility] Start: 07-26-2024 End: 07-26-2024 Patient encounter procedure [facility] Comment on above: Encounter for subsequent annual wellness visit (AWV) in Medicare patient (Primary Dx); Diabetic polyneuropathy associated with type 2 diabetes mellitus ([facility]/HCC); Primary hypertension ([facility]/HCC); BMI 35.0-35.9,adult; 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, unspecified retinopathy severity ([facility]/HCC); Obesity (BMI 30-39.9); Type 2 diabetes with nephropathy ([facility]/HCC); Morbid (severe) obesity due to excess calories ([facility]); Body mass index (BMI) 36.0-36.9, adult; Encounter for screening mammogram for malignant neoplasm of breast Start: 07-19-2024 Hemoglobin A1c measurement Diabetes: Hemoglobin A1C [facility] Start: 07-15-2024 End: 07-15-2024 Patient encounter procedure 07/15/2024 1:20 PM EST Office Visit [facility] [address] [place] [address] Almaz Pérez NP [address] [place] [address] [facility] Start: 06-25-2024 Screening for malignant neoplasm of breast Mammogram [facility] Start: 06-23-2024 Urine screening for protein Diabetes: Urine Protein Screening [facility] Start: 06-10-2024 Medicare Annual Wellness (AWV) Medicare Annual Wellness (AWV) [facility] Start: 04-21-2024 End: 04-21-2024 Patient encounter procedure 04/21/2024 9:40 AM EDT Office Visit [facility] [address] [place] [address] Almaz Pérez NP [address] [place] [id number] [facility] Start: 01-25-2024 Influenza vaccination Influenza Vaccine (#1) [facility] Comment on above: Postponed from 03/28/2023 (Patient Refus ed) Start: 01-20-2024 Hemoglobin A1c measurement Diabetes: Hemoglobin A1C [facility] Start: 10-20-2023 End: 10-20-2023 Patient encounter procedure 10/20/2023 9:15 AM EDT Office Visit [facility] [address] [facility] [address] [place] [address] Ca Garcia PA [address] [facility] [address] [place] [address] [facility] Start: 09-26-2023 End: 09-26-2023 ambulatory 09/26/2023 10:00 AM EST Treatment [facility] [address] [facility] [address] [place] [address] Brennan Prieto PTA [facility] Start: 09-23-2023 Hemoglobin A1c measurement Diabetes: Hemoglobin A1C [facility] Start: 09-19-2023 End: 09-19-2023 ambulatory 09/19/2023 10:00 AM EST Treatment [facility] [address] [facility] [address] [place] [address] Brennan Prieto PTA [facility] Start: 09-17-2023 End: 09-17-2023 Patient encounter procedure 09/17/2023 9:00 AM EST Office Visit [facility] [address] [place] [address] Almaz Pérez, CIPRIANO [address] [place] [address] [facility] Start: 09-11-2023 End: 09-11-2023 ambulatory [facility] Comment on above: Adhesive capsulitis of right shoulder (P rimary Dx); Acute pain of right shoulder Start: 09-09-2023 End: 09-09-2023 ambulatory 09/09/2023 10:00 AM EST Treatment [facility] [address] [facility] [address] [place] [address] Shimon iSmmons, PT [address] [place] [address] [facility] Start: 09-08-2023 Chart abstracting 09/08/2023 Abstract [facility] [address] [place] [address] Ca Garcia, PA [address] [place] [address] [facility] Start: 09-08-2023 End: 09-08-2023 Patient encounter procedure 09/08/2023 9:30 AM EST Office Visit [facility] [address] [place] [address] Ca Garcia, PA [address] [facility] [address] [place] [address] [facility] Start: 1962 Glaucoma screening Diabetes: Retinopathy Screening [facility] Start: 1956 Pneumococcal Vaccine: 65+ Years (1 of 2 - PCV) Pneumococcal Vaccine: 65+ Years (1 of 2 - PCV) [facility] Start: 1952 Screening for malignant neoplasm of colon [facility] Payers Date Payer Category Payer Other GENERIC OTHER Pr mber [id number] 2022 Unknown GENERIC OTHER GE NERIC OTHER [id number] 2022-Present [phone] [address] [address] [place] [address] [id number] 2022 Self-pay 2018 Medicare [id number] 1959 Medicare [id number] 1959 Unknown [id number] 1952 Unknown [id number] 3 1952 Unknown [id number] 59 1952 Unknown [id number] 59 1952 Unknown [id number] [id number] 59 1952 Unknown [id number] 59 1952 Unknown [id number] 59 1952 Unknown [id number] 59 1952 Unknown [id number] [id number] 59 1952 Unknown [id number] 59 1952 Unknown [id number] 59 Unknown [id number] 1 Unknown [id number] 1 Social History Date Type Detail Facility Start: 08-11-2023 End: 07-26-[address] [facility] [employer] Other Start: 08-04-2023 Tobacco smoking status PAIS Never smoked tobacco [facility] Start: 08-11-2023 End: 09-07-2024 Alcohol intake Current drinker of alcohol (finding) [facility] Start: 08-11-2023 End: 07-26-2024 Alcohol intake [facility] Start: 08-04-2023 Alcohol Comment DAILY 7 DAYS A WEEK 1 DRINK WHISKEY AND GINGERALE [facility] Start: 1950 Sex Assigned At Not on file N [facility] Medical Equipment Procedure Code Equipment Code Equipment Origin al Text Equipment Identifier Dates [id number] Start: 09-29-2022 Clinical Notes 09-03-2021 to 09-07-2024 Almaz Pérez NP - 09/07/2024 3:00 PM Dain Pérez NP - 09/07/2024 2:58 PM Dain Pérez NP - 09/07/2024 2:00 PM Dain Pérez NP - 09/07/2024 7:39 AM ESTPatient Instructions Note [...] There is no history of kidney disease, CAD/NY, heart failure or PVD. Identifiable causes of [...] to test BLOOD SUGAR ONCE DAILY Drug [place] Unilet Lancets 30G mis USE DIRECTED to test sugar ONCE DAILY [...] of left breast on mammography 07/13/2023 Diabetes ([facility]) 08/21/2023 Diabetic neuropathy ([facility]) 08/21/2023 Type 2 diabetes with nephropathy ([facility]) 09/17/2023 metfromin caused severe hair loss Past [...] Visit RESOLVED: Type 2 diabetes with nephropathy (CMS/HCC) Relevant Medications atorvastatin (Lipitor) 10 MG tablet Other Relevant Orders ECG 12 lead Primary hypertension (CMS/HCC) Please check blood pressure [...] edema associated with type 2 diabetes mellitus (CMS/HCC) Relevant Medications amitriptyline (Elavil) 10 MG tablet [...] good glycemic control documented in this encounter [facility] 09-07-2024 Instructions Almaz Pérez NP - 09/07/2024 [...] in 4 weeks documented in this encounter [facility] 04-21-2024 History of Presen t illness Narrative [...] compliance problems. There is no history of CAD/NY or heart failure. SUBJECTIVE: MEDICATIONS: Current Outpatient Medications Medication Instructions aspirin 81 mg, Oral, Daily Blood Glucose Monitoring Suppl (True Metrix Air Glucose Meter) w/Device kit USE DIRECTED to test BLOOD SUGAR ONCE DAILY Drug [place] [facility] Lancets 30G [facility] USE DIRECTED to test sugar ONCE DAILY [...] of left breast on mammography 07/13/2023 Diabetes ([facility]) 08/21/2023 Diabetic neuropathy ([facility]) 08/21/2023 Type 2 diabetes with nephropathy ([facility]) 09/17/2023 metfromin caused severe hair loss Past [...] major depressive disorder without prior episode (HCC) ([facility]) Obesity (BMI 30-39.9) Environmental and seasonal allergies Relevant Medications loratadine (Claritin) 10 MG tablet fluticasone (Flonase) 50 MCG/ACT nasal spray documented in this encounter [facility] 09-09-2023 History of Presen t illness Narrative [...] Physician Signature: Date: documented in this encounter [facility] 09-08-2023 History of Presen t illness Narrative Images from the original note were not included. HISTORY OF PRESENT ILLNESS: EST PT Lidia Davis is an 73 y.o. @ female. EST PT RECHECK RT SHOULDER PAIN - S/P SA CORTISONE INJ 08/11/23; GOOD RELIEF - S/P PT [facility] [place]; INCREASE ROM/STRENGTH XRAY RT SHOULDER TODAY CHANGE 08/11/23 NO MRI SA CORTISONE INJ 08/11/23 PT [facility] PT IS PLEASED WITH PROGRESS- NOTES SOME [...] evaluation. CARYN Segal documented in this encounter [facility] 04-15-2023 Evaluation note Encounter Date Diagnosis Assessment Notes Mar, Varicose veins of left leg with edema (ICD-10 - I83.892) Mar, Other Varicose veins I talk with this patient about potentially continuing treatment for her left leg varicose vein. She does not feel that her symptoms are severe enough at this time to warrant intervention. I advised her to consider at least [id number] graded compression stockings to minimize the [...] any time should she wish additional treatment [facility] Other 05-02-2023 Evaluation note* Encounter Date Diagnosis [...] the meantime with any issues or concerns. [facility] Other 04-01-2023 History general Narrative - Reported* Type Description Date Medical History type II diabetes Surgical History cholecystectomy Surgical History tubal ligation Surgical History MICRO PHLEBECTOMY RT LEG 2021 Surgical History Venaseal Left Leg 10/2022 [facility] Other 12-05-2022 Evaluation note* Encounter Date Diagnosis [...] near future. Patient denies any additional questions. [facility] Other 04-25-2022 Evaluation note* Encounter Date Diagnosis [...] be treated since she has minimal symptoms. [facility] Other 02-07-2022 Evaluation note* Encounter Date Diagnosis [...] of the procedure she agrees to proceed.] [facility] Other Evaluation noteNo [employer] Other Evaluation note* Diagnosis Adhesive capsulitis of right shoulder- Primary Acute pain of right shoulder documented in this encounter [facility] Healthcare[facility] note* Diagnosis Acute pain of right shoulder- Primary Adhesive capsulitis of right shoulder documented in this encounter [facility] Healthcare[facility]* Diagnosis Adhesive capsulitis of right shoulder- Primary Acute pain of right shoulder documented in this encounter [facility]* Diagnosis Adhesive capsulitis of right shoulder- Primary Acute pain of right shoulder documented in this encounter [facility] HealthcareEvaluation note* Diagnosis Calcification of left breast on mammography- Primary Acute bursitis of right shoulder- Primary BMI 35.0-35.9,adult Type 2 diabetes mellitus with diabetic neuropathy, without long-term current use of insulin ([facility])- Primary Type 2 diabetes mellitus with other [...] of insulin (CMS/HCC) documented in this encounter [facility] HealthcareEvaluation note* Diagnosis Primary hypertension (CMS/HCC) Unspecified essential hypertension documented in this encounter [facility] HealthcareEvaluation note* Diagnosis Calcification of [...] 2 diabetes mellitus with diabetic polyneuropathy (CMS/HCC) Morbid (severe) obesity due to excess calories (CMS/HCC) Primary hypertension (CMS/HCC) Unspecified essential hypertension Type 2 diabetes with nephropathy (CMS/HCC) Bilateral lower extremity edema 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, unspecified retinopathy severity (CMS/HCC) On statin therapy documented in this encounter [facility] HealthcareEvaluation note* Diagnosis Calcification of [...] 2 diabetes mellitus with diabetic polyneuropathy (CMS/HCC) Morbid (severe) obesity due to excess calories (CMS/HCC) Primary hypertension (CMS/HCC) Unspecified essential hypertension Type 2 diabetes with nephropathy (CMS/HCC) Bilateral lower extremity edema 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, unspecified retinopathy severity (CMS/HCC) On statin therapy Mixed hyperlipidemia (CMS/HCC)- Primary Mixed hyperlipidemia documented in this encounter [facility] HealthcareHistory general Narrative - Reported* Type Description Date Medical History diabetes mallitus Medical History [ ] Surgical History cholecystectomy Surgical History tubal ligation Surgical History [ ] [facility] Other History general Narrative - Reported* Type Description Date Medical History type II diabetes Surgical History cholecystectomy Surgical History tubal ligation Surgical History MICRO PHLEBECTOMY RT LEG 2021 [facility] Other Reason for visit NarrativeVASC DR. BULLARD WANTED TO SEE BEFORE DECIDING WHAT PROCEDURE TO DO, Painful varicose veinsNort [employer] Other reason for visit Narrative* Consultation (Routine) - Authorized Specialty Diagnoses / Procedures Referred By Iam valverde Referred To Contact Physical Therapy Diagnoses Acute pain of right shoulder Adhesive capsulitis of right shoulder Procedures MS OFFICE/OUTPATIENT NEW HIGH MDM 60 MINUTES Ca Garcia PA [address] [facility] [address] [place] [address] Shimon Simmons, PT [address] [facility] [address] [place] [address] Referral ID Status Reason Start Date Expiration Date Visits Requested Visits Authorized [id number] Authorized Consult and Treat 08/11/2023 02/07/2024 10 30 [facility] Healthcare Summary Purpose Family History No Family [...] UP AFTER VARITHENA RIGHT LEG; ULTRASOUND DONE [facility] 06/21/22VARITHENA RT LEGVASC 2 WK S/P MICRO RIGHT LEG, Follow-up after microphlebectomy INFORMATION SOURCE (unrecogn ized section and content) DATE CREATED AUTHOR 10/15/2022 [facility] DATE CREATED AUTHOR AUTHOR'S ORGANIZ ATION 11/22/2022 [facility] DATE CREATED AUTHOR AUTHOR'S ORGANIZ ATION 09/09/2024 [facility] Care Teams (unrecognized sec tion and content) Siderographer Relationship Specialty Start Date End Date Bryant Torres MD [address] [place] [phone] PCP - General Family Medicine 09/02/23 Almaz Pérez NP [address] [place] [phone] Nurse Practitioner Family Medicine 04/27/23 Siderographer Relationship Specialty Start Date End Date Bryant Torres MD [address] [place] [phone] PCP - General Family Medicine 09/02/23 Almaz Pérez NP [address] [place] [address] Nurse Practitioner Family Medicine 04/27/23 Siderographer Relationship Specialty Start Date End Date Bryant Torres MD [address] [place] [phone] PCP - General Family Medicine 09/02/23 Almaz Pérez NP [address] [place] [phone] Nurse Practitioner Family Medicine 04/27/23 Siderographer Relationship Specialty Start Date End Date Bryant Torres MD [address] [place] [address] [phone] PCP - General Family Medicine 09/02/23 Almaz Pérez NP [address] [place] [address] Nurse Practitioner Family Medicine 04/27/23 Siderographer Relationship Specialty Start Date End Date Bryant Torres MD [address] [place] [phone] PCP - General Family Medicine 09/02/23 Almaz Pérez NP [address] [place] [phone] Nurse Practitioner Family Medicine 04/27/23 Siderographer Relationship Specialty Start Date End Date Bryant Torres MD [address] [place] [phone] PCP - General Family Medicine 09/02/23 Almaz Pérez NP [address] [place] [address] Nurse Practitioner Family Medicine 04/27/23 Siderographer Relationship Specialty Start Date End Date Bryant Torres MD [address] [place] [phone] PCP - General Family Medicine 09/02/23 Almaz Pérez NP [address] [place] [address] Nurse Practitioner Family Medicine 04/27/23 Siderographer Relationship Specialty Start Date End Date Bryant Torres MD [address] [place] [phone] PCP - General Family Medicine 09/02/23 Almaz Pérez NP [address] [place] [phone] Nurse Practitioner Family Medicine 04/27/23 Siderographer Relationship Specialty Start Date End Date Bryant Torres MD [address] [place] [address] PCP - General Family Medicine 09/02/23 Almaz Pérez NP [address] [place] [address] Nurse Practitioner Family Medicine 04/27/23 Siderographer Relationship Specialty Start Date End Date Bryant Torres MD [address] [place] [address] PCP - General Family Medicine 09/02/23 Almaz Pérez NP [address] [place] [address] Nurse Practitioner Family Medicine 04/27/23 Siderographer Relationship Specialty Start Date End Date Bryant Torres MD [address] [place] [phone] PCP - General Family Medicine 09/02/23 Almaz Pérez NP [address] [place] [address] Nurse Practitioner Family Medicine 04/27/23 Siderographer Relationship Specialty Start Date End Date Bryant Torres MD [address] [place] [phone] PCP - General Family Medicine 09/02/23 Almaz Pérez NP [address] [place] [address] Nurse Practitioner Family Medicine 04/27/23 Siderographer Relationship Specialty Start Date End Date Bryant Torres MD [address] [place] [address] PCP - General Family Medicine 09/02/23 Almaz Pérez NP [address] [place] [address] PCP - ACO Reach 09/03/24 Almaz Pérez NP [address] [place] [address] Nurse Practitioner Family Medicine 04/27/23 Siderographer Relationship Specialty Start Date End Date Bryant Torres MD [address] [place] [address] PCP - General Family Medicine 09/02/23 Almaz Pérez NP [address] [place] [address] PCP - ACO Reach 09/03/24 Almaz Pérez NP [address] [place] [phone] Nurse Practitioner Family Medicine 04/27/23 Siderographer Relationship Specialty Start Date End Date Bryant Torres MD [address] [place] [phone] PCP - General Family Medicine 09/02/23 Almaz Pérez NP [address] [place] [address] PCP - ACO Reach 09/03/24 Almaz Pérez NP [address] [place] [address] Nurse Practitioner Family Medicine 04/27/23 Siderographer Relationship Specialty Start Date End Date Bryant Torres MD [address] [place] [address] PCP - General Family Medicine 09/02/23 Almaz Pérez NP [address] [place] [address] PCP - ACO Reach 09/03/24 Almaz Pérez NP [address] [place] [phone] Nurse Practitioner Family Medicine 04/27/23 FOR RECORDS [...] BE BASED ON THE PRIMARY CLINICAL RECORDS. [facility] [employer] [facility]. provides no warranty or guarantee of the accuracy or completeness of information in this document.
== END 2024-09-16 13:48 | disposition home or self-care (01) ==
LOC: CARD 13:48
PROVIDERS: PCP Nurse Practitioner; Visit Provider Nurse Practitioner
DX: R07.89 Other chest pain (principal); I10 Essential (primary) hypertension; R60.0 Localized edema; E11.21 Type 2 diabetes mellitus with diabetic nephropathy
CPT/HCPCS: 93005; 93306

== ENCOUNTER 2024-10-12 10:51 | Outpatient (OUT) | payer MEDICARE, OTHER, SELFPAY ==
--- NOTE | 2024-10-12 | PCN_ITS ---
CARDIAC STRESS TEST Requesting Physician: Almaz Pérez CNP Procedure Date: 10/12/2024 LEXISCAN EKG STRESS TEST INDICATION FOR THE TEST: Shortness of breath. The procedure was discussed with the patient in detail, including risks and benefits, and she was agreeable to proceed. Resting heart rate 83 beats per minute, resting blood pressure 142/80 mm/Hg. The patient was injected with Lexiscan 0.4 mg IV, and she was monitored for a few minutes. Max heart rate 97 beats per minute, which represents 65% of age predicted maximum heart rate. Peak blood pressure 142/80. Patient had generalized heaviness after Lexiscan injection. No chest pain or shortness of breath. Resting 12 lead EKG shows normal sinus rhythm, heart rate 83 beats per minute, first degree AV block, no significant T or ST changes. EKG throughout the test did not show significant T or ST changes over significant arrhythmias. CONCLUSION: 1. This is a negative Lexiscan EKG stress test for ischemia. 2. The nuclear images result will be reported separately. DEVOND
--- NOTE | 2024-10-12 10:35 | NM_ITS ---
Patient Name: KEI JENSEN MR#: [id number] : 1950 Exam Date: 10/12/2024 Ordering Doctor: NANCY Pérez CNP RADIOLOGY REPORT PROCEDURE: NM THELMA PERF SPECT REST STR COMPARISON: None. INDICATIONS: SHORTNESS OF BREATH, CHEST PAIN, HYPERTENSION TECHNIQUE: Exam Description: Stress/Rest one day protocol gated SPECT Rest Imagin.1 mCi Tc-99m Cardiolite IV on 10/12/2024 Stress Imaging 30.8 mCi Tc-99m Cardiolite IV on 10/12/2024 Exercise Protocol: 0.4 mg Lexiscan given IV Heart Rate (bpm): Rest: 83 Max: 97 PMHR: 65 Blood Pressure: Rest: 138/78 Max: 142/80 Symptoms: Rest and peak stress ECG findings were pending and the exercise portion of the study was pending per attending physician [facility] . For more details, please see separate cardiac stress test report. FINDINGS: QUALITY OF STUDY: PERFUSION DEFECT: Adequate LOCATION: Anterolateral SIZE: Moderate SEVERITY: Moderate TYPE: Fixed; appears worse on rest imaging likely related to significant breast attenuation WALL MOTION: Normal wall motion LV SIZE: 101 mL. TID / TCD: 1.0 LVEF: Calculated EF 60%. SUMMARY: Myocardial perfusion imaging study is normal CONCLUSION: 1. Myocardial perfusion is normal with significant breast attenuation 2. A fixed anterolateral perfusion defect likely representing soft tissue attenuation 3. Global left ventricular systolic function is normal 4. No significant transient ischemic dilatation is seen Dictated by: Zina Montoya M.D. on 10/13/2024 at 15:07 Approved by: Zina Montoya M.D. on 10/13/2024 at 15:11
[2024-10-12] MEDS: REGADENOSON 0.4 MG/5 ML SYRINGE IV (12:32)
--- NOTE | 2024-10-12 12:32 | PC.NURSE ---
Nursing Note Cardiac Stress Test Reviewed: Medication, allergies and patient history reviewed. Stress Test: [ x] Patient tolerated stress test well. [ ] Patient unable to tolerate walking on treadmill. Switched to Lexiscan stress test. [x ] No chest pain noted per patient [ ] Chest pain that resolved prior to leaving stress lab. [x ] No dyspnea noted. [ ] Dyspnea that resolved prior to leaving stress lab. [x ] Patient left stress lab asymptomatic and hemodynamically stable. [ ] Patient taken to the Emergency Room due to non-resolving symptoms following stress test. [ ] Patient achieved target heart rate. [ ] Patient unable to achieve target heart rate. [ ] Aminophylline administered as reversal agent to Lexiscan (Regadenoson). [ ] Nitro administered. Nursing Comments:Pt tolerated well. Lexiscan done. No issues noted after test.
== END 2024-10-12 10:52 | disposition home or self-care (01) ==
LOC: NM 10:51
PROVIDERS: PCP Nurse Practitioner; Visit Provider Nurse Practitioner
DX: R07.89 Other chest pain (principal)
CPT/HCPCS: 78452; 93017; A9500; J2785

== ENCOUNTER 2024-11-15 11:16 | Outpatient (OUT) | payer MEDICARE, OTHER, SELFPAY ==
[2024-11-15 11:45] LABS: Estimated Average Glucose 134 mg/dL; Glycohemoglobin A1C 6.3 % (4.5-6.2)
[2024-11-15 12:03] LABS: Alanine Aminotransferase 17 U/L (14-59); Albumin Globulin Ratio 0.6; Albumin Level 2.9 g/dL (3.4-5.0); Alkaline Phosphatase 97 U/L (46-116); Anion Gap 10.6; Aspartate Amino Transferase 21 U/L (15-37); BUN Creatinine Ratio 17.9; Bilirubin Total 0.5 mg/dL (0.2-1.0); Calcium 9.6 mg/dL (8.5-10.1); Carbon Dioxide 31.5 mmol/L (21.0-32.0); Chloride 101 mmol/L (98-107); Chol HDL Ratio 2.1; Cholesterol 146 mg/dL (<=200); Estimated GFR (African America >60 (>=60 mL/min/1.73m^2); Estimated GFR (Non-African Ame >60 (>=60 mL/min/1.73m^2); Globulin 4.8 g/dL; Glucose 136 mg/dL (74-106); HDL Cholesterol 68 mg/dL (40-60); Potassium 4.1 mmol/L (3.5-5.1); Sodium 139 mmol/L (136-145); Total Protein 7.7 g/dL (6.4-8.2); Triglycerides 84 mg/dL (<=150); VLDL CHOLESTEROL 16.8 mg/dL
== END 2024-11-15 11:17 | disposition home or self-care (01) ==
LOC: LAB 11:19
PROVIDERS: PCP Nurse Practitioner; Visit Provider Nurse Practitioner
DX: E78.2 Mixed hyperlipidemia (principal); R60.0 Localized edema; E11.69 Type 2 diabetes mellitus with other specified complication; E11.21 Type 2 diabetes mellitus with diabetic nephropathy
CPT/HCPCS: 36415; 80053; 80061; 83036

== ENCOUNTER 2025-02-04 13:06 | Outpatient (OUT) | payer MEDICARE, OTHER, SELFPAY ==
--- OUTSIDE RECORDS SUMMARY | 2025-02-04 13:34 | XMS_ITS | CCD ---
Author Organization [facility] Care Team Providers Care Ranch Manager Name Role Phone Chivo Bullard Unavailable Sheila Alvarez Unavailable NAVEEN, DR AGEE Attending Unavailable AMAZONIA, DR AGEE Consulting Unavailable AMAZONIA, DR AGEE Primary Care Unavailable HOUSE, DR AGEE Admitting Unavailable Ruttino, Sheila Tesfaye Admitting Unavailable Ruttino, Sheila Tesfaye Attending Unavailable House, Gus Primary Care Unavailable Ruttino, Sheila Tesfaye Admitting Unavailable Ruttino, Sheila R Attending Unavailable Naveen, Gus Primary Care Unavailable Aichholz STENOCAPTIONER, Almaz Unavailable Bryant Torres MD Primary Care Provider Aichholz STENOCAPTIONER, Almaz Unavailable Aichholz STENOCAPTIONER, Almaz Unavailable AICHHOLZ, ALMAZ Attending Unavailable AICHHOLZ, ALMAZ Attending Unavailable AICHHOLZ, ALMAZ Attending Unavailable AICHHOLZ, ALMAZ Attending Unavailable AICHHOLZ, ALMAZ Attending Unavailable AICHHOLZ, ALMAZ Attending Unavailable AICHHOLZ, ALMAZ Attending Unavailable Allergies Allergy Classification Reported Allergen(s) Allergy Type Date of Onset Reaction(s) Facility (20 sources) DULoxetine Drug Allergy 4 GI intolerance [facility] Medications Current Medications Medication Drug Class(es) Dates Sig (Normalized) Sig (Original) amitriptyline hydrochloride 10 mg oral tablet (20 sources) Tricyclic Antidepressant Start: 07-26-2024 End: 12-06-2024 amitriptyline (Elavil) 10 MG tablet Indications: 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, unspecified retinopathy severity (CMS/HCC) Take 1 tablet (10 mg) by mouth at bedtime 90 tablet 1 09/07/2024 Active aspirin 81 mg chewable tablet (20 sources) Platelet Aggregation Inhibitor, Nonsteroidal Anti-inflammatory Drug [...] 07/20/2024 Active atorvastatin 10 mg oral tablet (19 sources) HMG-CoA Reductase Inhibitor Start: 09-07-2024 End: 02-06-2025 take 1 tablet by mouth in the evening atorvastatin (Lipitor) 10 MG tablet Indications: Type 2 diabetes with nephropathy (CMS/HCC) Take 1 tablet (10 mg) by mouth in the evening 90 tablet 11/08/2024 02/06/2025 Active Blood Glucose Monitoring Suppl (True Metrix Air Glucose Meter) w/Device kit (20 sources) Start: 09-29-2022 Blood Glucose Monitoring Suppl (True Metrix Air Glucose Meter) w/Device kit USE DIRECTED to test BLOOD SUGAR ONCE DAILY 09/29/2022 Active carvedilol 3.125 mg oral tablet (2 sources) alpha-Adrenergic Reyna, beta-Adrenergic Reyna Start: 12-28-2024 End: 01-27-2025 take 1 tablet by mouth in the morning carvedilol (Coreg) 3.125 MG tablet Indications: Primary hypertension (CMS/HCC) Take 1 tablet (3.125 mg) by mouth in the morning and 1 tablet (3.125 mg) in the evening. Take with meals. 60 tablet 1 12/28/2024 01/27/2025 Active fluticasone propionate 0.05 mg/actuat metered dose nasal spray (20 sources) Corticosteroid Start: 07-26-2024 End: 02-06-2025 take 2 spray(s) nasal route once daily fluticasone (Flonase) 50 MCG/ACT nasal spray Indications: Environmental and seasonal allergies Administer 2 sprays into each nostril Daily Shake gently. Before first use, prime pump. After use, clean tip and replace cap. 48 g 1 11/08/2024 02/06/2025 Active Start: 04-21-2024 End: 07-20-2024 take 2 spray(s) nasal route once daily fluticasone (Flonase) 50 MCG/ACT nasal spray Indications: Environmental and seasonal allergies Administer 2 sprays into each nostril Daily Shake gently. Before first use, prime pump. After use, clean tip and replace cap. 48 g 1 04/21/2024 Active furosemide 20 mg oral tablet (6 sources) Loop Diuretic Start: 11-08-2024 End: 12-08-2024 take 1 tablet by mouth once daily furosemide (Lasix) 20 MG tablet Indications: Bilateral lower extremity edema Take 1 tablet (20 mg) by mouth Daily 30 tablet 1 11/08/2024 Active gabapentin 600 mg oral tablet (20 sources) Anti-epileptic Agent Start: 07-26-2024 End: 11-08-2024 gabapentin (Neurontin) 600 MG tablet Indications: Diabetic polyneuropathy associated with type 2 diabetes mellitus (CMS/HCC) TAKE 1 TABLET BY MOUTH IN THE MORNING, then ONE TABLET BY MOUTH in the afternoon, and then 2 (TWO) (TWO) TABLETS BY MOUTH AT BEDTIME 360 tablet 1 11/08/2024 Active Start: 08-21-2023 End: 04-16-2024 gabapentin (Neurontin) [...] tablet (20 sources) Sulfonylurea Start: 08-21-2023 End: 02-06-2025 take 1 tablet by mouth in the morning glimepiride (Amaryl) 2 MG tablet Indications: Type 2 diabetes mellitus with other specified complication, without long-term current use of insulin Take 1 tablet (2 mg) by mouth in the morning and 1 tablet (2 mg) in the evening. Take before meals. 180 tablet 1 11/08/2024 02/06/2025 Active take 1 tablet by once daily at breakfast Glimepiride 2 MG 1 tablet with breakfast or the first main meal of the day Orally Active Glimepiride Acti ve lisinopril 20 mg oral tablet (20 sources) Angiotensin Converting Enzyme Inhibitor Start: 04-09-2024 End: 02-06-2025 take 1 tablet by mouth in the morning lisinopril 20 MG tablet Indications: Primary hypertension (CMS/HCC) Take 1 tablet (20 mg) by mouth in the morning and 1 tablet (20 mg) before bedtime. 180 tablet 1 11/08/2024 02/06/2025 Active loratadine 10 mg oral tablet (20 sources) Start: 07-26-2024 End: 02-06-2025 take 1 tablet by mouth once daily loratadine (Claritin) 10 MG tablet Indications: Environmental and seasonal allergies Take 1 tablet (10 mg) by mouth Daily 90 tablet 1 11/08/2024 02/06/2025 Active Start: 04-21-2024 End: 07-20-2024 take 1 [...] hydrochloride 500 mg extended release oral tablet (20 sources) Biguanide Start: 07-11-2024 End: 02-06-2025 take 2 tablets by mouth every twenty-four hours in the morning metFORMIN XR (Glucophage-XR) 500 MG 24 hr tablet Indications: Type 2 diabetes with nephropathy (CMS/HCC) Take 2 tablets (1,000 mg) by mouth in the morning and 2 tablets (1,000 mg) in the evening. Take before meals. Do not crush, chew, or split. 360 tablet 1 11/08/2024 02/06/2025 Active Start: 01-20-2024 End: 04-19-2024 take 2 [...] Receptor gamma Agonist, Thiazolidinedione Start: 10-21-2023 End: 02-06-2025 take 1 tablet by mouth in the morning pioglitazone (Actos) 30 MG tablet Indications: Type 2 diabetes mellitus with other specified complication, without long-term current use of insulin Take 1 tablet (30 mg) by mouth in the morning. 90 tablet 1 11/08/2024 02/06/2025 Active Start: 08-21-2023 take 1 tablet by [...] 09-07-2024 08-21-2023 Chronic Disorders of lipid metabolism (17 sources) Mixed hyperlipidemia; Translations: [Mixed hyperlipidemia] Onset: 09-08-2024 09-08-2024 Chronic Essential hypertension (20 sources) Essential hypertension; Translations: [Essential (primary) hypertension] Onset: 09-17-2023 09-17-2023 Chronic Mood disorders (20 sources) Mild major depression, single episode; Translations: [...] nutritional; endocrine; and metabolic disorders (20 sources) Obesity caused by energy imbalance; Translations: [Morbid (severe) obesity due to excess calories] Onset: 07-26-2024 07-26-2024 Chronic Other upper respiratory disease (20 sources) Allergic disposition; Translations: [Other allergic rhinitis] Onset: 04-21-2024 04-21-2024 Chronic Residual codes; unclassified (20 sources) Bilateral lower limb edema; Translations: [Localized [...] Episodic/Chronic Conditions associated with dizziness or vertigo (20 sources) Dizziness; Translations: [Dizziness and giddiness] Onset: 11-27-2023 11-27-2023 Episodic Diabetes mellitus without complication (20 sources) Type 2 diabetes mellitus without complications; Translations: [Diabetes mellitus] Onset: 10-08-2022 Resolved: 09-17-2023 Chronic Genitourinary symptoms and ill-defined conditions (20 sources) Urinary symptoms ; Translations: [Unspecified symptoms and signs involving the genitourinary system] Onset: 11-28-2023 Resolved: 10-06-2024 11-28-2023 Episodic Mood disorders (18 sources) Mood disorders Onset: 07-26-2024 07-26-2024 Nonmalignant breast conditions (20 sources) Mammographic calcification of left breast; Translations: [Mammographic calcification found on diagnostic imaging of breast] Onset: 07-13-2023 07-13-2023 Episodic Nonspecific chest pain (20 sources) Chest pain; Translations: [Other chest pain] Onset: 09-07-2024 09-07-2024 Episodic Other aftercare (19 sources) Drug therapy finding; Translations: [Other meterman (current) drug therapy] Onset: 09-07-2024 09-07-2024 Episodic Other connective tissue disease (20 sources) [...] Onset: 08-06-2023 Resolved: 09-07-2024 08-06-2023 Chronic Other screening for suspected conditions (not mental disorders or infectious disease) (19 sources) Patient encounter status; Translations: [Encounter for screening mammogram for malignant neoplasm of breast] Onset: 07-26-2024 07-26-2024 Episodic Other upper respiratory disease (20 sources) Rhinitis; Translations: [Chronic rhinitis] Onset: 04-21-2024 Resolved: 04-21-2024 04-21-2024 Chronic Results Test Name Value Interpretation Reference Range Facility [facility] HEMOGLOBIN A1Con 025 Glucose [Mass/Vol] 134 mg/dL [facility] HbA1c (Bld) [Mass fraction] 6.3 % High 4.5 - 6.2 % [facility] Comment on above: ADA RECOMMENDED LIMI T 4.0 - 6.0 ADA THERAPEUTIC TARGET < 7.0 ACTION SUGGESTED > 7.0 Interpretation and review of laboratory results Abnormal [facility] ECG 12-LEADon 09-17-2024 [facility] [place] [id number] Electrocardiograph Report Signed Patient: KEI DAVIS MR#: [id number] : 1950 Acct:[id number] Age/Sex: 74 / F ADM Date: 09/16/24 Loc: CARD Attending Dr: Almaz Pérez NP Ordering Physician: Almaz Pérez NP Date of Service: 09/16/24 Procedure(s): ECG 12 lead Accession Number(s): [id number] cc: [facility] Test Date: 2024-09-16 Pat Name: KEI DAVIS Department: Room: - Gender: Female Chain Puller: : 1950 Requested By: ALMAZ PÉREZ Order Number: [id number] Reading MD: LUIS RODRIGUES Measurements Intervals [place] Rate: 87 P: 64 IN: 209 QRS: 81 QRSD: 88 T: 73 QT: 373 QTc: 450 Interpretive Statements SINUS RHYTHM Compared to ECG 03/11/2020 10:00:15 Ectopic atrial rhythm no longer present Electronically Signed On 09-17-2024 6:45:58 EST by LUIS RODRIGUES Dictated By: Luis Rodrigues D.O. Signed By: 09/17/24 0646 09/17/24 0646 DD/ 1409 TD/TT: Business Technology Architect: [facility] Radiology, Radiologist, MD - 09/17/2024 [facility] [place] [id number] Electrocardiograph Report Signed Patient: KEI DAVIS MR#: [id number] : 1950 Acct:[id number] Age/Sex: 74 / F ADM Date: 09/16/24 Loc: CARD Attending Dr: Almaz Pérez NP Ordering Physician: Almaz Pérez NP Date of Service: 09/16/24 Procedure(s): ECG 12 lead Accession Number(s): [id number] cc: [facility] Test Date: 2024-09-16 Pat Name: KEI DAVIS Department: Room: - Gender: Female Chain Puller: : 1950 Requested By: ALMAZ PÉREZ Order Number: [id number] Reading MD: LUIS RODRIGUES Measurements Intervals [place] Rate: 87 P: 64 IN: 209 QRS: 81 QRSD: 88 T: 73 QT: 373 QTc: 450 Interpretive Statements SINUS RHYTHM Compared to ECG 03/11/2020 10:00:15 Ectopic atrial rhythm no longer present Electronically Signed On 09-17-2024 6:45:58 EST by LUIS RODRIGUES Dictated By: Luis Rodrigues D.O. Signed By: 09/17/24 0646 09/17/2446 DD/ 1409 TD/TT: Business Technology Architect: [facility] [employer] ECG 12-LEADOrdered By: Zarfo Radiology on 09-17-2024 [facility] Work [facility]: CA ECHO DOPPLER COMPLETEon 0 09-16-2024 [place] [address] Cardiology Report Signed Patient: KEI DAVIS MR#: [id number] : 1950 Acct:[id number] Age/Sex: 74 / F ADM Date: 09/16/24 Loc: CARD Attending Dr: Almaz Pérez NP Ordering Physician: Almaz Pérez NP Date of Service: 09/16/24 Procedure(s): CA echo doppler complete Accession Number(s): [id number] cc: Almaz Pérez NP Patient Name: KEI DAVIS MR#: [id number] : 1950 Exam Date: 09/16/2024 Ordering Doctor: NANCY Pérez CNP ECHOCARDIOGRAM REPORT PROCEDURE: CA ECHO DOPPLER COMPLETE INDICATIONS: HTN, Chest pain COMPARISON: None. DESCRIPTION: COMPLETE ECHOCARDIOGRAM Real-time transthoracic echocardiography with 2D, M-mode, spectral and color flow Doppler performed. QUALITY: Technical quality was good. LEFT VENTRICLE: Normal chamber size. Moderate concentric hypertrophy. Global left ventricular systolic function is normal. LV EF: Estimated left ventricular ejection fraction is 55-60 %. DIASTOLIC: Diastolic function is indeterminate. ATRIAL SEPTUM: LEFT ATRIUM: Moderate dilatation. RIGHT ATRIUM: Mild dilatation. RIGHT VENTRICLE: Normal chamber size. Normal right ventricular systolic function. TRICUSPID VALVE: Normal mobility and thickness. No stenosis with trivial regurgitation. No evidence of pulmonary hypertension. RVSP 33 mmHg MITRAL VALVE: Normal mobility and thickness. No evidence of mitral valve stenosis. Mild mitral annular calcification. Trivial mitral regurgitation. AORTIC VALVE: Normal trileaflet appearance. Mildly diminished mobility. No evidence of aortic valve stenosis. Mildly calcified noncoronary cusp. No aortic regurgitation. AORTIC ROOT: Normal diameter and appearance. Ascending aorta is normal in size and measures 3.6 cm. PULMONIC VALVE: Normal thickness and mobility. No stenosis. No regurgitation. PERICARDIUM: No evidence of pericardial effusion. IVC: Collapses with inspirations. Normal size. PLEURA: CONCLUSION: 1. Moderate concentric left ventricular hypertrophy with normal systolic function. Estimated LVEF is 55 to 60%. 2. Normal right ventricular size and systolic function. 3. Mild to moderate biatrial dilatation. 4. Mildly calcified aortic valve without stenosis or regurgitation. 5. Normal right-sided pressures. Adult Echocardiography Procedure Report Left Ventricle LVEDD (3.7 - 5.6 cm): 3.71 cm LVESD (2.2 - 4.0 cm): 2.56 cm LVIVS thickness (0.6 - 1.2 cm): 1.79 cm LVPW thickness (0.5 - 1.0 cm): 1.33 cm e': 0.09 m/s E - e': 10.94 LVOT Max Gradient: 4.86 mm[Hg] LVOT Area (cm2): 1.10 m/s Peak Velocity (LVOT): 1.10 m/s Mean Velocity (LVOT): 0.77 m/s LVOT Diameter 2.00 cm Left Atrium LA Volume Index (2D A2C): 48.78 ml/m2 Left Atrium Systolic Dimension: 3.36 cm Mitral Valve MV E to A Ratio: 1.15 Mitral Valve A-Wave Peak Velocity: 0.82 m/s Mitral Valve E-Wave Peak Velocity: 0.94 m/s Right Ventricle RV Internal Diastolic Dimension: 3.56 cm Aorta AO Root Diam: 3.42 cm Ascending Ao Diam: 3.62 cm Aortic Valve AoV Area (Peak Pete): 2.47 cm2, 2.47 cm2 AoV Area (VTI): 2.60 cm2, 2.60 cm2 Peak Velocity(Antegrade Flow): 1.40 m/s Peak Gradient(Antegrade Flow): 7.85 mm[Hg] Mean Velocity(Antegrade Flow): 0.90 m/s Mean Gradient(Antegrade Flow): 3.70 mm[Hg] Velocity Time Integral: 29.13 cm Tricuspid Valve Peak Velocity (Regurgitant Flow): 2.74 m/s, 2.73 m/s, 2.65 m/s Pulmonic Valve Mean Gradient: 3.43 mm[Hg], 2.52 mm[Hg] Mean Velocity: 0.87 m/s, 0.74 m/s Peak Velocity: 1.23 m/s Peak Gradient: 6.86 mm[Hg], 5.31 mm[Hg] Right Atrium Right Atrium Systolic Pressure: 44.62 ml, 44.62 ml Dictated by: Vincent Magaña M.D. on 09/16/2024 at 17:47 Approved by: Vincnet Magaña M.D. on 09/16/2024 at 17:51 (more content not included)... [facility] Radiology, Radiologist, MD - 09/16/2024 [place] [address] Cardiology Report Signed Patient: KEI DAVIS MR#: [id number] : 1950 Acct:[id number] Age/Sex: 74 / F ADM Date: 09/16/24 Loc: CARD Attending Dr: Almaz Pérez NP Ordering Physician: Almaz Pérez NP Date of Service: 09/16/24 Procedure(s): CA echo doppler complete Accession Number(s): [id number] cc: Almaz Pérez NP Patient Name: KEI DAVIS MR#: [id number] : 1950 Exam Date: 09/16/2024 Ordering Doctor: NANCY Pérez CNP ECHOCARDIOGRAM REPORT PROCEDURE: CA ECHO DOPPLER COMPLETE INDICATIONS: HTN, Chest pain COMPARISON: None. DESCRIPTION: COMPLETE ECHOCARDIOGRAM Real-time transthoracic echocardiography with 2D, M-mode, spectral and color flow Doppler performed. QUALITY: Technical quality was good. LEFT VENTRICLE: Normal chamber size. Moderate concentric hypertrophy. Global left ventricular systolic function is normal. LV EF: Estimated left ventricular ejection fraction is 55-60 %. DIASTOLIC: Diastolic function is indeterminate. ATRIAL SEPTUM: LEFT ATRIUM: Moderate dilatation. RIGHT ATRIUM: Mild dilatation. RIGHT VENTRICLE: Normal chamber size. Normal right ventricular systolic function. TRICUSPID VALVE: Normal mobility and thickness. No stenosis with trivial regurgitation. No evidence of pulmonary hypertension. RVSP 33 mmHg MITRAL VALVE: Normal mobility and thickness. No evidence of mitral valve stenosis. Mild mitral annular calcification. Trivial mitral regurgitation. AORTIC VALVE: Normal trileaflet appearance. Mildly diminished mobility. No evidence of aortic valve stenosis. Mildly calcified noncoronary cusp. No aortic regurgitation. AORTIC ROOT: Normal diameter and appearance. Ascending aorta is normal in size and measures 3.6 cm. PULMONIC VALVE: Normal thickness and mobility. No stenosis. No regurgitation. PERICARDIUM: No evidence of pericardial effusion. IVC: Collapses with inspirations. Normal size. PLEURA: CONCLUSION: 1. Moderate concentric left ventricular hypertrophy with normal systolic function. Estimated LVEF is 55 to 60%. 2. Normal right ventricular size and systolic function. 3. Mild to moderate biatrial dilatation. 4. Mildly calcified aortic valve without stenosis or regurgitation. 5. Normal right-sided pressures. Adult Echocardiography Procedure Report Left Ventricle LVEDD (3.7 - 5.6 cm): 3.71 cm LVESD (2.2 - 4.0 cm): 2.56 cm LVIVS thickness (0.6 - 1.2 cm): 1.79 cm LVPW thickness (0.5 - 1.0 cm): 1.33 cm e': 0.09 m/s E - e': 10.94 LVOT Max Gradient: 4.86 mm[Hg] LVOT Area (cm2): 1.10 m/s Peak Velocity (LVOT): 1.10 m/s Mean Velocity (LVOT): 0.77 m/s LVOT Diameter 2.00 cm Left Atrium LA Volume Index (2D A2C): 48.78 ml/m2 Left Atrium Systolic Dimension: 3.36 cm Mitral Valve MV E to A Ratio: 1.15 Mitral Valve A-Wave Peak Velocity: 0.82 m/s Mitral Valve E-Wave Peak Velocity: 0.94 m/s Right Ventricle RV Internal Diastolic Dimension: 3.56 cm Aorta AO Root Diam: 3.42 cm Ascending Ao Diam: 3.62 cm Aortic Valve AoV Area (Peak Pete): 2.47 cm2, 2.47 cm2 AoV Area (VTI): 2.60 cm2, 2.60 cm2 Peak Velocity(Antegrade Flow): 1.40 m/s Peak Gradient(Antegrade Flow): 7.85 mm[Hg] Mean Velocity(Antegrade Flow): 0.90 m/s Mean Gradient(Antegrade Flow): 3.70 mm[Hg] Velocity Time Integral: 29.13 cm Tricuspid Valve Peak Velocity (Regurgitant Flow): 2.74 m/s, 2.73 m/s, 2.65 m/s Pulmonic Valve Mean Gradient: 3.43 mm[Hg], 2.52 mm[Hg] Mean Velocity: 0.87 m/s, 0.74 m/s Peak Velocity: 1.23 m/s Peak Gradient: 6.86 mm[Hg], 5.31 mm[Hg] Right Atrium Right Atrium Systolic Pressure: 44.62 ml, 44.62 ml Dictated by: Vincent Magaña M.D. on 09/16/2024 at 17:47 Approved by: Vincent Magaña M.D. on 09/16/2024 at 17:51 Dictated By: VINCENT MAGAÑA Signed By: 09/16/241751 DD/ 50 TD/TT: Business Technology Architect: [facility] Radiology Study observation (narrative) [facility] CA ECHO DOPPLER COMPLETEOrde red By: Radiologist Radiology on 09-16-2024 [facility] Work Phone: ECG 12-LEADon 09-16-2024 Radiology Study observation (narrative) [facility] ALL CBC WITH AUTO DIFFon BASOPHILS ABSOLUTE AUTO 0 [facility] Basophils/100 WBC (Bld) 0.5 % 0.2 - 2.0 % [facility] Eosinophils/100 WBC (Bld) 3.2 % 0.9 - 7.0 % [facility] Erythrocyte distribution width (RBC) [Ratio] 14.7 % 11.0 - 15.0 % [facility] Hematocrit (Bld) [Volume fraction] 41.8 % 36.0 - 48.0 % [facility] Hemoglobin (Bld) [Mass/Vol] 13.4 g/dL 12.0 - 16.0 g/dL [facility] IMMATURE GRANULOCYTES ABS AUTO 0.03 [facility] Immature granulocytes/100 WBC (Bld) 0.4 % 0.0 - 0.5 % [facility] Interpretation and review of laboratory results Abnormal [facility] LYMPHOCYTES ABSOLUTE AUTO 1.8 [facility] Lymphocytes/100 WBC (Bld) 23.2 % 20.5 - 60.0 % [facility] MCH (RBC) [Entitic mass] 27.6 pg 26.7 - 34.0 pg [facility] MCHC (RBC) [Mass/Vol] 32.1 g/dL 29.9 - 35.2 g/dL [facility] MCV (RBC) [Entitic vol] 86.2 fL 81.0 - 99.0 fL [facility] MONOCYTES ABSOLUTE AUTO 0.5 [facility] Monocytes/100 WBC (Bld) 6.7 % 1.7 - 12.0 % [facility] NEUTROPHILS ABSOLUTE AUTO 5 [facility] Neutrophils/100 WBC (Bld) 66 % 43.0 - 75.0 % [facility] Platelet mean volume (Bld) [Entitic vol] 9.3 fL Low 9.5 - 13.5 fL [facility] TBH EO # 0.2 [facility] TBH PLT 230 [facility] TB RBC 4.85 [facility] TB WBC 7.6 [facility] MLR HEMOGLOBIN A1Con 024 Glucose [Mass/Vol] 126 mg/dL [facility] HbA1c (Bld) [Mass fraction] 6.0 % 4.5 - 6.2 % [facility] Comment on above: ADA RECOMMENDED LIMI T 4.0 - 6.0 ADA THERAPEUTIC TARGET < 7.0 ACTION SUGGESTED > 7.0 [facility] US venous duplex LE LTon US venous duplex [facility] [place] [address] Ultrasound Report Signed Patient: Kei Davis MR#: [id number] : 1950 Acct:[id number] Age/Sex: 72 / F ADM Date: 11/11/22 Loc: [facility] Room: Type: [place] [facility] CLI Attending Dr: Sheila Alvarez STENOCAPTIONER-C Ordering Provider: Sheila Alvarez APRN Date of [...] Chivo Bullard M.D.11/12/2022 2:36 PM Dictation Location: [place] [address] Tech: Kari Menendez Transcribed By: CY 11/12/221435 Dictated By: Chivo Bullard MD 11/12/221432 Signed By: 11/12/221435 [facility] CBC AUTO DIFFon 10-08-2022 BASO # 0.0 103/ul Normal 0.0-0.1 [facility] Comment on above: Performed By: #### C BC #### [facility] [address] [place] [address] [address] Jj Torre Basophils/100 WBC (Bld) 0.4 % Normal 0.2-2.0 [facility] Comment on above: Performed By: #### C BC #### [facility] [address] [place] [address] [address] Jj Torre EO # 0.1 103/ul Normal 0.0-0.7 [facility] Comment on above: Performed By: #### C BC #### [facility] [address] [place] [address] Dr. Jj Torre Eosinophils/100 WBC (Bld) 1.5 % Normal 0.9-7.0 [facility] Comment on above: Performed By: #### C BC #### [facility] [address] [place] [address] Dr. Jj Torre Erythrocyte distribution width (RBC) [Ratio] 13.5 % Normal 11.0-15.0 [facility] Comment on above: Performed By: #### C BC #### [facility] [address] [place] [address] Dr. Jj Torre Hematocrit (Bld) [Volume fraction] 45.1 % Normal 36.0-48.0 [facility] Comment on above: Performed By: #### C BC #### [facility] [address] [place] [address] Dr. Jj Torre Hemoglobin (Bld) [Mass/Vol] 15.0 g/dL Normal 12.0-16.0 [facility] Comment on above: Performed By: #### C BC #### [facility] [address] [place] [address] Dr. Jj Torre IG # 0.01 10e3/ul Normal 0.00-0.03 [facility] Comment on above: Performed By: #### C BC #### [facility] [address] [place] [address] Dr. Jj Torre IG % 0.1 % Normal 0.0-0.5 [facility] Comment on above: Performed By: #### C BC #### [facility] [address] [place] [address] Dr. Jj Torre LYMPH # 2.3 103/ul Normal 1.2-3.8 [facility] Comment on above: Performed By: #### C BC #### [facility] [address] [place] [address] Dr. Jj Torre Lymphocytes/100 WBC (Bld) 28.9 % Normal 20.5-60.0 [facility] Comment on above: Performed By: #### C BC #### [facility] [address] [place] [address] Dr. Jj Torre MANUAL DIFF REQ NO Normal [facility] Comment on above: Performed By: #### C BC #### [facility] [address] [place] [address] Dr. Jj Torre MCH (RBC) [Entitic mass] 26.7 pg Normal 26.7-34.0 [facility] Comment on above: Performed By: #### C BC #### [facility] [address] [place] [address] Dr. Jj Torre MCHC (RBC) [Mass/Vol] 33.3 g/dL Normal 29.9-35.2 [facility] Comment on above: Performed By: #### C BC #### [facility] [address] [place] [address] Dr. Jj Torre MCV (RBC) [Entitic vol] 80.2 fL Critically low 81.0-99.0 [facility] Comment on above: Performed By: #### C BC #### [facility] [address] [place] [address] Dr. Jj Torre MONO # 0.6 103/ul Normal 0.3-0.8 [facility] Comment on above: Performed By: #### C BC #### [facility] [address] [place] [address] Dr. Jj Torre Monocytes/100 WBC (Bld) 7.7 % Normal 1.7-12.0 [facility] Comment on above: Performed By: #### C BC #### [facility] [address] [place] [address] Dr. Jj Torre NEUT # 5.0 103/ul Normal 1.4-6.5 [facility] Comment on above: Performed By: #### C BC #### [facility] [address] [place] [address] Dr. Jj Torre Neutrophils/100 WBC (Bld) 61.4 % Normal 43.0-75.0 [facility] Comment on above: Performed By: #### C BC #### [facility] [address] [address] [address] Jj Torre Platelet mean volume (Bld) [Entitic vol] 9.2 fL Critically low 9.5-13.5 [facility] Comment on above: Performed By: #### C BC #### [facility] [address] [address] [address] Jj Torre PLT 214 103/ul Normal 150-450 [facility] Comment on above: Performed By: #### C BC #### [facility] [address] [address] [address] Jj Torre RBC 5.62 106/ul Critically high 4.20-5.40 [facility] Comment on above: Performed By: #### C BC #### [facility] [address] [place] [address] Dr. Jj Torre WBC 8.1 103/ul Normal 4.0-11.0 [facility] Comment on above: Performed By: #### C BC #### [facility] [address] [place] [address] Dr. Jj Torre GLYCOHEMOGLOBIN A1Con 2022 ADA RECOMMENDATION SEE BELOW Normal [facility] Comment on above: Result Comment: ADA RECOMMENDED LIMIT 4.0 - 6.0 ADA THERAPEUTIC TARGET < 7.0 ACTION SUGGESTED > 7.0 Performed By: #### A 1C #### [facility] [address] [place] [address] Dr. Jj Torre Glucose [Mass/Vol] 258 mg/dL Normal [facility] Comment on above: Performed By: #### A 1C #### [facility] [address] [place] [address] Dr. Jj Torre HbA1c (Bld) [Mass fraction] 10.6 % Critically high 4.5-6.2 [facility] Comment on above: Performed By: #### A 1C #### [facility] [address] [place] [address] Dr. Jj Torre MICROALBUMIN, RAND URon 03- mALB 1.7 mg/L Normal <=30.0 [facility] Comment on above: Performed By: #### M ALBR #### [facility] [address] [address] [address] Jj Torre PROF 14(COMP METB)on 023 Albumin [Mass/Vol] 3.3 g/dL Critically low 3.4-5.0 [facility] Comment on above: Performed By: #### C MP #### [facility] [address] [address] [address] Jj Torre Albumin/Globulin [Mass ratio] 0.7 {ratio} Normal [facility] Comment on above: Performed By: #### C MP #### [facility] [address] [address] [address] Jj Torre ALP [Catalytic activity/Vol] 104 U/L Normal 46-116 [facility] Comment on above: Performed By: #### C MP #### [facility] [address] [address] [address] Jj Torre ALT [Catalytic activity/Vol] 13 U/L Critically low 14-59 [facility] Comment on above: Performed By: #### C MP #### [facility] [address] [address] [address] Jj Torre Anion gap [Moles/Vol] 7.8 mmol/L Normal [facility] Comment on above: Performed By: #### C MP #### [facility] [address] [address] [address] Jj Torre AST [Catalytic activity/Vol] 9 U/L Critically low 15-37 [facility] Comment on above: Performed By: #### C MP #### [facility] [address] [address] [address] Jj Torre Bilirubin [Mass/Vol] 0.5 mg/dL Normal 0.2-1.0 [facility] Comment on above: Performed By: #### C MP #### [facility] [address] [address] [address] Jj Torre Calcium [Mass/Vol] 9.6 mg/dL Normal 8.5-10.1 [facility] Comment on above: Performed By: #### C MP #### [facility] [address] [address] [address] Jj Torre Chloride [Moles/Vol] 100 mmol/L Normal 98-107 [facility] Comment on above: Performed By: #### C MP #### [facility] [address] [address] [address] Jj Torre CO2 [Moles/Vol] 30.1 mmol/L Normal 21.0-32.0 [facility] Comment on above: Performed By: #### C MP #### [facility] [address] [address] [address] Jj Torre Creatinine [Mass/Vol] 0.56 mg/dL Normal 0.55-1.02 [facility] Comment on above: Performed By: #### C MP #### [facility] [address] [place] [address] Dr. Jj Torre EGFR-AF HAITIAN >60 Normal >=60 [facility] Comment on above: Performed By: #### C MP #### [facility] [address] [address] [address] Jj Torre EGFR-NON AF HAITIAN >60 Normal >=60 [facility] Comment on above: Performed By: #### C MP #### [facility] [address] [address] [address] Jj Torre Globulin (S) [Mass/Vol] 4.5 g/dL Normal [facility] Comment on above: Performed By: #### C MP #### [facility] [address] [address] [address] Jj Torre Glucose [Mass/Vol] 343 mg/dL Critically high 74-106 T [facility] Comment on above: Performed By: #### C MP #### [facility] [address] [address] [address] Jj Torre Potassium [Moles/Vol] 3.9 mmol/L Normal 3.5-5.1 [facility] Comment on above: Performed By: #### C MP #### [facility] [address] [address] [address] Jj Torre Protein [Mass/Vol] 7.8 g/dL Normal 6.4-8.2 [facility] Comment on above: Performed By: #### C MP #### [facility] [address] [address] [address] Jj Torre Sodium [Moles/Vol] 134 mmol/L Critically low 136-145 [facility] Comment on above: Performed By: #### C MP #### [facility] [address] [address] [address] Jj Torre Urea nitrogen [Mass/Vol] 11.0 mg/dL Normal 7.0-18.0 [facility] Comment on above: Performed By: #### C MP #### [facility] [address] [address] [address] Jj Torre Urea nitrogen/Creatinine [Mass ratio] 19.6 mg/mg Normal [facility] Comment on above: Performed By: #### C MP #### [facility] [address] [address] [address] Jj Torre US venous duplex LE BIon US venous duplex LE BI [facility] [place] [address] Ultrasound Report Signed Patient: Kei Davis MR#: [id number] 755 : 1950 Acct:[id number] Age/Sex: 72 / F ADM Date: 06/21/22 Loc: Room: Type: [facility] Attending Dr: Sheila Alvarez STENOCAPTIONER-C Ordering Provider: Sheila Alvarez APRN Date of [...] Armando Cramer MD06/24/2022 4:41 PM Dictation Location: [place] [address] Tech: Yeimy Maynard Transcribed By: [facility] 06/24/22 1641 Dictated By: Armando Cramer MD 06/24/22 1640 Signed By: 06/24/221640 [facility] Vital Signs Date Time Vital Sign Value Performing Clinician Facility 12-28-2024 14:08-0400 Body mass index (BMI) [Ratio] 38.68 kg/m2 Almaz Beto STENOCAPTIONER Work Phone: [facility] 12-28-2024 14:08-0400 Body temperature 98.6 [degF] Almaz Aichholz STENOCAPTIONER Work Phone: [facility] 12-28-2024 14:08-0400 Body weight 116.76 kg Almaz Aichholz STENOCAPTIONER Work Phone: [facility] 12-28-2024 14:08-0400 Diastolic blood pressure 80 mm[Hg] Almaz Aichholz STENOCAPTIONER Work Phone: [facility] 12-28-2024 14:08-0400 Heart rate 85 /min Almaz Aichholz STENOCAPTIONER Work Phone: [facility] 12-28-2024 14:08-0400 Respiratory rate 20 /min Almaz Aichholz STENOCAPTIONER Work Phone: [facility] 12-28-2024 14:08-0400 SaO2% (BldA) [Mass fraction] 92 % Almaz Aichholz STENOCAPTIONER Work Phone: [facility] 12-28-2024 14:08-0400 Systolic blood pressure 160 mm[Hg] Almaz Aichholz STENOCAPTIONER Work Phone: [facility] 11-08-2024 13:42-0400 Body mass index (BMI) [Ratio] 37.66 kg/m2 Almaz Aichholz STENOCAPTIONER Work Phone: [facility] 11-08-2024 13:42-0400 Body temperature 98.1 [degF] Almaz Aichholz STENOCAPTIONER Work Phone: [facility] 11-08-2024 13:42-0400 Body weight 113.67 kg Almaz Jordynholz STENOCAPTIONER Work Phone: [facility] 11-08-2024 13:42-0400 Diastolic blood pressure 82 mm[Hg] Almaz Miahhholz STENOCAPTIONER Work Phone: [facility] 11-08-2024 13:42-0400 Heart rate 95 /min Almaz Miahhholz STENOCAPTIONER Work Phone: [facility] 11-08-2024 13:42-0400 Respiratory rate 20 /min Almaz Aicgabeholz STENOCAPTIONER Work Phone: [facility] 11-08-2024 13:42-0400 SaO2% (BldA) [Mass fraction] 93 % Almaz Jordynholz STENOCAPTIONER Work Phone: [facility] 11-08-2024 13:42-0400 Systolic blood pressure 138 mm[Hg] Almaz Jordynholz STENOCAPTIONER Work Phone: [facility] 10-06-2024 14:56-0400 Diastolic blood pressure 72 mm[Hg] Almaz Aichholz STENOCAPTIONER Work Phone: [facility] 10-06-2024 14:56-0400 Systolic blood pressure 132 mm[Hg] Almaz Miahhholz STENOCAPTIONER Work Phone: [facility] 10-06-2024 14:19-0400 Body height 173.7 cm Almaz Miahhholz STENOCAPTIONER Work Phone: [facility] 10-06-2024 14:19-0400 Body mass index (BMI) [Ratio] 37.54 kg/m2 Almaz Aichholz STENOCAPTIONER Work Phone: [facility] 10-06-2024 14:19-0400 Body temperature 97.81 [degF] Almaz Miahhholz STENOCAPTIONER Work Phone: [facility] 10-06-2024 14:19-0400 Body weight 113.31 kg Almaz Miahhholz STENOCAPTIONER Work Phone: [facility] 10-06-2024 14:19-0400 Heart rate 85 /min Almaz Aichholz STENOCAPTIONER Work Phone: [facility] 10-06-2024 14:19-0400 Respiratory rate 19 /min Almaz Aichholz STENOCAPTIONER Work Phone: [facility] 10-06-2024 14:19-0400 SaO2% (BldA) [Mass fraction] 97 % Almaz Aichholz STENOCAPTIONER Work Phone: [facility] 09-07-2024 14:20-0500 Diastolic blood pressure 90 mm[Hg] Almaz Aichholz STENOCAPTIONER Work Phone: [facility] 09-07-2024 14:20-0500 Systolic blood pressure 148 mm[Hg] Almaz Aichholz STENOCAPTIONER Work Phone: [facility] 09-07-2024 14:14-0500 Body mass index (BMI) [Ratio] 37.56 kg/m2 Almaz Aichholz STENOCAPTIONER Work Phone: [facility] 09-07-2024 14:14-0500 Body temperature 98.49 [degF] Almaz Aichholz STENOCAPTIONER Work Phone: [facility] 09-07-2024 14:14-0500 Body weight 108.77 kg Almaz Miahhholz STENOCAPTIONER Work Phone: [facility] 09-07-2024 14:14-0500 Heart rate 77 /min Almaz Aichholz STENOCAPTIONER Work Phone: [facility] 09-07-2024 14:14-0500 Respiratory rate 18 /min Almaz Aichholz STENOCAPTIONER Work Phone: [facility] 09-07-2024 14:14-0500 SaO2% (BldA) [Mass fraction] 94 % Almaz Aichholz STENOCAPTIONER Work Phone: [facility] 04-21-2024 09:45-0400 Body height 170.2 cm Almaz Yniz STENOCAPTIONER Work Phone: [facility] 04-21-2024 09:45-0400 Body mass index (BMI) [Ratio] 36.21 kg/m2 Almaz Jordynholz STENOCAPTIONER Work Phone: [facility] 04-21-2024 09:45-0400 Body temperature 98.1 [degF] Almaz Cobbholz STENOCAPTIONER Work Phone: [facility] 04-21-2024 09:45-0400 Body weight 104.87 kg Almaz Miahhholz STENOCAPTIONER Work Phone: [facility] 04-21-2024 09:45-0400 Diastolic blood pressure 70 mm[Hg] Almaz Jordynholz STENOCAPTIONER Work Phone: [facility] 04-21-2024 09:45-0400 Heart rate 86 /min Almaz Cobbholz STENOCAPTIONER Work Phone: [facility] 04-21-2024 09:45-0400 Respiratory rate 19 /min Almaz Miahhholz STENOCAPTIONER Work Phone: [facility] 04-21-2024 09:45-0400 SaO2% (BldA) [Mass fraction] 96 % Almazoskar Cobbholz STENOCAPTIONER Work Phone: [facility] 04-21-2024 09:45-0400 Systolic blood pressure 130 mm[Hg] Almaz Cobbholz STENOCAPTIONER Work Phone: [facility] 04-15-2023 11:15-0400 Body height 172.72 cm Chivo Bullard Other [email or web address] Other 04-15-2023 11:15-0400 Body mass index (BMI) [Ratio] 27.06 kg/m2 Chivo Bullard Other [email or web address] Other 04-15-2023 11:15-0400 Body temperature 97.3 [degF] Chivo Sotonathalie Other [email or web address] Other 04-15-2023 11:15-0400 Body weight 80.74 kg Chivo Bullard Other [email or web address] Other 04-15-2023 11:15-0400 Diastolic blood pressure 82 mm[Hg] Chivo Sotonathalie Other [email or web address] Other 04-15-2023 11:15-0400 SaO2% (BldA) [Mass fraction] 98 % Chivo Kaurrfed Other [email or web address] Other 04-15-2023 11:15-0400 Systolic blood pressure 138 mm[Hg] Chivo Sotonathalie Other [email or web address] Other 11-26-2022 11:45-0400 Body height 172.72 cm Sheila Villarreallinwood Other [email or web address] Other 11-26-2022 11:45-0400 Body mass index (BMI) [Ratio] 27.06 kg/m2 Sheila Villarreallinwood Other [email or web address] Other 11-26-2022 11:45-0400 Body temperature 97.8 [degF] Sheila Kim Other [email or web address] Other 11-26-2022 11:45-0400 Body weight 80.74 kg Sheila Villarreallinwood Other [email or web address] Other 11-26-2022 11:45-0400 Diastolic blood pressure 72 mm[Hg] Sheila Alvarez Other [email or web address] Other 05-02-2023 11:45-0400 SaO2% (BldA) [Mass fraction] 98 % Sheila Gonzalezo Other [email or web address] Other 11-26-2022 11:45-0400 Systolic blood pressure 116 mm[Hg] Sheila Gonzalezo Other [email or web address] Other 07-01-2022 12:00-0500 Body height 172.72 cm Sheila Alvarez Other [email or web address] Other 07-01-2022 12:00-0500 Body mass index (BMI) [Ratio] 27.06 kg/m2 Sheila Gonzalezo Other [email or web address] Other 07-01-2022 12:00-0500 Body temperature 97.1 [degF] Sheila Alvarez Other [email or web address] Other 07-01-2022 12:00-0500 Body weight 80.74 kg Sheila Alvarez Other [email or web address] Other 07-01-2022 12:00-0500 Diastolic blood pressure 60 mm[Hg] Sheila Villarrealraúlo Other [email or web address] Other 07-01-2022 12:00-0500 SaO2% (BldA) [Mass fraction] 97 % Sheila Gonzalezo Other [email or web address] Other 07-01-2022 12:00-0500 Systolic blood pressure 142 mm[Hg] Sheila Villarrealtino Other [email or web address] Other 11-19-2021 12:00-0400 Body height 172.72 cm Chivo Buehrer Other [email or web address] Other 11-19-2021 12:00-0400 Body mass index (BMI) [Ratio] 30.86 kg/m2 Chivo Sotorer Other [email or web address] Other 11-19-2021 12:00-0400 Body temperature 97 [degF] Chivo Beanehrer Other [email or web address] Other 11-19-2021 12:00-0400 Body weight 92.08 kg Chivo Charlesrer Other [email or web address] Other 11-19-2021 12:00-0400 Diastolic blood pressure 74 mm[Hg] Chivo Sotorer Other [email or web address] Other 11-19-2021 12:00-0400 SaO2% (BldA) [Mass fraction] 92 % Chivorichie Sotorer Other [email or web address] Other 11-19-2021 12:00-0400 Systolic blood pressure 138 mm[Hg] Chivo Sotorer Other [email or web address] Other 09-03-2021 13:00-0500 Body height 172.72 cm Chivo Sotorer Other [email or web address] Other 09-03-2021 13:00-0500 Body mass index (BMI) [Ratio] 30.86 kg/m2 Chivo Beanehrer Other [email or web address] Other 09-03-2021 13:00-0500 Body temperature 98.5 [degF] Chivo Sotorer Other [email or web address] Other 09-03-2021 13:00-0500 Body weight 92.08 kg Chivo Bullard Other [email or web address] Other 09-03-2021 13:00-0500 Diastolic blood pressure 92 mm[Hg] Chivo Bullard Other [email or web address] Other 09-03-2021 13:00-0500 SaO2% (BldA) [Mass fraction] 96 % Chivo Bullard Other [email or web address] Other 09-03-2021 13:00-0500 Systolic blood pressure 160 mm[Hg] Chivo Bullard Other [email or web address] Other Encounters Encounter Date Encounter Type Care Provider Facility Start: 12-28-2024 End: 12-28-2024 Bamboo flowsheet Almaz Pérez STENOCAPTIONER Work Phone: [facility] Start: 12-28-2024 End: 12-28-2024 Bamboo flowsheet Almaz Pérez STENOCAPTIONER Work Phone: [facility] Start: 12-28-2024 End: 12-28-2024 Office outpatient visit 25 minutes Almaz Pérez STENOCAPTIONER Work Phone: [facility] Comment on above: Primary hypertension (CMS/HCC) (Primary Dx); Bilateral lower extremity edema; Morbid (severe) obesity due to excess calories (CMS/HCC); Type 2 diabetes mellitus with other specified complication, without long-term current use of insulin Start: 12-28-2024 End: 12-28-2024 ambulatory ALMAZ BETO Not Available Start: 11-15-2024 End: 11-15-2024 Clinisync Result Encounter Almaz Pérez STENOCAPTIONER Work Phone: [facility] External Department Unsolicited Start: 11-15-2024 End: 11-15-2024 Clinisync Result Encounter Almaz Beto STENOCAPTIONER Work Phone: [facility] External Department Unsolicited Start: 11-08-2024 End: 11-08-2024 Bamboo flowsheet Almaz Beto STENOCAPTIONER Work Phone: [facility] Start: 11-08-2024 End: 11-08-2024 Bamboo flowsheet Almaz Beto STENOCAPTIONER Work Phone: [facility] Start: 11-08-2024 End: 11-08-2024 Office outpatient visit 25 minutes Almaz Beto STENOCAPTIONER Work Phone: [facility] Comment on above: Bilateral lower extr emity edema (Primary Dx); Type 2 diabetes mellitus with diabetic polyneuropathy, without long-term current use of insulin (CMS/HCC); Primary hypertension (CMS/HCC); Morbid (severe) obesity due to excess calories (CMS/HCC); Type 2 diabetes mellitus with other specified complication, without long-term current use of insulin; Mixed hyperlipidemia (CMS/HCC); Type 2 diabetes with nephropathy (CMS/HCC); Environmental and seasonal allergies; Diabetic polyneuropathy associated with type 2 diabetes mellitus (CMS/HCC) Start: 11-08-2024 End: 11-08-2024 ambulatory ALMAZ MIAHHHOLZ Not Available Start: 10-06-2024 End: 10-06-2024 Bamboo flowsheet Almaz Beto STENOCAPTIONER Work Phone: [facility] Start: 10-06-2024 End: 10-06-2024 Bamboo flowsheet Almaz Beto STENOCAPTIONER Work Phone: [facility] Start: 10-06-2024 End: 10-06-2024 Office outpatient visit 15 minutes Almazoskar Pérez STENOCAPTIONER Work Phone: [facility] Comment on above: Other chest pain (Pr imary Dx); Morbid (severe) obesity due to excess calories (CMS/HCC); Primary hypertension (CMS/HCC) Start: 10-06-2024 End: 10-06-2024 ambulatory ALMAZ AICHHOLZ Not Available Start: 09-19-2024 End: 09-19-2024 Orders Only Almazoskar Dooleyalfonzo STENOCAPTIONER Work Phone: [facility] Comment on above: Other chest pain (Pr imary Dx) Start: 09-16-2024 End: 09-17-2024 Clinisync Result Encounter Almaz Miahcharliez STENOCAPTIONER Work Phone: [facility] Unsolicited Start: 09-16-2024 End: 09-17-2024 Clinisync Result Encounter Almaz Jordyndavidz STENOCAPTIONER Work Phone: [facility] Unsolicited Start: 09-08-2024 End: 09-08-2024 Clinisync Result Encounter Almaz Jordyndavidz STENOCAPTIONER Work Phone: [facility] Unsolicited Start: 09-08-2024 End: 09-08-2024 Clinisync Result Encounter Almaz Miahcharliez STENOCAPTIONER Work Phone: [facility] Unsolicited Start: 09-08-2024 End: 09-08-2024 Orders Only Almaz Humphreyz STENOCAPTIONER Work Phone: [facility] Comment on above: Mixed hyperlipidemia (CMS/HCC) (Primary Dx) Start: 09-07-2024 End: 09-07-2024 Bamboo flowsheet Almaz Humphreyz STENOCAPTIONER Work Phone: [facility] Start: 09-07-2024 End: 09-07-2024 Bamboo flowsheet Almaz Humphreyz STENOCAPTIONER Work Phone: [facility] Start: 09-07-2024 End: 09-07-2024 Office outpatient visit 25 minutes Almaz Beto STENOCAPTIONER Work Phone: [facility] Comment on above: Other chest pain (Pr imary Dx); Type 2 diabetes mellitus with other specified complication (CMS/HCC); Type 2 diabetes mellitus with diabetic polyneuropathy (CMS/HCC); Morbid (severe) obesity due to excess calories (CMS/HCC); Primary hypertension ([facility]); Type 2 diabetes with nephropathy ([facility]); Bilateral lower extremity edema; 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, unspecified retinopathy severity ([facility]); On statin therapy Start: 09-07-2024 End: 09-07-2024 ambulatory ALMAZ AICHHOLZ Not Available Start: 07-26-2024 End: 07-26-2024 Bamboo flowsheet Almaz Aichholz STENOCAPTIONER Work Phone: [facility] Start: 07-26-2024 End: 07-26-2024 Bamboo flowsheet Almaz Aichholz STENOCAPTIONER Work Phone: [facility] Start: 07-26-2024 Patient encounter procedure Almaz Aichholz STENOCAPTIONER Work Phone: [facility] Start: 07-26-2024 End: 07-26-2024 ambulatory ALMAZ AICHHOLZ Not Available Start: 07-12-2024 End: 07-12-2024 Refill Almaz Aichholz STENOCAPTIONER Work Phone: [facility] Comment on above: Primary hypertension ([facility]) Start: 05-24-2024 End: 05-24-2024 Refill Almaz Aichholz STENOCAPTIONER Work Phone: [facility] Comment on above: Type 2 diabetes jimmy itus with other specified complication, without long-term current use of insulin ([facility]) Start: 05-12-2024 End: 05-12-2024 Refill Almaz Aichholz STENOCAPTIONER Work Phone: [facility] Comment on above: Type 2 diabetes jimmy itus with other specified complication, without long-term current use of insulin ([facility]) Start: 04-21-2024 End: 04-21-2024 Bamboo flowsheet Almaz Aichholz STENOCAPTIONER Work Phone: [facility] Start: 04-21-2024 End: 04-21-2024 Bamboo flowsheet Almaz Aichholz STENOCAPTIONER Work Phone: [facility] Start: 04-21-2024 End: 04-21-2024 Office outpatient visit 25 minutes Almaz Pérez STENOCAPTIONER Work Phone: [facility] Comment on above: 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); Primary hypertension (CMS/HCC); Obesity (BMI 30-39.9); Current mild episode of major depressive disorder without prior episode (HCC) (CMS/HCC); Environmental and seasonal allergies Start: 04-21-2024 End: 04-21-2024 ambulatory ALMAZ AICHHOLZ Not Available Start: 04-19-2024 End: 04-19-2024 Clinisync Result Encounter Almaz Beto STENOCAPTIONER Work Phone: [facility] Unsolicited Start: 04-19-2024 End: 04-19-2024 Clinisync Result Encounter Almaz Beto STENOCAPTIONER Work Phone: [facility] Unsolicited Start: 04-16-2024 End: 04-16-2024 Refill Almaz Aichholz STENOCAPTIONER Work Phone: [facility] Comment on above: Diabetic polyneuropa thy associated with type 2 diabetes mellitus (CMS/HCC) Start: 04-08-2024 End: 04-09-2024 Refill Almaz Aichholz STENOCAPTIONER Work Phone: [facility] Comment on above: Primary hypertension (CMS/HCC) Start: 01-20-2024 End: 01-20-2024 ambulatory ALMAZ AICHHOLZ Not Available Start: 09-11-2023 Bamboo flowsheet Marcela Tatter linette [employer] [facility] Start: 09-11-2023 Bamboo flowsheet Marcela Tatter linette [employer] [facility] Start: 09-11-2023 End: 09-11-2023 ambulatory Marcela Rigginstersall [employer] [facility] Comment on above: Adhesive capsulitis of right shoulder (Primary Dx); Acute pain of right shoulder Start: 09-09-2023 Bamboo flowsheet Shimon vazquez PT Work Phone: [facility] Start: 09-09-2023 Bamboo flowsheet Shimon Valverde Oswaldo george PT Work Phone: [facility] [facility] Start: 09-09-2023 End: 09-09-2023 ambulatory Shimon Simmons PT Work Phone: [facility] Comment on above: Adhesive capsulitis of right shoulder (Primary Dx); Acute pain of right shoulder Start: 09-08-2023 End: 09-08-2023 Office outpatient visit 10 minutes Armando Garcia PA Work Phone: [facility] Comment on above: Acute pain of right shoulder (Primary Dx); Adhesive capsulitis of right shoulder Start: 09-04-2023 Bamboo flowsheet Brennan Brink [employer]PER[employer]ENT [employer] [facility] Start: 09-04-2023 Bamboo flowsheet Brennan Brink [employer] [facility] Start: 09-04-2023 End: 09-04-2023 ambulatory Brennan Brink [employer] [facility] Comment on above: Adhesive capsulitis of right shoulder (Primary Dx); Acute pain of right shoulder Start: 04-15-2023 End: 04-15-2023 ambulatory Chivo Bullard Other [email or web address] Other Start: 04-15-2023 Office outpatient vi sit 25 minutes Chivo Bullard [facility] V[facility] Surgery Start: 11-26-2022 End: 11-26-2022 ambulatory Sheila Alvarez Other [email or web address] Other Start: 11-26-2022 Patient encounter procedure Sheila Alvarez [facility] Vascular Surgery Start: 11-11-2022 End: 11-11-2022 ambulatory Sheila Alvarez Facility:[facility] [place] Start: 11-08-2022 (EVLT) EVLT saphenou s vein ablation Chivo Bullard [facility] Vascular Surgery Start: 11-08-2022 End: 11-08-2022 ambulatory Chivo Bullard Other [email or web address] Other Start: 10-08-2022 End: 10-09-[address] GUS HODGE Facility: Start: 07-01-2022 End: 07-01-2022 ambulatory Sheila Villarreallinwood Other [email or web address] Other Start: 07-01-2022 Follow-up encounter Sheila Rome [facility] Start: 06-21-2022 End: 06-21-2022 ambulatory Sheila Alvarez Facility:[facility] [place] Start: 06-12-2022 (Sclerother) Sclerotherapy Sheila Kim [facility] Start: 06-12-2022 End: 06-12-2022 ambulatory Sheila Alvarez Other [email or web address] Other Start: 11-19-2021 End: 11-19-2021 ambulatory Chivo Bullard Other [email or web address] Other Start: 11-19-2021 Office outpatient vi sit 15 minutes Chivo Bullard [facility] Start: 10-24-2021 End: 10-24-2021 ambulatory Chivo Sotorer Other [email or web address] Other Start: 10-24-2021 Telephone encounter Chivo Bullard [facility] Start: 09-03-2021 End: 09-03-2021 ambulatory Chivo Sotorer Other [email or web address] Other Start: 09-03-2021 Office outpatient vi sit 25 minutes Chivo Bumarlinerer [facility] Procedures Date Procedure Procedure Detail Performing Clinician Start: 11-15-2024 MLR HEMOGLOBIN A1C Almaz Pérez STENOCAPTIONER Work Phone: Start: 09-16-2024 CA ECHO DOPPLER COMPLETE Almaz Pérez STENOCAPTIONER Work Phone: Start: 09-16-2024 ECG 12-LEAD Almaz pina STENOCAPTIONER Work Phone: Start: 09-08-2024 ALL CBC WITH AUTO DIFF Almaz Cobbmemo STENOCAPTIONER Work Phone: Start: 08-10-2024 Mammography Almaz pina STENOCAPTIONER Work Phone: Start: 04-19-2024 MLR HEMOGLOBIN A1C Almaz Cobbmemo STENOCAPTIONER Work Phone: Start: 08-01-2023 Mammography Almaz pina STENOCAPTIONER Work Phone: Start: 06-25-2023 Mammography Brennan B maryk [employer] Plan of Treatment Date Care Activity Detail Author Start: 06-25-2026 Screening for malignant neoplasm of colon [facility] Start: 11-25-2025 Glaucoma screening Diabetes: Retinopathy Screening [facility] Start: 09-08-2025 Urine screening for protein Diabetes: Urine Protein Screening [facility] Start: 08-10-2025 Screening for malignant neoplasm of breast Mammogram [facility] Start: 07-26-2025 Medicare Annual Wellness (AWV) Medicare Annual Wellness (AWV) [facility] Start: 07-26-2025 End: 07-26-2025 Patient encounter procedure 07/26/2025 10:30 AM EST Office Visit [facility] [address] [place] [address] Almaz Pérez, CIPRIANO [address] [place] [address] [facility] Start: 07-08-2025 Glaucoma screening Diabetes: Retinopathy Screening [facility] Start: 02-14-2025 Hemoglobin A1c measurement Diabetes: Hemoglobin A1C [facility] Start: 12-28-2024 End: 12-28-2025 Basic metabolic 1998 panel - Serum or Plasma Basic metabolic panel Lab Routine Bilateral lower extremity edema Type 2 diabetes mellitus with other specified complication, without long-term current use of insulin Primary hypertension (CMS/HCC) Expected: 12/28/2024 (Approximate), Expires: 12/28/2025 [facility] Work Phone: Comment on above: Expected: 12/28/2024 (Approximate), Expi res: 12/28/2025 Start: 12-28-2024 End: 12-28-2024 Patient encounter procedure [facility] Comment on above: Bilateral lower extremity edema (Primary Dx); Morbid (severe) obesity due to excess calories (CMS/HCC); Type 2 diabetes mellitus with other specified complication, without long-term current use of insulin; Primary hypertension (CMS/HCC) Start: 11-08-2024 End: 09-08-2025 Alanine aminotransferase [Enzymatic activity/volume] in Serum or Plasma ALT Lab Routine Mixed hyperlipidemia (CMS/HCC) Expected: 11/08/2024 (Approximate), Expires: 09/08/2025 [facility] Work Phone: Comment on above: Expected: 11/08/2024 (Approximate), Expi res: 09/08/2025 Start: 11-08-2024 End: 09-08-2025 Aspartate aminotransferase [Enzymatic activity/volume] in Serum or Plasma AST Lab Routine Mixed hyperlipidemia (CMS/HCC) Expected: 11/08/2024 (Approximate), Expires: 09/08/2025 [facility] Comment on above: Expected: 11/08/2024 (Approximate), Expi res: 09/08/2025 Start: 11-08-2024 End: 11-08-2025 Comprehensive metabolic 2000 panel - Serum or Plasma Comprehensive metabolic panel Lab Routine Bilateral lower extremity edema Type 2 diabetes mellitus with other specified complication, without long-term current use of insulin Expected: 11/08/2024 (Approximate), Expires: 11/08/2025 [facility] Comment on above: Expected: 11/08/2024 (Approximate), Expi res: 11/08/2025 Start: 11-08-2024 End: 11-08-2025 Hemoglobin A1c/Hemoglobin.total in Blood Hemoglobin A1c Lab Routine Type 2 diabetes with nephropathy (CMS/HCC) Expected: 11/08/2024 (Approximate), Expires: 11/08/2025 [facility] Work Phone: Comment on above: Expected: 11/08/2024 (Approximate), Expi res: 11/08/2025 Start: 11-08-2024 End: 09-08-2025 Lipid 1996 panel - Serum or Plasma Lipid panel Lab Routine Mixed hyperlipidemia (CMS/HCC) Expected: 11/08/2024 (Approximate), Expires: 09/08/2025 [facility] Comment on above: Expected: 11/08/2024 (Approximate), Expi res: 09/08/2025 Start: 11-08-2024 End: 11-08-2024 Patient encounter procedure [facility] Comment on above: Type 2 diabetes mellitus with diabetic p olyneuropathy, without long-term current use of insulin (CMS/HCC) (Primary Dx); Primary hypertension (CMS/HCC); Bilateral lower extremity edema; Morbid (severe) obesity due to excess calories (CMS/HCC); Type 2 diabetes mellitus with other specified complication, without long-term current use of insulin; Mixed hyperlipidemia (CMS/HCC) Start: 11-05-2024 End: 09-07-2025 Alanine aminotransferase [Enzymatic [...] Start: 10-06-2024 End: 10-06-2024 Patient encounter procedure [facility] Comment on above: Morbid (severe) obesity due to excess ca lories (CMS/HCC) (Primary Dx); Other chest pain Start: 09-19-2024 End: 09-19-2026 NM Heart Perfusion W adenosine and W radionuclide IV STRESS NUCLEAR MEDICINE [facility] Card[facility] Nuclear Medicine Routine Other chest pain Expected: 09/19/2024 (Approximate), Expires: 09/19/2026 [facility] [employer] Work Phone: Comment on above: Expected: 09/19/2024 (Approximate), Expi res: 09/19/2026 Start: 09-07-2024 End: 09-07-2025 ECG 12 lead [...] extremity edema Expected: 09/07/2024 (Approximate), Expires: 09/07/2026 [facility] [employer] Work Phone: Comment on above: Expected: 09/07/2024 (Approximate), Expi res: 09/07/2026 Start: 09-07-2024 End: 09-07-2024 Patient encounter procedure 09/07/2024 2:00 PM EST Office Visit [facility] [address] [place] [address] Almaz Pérez NP [address] [place] [address] Primary hypertension (CMS/HCC) (Primary Dx); Type 2 diabetes mellitus with other specified complication (CMS/HCC); Type 2 diabetes mellitus with diabetic polyneuropathy (CMS/HCC); Morbid (severe) obesity due to excess calories (CMS/HCC); Type 2 diabetes with nephropathy (CMS/HCC) [facility] Comment on above: Primary hypertension (CMS/HCC) (Primary [...] Start: 07-26-2024 End: 07-26-2024 Patient encounter procedure [facility] Comment on above: Encounter for subsequent annual [...] 07-19-2024 Hemoglobin A1c measurement Diabetes: Hemoglobin A1C [facility] Start: 07-15-2024 End: 07-15-2024 Patient encounter procedure 07/15/2024 1:20 PM EST Office Visit [facility] [address] [place] [address] Almaz Pérez NP [address] [place] [address] [facility] Start: 06-25-2024 Screening for malignant neoplasm of breast Mammogram [facility] Start: 06-23-2024 Urine screening for protein Diabetes: Urine Protein Screening [facility] Start: 06-10-2024 Medicare Annual Wellness (AWV) Medicare Annual Wellness (AWV) [facility] Start: 04-21-2024 End: 04-21-2024 Patient encounter procedure 04/21/2024 9:40 AM EDT Office Visit [facility] [address] [place] [address] Almaz Pérez, CIPRIANO [address] [place] [address] [facility] Start: 01-25-2024 Influenza vaccination Influenza Vaccine (#1) [facility] Comment on above: Postponed from 03/28/2023 (Patient Refus ed) Start: 01-20-2024 Hemoglobin A1c measurement Diabetes: Hemoglobin A1C [facility] Start: 10-20-2023 End: 10-20-2023 Patient encounter procedure 10/20/2023 9:15 AM EDT Office Visit [facility] [address] [place] [address] Armando Garcia PA [address] [place] [address] [facility] Start: 09-26-2023 End: 09-26-2023 ambulatory 09/26/2023 10:00 AM EST Treatment [facility] [address] [place] [address] Brennan Prieto PTA [facility] Start: 09-23-2023 Hemoglobin A1c measurement Diabetes: Hemoglobin A1C [facility] Start: 09-19-2023 End: 09-19-2023 ambulatory 09/19/2023 10:00 AM EST Treatment [facility] [address] [place] [address] Brennan Prieto, SUPERINTENDENT [employer]ORAT[employer] [facility] Start: 09-17-2023 End: 09-17-2023 Patient encounter procedure 09/17/2023 9:00 AM EST Office Visit [facility] [address] [place] [address] Almaz Pérez, STENOCAPTIONER [address] [place] [address] [facility] Start: 09-11-2023 End: 09-11-2023 ambulatory [facility] Comment on above: Adhesive capsulitis of right shoulder (P rimary Dx); Acute pain of right shoulder Start: 09-09-2023 End: 09-09-2023 ambulatory 09/09/2023 10:00 AM EST Treatment [facility] [address] [facility] [address] [place] [address] Shimon Simmons, PT [address] [facility] [address] [place] [address] [facility] Start: 09-08-2023 Chart abstracting 09/08/2023 Abstract [facility] [address] [facility] [address] [place] [address] Armando Garcia, PA [address] [facility] [address] [place] [address] [facility] Start: 09-08-2023 End: 09-08-2023 Patient encounter procedure 09/08/2023 9:30 AM EST Office Visit [facility] [address] [facility] [address] [place] [address] Armando Garcia, PA [address] [facility] [address] [place] [address] [facility] Start: 1971 Pneumococcal Vaccine: 65+ Years (1 of 2 - PCV) Pneumococcal Vaccine: 65+ Years (1 of 2 - PCV) [facility] Start: 1962 Glaucoma screening Diabetes: Retinopathy Screening [facility] Start: 1958 Pneumococcal Vaccine: 65+ Years (1 of 2 - PCV) Pneumococcal Vaccine: 65+ Years (1 of 2 - PCV) [facility] Start: 1952 Screening for malignant neoplasm of colon [facility] Payers Date Payer Category Payer Other GENERIC OTHER [id number] 2022 Unknown GENERIC OTHER GE [employer]IC OTHER [id number] 2022-Present [phone] [place] [id number] 2022 Self-pay 2018 Medicare [id number] 1959 Medicare [id number] 1959 Unknown [id number] 1952 Unknown [id number] 3 1952 Unknown [id number] 59 1952 Unknown [id number] 59 1952 Unknown [id number] 59 1952 Unknown [id number] 59 1952 Unknown [id number] 59 1952 Unknown [id number] 59 1952 Unknown [id number] 59 Unknown [id number] 1 Unknown [id number] 1 Social History Date Type Detail Facility Start: 08-11-2023 End: 07-26-2024 Sex Assigned At [facility] Code [employer] Other Start: 08-04-2023 Tobacco smoking status VTIS Never smoked tobacco [facility] Start: 08-11-2023 End: 12-28-2024 Alcohol intake Current drinker of alcohol (finding) [facility] Start: 08-11-2023 End: 07-26-2024 Alcohol intake [facility] Start: 08-04-2023 Alcohol Comment DAILY 7 DAYS A WEEK 1 DRINK WHISKEY AND GINGERALE [facility] Start: 1950 Sex Assigned At Not on file [facility] Medical Equipment Procedure Code Equipment Code Equipment Origin al Text Equipment Identifier Dates [id number] Start: 09-29-2022 Clinical Notes 09-03-2021 to 12-28-2024 DAVID JAMES - 12/28/2024 2:00 PM EDGenny Pérez NP - 12/28/2024 2:00 PM Mary Pérez NP - 12/28/2024 6:56 AM Mary Pérez NP - 12/28/2024 6:55 AM EDTPatient Instructions Note Date & Type Note Facility 12-28-2024 History of Presen t illness Narrative Dizziness- daily normal Images from the original note were not included. Kei Davis is a 74 y.o. female presents with chief complaint of Edema HPI: Here for recheck: edema in LE, started on lasix is about 50% better, normal size in the morning, worse as the day goes on, does elevate legs when sitting. Urinates quite a bit more. No acute shortness of breath. Weight gain: does not eat breakfast or lunch, eats around 4pm, and then throughout the night. More pasta, fruits, zero sugar pop usually, does not drink a lot of water. Does have a night cap, crown and zero sugar meron aile, 1.5 shots. Dizziness: only happens with bending over, then looses balance , otherwise no dizziness . No heart palpitations either .. Edema Presents with chronic edema. The current episode started more than 1 month ago. The onset of the episode was gradual. These episodes happen in the evening. The problem has been waxing and waning. The edema is present on the both side(s). Risk factors for edema include no known risk factors. Associated agents include Actos. Pertinent negative symptoms include no abdominal pain, no abdominal swelling, no chest pain, no cough, no decreased urine volume, no fever, no nausea, no orthopnea, no palpitations and no vomiting. Treatments tried include diuretics. There has been moderate improvement on treatment(s). Hypertension This is a chronic problem. The current episode started more than 1 year ago. The problem is unchanged. The problem is controlled. Associated symptoms include peripheral edema. Pertinent negatives include no blurred vision, chest pain, headaches, neck pain, palpitations or shortness of breath. There are no associated agents to hypertension. Risk factors for coronary artery disease include diabetes mellitus, sedentary lifestyle, post-menopausal state, obesity and dyslipidemia. Past treatments include CHRIS inhibitors and diuretics. The current treatment provides moderate improvement. There are no compliance problems. There is no history of kidney disease, heart failure, PVD or retinopathy. SUBJECTIVE: MEDICATIONS: Current Outpatient Medications Medication Instructions amitriptyline (ELAVIL) 10 mg, Oral, Nightly aspirin 81 mg, Daily atorvastatin (LIPITOR) 10 mg, Oral, Every evening Blood Glucose Monitoring Suppl (True Metrix Air Glucose Meter) w/Device kit USE DIRECTED to test BLOOD SUGAR ONCE DAILY carvedilol (COREG) 3.125 mg, Oral, 2 times daily with meals Drug [place] Rust[place] Lancets 30G [facility] USE DIRECTED to test sugar ONCE DAILY fluticasone (Flonase) 50 MCG/ACT nasal spray 2 sprays, Each Nostril, Daily, Shake gently. Before first use, prime pump. After use, clean tip and replace cap. furosemide (LASIX) 20 mg, Oral, Daily gabapentin (Neurontin) 600 MG tablet TAKE 1 TABLET BY MOUTH IN THE MORNING, then ONE TABLET BY MOUTH in the afternoon, and then 2 (TWO) (TWO) TABLETS BY MOUTH AT BEDTIME glimepiride [...] of Systems Constitutional: Negative for appetite change, chills and fever. HENT: Negative for congestion, ear pain and sore throat. Eyes: Negative for blurred vision, pain, discharge, redness and visual disturbance. Respiratory: Negative for cough, shortness of breath and wheezing. Cardiovascular: Positive for leg swelling. Negative for chest pain and palpitations. Gastrointestinal: Negative for abdominal pain, blood in stool, constipation, diarrhea, nausea and vomiting. Genitourinary: Negative for decreased urine volume, difficulty urinating, dysuria and frequency. Musculoskeletal: Negative for arthralgias, back pain, joint swelling, myalgias and neck pain. Skin: Negative for rash and wound. Neurological: [...] of left breast on mammography 07/13/2023 Diabetes ([facility]) 08/21/2023 Diabetic neuropathy ([facility]) 08/21/2023 Type 2 diabetes with nephropathy ([facility]) 09/17/2023 metfromin caused severe hair loss Past Surgical History: Procedure Laterality Date GALLBLADDER SURGERY TUBAL LIGATION VASCULAR SURGERY Bilateral legs family history includes Diabetes in her half-sister and mother. OBJECTIVE: Visit Vitals BP 160/80 (BP Location: Left arm, Patient Position: Sitting, BP Cuff Size: Adult long) Pulse 85 Temp 98.6 F (Temporal) Resp 20 Wt 257 lb 6.4 oz SpO2 92% BMI 38.68 kg/m Smoking Status Never BSA 2.38 m Physical Exam Vitals and nursing note reviewed. Constitutional: General: She is not in acute distress. Appearance: Normal appearance. HENT: Head: Normocephalic and atraumatic. Right Ear: External ear normal. Left Ear: External ear normal. Nose: Nose normal. Mouth/Throat: Mouth: Mucous membranes are moist. Eyes: Extraocular Movements: Extraocular movements intact. Conjunctiva/sclera: Conjunctivae normal. Cardiovascular: Rate and Rhythm: Normal rate and [...] present. Left lower leg: Edema present. Comments: 1+ bilat lower legs Skin: General: Skin is warm and dry. Capillary Refill: Capillary refill takes 2 to 3 seconds. Findings: No rash. Neurological: General: No focal deficit present. Mental Status: She is alert and oriented to person, place, and time. Psychiatric: Mood and Affect: Mood normal. Behavior: Behavior normal. Thought Content: Thought content normal. Judgment: Judgment normal. ASSESSMENT AND PLAN: Follow up in about 6 weeks (around 02/08/2025) for Recheck. Problem List Items Addressed This Visit Primary hypertension ([facility]) Please check blood pressure daily and record DASH diet Limit caffeine Take medication as directed Contact office if chest pain, pressure, dizziness, shortness of breath, swelling legs Recommend slow position changes Current meds: chris, add carvedilol Fu in 6 weeks Relevant Medications carvedilol (Coreg) 3.125 MG tablet Other Relevant Orders Basic metabolic panel Morbid (severe) obesity due to excess calories (CMS/HCC) Discussed with patient their BMI (actual, verses recommended). We have also discussed lifestyle modifications: attempts to perform physical activity as chronic conditions allow, also to monitor dietary intake: increasing protein/fruits/veggies and lowering carb intake (unless contraindicated). Limit sodas, juices, and sugary drinks. Protein for breakfast, lunch time Type 2 diabetes mellitus with other specified complication Check blood sugars daily, notify if <70 [...] carbohydrates, and simple sugars. Current meds: asa, chris, metformin, pioglitazone, statin, and BATRES A1c: 6.3% on 11/15/24 Relevant Orders Basic metabolic panel Bilateral lower extremity edema - Primary Elevated legs, limit sodium Current med: lasix at 20mg Relevant Orders Basic metabolic panel Associated Problem(s): Primary hypertension (CMS/HCC) Please check blood pressure daily and record DASH diet Limit caffeine Take medication as directed Contact office if chest pain, pressure, dizziness, shortness of breath, swelling legs Recommend slow position changes Current meds: chris, add carvedilol Fu in 6 weeks Associated Problem(s): Type 2 diabetes mellitus with other specified complication Check blood sugars daily, notify if <70 [...] carbohydrates, and simple sugars. Current meds: asa, chris, metformin, pioglitazone, statin, and BATRES A1c: 6.3% on 11/15/24 Associated Problem(s): Morbid (severe) obesity due to excess calories (CMS/HCC) Discussed with patient their BMI (actual, verses recommended). We have also discussed lifestyle modifications: attempts to perform physical activity as chronic conditions allow, also to monitor dietary intake: increasing protein/fruits/veggies and lowering carb intake (unless contraindicated). Limit sodas, juices, and sugary drinks. Protein for breakfast, lunch time Associated Problem(s): Bilateral lower extremity edema Elevated legs, limit sodium Current med: lasix at 20mg documented in this encounter [facility] 12-28-2024 Instructions Almaz Pérez NP - 12/28/2024 2:00 PM EDT Going to add carvedilol 3.125mg TWICE a day, in addition to your lisinopril, otherwise all meds stay same Diet/weight gain: protein in around breakfast: string cheese, yogurt, peanut butter /apple or bananna, cottage cheese Then early after noon: maybe a protein drink sugar friendly Also when you feel more hungry in the evening, drink a glass of water, then wait 20 minutes to see if you are hungry documented in this encounter [facility] 11-08-2024 History of Presen t illness Narrative Images from the original note were not included. Kei Davis is a 74 y.o. female presents with chief complaint of No chief complaint on file. HPI: Diabetes She presents for her follow-up diabetic visit. She has type 2 diabetes mellitus. There are no hypoglycemic associated symptoms. Pertinent negatives for hypoglycemia include no dizziness, headaches, nervousness/anxiousness, seizures or tremors. Associated symptoms include foot paresthesias. Pertinent negatives for diabetes include no blurred vision, no chest pain, no polydipsia, no polyphagia and no polyuria. There are no hypoglycemic complications. Symptoms are stable. Diabetic complications include peripheral neuropathy and PVD. Pertinent negatives for diabetic complications include no heart disease. Risk factors for coronary artery disease include diabetes mellitus, dyslipidemia, hypertension, obesity and sedentary lifestyle. Current diabetic treatment includes oral agent (dual therapy). She rarely participates in exercise. Her overall blood glucose range is 140-180 mg/dl. An CHRIS inhibitor/angiotensin II receptor reyna is being taken. She does not see a charge operator.Eye exam is current. Hypertension This is a chronic problem. The problem is unchanged. The problem is controlled. Associated symptoms include peripheral edema. Pertinent negatives include no blurred vision, chest pain, headaches, palpitations or shortness of breath. There are no associated agents to hypertension. Risk factors for coronary artery disease include diabetes mellitus, dyslipidemia, obesity and sedentary lifestyle. Past treatments include CHRIS inhibitors. The current treatment provides moderate improvement. There are no compliance problems. Hypertensive end-organ damage includes PVD. There is no history of heart failure. SUBJECTIVE: MEDICATIONS: Current Outpatient Medications Medication Instructions amitriptyline (ELAVIL) 10 mg, Oral, Nightly aspirin 81 mg, Daily atorvastatin (LIPITOR) 10 mg, Oral, Every evening Blood Glucose Monitoring Suppl (True Metrix Air Glucose Meter) w/Device kit USE DIRECTED to test BLOOD SUGAR ONCE DAILY Drug [place] Unilet Lancets 30G misc USE DIRECTED to test sugar ONCE DAILY fluticasone (Flonase) 50 MCG/ACT nasal spray 2 sprays, Each Nostril, Daily, Shake gently. Before first use, prime pump. After use, clean tip and replace cap. furosemide (LASIX) 20 mg, Oral, Daily gabapentin (Neurontin) 600 MG tablet TAKE 1 TABLET BY MOUTH IN THE MORNING, then ONE TABLET BY MOUTH in the afternoon, and then 2 (TWO) (TWO) TABLETS BY MOUTH AT BEDTIME glimepiride [...] of Systems Constitutional: Negative for appetite change, chills and fever. HENT: Negative for congestion, ear pain and sore throat. Eyes: Negative for blurred vision, pain, discharge, redness and visual disturbance. Respiratory: Negative for cough, shortness of breath and wheezing. Cardiovascular: Negative for chest pain, palpitations and leg swelling. Gastrointestinal: Negative for abdominal pain, blood in stool, constipation, diarrhea, nausea and vomiting. Genitourinary: Negative for difficulty urinating, dysuria and frequency. Musculoskeletal: Negative for arthralgias, back pain, joint swelling and myalgias. Skin: Negative for rash and wound. Neurological: Positive for numbness. Negative for dizziness, tremors, seizures, syncope and headaches. Psychiatric/Behavioral: Negative for behavioral problems, self-injury and suicidal ideas. The patient is not nervous/anxious. Hematological: Does not bruise/bleed easily. Endocrine: Negative for polydipsia, polyphagia and polyuria. Allergic/Immunologic: Negative for environmental allergies and food allergies. PAST MEDICAL HISTORY Past Medical History: Diagnosis Date Calcification of left breast on mammography 07/13/2023 Diabetes ([facility]) 08/21/2023 Diabetic neuropathy ([facility]) 08/21/2023 Type 2 diabetes with nephropathy ([facility]) 09/17/2023 metfromin caused severe hair loss Past Surgical History: Procedure Laterality Date GALLBLADDER SURGERY TUBAL LIGATION VASCULAR SURGERY Bilateral legs family history includes Diabetes in her half-sister and mother. OBJECTIVE: Visit Vitals BP 138/82 (BP Location: Left arm, Patient Position: Sitting, BP Cuff Size: Large adult) Pulse 95 Temp 98.1 F (Temporal) Resp 20 Wt 250 lb 9.6 oz SpO2 93% BMI 37.66 kg/m Smoking Status Never BSA 2.35 m Physical Exam Vitals and nursing note reviewed. Constitutional: General: She is not in acute distress. Appearance: Normal appearance. HENT: Head: Normocephalic and atraumatic. Right Ear: External ear normal. Left Ear: External ear normal. Nose: Nose normal. Mouth/Throat: Mouth: Mucous membranes are moist. Eyes: Extraocular Movements: Extraocular movements intact. Conjunctiva/sclera: Conjunctivae normal. Cardiovascular: Rate and Rhythm: Normal rate and [...] present. Left lower leg: Edema present. Comments: 1+ pedal bilat Skin: General: Skin is warm and dry. Capillary Refill: Capillary refill takes 2 to 3 seconds. Findings: No rash. Neurological: General: No focal deficit present. Mental Status: She is alert and oriented to person, place, and time. Psychiatric: Mood and Affect: Mood normal. Behavior: Behavior normal. Thought Content: Thought content normal. Judgment: Judgment normal. ASSESSMENT AND PLAN: Follow up in about 6 weeks (around 12/20/2024) for Recheck. Problem List Items Addressed This Visit Primary hypertension (CMS/HCC) Please check blood pressure daily and record DASH diet Limit caffeine Take medication as directed Contact office if chest pain, pressure, dizziness, shortness of breath, swelling legs Recommend slow position changes Current meds: chris Relevant Medications lisinopril 20 MG tablet Environmental and seasonal allergies Relevant Medications fluticasone (Flonase) 50 MCG/ACT nasal spray loratadine (Claritin) 10 MG tablet Morbid (severe) obesity due to excess calories (CMS/HCC) Discussed with patient their BMI (actual, verses recommended). We have also discussed lifestyle modifications: attempts to perform physical activity as chronic conditions allow, also to monitor dietary intake: increasing protein/fruits/veggies and lowering carb intake (unless contraindicated). Limit sodas, juices, and sugary drinks. Type 2 diabetes mellitus with other specified complication Check blood sugars daily, notify if <70 [...] carbohydrates, and simple sugars. Current meds: asa, chris, metformin, pioglitazone, statin, and BATRES A1c: could not get adequate sample in office, will send for A1c test Relevant Medications glimepiride (Amaryl) 2 MG tablet pioglitazone (Actos) 30 MG tablet Other Relevant Orders Comprehensive metabolic panel Type 2 diabetes mellitus with diabetic polyneuropathy (CMS/HCC) - Primary Current meds gabapentin and elavil OARRS reviewed Recommend good glycemic control Bilateral lower extremity edema Elevated legs, limit sodium Add lasix at 20mg daily Check labs in 1 week Order given Relevant Medications furosemide (Lasix) 20 MG tablet Other Relevant Orders Comprehensive metabolic panel Mixed hyperlipidemia (CMS/HCC) On statin therapy Check labs yearly and prn dose changes Other Visit Diagnoses Type 2 diabetes with nephropathy (CMS/HCC) Relevant Medications atorvastatin (Lipitor) 10 MG tablet metFORMIN XR (Glucophage-XR) 500 MG 24 hr tablet Other Relevant Orders Hemoglobin A1c Diabetic polyneuropathy associated with type 2 diabetes mellitus (CMS/HCC) Relevant Medications gabapentin (Neurontin) 600 MG tablet Associated Problem(s): Mixed hyperlipidemia (CMS/HCC) On statin therapy Check labs yearly and prn dose changes Associated Problem(s): Type 2 diabetes mellitus with other specified complication Check blood sugars daily, notify if <70 [...] carbohydrates, and simple sugars. Current meds: asa, chris, metformin, pioglitazone, statin, and BATRES A1c: could not get adequate sample in office, will send for A1c test Associated Problem(s): Morbid (severe) obesity due to excess calories (CMS/HCC) Discussed with patient their BMI (actual, verses recommended). We have also discussed lifestyle modifications: attempts to perform physical activity as chronic conditions allow, also to monitor dietary intake: increasing protein/fruits/veggies and lowering carb intake (unless contraindicated). Limit sodas, juices, and sugary drinks. Associated Problem(s): Bilateral lower extremity edema Elevated legs, limit sodium Add lasix at 20mg daily Check labs in 1 week Order given Associated Problem(s): Primary hypertension (CMS/HCC) Please check blood pressure daily and record DASH diet Limit caffeine Take medication as directed Contact office if chest pain, pressure, dizziness, shortness of breath, swelling legs Recommend slow position changes Current meds: chris Associated Problem(s): Type 2 diabetes mellitus with diabetic polyneuropathy (CMS/HCC) Current meds gabapentin and elavil OARRS reviewed Recommend good glycemic control documented in this encounter [facility] 10-06-2024 History of Presen t illness Narrative Associated Problem(s): Primary hypertension (CMS/[facility]) Please check blood pressure daily and record DASH diet Limit caffeine Take medication as directed Contact office if chest pain, pressure, dizziness, shortness of breath, swelling legs Recommend slow position changes Current meds: chris Images from the original note were not included. Anthony Davis is a 74 y.o. female presents with chief complaint of No chief complaint on file. HPI: Here for recheck of blood pressure and chest pain No chest pain/pressure, no acute CONTRERAS or dizziness or vision changes Had EKG and ECHO still no stress test SUBJECTIVE: MEDICATIONS: Current Outpatient Medications Medication Instructions amitriptyline (ELAVIL) 10 mg, Oral, Nightly aspirin 81 mg, Oral, Daily atorvastatin (LIPITOR) 10 mg, Oral, Every evening Blood Glucose Monitoring Suppl (True Metrix Air Glucose Meter) w/Device kit USE DIRECTED to test BLOOD SUGAR ONCE DAILY Drug [place] Unilet Lancets 30G [facility] USE DIRECTED to test sugar ONCE DAILY [...] of Systems Constitutional: Negative for appetite change, chills and fever. HENT: Negative for congestion, ear pain and sore throat. Eyes: Negative for pain, discharge, redness and visual disturbance. Respiratory: Negative for cough, shortness of breath and wheezing. Cardiovascular: Negative for chest pain, palpitations and leg swelling. Gastrointestinal: Negative for abdominal pain, blood in stool, constipation, diarrhea, nausea and vomiting. Genitourinary: Negative for difficulty urinating, dysuria and frequency. Musculoskeletal: Negative for arthralgias, back pain, joint swelling and myalgias. Skin: Negative for rash and wound. Neurological: Positive for numbness. Negative for dizziness, tremors, seizures, syncope and headaches. Psychiatric/Behavioral: Negative for behavioral problems, self-injury and suicidal ideas. The patient is not nervous/anxious. Hematological: Does not bruise/bleed easily. Endocrine: Negative for polydipsia, polyphagia and polyuria. Allergic/Immunologic: Negative for environmental allergies and food allergies. PAST MEDICAL HISTORY Past Medical History: Diagnosis Date Calcification of left breast on mammography 07/13/2023 Diabetes ([facility]) 08/21/2023 Diabetic neuropathy ([facility]) 08/21/2023 Type 2 diabetes with nephropathy ([facility]) 09/17/2023 metfromin caused severe hair loss Past Surgical History: Procedure Laterality Date GALLBLADDER SURGERY TUBAL LIGATION VASCULAR SURGERY Bilateral legs family history includes Diabetes in her half-sister and mother. OBJECTIVE: Visit Vitals BP 132/72 (BP Location: Left arm, Patient Position: Sitting, BP Cuff Size: Large adult) Pulse 85 Temp 97.8 F (Temporal) Resp 19 Ht 5' 8.4 Wt 249 lb 12.8 oz SpO2 97% BMI 37.54 kg/m Smoking Status Never BSA 2.34 m Physical Exam Vitals and nursing note reviewed. Constitutional: General: She is not in acute distress. Appearance: Normal appearance. HENT: Head: Normocephalic and atraumatic. Right Ear: External ear normal. Left Ear: External ear normal. Nose: Nose normal. Mouth/Throat: Mouth: Mucous membranes are moist. Eyes: Extraocular Movements: Extraocular movements intact. Conjunctiva/sclera: Conjunctivae normal. Cardiovascular: Rate and Rhythm: Normal rate and regular rhythm. Pulses: Normal pulses. Heart sounds: Normal heart sounds. Pulmonary: Effort: Pulmonary effort is normal. Breath sounds: Normal breath sounds. Musculoskeletal: General: Normal range of motion. Cervical back: Normal range of motion and neck supple. Skin: General: Skin is warm and dry. [...] file. Problem List Items Addressed This Visit Primary hypertension (CMS/HCC) Please check blood pressure daily and record DASH diet Limit caffeine Take medication as directed Contact office if chest pain, pressure, dizziness, shortness of breath, swelling legs Recommend slow position changes Current meds: chris Morbid (severe) obesity due to excess calories (CMS/HCC) - Primary Discussed with patient their BMI (actual, verses recommended). We have also discussed lifestyle modifications: attempts to perform physical activity as chronic conditions allow, also to monitor dietary intake: increasing protein/fruits/veggies and lowering carb intake (unless contraindicated). Limit sodas, juices, and sugary drinks. Other chest pain Reviewed EKG and ECHO Waiting on stress test: was never called as of yet Associated Problem(s): Other chest pain Reviewed EKG and ECHO Waiting on stress test: was never called as of yet Associated Problem(s): Morbid (severe) obesity due to excess calories (CMS/HCC) Discussed with patient their BMI (actual, verses recommended). We have also discussed lifestyle modifications: attempts to perform physical activity as chronic conditions allow, also to monitor dietary intake: increasing protein/fruits/veggies and lowering carb intake (unless contraindicated). Limit sodas, juices, and sugary drinks. Associated Problem(s): Bilateral lower extremity edema Elevated legs, limit sodium Possible side effect for pioglitazone Labs no acute findings ECHO 09/16/24 : EF 55-60% Still waiting on stress test Add diuretic documented in this encounter [facility] 10-06-2024 Instructions Almaz Pérez NP - 10/06/2024 2:00 PM EDT Will still need stress test documented in this encounter [facility] 09-07-2024 History of Presen t illness Narrative Associated Problem(s): Other chest pain At this point strong risk factors for CAD: HTN , DM Is on statin, chris, asa, Check EKG, and ECHO, then stress test based on EKG and ECHO Associated Problem(s): Bilateral lower extremity edema Elevated legs, limit sodium Possible side effect for pioglitazone Check labs and ECHO Consider diuretic Images from the original note were not included. Kei Davis is a 74 y.o. female presents [...] obesity and sedentary lifestyle. Past treatments include CHRIS inhibitors. The current treatment provides moderate improvement. There are no compliance problems. There is no history of kidney disease, CAD/HI, heart failure or PVD. Identifiable causes of [...] to test BLOOD SUGAR ONCE DAILY Drug [place] Unilet Lancets 30G misc USE DIRECTED to [...] of left breast on mammography 07/13/2023 Diabetes ([facility]) 08/21/2023 Diabetic neuropathy ([facility]) 08/21/2023 Type 2 diabetes with nephropathy ([facility]) 09/17/2023 metfromin caused severe hair loss Past [...] legs Recommend slow position changes Current meds: chris Will check ECHO further evaluation cardiac garay [...] carbohydrates, and simple sugars. Current meds: asa, chris, metformin, pioglitazone, and BATRES Added statin today, atorvastatin A1c: 5.8% 07/16/24 Type 2 diabetes mellitus with diabetic polyneuropathy (CMS/HCC) Current meds gabapentin and elavil OARRS reviewed Recommend good glycemic control Other chest pain - Primary At this point strong risk factors for CAD: HTN , DM Is on statin, chris, asa, Check EKG, and ECHO, then stress [...] carbohydrates, and simple sugars. Current meds: asa, chris, metformin, pioglitazone, and BATRES Added statin today, [...] legs Recommend slow position changes Current meds: chris Will check ECHO further evaluation cardiac garay [...] from the original note were not included. Kei Davis is a 74 y.o. female presents [...] time. She rarely participates in exercise. An CHRIS inhibitor/angiotensin II receptor reyna is being taken. [...] dyslipidemia and post-menopausal state. Past treatments include CHRIS inhibitors and calcium channel blockers. The current treatment provides significant improvement. There are no compliance problems. There is no history of CAD/HI or heart failure. SUBJECTIVE: MEDICATIONS: Current Outpatient Medications Medication Instructions aspirin 81 mg, Oral, Daily Blood Glucose Monitoring Suppl (True Metrix Air Glucose Meter) w/Device kit USE DIRECTED to test BLOOD SUGAR ONCE DAILY Drug [place] Unilet Lancets 30G [facility] USE DIRECTED to test sugar ONCE DAILY [...] of left breast on mammography 07/13/2023 Diabetes ([facility]) 08/21/2023 Diabetic neuropathy ([facility]) 08/21/2023 Type 2 diabetes with nephropathy ([facility]) 09/17/2023 metfromin caused severe hair loss Past [...] Therapy Physical Therapy Treatment Visit Patient Name: Kei Davis Today's Date: 09/10/2023 Encounter Diagnoses Name [...] included. HISTORY OF PRESENT ILLNESS: EST PT Kei Davis is an 73 y.o. @ female. EST PT RECHECK RT SHOULDER PAIN - S/P SA CORTISONE INJ 08/11/23; GOOD RELIEF - S/P PT EDEN POOLE; INCREASE ROM/STRENGTH XRAY RT SHOULDER TODAY CHANGE 08/11/23 NO MRI SA CORTISONE INJ 08/11/23 PT [facility] PT IS PLEASED WITH PROGRESS- NOTES SOME [...] evaluation. CARYN Segal [facility] [...] I advised her to consider at least [id number] graded compression stockings to minimize the [...] any time should she wish additional treatment [email or web address] Other 05-02-2023 Evaluation note* Encounter Date Diagnosis [...] the meantime with any issues or concerns. [email or web address] Other 04-01-2023 History general Narrative - Reported* Type Description Date Medical History type II diabetes Surgical History cholecystectomy Surgical History tubal ligation Surgical History MICRO PHLEBECTOMY RT LEG 2021 Surgical History Venaseal Left Leg 10/2022 [email or web address] Other 12-05-2022 Evaluation note* Encounter Date Diagnosis [...] near future. Patient denies any additional questions. [email or web address] Other 04-25-2022 Evaluation note* Encounter Date Diagnosis [...] be treated since she has minimal symptoms. [email or web address] Other 02-07-2022 Evaluation note* Encounter Date Diagnosis [...] of the procedure she agrees to proceed.] [email or web address] Other Evaluation noteNo [employer] Other Evaluation note* Diagnosis Adhesive capsulitis of right shoulder- Primary Acute pain of right shoulder documented [facility] Diagnosis Acute pain of right shoulder- Primary Adhesive capsulitis of right shoulder documented in this encounter [facility]* Diagnosis Adhesive capsulitis of right shoulder- Primary Acute pain of right shoulder documented in this encounter [facility]* Diagnosis Adhesive capsulitis of right shoulder- Primary Acute pain of right shoulder documented in this encounter [facility]* Diagnosis Calcification of left breast on mammography- Primary Acute bursitis of right shoulder- Primary BMI 35.0-35.9,adult Type 2 diabetes mellitus with diabetic neuropathy, without long-term current use of insulin ([facility])- Primary Type 2 diabetes mellitus with other specified complication, without long-term current use of insulin ([facility]) Body mass index [BMI] 35.0-35.9, adult (Z68.35) [...] of insulin (CMS/HCC) documented in this encounter [facility]* Diagnosis Primary hypertension (CMS/HCC) Unspecified essential hypertension documented in this encounter [facility]* Diagnosis Calcification of left breast [...] Unspecified essential hypertension documented in this encounter [facility]* Diagnosis Diabetic polyneuropathy associated with type 2 diabetes mellitus (CMS/HCC) documented in this encounter [facility]* Diagnosis 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 Primary hypertension (CMS/HCC) Unspecified essential hypertension Obesity (BMI 30-39.9) Current mild episode of major depressive disorder without prior episode (HCC) ([facility]/HCC) Environmental and seasonal allergies documented in this encounter [facility]* Diagnosis Calcification of left breast on mammography- Primary Acute bursitis of right shoulder- Primary BMI 35.0-35.9,adult Type 2 diabetes mellitus with diabetic neuropathy, without long-term current use of insulin ([facility]/HCC)- Primary Type 2 diabetes mellitus with other specified complication, without long-term current use of insulin ([facility]/HCC) Body mass index [BMI] 35.0-35.9, adult (Z68.35) [...] On statin therapy documented in this encounter [facility]* Diagnosis Calcification of left breast [...] major depressive disorder without prior episode (HCC) (CMS/[facility]) Environmental and seasonal allergies Encounter for subsequent annual wellness visit (AWV) in Medicare patient- Primary Diabetic polyneuropathy associated with type 2 diabetes mellitus (CMS/HCC) Primary hypertension ([facility]/HCC) Unspecified essential hypertension BMI 35.0-35.9,adult 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, unspecified retinopathy severity (CMS/HCC) Obesity (BMI 30-39.9) Type 2 diabetes mellitus with other specified complication, without long-term current use of insulin ([facility]) Morbid (severe) obesity due to excess calories [...] Primary Mixed hyperlipidemia documented in this encounter [facility]* Diagnosis Calcification of left breast [...] Morbid (severe) obesity due to excess calories (CMS/[facility]) Body mass index (BMI) 36.0-36.9, adult Encounter [...] unspecified retinopathy severity (CMS/HCC) On statin therapy Other chest pain- Primary documented in this encounter [facility]* Diagnosis Calcification of left breast [...] unspecified retinopathy severity (CMS/HCC) On statin therapy Other chest pain- Primary Morbid (severe) obesity due to excess calories (CMS/HCC) Primary hypertension (CMS/HCC) Unspecified essential hypertension documented in this encounter [facility]* Diagnosis Calcification of left breast on mammography- Primary Acute bursitis of right shoulder- Primary BMI 35.0-35.9,adult Type 2 diabetes mellitus with diabetic neuropathy, without long-term current use of insulin (CMS/HCC)- Primary Type 2 diabetes mellitus with other specified complication, without long-term current use of insulin Body mass index [BMI] 35.0-35.9, adult (Z68.35) Diabetic polyneuropathy associated with type 2 diabetes mellitus (CMS/HCC) Primary hypertension (CMS/HCC) Unspecified essential hypertension Diabetic polyneuropathy associated with type 2 diabetes mellitus (CMS/HCC)- Primary Primary hypertension (CMS/HCC) Unspecified essential hypertension Type 2 diabetes mellitus with other specified complication, without long-term current use of insulin Current mild episode of major depressive disorder [...] complication, without long-term current use of insulin Morbid (severe) obesity due to excess calories (CMS/HCC) Body mass index (BMI) 36.0-36.9, adult Encounter for screening mammogram for malignant neoplasm of breast Environmental and seasonal allergies Other chest pain- Primary Type 2 diabetes mellitus with other specified complication Type 2 diabetes mellitus with diabetic polyneuropathy (CMS/HCC) Morbid (severe) obesity due to excess calories (CMS/HCC) Primary hypertension (CMS/HCC) Unspecified essential hypertension Type 2 diabetes with nephropathy (CMS/HCC) Bilateral lower extremity edema 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, unspecified retinopathy severity (CMS/HCC) On statin therapy Other chest pain- Primary Morbid (severe) obesity due to excess calories (CMS/HCC) Primary hypertension (CMS/HCC) Unspecified essential hypertension Bilateral lower extremity edema- Primary Type 2 diabetes mellitus with diabetic polyneuropathy, without long-term current use of insulin (CMS/HCC) Primary hypertension (CMS/HCC) Unspecified essential hypertension Morbid (severe) obesity due to excess calories (CMS/HCC) Type 2 diabetes mellitus with other specified complication, without long-term current use of insulin Mixed hyperlipidemia (CMS/HCC) Mixed hyperlipidemia Environmental and seasonal allergies Diabetic polyneuropathy associated with type 2 diabetes mellitus (CMS/HCC) documented in this encounter [facility] HealthcareEvaluation note* Diagnosis Calcification of left breast on mammography- Primary Acute bursitis of right shoulder- Primary BMI 35.0-35.9,adult Type 2 diabetes mellitus with diabetic neuropathy, without long-term current use of insulin (CMS/HCC)- Primary Type 2 diabetes mellitus with other specified complication, without long-term current use of insulin Body mass index [BMI] 35.0-35.9, adult (Z68.35) Diabetic polyneuropathy associated with type 2 diabetes mellitus (CMS/HCC) Primary hypertension (CMS/HCC) Unspecified essential hypertension Diabetic polyneuropathy associated with type 2 diabetes mellitus (CMS/HCC)- Primary Primary hypertension (CMS/HCC) Unspecified essential hypertension Type 2 diabetes mellitus with other specified complication, without long-term current use of insulin Current mild episode of major depressive disorder [...] complication, without long-term current use of insulin Morbid (severe) obesity due to excess calories (CMS/HCC) Body mass index (BMI) 36.0-36.9, adult Encounter for screening mammogram for malignant neoplasm of breast Environmental and seasonal allergies Other chest pain- Primary Type 2 diabetes mellitus with other specified complication Type 2 diabetes mellitus with diabetic polyneuropathy (CMS/HCC) Morbid (severe) obesity due to excess calories (CMS/HCC) Primary hypertension ([facility]/HCC) Unspecified essential hypertension Type 2 diabetes with nephropathy ([facility]) Bilateral lower extremity edema 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, unspecified retinopathy severity ([facility]) On statin therapy Other chest pain- Primary Morbid (severe) obesity due to excess calories ([facility]/HCC) Primary hypertension ([facility]/HCC) Unspecified essential hypertension Bilateral lower extremity edema- Primary Type 2 diabetes mellitus with diabetic polyneuropathy, without long-term current use of insulin ([facility]) Primary hypertension ([facility]/HCC) Unspecified essential hypertension Morbid (severe) obesity due to excess calories ([facility]) Type 2 diabetes mellitus with other specified complication, without long-term current use of insulin Mixed hyperlipidemia ([facility]) Mixed hyperlipidemia Environmental and seasonal allergies Diabetic polyneuropathy associated with type 2 diabetes mellitus ([facility]/HCC) Primary hypertension ([facility])- Primary Unspecified essential hypertension Bilateral lower extremity edema Morbid (severe) obesity due to excess calories ([facility]) Type 2 diabetes mellitus with other specified complication, without long-term current use of insulin documented in this encounter [facility] HealthcareHistory general Narrative - Reported* Type Description Date Medical History diabetes mallitus Medical History [ ] Surgical History cholecystectomy Surgical History tubal ligation Surgical History [ ] [facility] Other History general Narrative - Reported* Type Description Date Medical History type II diabetes Surgical History cholecystectomy Surgical History tubal ligation Surgical History MICRO PHLEBECTOMY RT LEG 2021 [facility] [address] Other Reason for visit NarrativeVASC DR. BULLARD WANTED TO SEE BEFORE DECIDING WHAT PROCEDURE TO DO, [facility] Other Reason for visit Narrative* Consultation (Routine) - Authorized Specialty Diagnoses / Procedures Referred By Iam valverde Referred To Contact Physical Therapy Diagnoses Acute pain of right shoulder Adhesive capsulitis of right shoulder Procedures IN OFFICE/OUTPATIENT [facility] 60 MINUTES Armando Garcia, PA [address] [facility] [address] [place] [address] Shimon Simmons, PT [address] [facility] [address] [place] [address] Referral ID Status Reason Start Date Expiration Date Visits Requested Visits Authorized [id number] Authorized Consult and Treat 08/11/2023 02/07/2024 10 30 [facility] Summary Purpose Family History No Family History Records FoundNo Family History Records FoundNo Family History Records Found Advance Directives No Advanced Directives Records FoundNo Advanced Directives Records FoundNo Advanced Directives Records Found Additional Source Comments REASON FOR VISIT (unrecogniz ed section and content) Reason Comments Edema Reason Comments Med Refill Reason Comments Pain 4 MO VV F/U NO TESTING, Follow-up varicose vein2 WK FOLLOW UP; VENASEAL LEFT LEG; ULTRASOUND 11/11/22VENASEAL LEFT LEGFOLLOW UP AFTER VARITHENA RIGHT LEG; ULTRASOUND DONE [facility] 06/21/22VARITHENA RT LEGVASC 2 WK S/P MICRO RIGHT LEG, Follow-up after microphlebectomy INFORMATION SOURCE (unrecogn ized section and content) DATE CREATED AUTHOR 10/15/2022 [facility] DATE CREATED AUTHOR AUTHOR'S ORGANIZ ATION 11/22/2022 [facility] DATE CREATED AUTHOR AUTHOR'S ORGANIZ ATION 12/29/2024 [facility] dical Specialists EPIC Care Teams (unrecognized sec tion and content) Ranch Manager Relationship Specialty Start Date End Date Bryant Torres MD [address] [place] [address] PCP - General Family Medicine 09/02/23 Almaz Pérez NP [address] [place] [address] Nurse Practitioner Family Medicine 04/27/23 Ranch Manager Relationship Specialty Start Date End Date Bryant Torres MD [address] [place] [address] PCP - General Family Medicine 09/02/23 Almaz Pérez NP [address] [place] [address] Nurse Practitioner Family Medicine 04/27/23 Ranch Manager Relationship Specialty Start Date End Date Bryant Torres MD [address] [place] [address] PCP - General Family Medicine 09/02/23 Almaz Pérez NP [address] [place] [address] Nurse Practitioner Family Medicine 04/27/23 Ranch Manager Relationship Specialty Start Date End Date Bryant Torres MD [address] [place] [address] PCP - General Family Medicine 09/02/23 Almaz Pérez NP [address] [place] [address] Nurse Practitioner Family Medicine 04/27/23 Ranch Manager Relationship Specialty Start Date End Date Bryant Torres MD [address] [place] [address] PCP - General Family Medicine 09/02/23 Almaz Pérez NP [address] [place] [address] Nurse Practitioner Family Medicine 04/27/23 Ranch Manager Relationship Specialty Start Date End Date Bryant Torres MD [address] [place] [address] PCP - General Family Medicine 09/02/23 Almaz Pérez NP [address] [place] [address] Nurse Practitioner Family Medicine 04/27/23 Ranch Manager Relationship Specialty Start Date End Date Bryant Torres MD [address] [place] [address] PCP - General Family Medicine 09/02/23 Almaz Pérez NP [address] [place] [address] Nurse Practitioner Family Medicine 04/27/23 Ranch Manager Relationship Specialty Start Date End Date Bryant Torres MD [address] [place] [address] PCP - General Family Medicine 09/02/23 Almaz Pérez NP [address] [place] [address] Nurse Practitioner Family Medicine 04/27/23 Ranch Manager Relationship Specialty Start Date End Date Bryant Torres MD [address] [place] [address] PCP - General Family Medicine 09/02/23 Almaz Pérez NP [address] [place] [address] Nurse Practitioner Family Medicine 04/27/23 Ranch Manager Relationship Specialty Start Date End Date Bryant Torres MD [address] [place] [address] PCP - General Family Medicine 09/02/23 Almaz Pérez NP [address] [place] [address] Nurse Practitioner Family Medicine 04/27/23 Ranch Manager Relationship Specialty Start Date End Date Bryant Torres MD [address] [place] [address] PCP - General Family Medicine 09/02/23 Almaz Pérez NP [address] [place] [address] Nurse Practitioner Family Medicine 04/27/23 Ranch Manager Relationship Specialty Start Date End Date Bryant Torres MD [address] [place] [address] PCP - General Family Medicine 09/02/23 Almaz Pérez NP [address] [place] [address] Nurse Practitioner Family Medicine 04/27/23 Ranch Manager Relationship Specialty Start Date End Date Bryant Torres MD [address] [place] [address] PCP - General Family Medicine 09/02/23 Almaz Pérez NP [address] [place] [address] PCP - ACO Reach 09/03/24 Almaz Pérez NP [address] [place] [address] Nurse Practitioner Family Medicine 04/27/23 Ranch Manager Relationship Specialty Start Date End Date Bryant Torres MD [address] [place] [address] PCP - General Family Medicine 09/02/23 Almaz Pérez NP [address] [place] [address] PCP - ACO Reach 09/03/24 Almaz Pérez NP [address] [place] [address] Nurse Practitioner Family Medicine 04/27/23 Ranch Manager Relationship Specialty Start Date End Date Bryant Torres MD [address] [place] [address] PCP - General Family Medicine 09/02/23 Almaz Pérez NP [address] [place] [address] PCP - ACO Reach 09/03/24 Almaz Pérez NP [address] [place] [address] Nurse Practitioner Family Medicine 04/27/23 Ranch Manager Relationship Specialty Start Date End Date Bryant Torres MD [address] [place] [address] PCP - General Family Medicine 09/02/23 Almaz Pérez NP [address] [place] [address] PCP - ACO Reach 09/03/24 Almaz Pérez NP [address] [place] [address] Nurse Practitioner Family Medicine 04/27/23 Ranch Manager Relationship Specialty Start Date End Date Bryant Torres MD [address] [place] [address] PCP - General Family Medicine 09/02/23 Almaz Pérez NP [address] [place] [address] PCP - ACO Reach 09/03/24 Almaz Pérez NP [address] [place] [address] Nurse Practitioner Family Medicine 04/27/23 Ranch Manager Relationship Specialty Start Date End Date Bryant Torres MD [address] [place] [address] PCP - General Family Medicine 09/02/23 Almaz Pérez NP [address] [place] [address] PCP - ACO Reach 09/03/24 Almaz Pérez NP [address] [place] [address] Nurse Practitioner Family Medicine 04/27/23 Ranch Manager Relationship Specialty Start Date End Date Bryant Torres MD [address] [place] [address] PCP - General Family Medicine 09/02/23 Almaz Pérez NP [address] [place] [address] PCP - ACO Reach 09/03/24 Almaz Pérez NP [address] [place] [address] Nurse Practitioner Family Medicine 04/27/23 Ranch Manager Relationship Specialty Start Date End Date Bryant Torres MD [address] [place] [address] PCP - General Family Medicine 09/02/23 Almaz Pérez NP [address] [place] [address] PCP - ACO Reach 09/03/24 Almaz Pérez NP [address] [place] [address] Nurse Practitioner Family Medicine 04/27/23 Ranch Manager Relationship Specialty Start Date End Date Bryant Torres MD [address] [place] [address] PCP - General Family Medicine 09/02/23 Almaz Pérez NP [address] [place] [address] PCP - ACO Reach 09/03/24 Almaz Pérez NP [address] [place] [address] Nurse Practitioner Family Medicine 04/27/23 Ranch Manager Relationship Specialty Start Date End Date Bryant Torres MD [address] [place] [address] PCP - General Family Medicine 09/02/23 Almaz Pérez NP [address] [place] [address] PCP - ACO Reach 09/03/24 Almaz Pérez NP [address] [place] [address] Nurse Practitioner Family Medicine 04/27/23 Ranch Manager Relationship Specialty Start Date End Date Bryant Torres MD [address] [place] [address] PCP - General Family Medicine 09/02/23 Almaz Pérez NP [address] [place] [address] PCP - ACO Reach 09/03/24 Almaz Pérez NP [address] [place] [address] Nurse Practitioner Family Medicine 04/27/23 Ranch Manager Relationship Specialty Start Date End Date Bryant Torres MD [address] [place] [address] PCP - General Family Medicine 09/02/23 Almaz Pérez NP [address] [place] [address] PCP - ACO Reach 09/03/24 Almaz Pérez NP [address] [place] [address] Nurse Practitioner Family Medicine 04/27/23 Ranch Manager Relationship Specialty Start Date End Date Bryant Torres MD [address] [place] [address] PCP - General Family Medicine 09/02/23 Almaz Pérez NP [address] [place] [address] PCP - ACO Reach 09/03/24 Almaz Pérez NP [address] [place] [address] Nurse Practitioner Family Medicine 04/27/23 FOR RECORDS [...] BE BASED ON THE PRIMARY CLINICAL RECORDS. [facility] provides no warranty or guarantee of the accuracy or completeness of information in this document.
[2025-02-04 14:33] LABS: Anion Gap 13.4; Blood Urea Nitrogen 24.0 mg/dL (7.0-18.0); Calcium 9.4 mg/dL (8.5-10.1); Carbon Dioxide 28.4 mmol/L (21.0-32.0); Chloride 104 mmol/L (98-107); Estimated GFR (African America >60 (>=60 mL/min/1.73m^2); Estimated GFR (Non-African Ame >60 (>=60 mL/min/1.73m^2); Glucose 150 mg/dL (74-106); Potassium 4.8 mmol/L (3.5-5.1); Sodium 141 mmol/L (136-145)
== END 2025-02-04 13:07 | disposition home or self-care (01) ==
LOC: LAB 13:11
PROVIDERS: PCP Nurse Practitioner; Visit Provider Nurse Practitioner
DX: R60.0 Localized edema (principal); E11.69 Type 2 diabetes mellitus with other specified complication; I10 Essential (primary) hypertension
CPT/HCPCS: 36415; 80048

== ENCOUNTER 2025-02-10 12:41 | Outpatient (OUT) | payer MEDICARE, OTHER, SELFPAY ==
--- OUTSIDE RECORDS SUMMARY | 2025-02-07 14:00 | XMS_ITS | Encounter Summary ---
Author Organization [facility] Address [address] [place] [address] Care Team Providers Care Rewind Operator Name Role Phone Almaz Pérez NP Unavailable [phone] Bryant Torres MD Primary Care Provider [phone] Almaz Pérez NP Unavailable [phone] Reason for Referral * Imaging (Routine) - Authorized Specialty Diagnoses / Procedures Referred By Iam valverde Referred To Contact Radiology Diagnoses Paroxysmal atrial fibrillation (HCC) Procedures Holter monitor Almaz Pérez NP [address] [place] [address] Phone: tel: fax: [facility] [address] [place] [address] Phone: tel: fax: Referral ID Status Reason Start Date Expiration Date V isits Requested Visits Authorized [id number] Authorized 02/07/2025 08/06/2025 1 1 Reason for Visit * Reason Comments Hypertension Encounter Details Date Type Department Care Team ([facility] Contact Info) Description 02/07/2025 2:00 PM EDT Office Visit [facility] [address] [place] [phone] Almaz Pérez NP [address] [place] [address] Primary hypertension (Primary Dx); Morbid (severe) obesity due to excess calories ([facility]); 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, unspecified retinopathy severity (HCC); Type 2 diabetes with nephropathy (HCC); Bilateral lower extremity edema; Type 2 diabetes mellitus with other specified complication, without long-term current use of insulin (HCC); Paroxysmal atrial fibrillation (HCC) Social History Tobacco Use Types Packs/Day Years Used Date Smoking Tobacco: Never Alcohol Use Standard Drinks/Week Comments Yes 7 (1 standard drink = 0.6 oz pure alcohol) DAILY 7 DAYS A WEEK 1 DRINK WHISKEY AND GINGERALE PHQ-2 Answer Date Recorded Patient Health Questionnaire-2 Score 0 07/26/2024 Comments Unknown Sex and Gender Information Value Date Recorded Sex Assigned at Not on file Legal Sex Female 8:00 PM EDT Gender Identity Not on file Sexual Orientation Not on file documented as of this encounter Last Filed Vital Signs Vital Sign Reading Time Taken Comments Blood Pressure 160/88 02/07/2025 2:05 PM EDT Pulse 84 02/07/2025 2:05 PM EDT Temperature 36.7 C (98.1 F) 02/07/2025 2:05 PM EDT Respiratory Rate 20 02/07/2025 2:05 PM EDT Oxygen Saturation 94% 02/07/2025 2:05 PM EDT Inhaled Oxygen Concentration - - Weight 115 kg (253 lb 12.8 oz) 02/07/2025 2:05 P M EDT Height - - Body Mass Index 38.14 10/06/2024 2:19 PM EDT documented in this encounter Patient Instructions * Patient Instructions* Almaz Pérez NP - 02/07/2025 2:00 PM EDT Increase dose of carvediolol to 6.25mg twice a day Holter Monitor: we will fax order to [facility] they should call you to set this up: [phone], ext [phone] documented in this encounter Progress Notes * Almaz Pérez NP - 02/07/2025 2:42 PM EDTAssociated Problem(s): Paroxysmal atrial fibrillation (HCC) Noted on surgery of eye NSR today Order holter monitor 7 day Continue asa, will increase carvediolol to 6.25mg BID * Almaz Pérez NP - 02/07/2025 2:40 PM EDTAssociated Problem(s): Bilateral lower extremity edema Stable on current meds Renal function is stable as well * DAVID JAMES - 02/07/2025 2:00 PM EDT Pt is concerned that she has afib-when she had her right eye cataracts done the nurse wrote down concerns with her possibly having afib. * Almaz Pérez NP - 02/07/2025 2:00 PM EDT Images from the original note were not included. Lidia Davis is a 74 y.o. female presents with chief complaint of Hypertension HPI: Here for recheck of blood pressure, and has concern about possibly having a fib Left eye 01/04/25, right eye 01/25/25: questioned about a fib possibly Noted during second cataract surgery: 70-120's during surgery, in PACU 60-70's No chest pain/pressure, occ short breath, occ lightheadednes=s SUBJECTIVE: MEDICATIONS: Current Outpatient Medications Medication Instructions amitriptyline (ELAVIL) 10 mg, Oral, Nightly aspirin 81 mg, Daily atorvastatin (LIPITOR) 10 mg, Oral, Every evening Blood Glucose Monitoring Suppl (True Metrix Air Glucose Meter) w/Device kit USE DIRECTED to testBLOOD SUGAR ONCE DAILY carvedilol (COREG) 3.125 mg, Oral, 2 times daily with meals Drug Jelm Unilet Lancets 30G misc USE DIRECTED to [...] for rash and wound. Neurological: Positive for dizziness. Negative for tremors, seizures, syncope and headaches. Psychiatric/Behavioral: Negative for behavioral problems, self-injury and suicidal ideas. The patient is not nervous/anxious. Hematological: Does not bruise/bleed easily. Endocrine: Negative for polydipsia, polyphagia and polyuria. Allergic/Immunologic: Negative for environmental allergies and food allergies. PAST MEDICAL HISTORY Past Medical History: Diagnosis Date Calcification of left breast on mammography 07/13/2023 Diabetes ([facility]) 08/21/2023 Diabetic neuropathy ([facility]) 08/21/2023 Type 2 diabetes with nephropathy ([facility]) 09/17/2023 metfromin caused severe hair loss Past Surgical History: Procedure Laterality Date GALLBLADDER SURGERY TUBAL LIGATION VASCULAR SURGERY Bilateral legs family history includes Diabetes in her half-sister and mother. OBJECTIVE: Visit Vitals BP 160/88 (BP Location: Left arm, Patient Position: Sitting, BP Cuff Size: Adult long) Pulse 84 Temp 98.1 °F (Temporal) Resp 20 Wt 253 lb 12.8 oz SpO2 94% BMI 38.14 kg/m² Smoking Status Never BSA 2.36 m² Physical Exam Vitals and nursing note reviewed. [...] Normal breath sounds. No wheezing or rhonchi. Musculoskeletal: Cervical back: Normal range of motion and neck supple. Right lower leg: Edema present. Left lower leg: Edema present. Comments: Trace-1+ bilat LE Skin: General: Skin is warm and dry. 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 We have also discussed lifestyle modifications: attempts to perform physical activity as chronic conditions allow, also to monitor dietary intake: increasing protein/fruits/veggies and lowering carb intake (unless contraindicated). Limit sodas, juices, and sugary drinks. Protein for breakfast, lunch time Type 2 diabetes mellitus with other specified complication (HCC) Check blood sugars daily, notify if <70 or >200. Take medications (pills or insulin) as directed. Monitor for s/s of hypoglycemia (sweaty, dizziness, nausea, vomiting, or shakiness). Watch for increase in thirst, urination, or appetite. Inspect feet frequently monitoring for open wounds , andalso recommend yearly eye exam. Pt should attempt to remain as physically active as chronic conditions allow, as well as trying to follow a diet low in carbohydrates, and simple sugars. Current meds: asa, chris, metformin, pioglitazone, statin, and BATRES A1c: 6.3% on 11/15/24 Relevant Medications glimepiride (Amaryl) 2 MG tablet pioglitazone (Actos) 30 MG tablet Bilateral lower extremity edema Stable on current meds Renal function is stable as well Relevant Medications furosemide (Lasix) 20 MG tablet Paroxysmal atrial fibrillation (HCC) Noted on surgery of eye NSR today Order holter monitor 7 day Continue asa, will increase carvediolol to 6.25mg BID Relevant Orders Holter monitor Other Visit Diagnoses Type 2 diabetes with nephropathy (HCC) Relevant Medications atorvastatin (Lipitor) 10 MG tablet metFORMIN XR (Glucophage-XR) 500 MG 24 hr tablet * Almaz Pérez NP - 02/07/2025 7:37 AM EDTAssociated Problem(s): Type 2 diabetes mellitus with other specified complication (HCC) Check blood sugars daily, notify if <70 or >200. Take medications (pills or insulin) as directed. Monitor for s/s of hypoglycemia (sweaty, dizziness, nausea, vomiting, or shakiness). Watch for increase in thirst, urination, or appetite. Inspect feet frequently monitoring for open wounds , andalso recommend yearly eye exam. Pt should attempt to remain as physically active as chronic conditions allow, as well as trying to follow a diet low in carbohydrates, and simple sugars. Current meds: asa, chris, metformin, pioglitazone, statin, and BATRES A1c: 6.3% on 11/15/24 * Almaz Pérez NP - 02/07/2025 7:37 AM EDTAssociated Problem(s): Morbid (severe) obesity due to excess calories ([facility]) Discussed with patient their BMI (actual, verses recommended). We have also discussed lifestyle modifications: attempts to perform physical activity as chronic conditions allow, also to monitor dietary intake: increasing protein/fruits/veggies and lowering carb intake (unless contraindicated). Limit sodas, juices, and sugary drinks. Protein for breakfast, lunch time * Almaz Pérez NP - 02/07/2025 7:36 AM EDTAssociated Problem(s): Primary hypertension Please check blood pressure daily and record DASH diet Limit caffeine Take medication as directed Contact office if chest pain, pressure, dizziness, shortness of breath, swelling legs Recommend slow position changes Current meds: chris, carvedilol Increase dose to 6.25mg BID documented in this encounter Plan of Treatment Upcoming Encounters Date Type Department Care Team (Late st Contact Info) Description 03/15/2025 1:40 PM EDT Office Visit [facility] [address] [place] [address] Almaz Pérez NP [address] [place] [address] 07/26/2025 10:30 AM EST Office Visit [facility] [address] [place] [address] Almaz Pérez NP [address] [place] [phone] Scheduled Orders Name Type Priority Associated Diagnoses Orde r Schedule Holter monitor Imaging Routine Paroxysmal atrial fibrillation (HCC) Expected: 02/07/2025 (Approximate), Expires: 02/07/2026 documented as of this encounter Visit Diagnoses Diagnosis Primary hypertension- Primary Unspecified essential hypertension Morbid (severe) obesity due to excess calories ([facility]) 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, unspecified retinopathy severity ([facility]) Type 2 diabetes mellitus with other specified complication, without long-term current use of insulin (HCC) Bilateral lower extremity edema Paroxysmal atrial fibrillation (HCC) Atrial fibrillation documented in this encounter Additional Health Concerns Assessment Noted Time PHQ-9 Depression Total Score: 3 07/26/20 24 11:47 AM EST documented as of this encounter Care Teams Rewind Operator Relationship Specialty Start Date End Date Bryant Torres MD [address] [place] [phone] PCP - General Family Medicine 09/02/23 Almaz Pérez NP [address] [place] [phone] PCP - ACO Reach 09/03/24 Almaz Pérez NP [address] [place] [address] Nurse Practitioner Family Medicine 04/27/23 documented as of this encounter
--- OUTSIDE RECORDS SUMMARY | 2025-02-10 12:44 | XMS_ITS | Encounter Summary ---
Author Organization [facility] Address [address] [facility] [place] [address] Care Team Providers Care Refractory Grinder Operator Name Role Phone Almaz Pérez NP Unavailable [phone] Bryant Torres MD Primary Care Provider Almaz Pérez NP Unavailable [phone] Encounter Details Date Type Department Care Team (Late Contact Info) Description 07/08/2024 Orders Only [facility] [address] [place] [address] Almaz Pérez NP [address] [place] [address] Social History Tobacco Use Types Packs/Day Years Used Date Smoking Tobacco: Never Alcohol Use Standard Drinks/Week Comments Yes 7 (1 standard drink = 0.6 oz pure alcohol) DAILY 7 DAYS A WEEK 1 DRINK WHISKEY AND GINGERALE PHQ-2 Answer Date Recorded Patient Health Questionnaire-2 Score 2 11/27/2023 Comments Unknown Sex and Gender Information Value Date Recorded Sex Assigned at Not on file Legal Sex Female 8:00 PM EDT Gender Identity Not on file Sexual Orientation Not on file documented as of this encounter Plan of Treatment Upcoming Encounters Date Type Department Care Team ([facility] Contact Info) Description 03/15/2025 1:40 PM EDT Office Visit [facility] [address] [place] [address] Almaz Pérez NP [address] [place] [address] 07/26/2025 10:30 AM EST Office Visit [facility] [address] [place] [phone] Almaz Pérez NP [address] [place] [address] documented as of this encounter Procedures Procedure Name Priority Date/Time Associated Diagnosis Comments DIABETIC RETINOPATHY SCREENING - OU - BOTH EYES Routine 07/08/2024 11:35 AM EST documented in this encounter Results * Diabetic Retinopathy Screening - OU - Both Eyes (07/08/2024 11:35 AM EST) Anatomical Region Laterality Modality Head Other Almaz Pérez NP OPHTH PHOTOGRAPHY Final Result documented in this encounter Visit Diagnoses Not on filedocumented in this encounter Care Teams Refractory Grinder Operator Relationship Specialty Start Date End Date Bryant Torres MD [address] [place] [phone] PCP - General Family Medicine 09/02/23 Almaz Pérez NP [address] [place] [phone] PCP - ACO Reach 09/03/24 Almaz Pérez NP [address] [place] [phone] Nurse Practitioner Family Medicine 04/27/23 documented as of this encounter
--- OUTSIDE RECORDS SUMMARY | 2025-02-10 12:44 | XMS_ITS | Encounter Summary ---
Author Organization [facility] Address [address] [place] [address] Care Team Providers Care Golf Club Head Inspector And Adjuster Name Role Phone Almaz Pérez NP Unavailable [phone] Bryant Torres MD Primary Care Provider Bryant Torres MD Primary Care Provider Almaz Pérez SEAL DELIVERY VEHICLE TEAM TECHNICIAN Unavailable [phone] Encounter Details Date Type Department Care Team (Late st Contact Info) Description 06/25/2023 Clinisync Result Encounter [facility] External Department Unsolicited Almaz Pérez NP [address] [place] [address] Social History Tobacco Use Types Packs/Day Years Used Date Smoking Tobacco: Never Assessed Comments Unknown Sex and Gender Information Value Date Recorded Sex Assigned at Not on file Legal Sex Female 8:00 PM EDT Gender Identity Not on file Sexual Orientation Not on file documented as of this encounter Plan of Treatment Upcoming Encounters Date Type Department Care Team (Late st Contact Info) Description 03/15/2025 1:40 PM EDT Office Visit [facility] [address] [place] [phone] Almaz Pérez NP [address] [place] [address] 07/26/2025 10:30 AM EST Office Visit [facility] [address] [place] [address] Almaz Pérez NP [address] [place] [address] documented as of this encounter Procedures Procedure Name Priority Date/Time Associated Diagnosis Comments MM TOMOSYNTHESIS SCREENING BI 06/25/2023 1:46 PM EST documented in this encounter Results * MM TOMOSYNTHESIS SCREENING BI (06/25/2023 1:46 PM EST) Anatomical Region Laterality Modality Other 06/25/2023 1:46 PM EST Narrative 06/25/2023 1:46 [place] [address] Mammography Report Signed Patient: LIDIA DAVIS MR#: [id number] : 1950 Acct:[id number] Age/Sex: 73 / F ADM Date: 06/23/23 Loc: MAMMO Attending Dr: Almaz Pérez NP Ordering Physician: Almaz Pérez NP Results: Date of Service: 06/23/23 Follow Up: Procedure(s): MM tomosynthesis screening BI Accession Number(s): [id number] cc: Almaz Pérez NP Patient Name: LIDIA DAVIS MR#: [id number] : 1950 Exam Date: 06/23/2023 Ordering Doctor: NANCY Pérez [employer]ANDSCAPE CREW MEMBER RADIOLOGY REPORT PROCEDURE: MM TOMOSYNTHESIS SCREENING BI COMPARISON: None. INDICATIONS: Screening Calculator Name NCI Breast Cancer Risk Assessment Tool 5 Year Breast Cancer Risk 1.60% Lifetime Breast Cancer Risk 4.30% Personal Breast Cancer No Personal Ovarian Cancer No Treatments None Family Cancers None LOCATION: [facility] BREAST COMPOSITION: Heterogeneously dense,which may obscure small masses. FINDINGS: DIAGNOSTIC CATEGORY 0--INCOMPLETE: NEED ADDITIONAL IMAGING EVALUATION. RIGHT BREAST: No significant suspicious finding. Coarse benign-appearing calcifications within posterior inferior breast approximately 6 o'clock. LEFT BREAST: Grouping of tiny punctate calcifications within posterior upper-outer quadrant approximately 3 o'clock. No prior studies for comparison. Spot magnification views and ultrasound evaluation recommended. RECOMMENDATIONS: ADDITIONAL MAMMOGRAPHIC VIEWS REQUIRED: LEFT BREAST - LEFT CRANIOCAUDAL SPOT MAGNIFICATION VIEW - LEFT OBLIQUE SPOT MAGNIFICATION VIEW - ULTRASOUND: LEFT BREAST PLEASE NOTE: A NORMAL MAMMOGRAM DOES NOT EXCLUDE THE POSSIBILITY OF BREAST CANCER. A CLINICALLY SUSPICIOUS PALPABLE LUMP SHOULD BE BIOPSIED. Dictated by: Ming Recio M.D. on 06/25/2023 at 13:41 Approved by: Ming Recio M.D. on 06/25/2023 at 13:46 Dictated By: Ming Recio M.D. Signed By: 06/25/23 1347 DD/ 45 TD/TT: Service Desk Lead: Procedure Note Radiology, Radiologist, MD - 06/25/2023 [place] [address] Mammography Report Signed Patient: MARY DAVISR#: [id number] : 1950cct:[id number] Age/Sex: 73 / FADM Date: 06/23/23 Loc: MAMMO Attending Dr: Almaz Pérez NP Ordering Physician: Almaz Pérez NPResults: Date of Service: 06/23/23Follow Up: Procedure(s): MM tomosynthesis screening BI Accession Number(s): [id number] cc: Almaz Pérez NP Patient Name: LIDIA DAVIS MR#: [id number] : 1950 Exam Date: 06/23/2023 Ordering Doctor: NANCY Pérez CNP RADIOLOGY REPORT PROCEDURE: MM TOMOSYNTHESIS SCREENING BI COMPARISON: None. INDICATIONS: Screening Calculator Name NCI Breast Cancer Risk Assessment Tool 5 Year Breast Cancer Risk 1.60% Lifetime Breast Cancer Risk 4.30% Personal Breast Cancer No Personal Ovarian Cancer No Treatments None Family Cancers None LOCATION: [facility] BREAST COMPOSITION: Heterogeneously dense,which may obscure smallmasses. FINDINGS: DIAGNOSTIC CATEGORY 0--INCOMPLETE: NEED ADDITIONAL IMAGING EVALUATION. RIGHT BREAST: No significant suspicious finding. Coarse benign-appearing calcifications within posterior inferior breast approximately 6 o'clock. LEFT BREAST: Grouping of tiny punctate calcifications within posterior upper-outer quadrant approximately 3 o'clock. No prior studies for comparison. Spot magnification views and ultrasound evaluationrecommended. RECOMMENDATIONS: ADDITIONAL MAMMOGRAPHIC VIEWS REQUIRED: LEFT BREAST - LEFT CRANIOCAUDALSPOT MAGNIFICATION VIEW - LEFT OBLIQUE SPOT MAGNIFICATION VIEW - ULTRASOUND: LEFT BREAST PLEASE NOTE: A NORMAL MAMMOGRAM DOES NOT EXCLUDE THE POSSIBILITY OFBREAST CANCER. A CLINICALLY SUSPICIOUS PALPABLE LUMP SHOULD BE BIOPSIED. Dictated by: Ming Recio M.D. on 06/25/2023 at 13:41 Approved by: Ming Recio M.D. on 06/25/2023 at 13:46 Dictated By: Ming Recio M.D. Signed By:06/25/23 1347 DD/ 1346 TD/TT: Service Desk Lead: us Almaz Pérez NP [facility] Final Result documented in this encounter Visit Diagnoses Not on filedocumented in this encounter Care Teams Golf Club Head Inspector And Adjuster Relationship Specialty Start Date End Date Bryant Torres MD [address] [place] [phone] PCP - General Family Medicine 08/01/23 09/01/23 Bryant Torres MD [address] [place] [address] PCP - General Family Medicine 09/02/23 Almaz Pérez NP [address] [place] [address] PCP - ACO Reach 09/03/24 Almaz Pérez NP [address] [place] [address] Nurse Practitioner Family Medicine 04/27/23 documented as of this encounter
--- OUTSIDE RECORDS SUMMARY | 2025-02-10 12:44 | XMS_ITS | Encounter Summary ---
Author Organization [facility] Address [address] [place] [address] Care Team Providers Care Advertising Teacher Name Role Phone Almaz Pérez NP Unavailable [phone] Bryant Torres MD Primary Care Provider Almaz Pérez NP Unavailable [phone] Encounter Details Date Type Department Care Team (Late Contact Info) Description 02/04/2025 Clinisync Result Encounter [facility] External Department Unsolicited Almaz Pérez NP [address] [place] [address] Social History Tobacco Use Types Packs/Day Years [...] Encounters Date Type Department Care Team (Late Contact Info) Description 03/15/2025 1:40 PM EDT [facility] [address] [place] [phone] Almaz Pérez NP [address] [place] [address] 07/26/2025 10:30 AM EST Office Visit [facility] [address] [place] [address] Almaz Pérez NP [address] [place] [phone] documented as of this encounter Procedures Procedure Name Priority Date/Time Associated Diagnosis Comments ALL BASIC METABOLIC PANEL Routine 02/04/2025 1:22 PM EDT documented in this encounter Results * (ABNORMAL) ALL BASIC METABOLIC PANEL (02/04/2025 1:22 PM EDT) SODIUM 141 136 - 145 mmol/L [facility] POTASSIUM 4.8 3.5 - 5.1 mmol/L [facility] CHLORIDE 104 98 - 107 mmol/L [facility] CARBON DIOXIDE 28.4 21.0 - 32.0 mmol/L [facility] ANION GAP 13.4 [facility] GLUCOSE 150(H) 74 - 106 mg/dL [facility] BLOOD UREA NITROGEN 24.0(H) 7.0 - 18.0 mg/dL [facility] CREATININE 0.76 0.55 - 1.02 mg/dL [facility] EGFR-AF INDONESIAN >60 >=60 mL/min/1.7 3m 2 TBH TBH EGFR-NON AF INDONESIAN >60 >=60 mL/min/1.7 3m 2 [facility] BUN CREATININE RATIO 31.6 [facility] CALCIUM 9.4 8.5 - 10.1 mg/dL [facility] 02/04/2025 1:22 PM EDT 02/04/2025 2:09 PM EDT Narrative [facility] - 02/04/2025 3:07 PM EDT us Almaz Pérez NP [facility] Final Result [facility] documented in this encounter Visit Diagnoses Not on filedocumented in this encounter Additional Health Concerns Assessment Noted Time PHQ-9 Depression Total Score: 3 07/26/20 24 11:47 AM EST documented as of this encounter Care Teams Advertising Teacher Relationship Specialty Start Date End Date Bryant Torres MD [address] [place] [phone] PCP - General Family Medicine 09/02/23 Almaz Pérez NP [address] [place] [address] PCP - ACO Reach 09/03/24 Almaz Pérez NP [address] [place] [address] Nurse Practitioner Family Medicine 04/27/23 documented as of this encounter
--- OUTSIDE RECORDS SUMMARY | 2025-02-10 12:44 | XMS_ITS | Encounter Summary ---
Author Organization [facility] Address [address] [place] [address] Care Team Providers Care Data Deliverables Manager Name Role Phone Almaz Pérez NP Unavailable [phone] Bryant Torres MD Primary Care Provider Bryant Torres MD Primary Care Provider Almaz Pérez DESIGN TECHNICIAN Unavailable [phone] Encounter Details Date Type Department Care Team (Late st Contact Info) Description 07/11/2023 Clinisync Result Encounter [facility] External Department Unsolicited Almaz Pérez NP [address] [place] [address] Social History Tobacco Use Types Packs/Day Years [...] Visit [facility] [address] [place] [address] Almaz Pérez NP [address] [place] [address] 07/26/2025 10:30 AM EST Office Visit [facility] [address] [place] [address] Almaz Pérez, CIPRIANO [address] [place] [address] documented as of this encounter Procedures Procedure Name Priority Date/Time Associated Diagnosis Comments MM DIAGNOSTIC MAMMO UNILAT LT 07/11/2023 2:48 PM EST documented in this encounter Results * MM DIAGNOSTIC MAMMO UNILAT LT (07/11/2023 2:48 PM EST) Anatomical Region Laterality Modality Other 07/11/2023 2:48 PM EST Narrative 07/11/2023 2:49 [place] [address] Mammography Report Signed Patient: LIDIA DAVIS MR#: [id number] : 1950 Acct:[id number] Age/Sex: 73 / F ADM Date: 07/11/23 Loc: MAMMO Attending Dr: Almaz Pérez NP Ordering Physician: Almaz Pérez NP Results: Date of Service: 07/11/23 Follow Up: Procedure(s): MM diagnostic mammo unilat LT Accession Number(s): [id number] cc: Almaz Pérez NP Patient Name: LIDIA DAVIS MR#: [id number] : 1950 Exam Date: 07/11/2023 Ordering Doctor: NANCY Pérez CNP RADIOLOGY REPORT PROCEDURE: MM DIAGNOSTIC MAMMO UNILAT LT, 07/11/2023, 13:36 US BREAST LT LIMITED, 07/11/2023, 13:58 COMPARISON: MM TOMOSYNTHESIS SCREENING BI, 06/23/2023. INDICATIONS: Left Breast Abnormality On Screening Mammogram Calculator Name NCI Breast Cancer Risk Assessment Tool 5 Year Breast Cancer Risk 1.60% Lifetime Breast Cancer Risk 4.30% Personal Breast Cancer No Personal Ovarian Cancer No Treatments None Family Cancers None LOCATION: [facility] BREAST COMPOSITION: Heterogeneously dense,which may obscure small masses. FINDINGS: DIAGNOSTIC CATEGORY 4--SUSPICIOUS FOR MALIGNANCY. FINDING DOES NOT EXHIBIT CLASSIC FINDINGS OF BREAST CANCER: Spot magnification demonstrates a cluster of suspicious microcalcifications upper outer quadrant, posterior breast. Ultrasound demonstrates normal fibroglandular tissue with no corresponding abnormality. As there are no prior comparisons. Stereotactic biopsy of the left breast calcifications is recommended RECOMMENDATIONS: STEREOTACTIC BREAST BIOPSY: LEFT BREAST PLEASE NOTE: A NORMAL MAMMOGRAM DOES NOT EXCLUDE THE POSSIBILITY OF BREAST CANCER. A CLINICALLY SUSPICIOUS PALPABLE LUMP SHOULD BE BIOPSIED. Dictated by: Deny Frias MD on 07/11/2023 at 14:22 Approved by: Deny Frias MD on 07/11/2023 at 14:48 Dictated By: Deny Frias M.D. Signed By: 07/11/23 1449 DD/ 1448 TD/TT: Cotton Seed Culler: Procedure Note Radiology, Radiologist, - 07/11/2023 [place] [address] Mammography Report Signed Patient: MARY DAVISR#: [id number] : 1950cct:[id number] Age/Sex: 73 / FADM Date: 07/11/23 Loc: MAMMO Attending Dr: Almaz Pérez NP Ordering Physician: Almaz Pérez NPResults: Date of Service: 07/11/23Follow Up: Procedure(s): MM diagnostic mammo unilat LT Accession Number(s): [id number] cc: Almaz Pérez NP Patient Name: LIDIA DAVIS MR#: [id number] : 1950 Exam Date: 07/11/2023 Ordering Doctor: NANCY Pérez CNP RADIOLOGY REPORT PROCEDURE: MM DIAGNOSTIC MAMMO UNILAT LT, 07/11/2023, 13:36 US BREAST LT LIMITED, 07/11/2023, 13:58 COMPARISON: MM TOMOSYNTHESIS SCREENING BI, 06/23/2023. INDICATIONS: Left Breast Abnormality On Screening Mammogram Calculator Name NCI Breast Cancer Risk Assessment Tool 5 Year Breast Cancer Risk 1.60% Lifetime Breast Cancer Risk 4.30% Personal Breast Cancer No Personal Ovarian Cancer No Treatments None Family Cancers None LOCATION: [facility] BREAST COMPOSITION: Heterogeneously dense,which may obscure smallmasses. FINDINGS: DIAGNOSTIC CATEGORY 4--SUSPICIOUS FOR MALIGNANCY. FINDING DOES NOT EXHIBIT CLASSIC FINDINGS OF BREAST CANCER: Spot magnification demonstrates a cluster of suspiciousmicrocalcifications upper outer quadrant, posterior breast. Ultrasound demonstrates normal fibroglandular tissue with no corresponding abnormality. As there are no prior comparisons. Stereotactic biopsy of the left breast calcificationsis recommended RECOMMENDATIONS: STEREOTACTIC BREAST BIOPSY: LEFT BREAST PLEASE NOTE: A NORMAL MAMMOGRAM DOES NOT EXCLUDE THE POSSIBILITY OFBREAST CANCER. A CLINICALLY SUSPICIOUS PALPABLE LUMP SHOULD BE BIOPSIED. Dictated by: Deny Frias MD on 07/11/2023 at 14:22 Approved by: Deny Frias MD on 07/11/2023 at 14:48 Dictated By: Deny Frias M.D. Signed By:07/11/23 1449 DD/ 1448 TD/TT: Cotton Seed Culler: us Almaz Pérez NP [facility] Final Result documented in this encounter Visit Diagnoses Not on filedocumented in this encounter Care Teams Data Deliverables Manager Relationship Specialty Start Date End Date Bryant Torres MD [address] [place] [phone] PCP - General Family Medicine 08/01/23 09/01/23 Bryant Torres MD [address] [place] [address] PCP - General Family Medicine 09/02/23 Almaz Pérez NP [address] [place] [address] PCP - ACO Reach 09/03/24 Almaz Pérez NP [address] [place] [address] Nurse Practitioner Family Medicine 04/27/23 documented as of this encounter
--- OUTSIDE RECORDS SUMMARY | 2025-02-10 12:44 | XMS_ITS | Encounter Summary ---
Author Organization [facility] Address [address] [place] [address] Care Team Providers Care Carpenter'S Helper Name Role Phone Almaz Pérez NP Unavailable [phone] Bryant Torres MD Primary Care Provider Almaz Pérez NP Unavailable [phone] Encounter Details Date Type Department Care Team (Late Contact Info) Description 08/10/2024 Clinisync Result Encounter [facility] External Department Unsolicited Almaz Pérez NP [address] [place] [address] Social History Tobacco Use Types Packs/Day Years [...] 1:40 PM EDT [facility] [address] [place] [address] Almaz Pérez NP [address] [place] [address] 07/26/2025 10:30 AM EST Office Visit [facility] [address] [place] [address] Almaz Pérez NP [address] [place] [address] documented as of this encounter Procedures Procedure Name Priority Date/Time Associated Diagnosis Comments MM TOMOSYNTHESIS SCREENING BI 08/10/2024 4:31 PM EST documented in this encounter Results * MM TOMOSYNTHESIS SCREENING BI (08/10/2024 4:31 PM EST) Anatomical Region Laterality Modality Other 08/10/2024 4:31 PM EST Narrative 08/10/2024 4:32 [place] [address] Mammography Report Signed Patient: LIDIA DAVIS MR#: [id number] : 1950 Acct:[id number] Age/Sex: 74 / F ADM Date: 08/10/24 Loc: MAMMO Attending Dr: Almaz Pérez NP Ordering Physician: Almaz Pérez NP Results: Date of Service: 08/10/24 Follow Up: Procedure(s): MM tomosynthesis screening BI Accession Number(s): [id number] cc: Almaz Pérez NP Patient Name: LIDIA DAVIS MR#: [id number] : 1950 Exam Date: 08/10/2024 Ordering Doctor: NANCY Pérez CNP RADIOLOGY REPORT PROCEDURE: MM TOMOSYNTHESIS SCREENING BI COMPARISON: MAMMO POST BIOPSY LEFT, 07/31/2023. MM BIOPSY LT VAC ASSIST, 07/31/2023. MM DIAGNOSTIC MAMMO UNILAT LT, 07/11/2023. MM TOMOSYNTHESIS SCREENING BI, 06/23/2023. INDICATIONS: Screening Calculator Name NCI Breast Cancer Risk Assessment Tool 5 Year Breast Cancer Risk 2.40% Lifetime Breast Cancer Risk 6.10% Personal Breast Cancer No Personal Ovarian Cancer No Treatments None Family Cancers None LOCATION: The BREAST COMPOSITION: The breasts are heterogeneously dense,which may obscure small masses. FINDINGS: DIAGNOSTIC CATEGORY 2--BENIGN FINDING: RIGHT BREAST: No significant suspicious finding. No significant change has occurred. LEFT BREAST: No significant suspicious finding. Biopsy marker clip posterior upper-outer quadrant with the cluster of previously seen calcifications no longer present. Otherwise no significant change has occurred. RECOMMENDATIONS: ROUTINE MAMMOGRAM AND CLINICAL EVALUATION IN 12 MONTHS. PLEASE NOTE: A NORMAL MAMMOGRAM DOES NOT EXCLUDE THE POSSIBILITY OF BREAST CANCER. A CLINICALLY SUSPICIOUS PALPABLE LUMP SHOULD BE BIOPSIED. Dictated by: Ming Recio M.D. on 08/10/2024 at 16:29 Approved by: Ming Recio M.D. on 08/10/2024 at 16:31 Dictated By: Ming Recio M.D. Signed By: 08/10/24 1632 DD/ 163 TD/TT: Childcare Center Director: Procedure Note Radiology, Radiologist, MD - 08/10/2024 [place] [address] Mammography Report Signed Patient: MARY DAVISR#: [id number] : 1950cct:[id number] Age/Sex: 74 / FADM Date: 08/10/24 Loc: MAMMO Attending Dr: Almaz Pérez NP Ordering Physician: Almaz Pérez NPResults: Date of Service: 08/10/24Follow Up: Procedure(s): MM tomosynthesis screening BI Accession Number(s): [id number] cc: Almaz Pérez NP Patient Name: LIDIA DAVIS MR#: [id number] : 1950 Exam Date: 08/10/2024 Ordering Doctor: NANCY Pérez CNP RADIOLOGY REPORT PROCEDURE: MM TOMOSYNTHESIS SCREENING BI COMPARISON: MAMMO POST BIOPSY LEFT, 07/31/2023. MM BIOPSY LT VACASSIST, 07/31/2023. MM DIAGNOSTIC MAMMO UNILAT LT, 07/11/2023. MM TOMOSYNTHESIS SCREENING BI, 06/23/2023. INDICATIONS: Screening Calculator Name NCI Breast Cancer Risk Assessment Tool 5 Year Breast Cancer Risk 2.40% Lifetime Breast Cancer Risk 6.10% Personal Breast Cancer No Personal Ovarian Cancer No Treatments None Family Cancers None LOCATION: The BREAST COMPOSITION: The breasts are heterogeneously dense,which may obscure small masses. FINDINGS: DIAGNOSTIC CATEGORY 2--BENIGN FINDING: RIGHT BREAST: No significant suspicious finding. No significant changehas occurred. LEFT BREAST: No significant suspicious finding. Biopsy marker clipposterior upper-outer quadrant with the cluster of previously seen calcifications no longer present. Otherwise no significant change has occurred. RECOMMENDATIONS: ROUTINE MAMMOGRAM AND CLINICAL EVALUATION IN 12 MONTHS. PLEASE NOTE: A NORMAL MAMMOGRAM DOES NOT EXCLUDE THE POSSIBILITY OFBREAST CANCER. A CLINICALLY SUSPICIOUS PALPABLE LUMP SHOULD BE BIOPSIED. Dictated by: Ming Recio M.D. on 08/10/2024 at 16:29 Approved by: Ming Recio M.D. on 08/10/2024 at 16:31 Dictated By: Ming Recio M.D. Signed By:08/10/24 1632 DD/ 1631 TD/TT: Childcare Center Director: us Almaz Pérez NP [facility] Final Result documented in this encounter Visit Diagnoses Not on filedocumented in this encounter Additional Health Concerns Assessment Noted Time PHQ-9 Depression Total Score: 3 07/26/20 24 11:47 AM EST documented as of this encounter Care Teams Carpenter'S Helper Relationship Specialty Start Date End Date Bryant Torres MD [address] [place] [address] PCP - General Family Medicine 09/02/23 Almaz Pérez NP [address] [place] [address] PCP - ACO Reach 09/03/24 Almaz Pérez NP [address] [place] [address] Nurse Practitioner Family Medicine 04/27/23 documented as of this encounter
--- OUTSIDE RECORDS SUMMARY | 2025-02-10 12:44 | XMS_ITS | Encounter Summary ---
Author Organization [facility] Address [address] [place] [address] Care Team Providers Care Double Needle Stitcher Name Role Phone Almaz Pérez NP Unavailable [phone] Bryant Torres MD Primary Care Provider [phone] Bryant Torres MD Primary Care Provider [phone] Almaz Pérez WIRELESS FIELD TECHNICIAN Unavailable [phone] Encounter Details Date Type Department Care Team (Late st Contact Info) Description 07/31/2023 Clinisync Result Encounter [facility] External Department Unsolicited Almaz Pérez NP [address] [place] [address] Social History Tobacco Use Types Packs/Day Years [...] Visit [facility] [address] [place] [address] Almaz Pérez NP [address] [place] [phone] 07/26/2025 10:30 AM EST Office Visit [facility] [address] [place] [address] Almaz Pérez NP [address] [place] [address] documented as of this encounter Procedures Procedure Name Priority Date/Time Associated Diagnosis Comments MM DIAGNOSTIC MAMMO UNILAT LT 07/31/2023 2:27 PM EST documented in this encounter Results * MM DIAGNOSTIC MAMMO UNILAT LT (07/31/2023 2:27 PM EST) Anatomical Region Laterality Modality Other 07/31/2023 2:27 PM EST Narrative 07/31/2023 2:28 [place] [address] Mammography Report Signed Patient: LIDIA DAVIS MR#: [id number] : 1950 Acct:[id number] Age/Sex: 73 / F ADM Date: 07/31/23 Loc: MAMMO Attending Dr: Almaz Pérez NP Ordering Physician: Almaz Pérez NP Results: Date of Service: 07/31/23 Follow Up: Procedure(s): MM diagnostic mammo unilat LT Accession Number(s): [id number] cc: Almaz Pérez NP Patient Name: LIDIA DAVIS MR#: [id number] : 1950 Exam Date: 07/31/2023 Ordering Doctor: NANCY Pérez CNP RADIOLOGY REPORT PROCEDURE: MAMMOGRAM POST BIOPSY IMAGES COMPARISON: MM DIAGNOSTIC MAMMO UNILAT LT, 07/11/2023. INDICATIONS: breast biopsy BREAST COMPOSITION: FINDINGS: BIOPSY MARKER: A metallic marker has been placed in the targeted location within the upper outer quadrant of the left breast. BREAST FINDINGS: Post surgical changes Dictated by: Deny Frias MD on 07/31/2023 at 14:01 Approved by: Deny Frias MD on 07/31/2023 at 14:27 Dictated By: Deny Frias M.D. Signed By: 07/31/23 1428 DD/ 26 TD/TT: Credit Products Officer: Procedure Note Radiology, Radiologist, MD - 10/01/[address] [address] Mammography Report Signed Patient: HERBERT DAVIS#: [id number] : 1950cct:[id number] Age/Sex: 73 / FADM Date: 07/31/23 Loc: MAMMO Attending Dr: Almaz Pérez NP Ordering Physician: Almaz Pérez NPResults: Date of Service: 07/31/23Follow Up: Procedure(s): MM diagnostic mammo unilat LT Accession Number(s): [id number] cc: Almaz Pérez NP Patient Name: LIDIA DAVIS MR#: [id number] : 1950 Exam Date: 07/31/2023 Ordering Doctor: NANCY Pérez GEOPHYSICAL PROSPECTOR RADIOLOGY REPORT PROCEDURE: MAMMOGRAM POST BIOPSY IMAGES COMPARISON: MM DIAGNOSTIC MAMMO UNILAT LT, 07/11/2023. INDICATIONS: breast biopsy BREAST COMPOSITION: FINDINGS: BIOPSY MARKER: A metallic marker has been placed in the targetedlocation within the upper outer quadrant of the left breast. BREAST FINDINGS: Post surgical changes Dictated by: Deny Frias MD on 07/31/2023 at 14:01 Approved by: Deny Frias MD on 07/31/2023 at 14:27 Dictated By: Deny Frias M.D. Signed By:07/31/23 142 DD/ 26 TD/TT: Credit Products Officer: Almaz Pérez NP [facility] Final Result documented in this encounter Visit Diagnoses Not on filedocumented in this encounter Care Teams Double Needle Stitcher Relationship Specialty Start Date End Date Bryant Torres MD [address] [place] [address] PCP - General Family Medicine 08/01/23 09/01/23 Bryant Torres MD [address] [place] [address] PCP - General Family Medicine 09/02/23 Almaz Pérez NP [address] [place] [address] PCP - ACO Reach 09/03/24 Almaz Pérez NP [address] [place] [address] Nurse Practitioner Family Medicine 04/27/23 documented as of this encounter
--- OUTSIDE RECORDS SUMMARY | 2025-02-10 12:44 | XMS_ITS | Encounter Summary ---
Author Organization [facility] Address [address] [place] [address] Care Team Providers Care Powerhouse Mechanic Supervisor Name Role Phone Almaz Pérez NP Unavailable [phone] Bryant Torres MD Primary Care Provider Bryant Torres MD Primary Care Provider [phone] Almaz Pérez PERSONAL FITNESS TRAINER Unavailable [phone] Encounter Details Date Type Department Care Team (Late st Contact Info) Description 08/01/2023 Clinisync Result Encounter [facility] External Department Unsolicited Almaz Pérez NP [address] [place] [address] Social History Tobacco Use Types Packs/Day Years [...] Visit [facility] [address] [place] [address] Almaz Pérez NP [address] [place] [address] 07/26/2025 10:30 AM EST Office Visit [facility] [address] [place] [address] Almaz Pérez NP [address] [place] [address] documented as of this encounter Procedures Procedure Name Priority Date/Time Associated Diagnosis Comments MM BIOPSY LT VAC ASSIST STEREO 08/01/2023 12:20 PM EST documented in this encounter Results * MM BIOPSY LT VAC ASSIST STEREO (08/01/2023 12:20 PM EST) Anatomical Region Laterality Modality Radiographic Jennifer ging 08/01/2023 12:2 0 PM EST Narrative 08/01/2023 12:21 [place] [address] Mammography Report Signed Patient: LIDIA DAVIS MR#: [id number] : 1950 Acct:[id number] Age/Sex: 73 / F ADM Date: 07/31/23 Loc: MAMMO Attending Dr: Almaz Pérez NP Ordering Physician: Almaz Pérez NP Results: Date of Service: 07/31/23 Follow Up: Procedure(s): MM biopsy LT vac assist Accession Number(s): [id number] cc: Almaz Pérez NP Patient Name: LIDIA DAVIS MR#: [id number] : 1950 Exam Date: 07/31/2023 Ordering Doctor: NANCY Pérez CNP RADIOLOGY REPORT PROCEDURE: MM BIOPSY LT VAC ASSIST COMPARISON: MM DIAGNOSTIC MAMMO UNILAT LT, 07/11/2023. INDICATIONS: left breast macrocalcification DESCRIPTION: Following informed consent, digital stereotactic mammographic views were obtained to localize the lesion. Multiple vacuum-assisted core biopsies were obtained. Specimen images were obtained to confirm proper sampling. The location of the biopsy was then marked as indicated below. FINDINGS: RECOMMENDATIONS: SPECIMEN #, LOCATION: 6 samples, left breast clustered calcifications SPECIMEN IMAGE: Targeted calcifications were present BIOPSY NEEDLE: 10 gauge Revolve(r) vacuum core biopsy needle. MARKER(S) PLACED: A single metallic marker was placed in the appropriate targeted location. MEDICATION: 2 cubic cm Buffered 1% lidocaine superficial; 8 cubic cm 1% lidocaine with epinephrine deep. COMPLICATIONS: None. PATHOLOGY / LAB: Pending. CONCLUSION: 1. Technically successful biopsy of the breast lesion. 2. Pathology results are pending. An addendum will be added when pathology results are final. Dictated by: Deny Frias MD on 08/01/2023 at 12:19 Approved by: Deny Frias MD on 08/01/2023 at 12:20 Dictated By: Deny Frias M.D. Signed By: 08/01/23 1221 DD/ 1220 TD/TT: Clinical Transformation Specialist: Procedure Note Radiology, RadiologistMD - 08/04/2023 [place] [address] Mammography Report Signed Patient: MARY DAVISR#: [id number] : 1950cct:[id number] Age/Sex: 73 / FADM Date: 07/31/23 Loc: MAMMO Attending Dr: Almaz Pérez NP Ordering Physician: Almaz Pérez NPResults: Date of Service: 07/31/23Follow Up: Procedure(s): MM biopsy LT vac assist Accession Number(s): [id number] cc: Almaz Pérez NP Patient Name: LIDIA DAVIS MR#: [id number] : 1950 Exam Date: 07/31/2023 Ordering Doctor: NANCY Pérez FEDERAL DISTRICT CLERK RADIOLOGY REPORT PROCEDURE: MM BIOPSY LT VAC ASSIST COMPARISON: MM DIAGNOSTIC MAMMO UNILAT LT, 07/11/2023. INDICATIONS: left breast macrocalcification DESCRIPTION: Following informed consent, digital stereotactic mammographic views were obtained to localize the lesion. Multiple vacuum-assisted core biopsies were obtained. Specimen images were obtained to confirm proper sampling. The location of the biopsy was then marked as indicated below. FINDINGS: RECOMMENDATIONS: SPECIMEN #, LOCATION: 6 samples, left breast clustered calcifications SPECIMEN IMAGE: Targeted calcifications were present BIOPSY NEEDLE: 10 gauge Revolve(r) vacuum core biopsy needle. MARKER(S) PLACED: A single metallic marker was placed in theappropriate targeted location. MEDICATION: 2 cubic cm Buffered 1% lidocaine superficial; 8 cubic cm1% lidocaine with epinephrine deep. COMPLICATIONS: None. PATHOLOGY / LAB: Pending. CONCLUSION: 1. Technically successful biopsy of the breast lesion. 2. Pathology results are pending. An addendum will be added whenpathology results are final. Dictated by: Deny Frias MD on 08/01/2023 at 12:19 Approved by: Deny Frias MD on 08/01/2023 at 12:20 Dictated By: Deny Frias M.D. Signed By:08/01/23 1221 DD/ 1220 TD/TT: Clinical Transformation Specialist: us Almaz Pérez PERSONAL FITNESS TRAINER IMG XR PROCEDURES Final Result documented in this encounter Visit Diagnoses Not on filedocumented in this encounter Care Teams Powerhouse Mechanic Supervisor Relationship Specialty Start Date End Date Bryant Torres MD [address] [place] [address] PCP - General Family Medicine 08/01/23 09/01/23 Bryant Torres MD [address] [place] [address] PCP - General Family Medicine 09/02/23 Almaz Pérez NP [address] [place] [address] PCP - ACO Reach 09/03/24 Almaz Pérez NP [address] [place] [address] Nurse Practitioner Family Medicine 04/27/23 documented as of this encounter
--- OUTSIDE RECORDS SUMMARY | 2025-02-10 12:44 | XMS_ITS | Encounter Summary ---
Author Organization [facility] Address [address] [facility] [place] [address] Care Team Providers Care Owner Operator Name Role Phone Almaz Pérez NP Unavailable [phone] Bryant Torres MD Primary Care Provider [phone] Almaz Pérez NP Unavailable [phone] Encounter Details Date Type Department Care Team (Late Contact Info) Description 11/25/2024 Orders Only [facility] [address] [place] [address] Reji Patricia MD [facility], [address] [place] [address] Social History Tobacco Use Types Packs/Day Years [...] [facility] [address] [place] [address] Almaz Pérez NP [address] [place] [address] 07/26/2025 10:30 AM EST Office Visit [facility] [address] [place] [address] Almaz Pérez NP [address] [place] [address] documented as of this encounter Procedures Procedure Name Priority Date/Time Associated Diagnosis Comments DIABETIC RETINOPATHY SCREENING - OU - BOTH EYES Routine 11/25/2024 1:18 PM EDT documented in this encounter Results * Diabetic Retinopathy Screening - OU - Both Eyes (11/25/2024 1:18 PM EDT) Anatomical Region Laterality Modality Head Other Reji Patricia MD OPHTH PHOTOGRAPHY Final Result documented in this encounter Visit Diagnoses Not on filedocumented in this encounter Additional Health Concerns Assessment Noted Time PHQ-9 Depression Total Score: 3 07/26/20 24 11:47 AM EST documented as of this encounter Care Teams Owner Operator Relationship Specialty Start Date End Date Bryant Torres MD [address] [place] [phone] PCP - General Family Medicine 09/02/23 Almaz Pérez NP [address] [place] [address] PCP - ACO Reach 09/03/24 Almaz Pérez NP [address] [place] [address] Nurse Practitioner Family Medicine 04/27/23 documented as of this encounter
--- OUTSIDE RECORDS SUMMARY | 2025-02-10 12:44 | XMS_ITS | Encounter Summary ---
Author Organization [facility] Address [address] [place] [address] Care Team Providers Care Electrical Construction Project Manager Name Role Phone Almaz Pérez NP Unavailable [phone] Bryant Torres MD Primary Care Provider Bryant Torres MD Primary Care Provider Almaz Pérez NP Unavailable [phone] Encounter Details Date Type Department Care Team (Late Contact Info) Description 07/25/2023 Abstract [facility] [address] [place] [address] Almaz Pérez NP [address] [place] [address] Social History Tobacco Use Types Packs/Day Years Used Date Smoking Tobacco: Never Assessed Comments Unknown Sex and Gender Information Value Date Recorded Sex Assigned at Not on file Legal Sex Female 8:00 PM EDT Gender Identity Not on file Sexual Orientation Not on file documented as of this encounter Plan of Treatment Upcoming Encounters Date Type Department Care Team ([facility] Contact Info) Description 03/15/2025 1:40 PM EDT Office Visit [facility] [address] [place] [address] Almaz Pérez NP [address] [place] [address] 07/26/2025 10:30 AM EST Office Visit [facility] [address] [place] [address] Almaz Pérez NP [address] [place] [phone] documented as of this encounter Visit Diagnoses Not on filedocumented in this encounter Care Teams Electrical Construction Project Manager Relationship Specialty Start Date End Date Bryant Torres MD [address] [place] [phone] PCP - General Family Medicine 08/01/23 09/01/23 Bryant Torres MD [address] [place] [phone] PCP - General Family Medicine 09/02/23 Almaz Pérez NP [address] [place] [phone] PCP - ACO Reach 09/03/24 Almaz Péerz NP [address] [place] [phone] Nurse Practitioner Family Medicine 04/27/23 documented as of this encounter
--- OUTSIDE RECORDS SUMMARY | 2025-02-10 12:44 | XMS_ITS | Encounter Summary ---
Author Organization [facility] Address [address] [place] [facility] [place] [address] Care Team Providers Care Perforator Loader Name Role Phone Almaz Pérez NP Unavailable [phone] Bryant Torres MD Primary Care Provider [phone] Almaz Pérez NP Unavailable [phone] Encounter Details Date Type Department Care Team (Late Contact Info) Description 08/05/2024 Orders Only [facility] [address] [place] [address] Reji Patricia MD [facility], [address] [place] [address] Social History Tobacco Use Types [...] 03/15/2025 1:40 PM EDT [facility] [address] [place] [address] Almaz Pérez NP [address] [place] [address] 07/26/2025 10:30 AM EST Office Visit [facility] [address] [place] [phone] Almaz Pérez, CIPRIANO [address] [place] [phone] documented as of this encounter Procedures Procedure Name Priority Date/Time Associated Diagnosis Comments DIABETES EYE EXAM Routine 08/05/2024 1:24 PM EST documented in this encounter Results * Diabetes Eye Exam (08/05/2024 1:24 PM EST) Reji Patricia MD HEALTH MAINTENANCE Final Resul t documented in this encounter Visit Diagnoses Not on filedocumented in this encounter Additional Health Concerns Assessment Noted Time PHQ-9 Depression Total Score: 3 07/26/20 24 11:47 AM EST documented as of this encounter Care Teams Perforator Loader Relationship Specialty Start Date End Date Bryant Torres MD [address] [place] [phone] PCP - General Family Medicine 09/02/23 Almaz Pérez NP [address] [place] [phone] PCP - ACO Reach 09/03/24 Almaz Pérez NP [address] [place] [phone] Nurse Practitioner Family Medicine 04/27/23 documented as of this encounter
--- OUTSIDE RECORDS SUMMARY | 2025-02-10 12:44 | XMS_ITS | Encounter Summary ---
Author Organization [facility] Address [address] [place] [address] Care Team Providers Care Relief Map Modeler Name Role Phone Almaz Pérez NP Unavailable [phone] Bryant Torres MD Primary Care Provider Bryant Torres MD Primary Care Provider [phone] Almaz Pérez DICER MACHINE OPERATOR Unavailable [phone] Encounter Details Date Type Department Care Team (Late st Contact Info) Description 07/11/2023 Clinisync Result Encounter [facility] External Department Unsolicited Almaz Pérez NP [address] [place] [address] Social History Tobacco Use Types Packs/Day Years [...] Visit [facility] [address] [place] [phone] Almaz Pérez NP [address] [place] [address] 07/26/2025 10:30 AM EST Office Visit [facility] [address] [place] [address] Almaz Pérez, CIPRIANO [address] [place] [address] documented as of this encounter Procedures Procedure Name Priority Date/Time Associated Diagnosis Comments US BREAST LT LIMITED 07/11/2023 2:48 PM EST documented in this encounter Results * US BREAST LT LIMITED (07/11/2023 2:48 PM EST) Anatomical Region Laterality Modality Other 07/11/2023 2:48 PM EST Narrative 07/11/2023 2:50 [place] [address] Ultrasound Report Signed Patient: LIDIA DAVIS MR#: [id number] : 1950 Acct:[id number] Age/Sex: 73 / F ADM Date: 07/11/23 Loc: MAMMO Attending Dr: Almaz Pérez NP Ordering Physician: Almaz Pérez NP Date of Service: 07/11/23 Procedure(s): US breast LT limited Accession Number(s): [id number] cc: Almaz Pérez NP Patient Name: LIDIA DAVIS MR#: [id number] : 1950 Exam Date: 07/11/2023 Ordering Doctor: NANCY Pérez BUNDLE WRAPPER RADIOLOGY REPORT PROCEDURE: MM DIAGNOSTIC MAMMO UNILAT LT, 07/11/2023, 13:36 US BREAST LT LIMITED, 07/11/2023, 13:58 COMPARISON: MM TOMOSYNTHESIS SCREENING BI, 06/23/2023. INDICATIONS: Left Breast Abnormality On Screening Mammogram Calculator Name NCI Breast Cancer Risk Assessment Tool 5 Year Breast Cancer Risk 1.60% Lifetime Breast Cancer Risk 4.30% Personal Breast Cancer No Personal Ovarian Cancer No Treatments None Family Cancers None LOCATION: [facility] BREAST COMPOSITION: Heterogeneously dense,which may obscure small [...] By: Deny Frias M.D. Signed By: 07/11/23 1450 DD/ 1448 TD/TT: Vegetable Grower: Procedure Note Radiology, Radiologist, - 07/11/2023 [place] [address] Ultrasound Report Signed Patient: MARY DAVISR#: [id number] : 1950cct:[id number] Age/Sex: 73 / FADM Date: 07/11/23 Loc: MAMMO Attending Dr: Almaz Pérez NP Ordering Physician: Almaz Pérez NP Date of Service: 07/11/23 Procedure(s): US breast LT limited Accession Number(s): [id number] cc: Almaz Pérez NP Patient Name: LIDIA DAVIS MR#: [id number] : 1950 Exam Date: 07/11/2023 Ordering Doctor: [...] Treatments None Family Cancers None LOCATION: [facility] BREAST COMPOSITION: Heterogeneously dense,which may obscure smallmasses. [...] Dictated By: Deny Frias M.D. Signed By:07/11/23 1451 DD/ 1448 TD/TT: Vegetable Grower: us Almaz Pérez NP [facility] Final Result documented in this encounter Visit Diagnoses Not on filedocumented in this encounter Care Teams Relief Map Modeler Relationship Specialty Start Date End Date Bryant Torres MD [address] [place] [address] PCP - General Family Medicine 08/01/23 09/01/23 Bryant Torres MD [address] [place] [address] PCP - General Family Medicine 09/02/23 Almaz Pérez NP [address] [place] [address] PCP - ACO Reach 09/03/24 Almaz Pérez NP [address] [place] [address] Nurse Practitioner Family Medicine 04/27/23 documented as of this encounter
--- OUTSIDE RECORDS SUMMARY | 2025-02-10 12:44 | XMS_ITS | Encounter Summary ---
Author Organization [facility] Address [address] [facility] [place] [address] Care Team Providers Care Dural Mechanic Name Role Phone Almaz Pérez NP Unavailable [phone] Bryant Torres MD Primary Care Provider [phone] Almaz Pérez NP Unavailable [phone] Encounter Details Date Type Department Care Team (Late Contact Info) Description 02/07/2025 Bamboo flowsheet [facility] [address] [place] [address] Almaz Pérez NP [address] [place] [address] Social History Tobacco Use Types Packs/Day Years [...] Upcoming Encounters Date Type Department Care Team ([facility] Contact Info) Description 03/15/2025 1:40 PM EDT Office Visit [facility] [address] [place] [address] Almaz Pérez NP [address] [place] [phone] 07/26/2025 10:30 AM EST Office Visit [facility] [address] [place] [address] Almaz Pérez NP [address] [place] [phone] documented as of this encounter Visit Diagnoses Not on filedocumented in this encounter Additional Health Concerns Assessment Noted Time PHQ-9 Depression Total Score: 3 07/26/20 24 11:47 AM EST documented as of this encounter Care Teams Dural Mechanic Relationship Specialty Start Date End Date Bryant Torres MD [address] [place] [phone] PCP - General Family Medicine 09/02/23 Almaz Pérez NP [address] [place] [phone] PCP - ACO Reach 09/03/24 Almaz Pérez NP [address] [place] [phone] Nurse Practitioner Family Medicine 04/27/23 documented as of this encounter
--- OUTSIDE RECORDS SUMMARY | 2025-02-10 12:44 | XMS_ITS | Clinical Summary ---
Author Organization [facility] Address [address] [place] [address] Care Team Providers Care Chemical Checker Name Role Phone Almaz Pérez NP Unavailable [phone] Bryant Torres MD Primary Care Provider Almaz Pérez SHOULDER BONER Unavailable [phone] Allergies Active Allergy Reactions Criticality Noted Date Comments Duloxetine Hcl GI intolerance High 10/27/2023 Vomiting, nausea, dizziness Medications Drug [place] Unilet Lancets 30G misc USE DIRECTED to test sugar ONCE DAILY 09/30/19 23 Active Blood Glucose Monitoring Suppl (True Metrix Air Glucose Meter) w/Device kit USE DIRECTED to test BLOOD SUGAR ONCE DAILY 09/30/19 23 Active glucose blood (True Metrix Blood Glucose Test) test stripIndications:T ype 2 diabetes with nephropathy (HCC) USE DIRECTED to test BLOOD SUGAR DAILY 100 each 4 12/16/19 24 Active aspirin 81 MG EC tablet Take 81 mg by mouth Daily Active gabapentin (Neurontin) 600 MG tabletIndications: Diabetic polyneuropathy associated with type 2 diabetes mellitus (HCC) TAKE 1 TABLET BY MOUTH IN THE MORNING, then ONE TABLET BY MOUTH in the afternoon, and then 2 (TWO) (TWO) TABLETS BY MOUTH AT BEDTIME 360 tablet 1 11/09/19 25 Active amitriptyline (Elavil) 10 MG tabletIndications: 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, unspecified retinopathy severity (HCC) Take 1 tablet (10 mg) by mouth at bedtime 90 tablet 1 07/14 Active atorvastatin (Lipitor) 10 MG tabletIndications: Type 2 diabetes with nephropathy (HCC) Take 1 tablet (10 mg) by mouth in the evening 90 tablet 02/08/20 Active furosemide (Lasix) 20 MG tabletIndications: Bilateral lower extremity edema Take 1 tablet (20 mg) by mouth Daily 90 tablet 02/08/20 Active glimepiride (Amaryl) 2 MG tabletIndications: Type 2 diabetes mellitus with other specified complication, without long-term current use of insulin (HCC) Take 1 tablet (2 mg) by mouth in the morning and 1 tablet (2 mg) in the evening. Take before meals. 180 tablet 02/08/20 Active lisinopril 20 MG tabletIndications: Primary hypertension Take 1 tablet (20 mg) by mouth in the morning and 1 tablet (20 mg) before bedtime. 180 tablet 02/08/20 Active metFORMIN XR (Glucophage-XR) 500 MG 24 hr tabletIndications: Type 2 diabetes with nephropathy (HCC) Take 2 tablets (1,000 mg) by mouth in the morning and 2 tablets (1,000 mg) in the evening. Take before meals. Do not crush, chew, or split. 360 tablet 02/08/20 Active pioglitazone (Actos) 30 MG tabletIndications: Type 2 diabetes mellitus with other specified complication, without long-term current use of insulin (HCC) Take 1 tablet (30 mg) by mouth in the morning. 90 tablet 02/08/20 Active carvedilol (Coreg) 6.25 MG tabletIndications: Primary hypertension Take 1 tablet (6.25 mg) by mouth in the morning and 1 tablet (6.25 mg) in the evening. Take with meals. 180 tablet 02/08/20 Active amitriptyline (Elavil) 10 MG tabletIndications: 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, unspecified retinopathy severity (HCC) Take 1 tablet (10 mg) by mouth at bedtime 90 tablet 09/07/19 Discontin ued(Reord er) atorvastatin (Lipitor) 10 MG tabletIndications: Type 2 diabetes with nephropathy (HCC) Take 1 tablet (10 mg) by mouth in the evening 90 tablet 11/09/19 25 Discontin ued(Reord er) fluticasone (Flonase) 50 MCG/ACT nasal sprayIndications:E nvironmental and seasonal allergies Administer 2 sprays into each nostril Daily Shake gently. Before first use, prime pump. After use, clean tip and replace cap. 48 g 11/09/19 25 025 Discontin ued(Thera py completed ) glimepiride (Amaryl) 2 MG tabletIndications: Type 2 diabetes mellitus with other specified complication, without long-term current use of insulin (HCC) Take 1 tablet (2 mg) by mouth in the morning and 1 tablet (2 mg) in the evening. Take before meals. 180 tablet 1 11/09/19 25 Discontin ued(Reord er) lisinopril 20 MG tabletIndications: Primary hypertension Take 1 tablet (20 mg) by mouth in the morning and 1 tablet (20 mg) before bedtime. 180 tablet 1 11/09/19 25 025 Discontin ued(Reord er) loratadine (Claritin) 10 MG tabletIndications: Environmental and seasonal allergies Take 1 tablet (10 mg) by mouth Daily 90 tablet 1 11/09/19 25 025 Discontin ued(Thera py completed ) metFORMIN XR (Glucophage-XR) 500 MG 24 hr tabletIndications: Type 2 diabetes with nephropathy (HCC) Take 2 tablets (1,000 mg) by mouth in the morning and 2 tablets (1,000 mg) in the evening. Take before meals. Do not crush, chew, or split. 360 tablet 1 11/09/19 25 025 Discontin ued(Reord er) pioglitazone (Actos) 30 MG tabletIndications: Type 2 diabetes mellitus with other specified complication, without long-term current use of insulin (HCC) Take 1 tablet (30 mg) by mouth in the morning. 90 tablet 1 11/09/19 25 025 Discontin ued(Reord er) furosemide (Lasix) 20 MG tabletIndications: Bilateral lower extremity edema Take 1 tablet (20 mg) by mouth Daily 30 tablet 1 11/09/19 25 025 Discontin ued(Reord er) carvedilol (Coreg) 3.125 MG tabletIndications: Primary hypertension Take 1 tablet (3.125 mg) by mouth in the morning and 1 tablet (3.125 mg) in the evening. Take with meals. 60 tablet 1 12/29/19 25 025 Discontin ued(Thera py completed ) Active Problems Problem Noted Date Diagnosed Date Paroxysmal atrial fibrillation 02/07/2025 Assessment & Plan (02/07/2025 2:42 PM EDT): Noted on surgery of eye NSR today Order holter monitor 7 day Continue asa, will increase carvediolol to 6.25mg BID Mixed hyperlipidemia 09/08/2024 Assessment & Plan (11/08/2024 7:03 AM EDT): On statin therapy Check labs yearly and prn dose changes Type 2 diabetes mellitus with other specified co mplication 09/07/2024 Assessment & Plan (02/07/2025 7:37 AM EDT): Check blood sugars daily, notify if <70 [...] statin, and BATRES A1c: 6.3% on 11/15/24 Assessment & Plan (12/28/2024 6:55 AM EDT): Check blood sugars daily, notify if <70 [...] statin, and BATRES A1c: 6.3% on 11/15/24 Assessment & Plan (11/08/2024 2:29 PM EDT): Check blood sugars daily, notify if <70 [...] in office, will send for A1c test Assessment & Plan (09/07/2024 2:59 PM EST): Check blood sugars daily, notify if <70 [...] 07/16/24 Type 2 diabetes mellitus with diabetic polyneuro luann 09/07/2024 Assessment & Plan (11/08/2024 7:00 AM EDT): Current meds gabapentin and elavil OARRS reviewed Recommend good glycemic control Assessment & Plan (09/07/2024 7:36 AM EST): Current meds gabapentin and elavil OARRS reviewed Recommend good glycemic control Other chest pain 09/07/2024 Overview (09/19/2024): 08/2024: EKG normal, ECHO Ef 55-60%, mod concentric LVH, mild-mod bilat atrial dilatation , AV mild calcification Assessment & Plan (10/06/2024 3:15 PM EDT): Reviewed EKG and ECHO Waiting on stress test: was never called as of yet Assessment & Plan (09/07/2024 3:00 PM EST): At this point strong risk factors for CAD: HTN , DM Is on statin, chris, asa, Check EKG, and ECHO, then stress test based on EKG and ECHO Bilateral lower extremity edema 09/07/2024 Assessment & Plan (02/07/2025 2:40 PM EDT): Stable on current meds Renal function is stable as well Assessment & Plan (12/28/2024 6:54 AM EDT): Elevated legs, limit sodium Current med: lasix at 20mg Assessment & Plan (11/08/2024 2:29 PM EDT): Elevated legs, limit sodium Add lasix at 20mg daily Check labs in 1 week Order given Assessment & Plan (10/06/2024 7:17 AM EDT): Elevated legs, limit sodium Possible side effect for pioglitazone Labs no acute findings ECHO 09/16/24 : EF 55-60% Still waiting on stress test Add diuretic Assessment & Plan (09/07/2024 2:58 PM EST): Elevated legs, limit sodium Possible side effect for pioglitazone Check labs and ECHO Consider diuretic On statin therapy 09/07/2024 Morbid (severe) obesity due to excess calories 1 Assessment & Plan (02/07/2025 7:37 AM EDT): Discussed with patient their BMI (actual, verses recommended). We have also discussed lifestyle modifications: attempts to perform physical activity as chronic conditions allow, also to monitor dietary intake: increasing protein/fruits/veggies and lowering carb intake (unless contraindicated). Limit sodas, juices, and sugary drinks. Protein for breakfast, lunch time Assessment & Plan (12/28/2024 2:40 PM EDT): Discussed with patient their BMI (actual, verses recommended). We have also discussed lifestyle modifications: attempts to perform physical activity as chronic conditions allow, also to monitor dietary intake: increasing protein/fruits/veggies and lowering carb intake (unless contraindicated). Limit sodas, juices, and sugary drinks. Protein for breakfast, lunch time Assessment & Plan (11/08/2024 7:01 AM EDT): Discussed with patient their BMI (actual, verses recommended). We have also discussed lifestyle modifications: attempts to perform physical activity as chronic conditions allow, also to monitor dietary intake: increasing protein/fruits/veggies and lowering carb intake (unless contraindicated). Limit sodas, juices, and sugary drinks. Assessment & Plan (10/06/2024 7:17 AM EDT): Discussed with patient their BMI (actual, verses recommended). We have also discussed lifestyle modifications: attempts to perform physical activity as chronic conditions allow, also to monitor dietary intake: increasing protein/fruits/veggies and lowering carb intake (unless contraindicated). Limit sodas, juices, and sugary drinks. Assessment & Plan (09/07/2024 7:39 AM EST): Discussed with patient their BMI (actual, verses recommended). We have also discussed lifestyle modifications: attempts to perform physical activity as chronic conditions allow, also to monitor dietary intake: increasing protein/fruits/veggies and lowering carb intake (unless contraindicated). Limit sodas, juices, and sugary drinks. Encounter for subsequent [facility] wellness visit (AWV) in Medicare patient 07/26/2024 Assessment & Plan (07/26/2024 6:48 AM EST): I have reviewed Ht/Wt/BMI, I have reviewed recommended vaccines for patient's age, as well as all recommended screenings I have reviewed available care everywhere notes as well. I have recommended eating a balanced diet, as well as activity as chronic conditions allow It is recommended that the patient have a yearly eye exam, as well as twice a year dental exams Fu in this office for wellness on a yearly basis Encounter for screening mamm ogram for malignant neoplasm of breast 07/26/2024 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 06/10/2024 Assessment & Plan (07/26/2024 6:44 AM EST): Yearly eye exams and prn Glucose control goals Environmental and seasonal allergies 04/21/2024 Dizziness 11/27/2023 Assessment & Plan (12/16/2023 2:16 PM EDT): resolved Assessment & Plan (11/27/2023 10:21 AM EDT): Check labs May be related to combination of DM and HTN uncontrolled No acute neuro findings Current mild episode of luisa r depressive disorder without prior episode 10/21/2023 Assessment & Plan (10/21/2023 10:21 AM EDT): Discussion about what depression is and is not Has loss of interest, as well as lack of motivation, sleeping too much, not keeping up w self care Will trial duloxetine 30mg, may help with depression as well as neuropathy Take medication only as directed. This medication will take approximately 4-6 weeks to become effective. If any suicidal thoughts, thoughts of hurting others, or hallucinations contact the office or proceed to the Emergency Room for mental health evaluation. Medication may cause dry mouth, dizziness, and in some cases worsening in depression symptoms. Please contact the office if these occur. Fu in 4 weeks Primary hypertension 09/17/2023 Assessment & Plan (02/07/2025 2:41 PM EDT): Please check blood pressure daily and record DASH diet Limit caffeine Take medication as directed Contact office if chest pain, pressure, dizziness, shortness of breath, swelling legs Recommend slow position changes Current meds: chris, carvedilol Increase dose to 6.25mg BID Assessment & Plan (12/28/2024 2:40 PM EDT): Please check blood pressure daily and record DASH diet Limit caffeine Take medication as directed Contact office if chest pain, pressure, dizziness, shortness of breath, swelling legs Recommend slow position changes Current meds: chris, add carvedilol Fu in 6 weeks Assessment & Plan (11/08/2024 7:00 AM EDT): Please check blood pressure daily and record DASH diet Limit caffeine Take medication as directed Contact office if chest pain, pressure, dizziness, shortness of breath, swelling legs Recommend slow position changes Current meds: chris Assessment & Plan (10/06/2024 3:15 PM EDT): Please check blood pressure daily and record DASH diet Limit caffeine Take medication as directed Contact office if chest pain, pressure, dizziness, shortness of breath, swelling legs Recommend slow position changes Current meds: chris Assessment & Plan (09/07/2024 2:58 PM EST): Please check blood pressure daily and record DASH diet Limit caffeine Take medication as directed Contact office if chest pain, pressure, dizziness, shortness of breath, swelling legs Recommend slow position changes Current meds: chris Will check ECHO further evaluation cardiac garay Assessment & Plan (07/26/2024 6:43 AM EST): Please check blood pressure daily and record DASH diet Limit caffeine Take medication as directed Contact office if chest pain, pressure, dizziness, shortness of breath, swelling legs Recommend slow position changes Current meds: chris Assessment & Plan (04/21/2024 10:51 AM EDT): Blood pressure is good No med dose changes Fu in 3 months Assessment & Plan (01/20/2024 2:11 PM EDT): Blood pressure is good Would like script for home bp kit Fu in 3 months Assessment & Plan (11/27/2023 10:21 AM EDT): Increase dose of lisinopril to 20mg BID Check labs Fu in 2 weeks for blood pressure recheck Assessment & Plan (10/21/2023 9:49 AM EDT): Will increase her lisinopril to 20mg daily Fu in 6 weeks Assessment & Plan (09/17/2023 9:29 AM EST): Will start lisinopril Advised of side effects to monitor for Fu labs in 4 weeks Fu office 4 weeks Acute pain of right shoulder 08/06/2023 Acute bursitis of right shoulder 08/06/2023 Assessment & Plan (08/06/2023 10:18 AM EST): Refer to Ortho for possible injection Calcification of left breast on mammography 06/27 Assessment & Plan (07/13/2023 1:25 PM EST): Mammogram abnormal needs sterotactic breast biopsy Resolved Problems Problem Noted Date Diagnosed Date Resolved Date Nasal inflammation 04/21/2024 UTI symptoms 11/28/2023 10/06/2024 Body mass index (BMI) 36.0-36.9, adult 11/27/2023 09/07/2024 Type 2 diabetes with nephropathy 09/17/2023 09/07/2024 Overview (09/17/2023): metfromin caused severe hair loss Assessment & Plan (07/26/2024 6:45 AM EST): Check blood sugars daily, notify if <70 [...] simple sugars. Current meds: asa, chris, metformin, pioglitazone a1c Assessment & Plan (04/21/2024 10:58 AM EDT): Significant improvement in A1c Will not make [...] diet low in carbohydrates, and simple sugars. Assessment & Plan (01/20/2024 2:12 PM EDT): Will change metformin to XR BID Check labs Fu in 3 months Scheduled to come back tomorrow for a retinavue Assessment & Plan (12/16/2023 2:16 PM EDT): Sugars are doing better with addition of metfromin Is feeling better no longer dizzy Fu in 4 weeks Assessment & Plan (11/27/2023 10:20 AM EDT): Is willing to trial metformin again 500mg titrate to max of 1000mg BID Cont checking sugars Check for labs Assessment & Plan (10/21/2023 10:19 AM EDT): Not at goal, metfromin causes hair loss extreme Will have her start checking fasting sugars daily, fu in 4 weeks Will hold on adding a med at this time Assessment & Plan (09/17/2023 9:32 AM EST): Check blood sugars daily, notify if <70 [...] diet low in carbohydrates, and simple sugars. Check A1c with next lab Continue with gabapentin for management of neuropathy Diabetes 08/21/2023 09/17/2023 Diabetic neuropathy 08/21/2023 09/07/19 Assessment & Plan (07/26/2024 11:44 AM EST): Is currently taking gabapentin OARRS reviewed Recommend tight diabetic control, to help slow the progression of DN Lyrica ?? 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, unspecified retinopathy severity (HCC); Type 2 diabetes with nephropathy (HCC); Bilateral lower extremity edema; Type 2 diabetes mellitus with other specified complication, without long-term current use of insulin (HCC); Paroxysmal atrial fibrillation (HCC) 02/07/2025 Bamboo flowsheet [facility] [address] [place] [address] Almaz Pérez NP 02/06/2025 Travel 02/04/2025 Clinisync Result Encounter [facility] Unsolicited Almaz Pérez NP 12/28/2024 2:00 PM EDT Office Visit [facility] [address] [place] [address] Almaz Pérez NP Primary hypertension (Primary Dx); Bilateral lower extremity edema; Morbid (severe) obesity due to excess calories ([facility]-HCC); Type 2 diabetes mellitus with other specified complication, without long-term current use of insulin (HCC) 12/28/2024 Bamboo flowsheet [facility] [address] [place] [address] Almaz Pérez NP 11/25/2024 Orders Only [facility] [address] [place] [id number] Reji Patricia MD 11/15/2024 Clinisync Result Encounter [facility] External Department Unsolicited Almaz Pérez NP from Last 3 Months Family History Medical History Relation Name Comments Diabetes Half-Sister Diabetes Mother Relation Name Status Comments Half-Sister Alive Mother Social History Tobacco Use Types Packs/Day Years Used Date Smoking Tobacco: Never Tobacco Cessation:Counseling Given: Not Answered Alcohol Use Standard Drinks/Week Comments Yes 7 [...] on file Sexual Orientation Not on file Last Filed Vital Signs Vital Sign Reading [...] oz) 02/07/2025 2:05 P M EDT Height 173.7 cm (5' 8.4 ) 10/06/2024 2:19 PM EDT Body Mass Index 38.14 10/06/2024 2:19 PM EDT Plan of Treatment Upcoming Encounters Date Type Department Care Team (Late st Contact Info) Description 03/15/2025 1:40 PM EDT Office Visit [facility] [address] [place] [phone] Almaz Pérez NP [address] [place] [address] 07/26/2025 10:30 AM EST Office Visit [facility] [address] [place] [address] Almaz Pérez, CIPRIANO [address] [place] [address] Health Maintenance Due Date Last Done Comments CT Colonography 1950 Colonoscopy 1950 FIT 1950 FOBT 1950 Sigmoidoscopy 1950 Pneumococcal Vaccine: 65+ Ye ars (1 of 2 - PCV) 1971 Diabetes: Hemoglobin A1C 02/14/2025 025, 07/26/2024, 04/19/2024, Additional history exists Medicare Annual Wellness (AWV) 07/26/2025 07/26/2024 , 06/10/2023 Mammogram 08/10/2025 08/10/2024, 11/2023, 06/25/2023, Additional history exists Diabetes: Urine Protein Screening 09/08/2025 025, 06/23/2023 Diabetes: Retinopathy Screening 11/25/2025 11/25/2024, 07/08/2024, 06/10/2024 Colorectal Cancer Screening 06/25/2026 FIT-DNA 06/25/2026 06/25/2023 Influenza Vaccine Discontinued Procedures Procedure Name Priority Date/Time Associated Diagnosis Comments ALL BASIC METABOLIC PANEL Routine 02/04/2025 1:22 PM EDT DIABETIC RETINOPATHY SCREENING - OU - BOTH EYES Routine 11/25/2024 1:18 PM EDT ALL LIPID PROFILE (FASTING) Routine 11/15/2024 11:30 AM EDT [facility] CMP (CMP) (FOR REMOTE [facility] USE) Routine 11/15/2024 11:30 AM EDT MLR HEMOGLOBIN A1C Routine 11/15/2024 11 :30 AM EDT MM TOMOSYNTHESIS SCREENING BI 08/10/2024 4:31 PM EST POCT GLYCOSYLATED HEMOGLOBIN (HGB A1C) Routine 07/26/2024 11:25 AM EST Type 2 diabetes with nephropathy (HCC) from Last 3 Months or Most Recently Relevant to Health Maintenance Results * (ABNORMAL) ALL BASIC METABOLIC PANEL [...] 0.55 - 1.02 mg/dL TBH TBH EGFR-AF BURKINAN >60 >=60 mL/min/1.7 3m 2 TBH TBH EGFR-NON AF BURKINAN >60 >=60 mL/min/1.7 3m 2 TBH BUN CREATININE RATIO 31.6 TBH CALCIUM 9.4 8.5 - 10.1 mg/dL TBH 02/04/2025 1:22 PM EDT 02/04/2025 2:09 PM EDT Narrative [facility] - 02/04/2025 3:07 PM EDT us Almaz Pérez NP CLINIS[facility]NC Final Result [facility]NC TB * Diabetic Retinopathy Screening - OU - Both Eyes (11/25/2024 1:18 PM EDT) Anatomical Region Laterality Modality Head Other us Reji Patricia MD OPHTH PHOTOGRAPHY Final Result * (ABNORMAL) MLR HEMOGLOBIN A1C (11/15/2024 11:30 AM EDT) GLYCOHEMOGLOBIN A1C 6.3(H) 4.5 - 6.2 % TBH Comment: ADA RECOMMENDED LIMIT 4.0 - 6.0 ADA THERAPEUTIC TARGET < 7.0 ACTION SUGGESTED > 7.0 ESTIMATED AVERAGE GLUCOSE 134 mg/dL TBH 11/15/2024 11:3 0 AM EDT 11/15/2024 11:33 AM EDT Narrative [facility] - 11/15/2024 11:47 AM EDT Almaz Pérez NP CLINIS[facility]NC Final Result [facility] * (ABNORMAL) [facility] CMP (CMP) (FOR REMOTE [facility] USE) (11/15/2024 11:30 AM EDT) SODIUM 139 136 - 145 mmol/L TBH POTASSIUM 4.1 3.5 - 5.1 mmol/L TBH CHLORIDE 101 98 - 107 mmol/L TBH CARBON DIOXIDE 31.5 21.0 - 32.0 mmol/L TBH ANION GAP 10.6 TBH GLUCOSE 136(H) 74 - 106 mg/dL TBH BLOOD UREA NITROGEN 14.0 7.0 - 18.0 mg/dL TBH CREATININE 0.78 0.55 - 1.02 mg/dL TBH TBH EGFR-AF BURKINAN >60 >=60 mL/min/1. 73m 2 TBH TBH EGFR-NON AF BURKINAN >60 >=60 mL/min/1. 73m 2 TBH BUN CREATININE RATIO 17.9 TBH CALCIUM 9.6 8.5 - 10.1 mg/dL TBH BILIRUBIN TOTAL 0.5 0.2 - 1.0 mg/dL TBH ASPARTATE AMINO TRANSFERASE 21 15 - 37 U/L TBH ALANINE AMINOTRANSFERASE 17 14 - 59 U/L TBH ALKALINE PHOSPHATASE 97 46 - 116 U/L TBH TOTAL PROTEIN 7.7 6.4 - 8.2 g/dL TBH ALBUMIN LEVEL 2.9(L) 3.4 - 5.0 g/dL TBH GLOBULIN 4.8 g/dL TBH ALBUMIN GLOBULIN RATIO 0.6 TBH 11/15/2024 11:3 0 AM EDT 11/15/2024 11:33 AM EDT Narrative [facility]NC - 11/15/2024 12:08 PM EDT Almaz Pérez NP CLINISYNC Final Result [facility]INIS[facility]NC [facility] * (ABNORMAL) ALL LIPID PROFILE (FASTING) (11/15/2024 11:30 AM EDT) TRIGLYCERIDES 84 <=150 mg/dL TBH CHOLESTEROL 146 <=200 mg/dL TBH HDL CHOLESTEROL 68(H) 40 - 60 mg/dL TB Comment: > or =60 mg/dl - LOW CARDIOVASCULAR RISK <40 mg/dl - HIGH CARDIOVASCULAR RISK LDL CHOLESTEROL CALCULATED 62.0 mg/dL TB Comment: <100 mg/dl OPTIMAL 100-129 mg/dl NEAR OR ABOVE OPTIMAL 130-159 mg/dl BORDERLINE HIGH 160-189 mg/dl HIGH >190 mg/dl VERY HIGH VLDL CHOLESTEROL 16.8 mg/dL TB CHOL HDL RATIO 2.1 TB Comment: 3.3 - 4.4 LOW RISK 4.4 - 7.1 AVERAGE RISK 7.1 - 11.0 MODERATE RISK >11.0 HIGH RISK 11/15/2024 11:3 0 AM EDT 11/15/2024 11:33 AM EDT Narrative CLINISYNC - 11/15/2024 12:08 PM EDT Almaz Pérez NP CLINISYNC Final Result Performing Organization Address [facility] Co de Phone Number CLINISYNC TBH * MM TOMOSYNTHESIS SCREENING BI (08/10/2024 4:31 PM EST) Anatomical Region Laterality Modality Other 08/10/2024 4:31 PM EST Narrative 08/10/2024 4:32 [place] [address] Mammography Report Signed Patient: KEI DAVIS MR#: [id number] : 1950 Acct:[id number] Age/Sex: 74 / F ADM Date: 08/10/24 Loc: MAMMO Attending Dr: Almaz Pérez NP Ordering Physician: Almaz Pérez NP Results: Date of Service: 08/10/24 Follow Up: Procedure(s): MM tomosynthesis screening BI Accession Number(s): [id number] cc: Almaz Pérez NP Patient Name: KEI DAVIS MR#: [id number] : 1950 Exam Date: 08/10/2024 Ordering Doctor: [...] Treatments None Family Cancers None LOCATION: [facility] BREAST COMPOSITION: The breasts are heterogeneously dense,which [...] Recio M.D. Signed By: 08/10/24 1632 DD/ 1631 TD/TT: Hostess Party Sales Representative: Procedure Note Radiology, Radiologist, MD - 08/10/2024 [place] [address] Mammography Report Signed Patient: HERBERT DAVIS#: [id number] : 1950cct:[id number] Age/Sex: 74 / FADM Date: 08/10/24 Loc: MAMMO Attending Dr: Almaz Pérez NP Ordering Physician: Almaz Pérez NPResults: Date of Service: 08/10/24Follow Up: Procedure(s): MM tomosynthesis screening BI Accession Number(s): [id number] cc: Almaz Pérez NP Patient Name: KEI DAVIS MR#: [id number] : 1950 Exam Date: 08/10/2024 Ordering Doctor: NANCY Pérez PIPELINES SUPERINTENDENT RADIOLOGY REPORT PROCEDURE: MM TOMOSYNTHESIS SCREENING BI [...] Treatments None Family Cancers None LOCATION: [facility] BREAST COMPOSITION: The breasts are heterogeneously dense,which [...] M.D. Signed By:08/10/24 1632 DD/ 1631 TD/TT: Hostess Party Sales Representative: Almaz Pérez NP [facility] Final Result * POCT glycosylated hemoglobin (Hb A1C) docked device (07/26/2024 11:25 AM EST) Hemoglobin A1C 5.8% Blood Venous blood specimen / Unknown 07/26/2024 11:25 AM EST Almaz Pérez NP POINT OF CARE TEST ENTER/EDIT O RDERABLES Final Result from Last 3 Months or Most Recently Relevant to Health Maintenance Insurance MEDICARE GENERIC OTHER Care Teams Chemical Checker Relationship Specialty Start Date End Date Bryant Torres MD [address] [place] [phone] PCP - General Family Medicine 09/02/23 Almaz Pérez NP [address] [place] [phone] PCP - ACO Reach 09/03/24 Almaz Pérez NP [address] [place] [phone] Nurse Practitioner Family Medicine 04/27/23
--- OUTSIDE RECORDS SUMMARY | 2025-02-10 12:44 | XMS_ITS | Encounter Summary ---
Author Organization [facility] Address [address] [place] [address] Care Team Providers Care Rating Officer Name Role Phone Almaz Pérez NP Unavailable [phone] Bryant Torres MD Primary Care Provider [phone] Almaz Pérez NP Unavailable [phone] Encounter Details Date Type Department Care Team (Latest Contact Info) Description 02/06/2025 Travel Social History Tobacco Use Types Packs/Day Years [...] 1:40 PM EDT Office Visit [facility] [address] [place] [phone] Almaz Pérez NP [address] [place] [phone] 07/26/2025 10:30 AM EST Office Visit [facility] [address] [place] [phone] Almaz Pérez NP [address] [place] [phone] documented as of this encounter Visit Diagnoses Not on filedocumented in this encounter Additional Health Concerns Assessment Noted Time PHQ-9 Depression Total Score: 3 07/26/20 24 11:47 AM EST documented as of this encounter Care Teams Rating Officer Relationship Specialty Start Date End Date Bryant Torres MD [address] [place] [phone] PCP - General Family Medicine 09/02/23 Almaz Pérez NP [address] [place] [phone] PCP - ACO Reach 09/03/24 Almaz Pérez NP [address] [place] [phone] Nurse Practitioner Family Medicine 04/27/23 documented as of this encounter
--- OUTSIDE RECORDS SUMMARY | 2025-02-10 13:08 | XMS_ITS | CCD ---
Author Organization [facility] Care Team Providers Care Patient Account Specialist Name Role Phone VikasChivo shin Unavailable Sheila Alvarez Unavailable NAVEEN, DR AGEE Attending Unavailable HOUSE, DR AGEE Consulting Unavailable FRONTENAC, DR AGEE Primary Care Unavailable HOUSE, DR AGEE Admitting Unavailable Ruttino, Sheila Tesfaye Admitting Unavailable Ruttino, Sheila Tesfaye Attending Unavailable Gus Hodge Primary Care Unavailable Ruttino, Sheila Tesfaye Admitting Unavailable Ruttino, Sheila Tesfaye Attending Unavailable Naveen, Gus Primary Care Unavailable Aichholz PLATE MAKER, Almaz Unavailable Bryant Torres MD Primary Care Provider [phone] Aichholz PLATE MAKER, Almaz Unavailable Aichholz PLATE MAKER, Almaz Unavailable AICHHOLZ, ALMAZ Attending Unavailable AICHHOLZ, ALMAZ Attending Unavailable AICHHOLZ, ALMAZ Attending Unavailable AICHHOLZ, ALMAZ Attending Unavailable AICHHOLZ, ALMAZ Attending Unavailable AICHHOLZ, ALMAZ Attending Unavailable AICHHOLZ, ALMAZ Attending Unavailable Allergies Allergy Classification Reported Allergen(s) Allergy Type Date of Onset Reaction(s) Facility (20 sources) DULoxetine Drug Allergy GI intolerance [facility] Medications Current Medications Medication Drug Class(es) Dates Sig (Normalized) Sig (Original) aspirin 81 mg chewable tablet (20 sources) [...] BLOOD SUGAR ONCE DAILY 09/29/2022 Active carvedilol 6.25 mg oral tablet (8 sources) alpha-Adrenergi c Reyna, beta-Adrenergic Reyna Start: 02-07-2025 End: 05-08-2025 take 1 tablet by mouth in the morning carvedilol (Coreg) 6.25 MG tablet Indications: Primary hypertension Take 1 tablet (6.25 mg) by mouth in the morning and 1 tablet (6.25 mg) in the evening. Take with meals. 180 tablet 02/07/2025 05/08/2025 Active Start: 12-28-2024 End: 02-07-2025 take 1 tablet by mouth in the morning carvedilol (Coreg) 3.125 MG tablet Indications: Primary hypertension Take 1 tablet (3.125 mg) by mouth in the morning and 1 tablet (3.125 mg) in the evening. Take with meals. 60 tablet 1 12/28/2024 02/07/2025 Discontinued (Therapy completed) furosemide 20 mg oral tablet (12 sources) Loop Diuretic Start: 11-08-2024 End: 05-08-2025 take 1 tablet by mouth once daily furosemide (Lasix) 20 MG tablet Indications: Bilateral lower extremity edema Take 1 tablet (20 mg) by mouth Daily 90 tablet 1 02/07/2025 05/08/2025 Active gabapentin 600 mg oral tablet (20 [...] capsules at bedtime Active Gabapentin Activ e meclizine hydrochloride 25 mg oral tablet (14 sources) Antiemetic Start: 04-28-2023 End: 04-21-2024 take 1 tablet by mouth three times daily as needed for dizziness meclizine (Antivert) 25 MG tablet Take 1 tablet by mouth 3 (three) times a day as needed for dizziness 04/28/2023 04/21/2024 Discontinued (Therapy completed) naproxen 500 mg delayed release oral tablet [...] . 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, unspecified retinopathy severity (HCC) Take 1 tablet (10 mg) by mouth at bedtime 90 tablet 1 09/07/2024 02/07/2025 Discontinued (Reorder) atorvastatin 10 mg oral tablet (20 sources) HMG-CoA Reductase Inhibitor Start: 09-07-2024 End: 05-08-2025 take 1 tablet by mouth in the evening atorvastatin (Lipitor) 10 MG tablet Indications: Type 2 diabetes with nephropathy (HCC) Take 1 tablet (10 mg) by mouth in the evening 90 tablet 11/08/2024 02/07/2025 Discontinued (Reorder) fluticasone propionate 0.05 mg/actuat metered dose nasal spray (20 sources) Corticosteroid Start: 07-26-2024 End: 02-07-2025 take 2 spray(s) nasal route once daily fluticasone (Flonase) 50 MCG/ACT nasal spray Indications: Environmental and seasonal allergies Administer 2 sprays into each nostril Daily Shake gently. Before first use, prime pump. After use, clean tip and replace cap. 48 g 1 11/08/2024 02/07/2025 Discontinued (Therapy completed) Start: 04-21-2024 End: 07-20-2024 take 2 spray(s) nasal route once daily fluticasone (Flonase) 50 MCG/ACT nasal spray Indications: Environmental and seasonal allergies Administer 2 sprays into each nostril Daily Shake gently. Before first use, prime pump. After use, clean tip and replace cap. 48 g 1 04/21/2024 Active glimepiride 2 mg oral tablet (20 sources) Sulfonylurea Start: 08-21-2023 End: 05-08-2025 take 1 tablet by mouth in the morning glimepiride (Amaryl) 2 MG tablet Indications: Type 2 diabetes mellitus with other specified complication, without long-term current use of insulin (HCC) Take 1 tablet (2 mg) by mouth in the morning and 1 tablet (2 mg) in the evening. Take before meals. 180 tablet 1 11/08/2024 02/07/2025 Discontinued (Reorder) take 1 tablet by cecelia once daily at breakfast Glimepiride 2 MG 1 tablet with breakfast or the first main meal of the day Orally Active Glimepiride Acti ve lisinopril 20 mg oral tablet (20 sources) Angiotensin Converting Enzyme Inhibitor Start: 04-09-2024 End: 05-08-2025 take 1 tablet by mouth in the morning lisinopril 20 MG tablet Indications: Primary hypertension Take 1 tablet (20 mg) by mouth in the morning and 1 tablet (20 mg) before bedtime. 180 tablet 1 11/08/2024 02/07/2025 Discontinued (Reorder) loratadine 10 mg oral tablet (20 sources) Start: 07-26-2024 End: 02-07-2025 take 1 tablet by mouth once daily loratadine (Claritin) 10 MG tablet Indications: Environmental and seasonal allergies Take 1 tablet (10 mg) by mouth Daily 90 tablet 1 11/08/2024 02/07/2025 Discontinued (Therapy completed) Start: 04-21-2024 End: 07-20-2024 take 1 tablet by mouth once daily loratadine (Claritin) 10 MG tablet Indications: Environmental and seasonal allergies Take 1 tablet (10 mg) by mouth Daily 90 tablet 1 04/21/2024 Active 24 hr metFORMIN hydrochloride 500 mg extended release oral tablet (20 sources) Biguanide Start: 07-11-2024 End: 05-08-2025 take 2 tablets by mouth every twenty-four hours in the morning metFORMIN XR (Glucophage-XR) 500 MG 24 hr tablet Indications: Type 2 diabetes with nephropathy (HCC) Take 2 tablets (1,000 mg) by mouth in the morning and 2 tablets (1,000 mg) in the evening. Take before meals. Do not crush, chew, or split. 360 tablet 1 11/08/2024 02/07/2025 Discontinued (Reorder) Start: 01-20-2024 End: 04-19-2024 take 2 tablets by mouth every twenty-four hours in the morning metFORMIN XR (Glucophage-XR) 500 MG 24 hr tablet Indications: Type 2 diabetes with nephropathy (CMS/HCC) Take 2 tablets (1,000 mg) by mouth in the morning and 2 tablets (1,000 mg) in the evening. Take before meals. Do not crush, chew, or split.. 360 tablet 1 01/20/2024 Active pioglitazone 30 mg oral tablet (20 sources) Peroxisome Proliferator Receptor alpha Agonist, Peroxisome Proliferator Receptor gamma Agonist, Thiazolidinedione Start: 10-21-2023 End: 05-08-2025 take 1 tablet by mouth in the morning pioglitazone (Actos) 30 MG tablet Indications: Type 2 diabetes mellitus with other specified complication, without long-term current use of insulin (HCC) Take 1 tablet (30 mg) by mouth in the morning. 90 tablet 1 11/08/2024 02/07/2025 Discontinued (Reorder) Start: 08-21-2023 take 1 tablet by cecelia th in the morning pioglitazone (Actos) 30 MG tablet Indications: Type 2 diabetes mellitus with other specified complication, without long-term current use of insulin ([facility]) Take 1 tablet (30 mg) by mouth in the morning. 90 tablet 0 08/21/2023 Active Start: 04-15-2023 take 1 tablet by cecelia th every twenty-four hours Actos 30 MG 1 tablet Orally Once a day for 30 day(s) Mar, Active Problems Active Problems Problem Classification Problem Date Documented Date Episodic/Chronic Cardiac dysrhythmias (6 sources) Paroxysmal atrial fibrillation; Translations: [Paroxysmal atrial fibrillation] Onset: 02-07-2025 02-07-2025 Chronic Diabetes mellitus with complications (20 sources) Neuropathy due to diabetes mellitus; Translations: [Type 2 diabetes mellitus with diabetic neuropathy, unspecified] Onset: 08-21-2023 Resolved: 09-07-2024 08-21-2023 Chronic Disorders of lipid metabolism (20 sources) Mixed hyperlipidemia; Translations: [Mixed hyperlipidemia] Onset: [...] 11-28-2023 Resolved: 10-06-2024 11-28-2023 Episodic Mood disorders (20 sources) Mood disorders Onset: 07-26-2024 07-26-2024 Nonmalignant breast conditions (20 sources) Mammographic calcification of left breast; Translations: [Mammographic calcification found on diagnostic imaging of breast] Onset: 07-13-2023 07-13-2023 Episodic Nonspecific chest pain (20 sources) Chest pain; Translations: [Other chest pain] Onset: 09-07-2024 09-07-2024 Episodic Other aftercare (20 sources) Drug therapy finding; Translations: [Other terminal superintendent (current) drug therapy] Onset: 09-07-2024 09-07-2024 Episodic [...] conditions (not mental disorders or infectious disease) (20 sources) Patient encounter status; Translations: [Encounter for screening mammogram for malignant neoplasm of breast] Onset: 07-26-2024 07-26-2024 Episodic Other upper respiratory disease (20 sources) Rhinitis; Translations: [Chronic rhinitis] Onset: 04-21-2024 Resolved: 04-21-2024 04-21-2024 Chronic Results Test Name Value Interpretation Reference Range Facility ALL BASIC METABOLIC PANELon 02-04-2025 Anion gap [Moles/Vol] 13.4 mmol/L [facility] Calcium [Mass/Vol] 9.4 mg/dL 8.5 - 10. 1 mg/dL [facility] Chloride [Moles/Vol] 104 mmol/L 98 - 10 7 mmol/L [facility] CO2 [Moles/Vol] 28.4 mmol/L 21.0 - 32.0 mmol/L [facility] Creatinine [Mass/Vol] 0.76 mg/dL 0.55 - 1.02 mg/dL [facility] GFR/1.73 sq M.predicted CKD-EPI (S/P/Bld) [Vol rate/Area] >60 >=60 mL/min/1.73m 2 [facility] Glucose [Mass/Vol] 150 mg/dL High 74 - 106 mg/dL [facility] Interpretation and review of laboratory results Abnormal [facility] Potassium [Moles/Vol] 4.8 mmol/L 3.5 - 5.1 mmol/L [facility] Sodium [Moles/Vol] 141 mmol/L 136 - 145 mmol/L [facility] TBH EGFR-NON AF AZERBAIJANI >60 >=60 mL/min/1.73m 2 [facility] Urea nitrogen [Mass/Vol] 24 mg/dL High 7.0 - 18.0 mg/dL [facility] Urea nitrogen/Creatinine [Mass ratio] 31.6 mg/mg [facility] MLR HEMOGLOBIN A1Con 025 Glucose [Mass/Vol] 134 mg/dL [facility] HbA1c (Bld) [Mass fraction] 6.3 % High 4.5 - 6.2 % [facility] Comment on above: ADA RECOMMENDED LIMI T 4.0 - 6.0 ADA THERAPEUTIC TARGET < 7.0 ACTION SUGGESTED > 7.0 Interpretation and review of laboratory results Abnormal [facility] ECG 12-LEADon 09-17-2024 [place] [id number] Electrocardiograph Report Signed Patient: KEI DAVIS MR#: [id number] : 1950 Acct:[id number] Age/Sex: 74 / F ADM Date: 09/16/24 Loc: CARD Attending Dr: Almaz Pérez NP Ordering Physician: Almaz Pérez NP Date of Service: 09/16/24 Procedure(s): ECG 12 lead Accession Number(s): [id number] cc: [facility] Test Date: 2024-09-16 Pat Name: KEI DAVIS Department: Room: - Gender: Female Superintendent Institution: : 1950 Requested By: ALMAZ PÉREZ Order Number: [id number] Reading MD: LUIS RODRIGUES Measurements Intervals [place] Rate: 87 P: 64 [place]: 209 QRS: 81 QRSD: 88 T: 73 QT: 373 QTc: 450 Interpretive Statements SINUS RHYTHM Compared to ECG 03/11/2020 10:00:15 Ectopic atrial rhythm no longer present Electronically Signed On 09-17-2024 6:45:58 EST by LUIS RODRIGUES Dictated By: Luis Rodrigues D.O. Signed By: 09/17/24 0646 09/17/24 0646 DD/ 1409 TD/TT: High School Director: [facility] Radiology, Radiologist, MD - 09/17/2024 The [place] [id number] Electrocardiograph Report Signed Patient: KEI DAVIS MR#: [id number] : 1950 Acct:[id number] Age/Sex: 74 / F ADM Date: 09/16/24 Loc: CARD Attending Dr: Almaz Pérez NP Ordering Physician: Almaz Pérez NP Date of Service: 09/16/24 Procedure(s): ECG 12 lead Accession Number(s): [id number] cc: [facility] Test Date: 2024-09-16 Pat Name: KEI DAVIS Department: Room: - Gender: Female Superintendent Institution: : 1950 Requested By: ALMAZ PÉREZ Order Number: [id number] Reading MD: LUIS RODRIGUES Measurements Intervals [place] Rate: 87 P: 64 NJ: 209 QRS: 81 QRSD: 88 T: 73 QT: 373 QTc: 450 Interpretive Statements SINUS RHYTHM Compared to ECG 03/11/2020 10:00:15 Ectopic atrial rhythm no longer present Electronically Signed On 09-17-2024 6:45:58 EST by LUIS RODRIGUES Dictated By: Luis Rodrigues D.O. Signed By: 09/17/24 0646 09/17/24 0646 DD/ 1409 TD/TT: High School Director: [facility] ECG 12-LEADOrdered By: [employer] Radiology on 09-17-2024 [employer] Work Phone: CA ECHO DOPPLER COMPLETEon 0 09-16-2024 [place] [address] Cardiology Report Signed Patient: KEI DAVIS MR#: [id number] : 1950 Acct:[id number] Age/Sex: 74 / F ADM Date: 09/16/24 Loc: CARD Attending Dr: Almaz Pérez NP Ordering Physician: Almaz Pérez NP Date of Service: 09/16/24 Procedure(s): CA echo doppler complete Accession Number(s): [id number] cc: Almaz Pérez NP Patient Name: KEI DAVIS MR#: [id number] : 1950 Exam Date: 09/16/2024 Ordering Doctor: [...] Vincent Magaña M.D. on 09/16/2024 at 17:51 (more content not included)... [facility] Radiology, Radiologist, MD - 09/16/2024 [place] [address] Cardiology Report Signed Patient: KEI DAVIS MR#: [id number] : 1950 Acct:[id number] Age/Sex: 74 / F ADM Date: 09/16/24 Loc: CARD Attending Dr: Almaz Pérez NP Ordering Physician: Almaz Pérez NP Date of Service: 09/16/24 Procedure(s): CA echo doppler complete Accession Number(s): [id number] cc: Almaz Pérez NP Patient Name: KEI DAVIS MR#: [id number] : 1950 Exam Date: 09/16/2024 Ordering Doctor: [...] MAGAÑA Signed By: 09/16/241751 DD/ 50 TD/TT: High School Director: [facility] Radiology Study observation (narrative) [facility] CA ECHO DOPPLER COMPLETEOrde red By: Radiologist Radiology on 09-16-2024 [facility] Work Phone: ECG 12-LEADon 09-16-2024 Radiology Study observation (narrative) [facility] ALL CBC WITH AUTO DIFFon BASOPHILS ABSOLUTE AUTO 0 [facility] Basophils/100 WBC (Bld) 0.5 % 0.2 - 2.0 % [facility] Eosinophils/100 WBC (Bld) 3.2 % 0.9 - 7.0 % [facility] Erythrocyte distribution width (RBC) [Ratio] 14.7 % 11.0 - 15.0 % [facility] Hematocrit (Bld) [Volume fraction] 41.8 % 36.0 - 48.0 % [facility] Hemoglobin (Bld) [Mass/Vol] 13.4 g/dL 12.0 - 16.0 g/dL [facility] IMMATURE GRANULOCYTES ABS AUTO 0.03 [facility] Immature granulocytes/100 WBC (Bld) 0.4 % 0.0 - 0.5 % [facility] Interpretation and review of laboratory results Abnormal [facility] LYMPHOCYTES ABSOLUTE AUTO 1.8 [facility] Lymphocytes/100 WBC (Bld) 23.2 % 20.5 - 60.0 % [facility] MCH (RBC) [Entitic mass] 27.6 pg 26.7 - 34.0 pg [facility] MCHC (RBC) [Mass/Vol] 32.1 g/dL 29.9 - 35.2 g/dL [facility] MCV (RBC) [Entitic vol] 86.2 fL 81.0 - 99.0 fL [facility] MONOCYTES ABSOLUTE AUTO 0.5 [facility] Monocytes/100 WBC (Bld) 6.7 % 1.7 - 12.0 % [facility] NEUTROPHILS ABSOLUTE AUTO 5 [facility] Neutrophils/100 WBC (Bld) 66 % 43.0 - 75.0 % [facility] Platelet mean volume (Bld) [Entitic vol] 9.3 fL Low 9.5 - 13.5 fL [facility] TBH EO # 0.2 [facility] PLT 230 [facility] RBC 4.85 [facility] TB WBC 7.6 [facility] MLR HEMOGLOBIN A1Con 024 Glucose [Mass/Vol] 126 mg/dL [facility] HbA1c (Bld) [Mass fraction] 6.0 % 4.5 - 6.2 % [facility] Comment on above: ADA RECOMMENDED LIMI T 4.0 - 6.0 ADA THERAPEUTIC TARGET < 7.0 ACTION SUGGESTED > 7.0 [facility] US venous duplex LE LTon US venous duplex [address] [address] Ultrasound Report Signed Patient: Kei Davis MR#: [id number] : 1950 Acct:[id number] Age/Sex: 72 / F ADM Date: 11/11/22 Loc: [facility] Room: Type: DEP CLI Attending Dr: Sheila Alvarez PLATE MAKER-C Ordering Provider: Sheila Alvarez APRN Date of [...] Chivo Bullard M.D.11/12/2022 2:36 PM Dictation Location: [place] [address] Tech: Kari Menendez Transcribed By: CY 11/12/221435 Dictated By: Chivo Bullard MD 11/12/221432 Signed By: 11/12/22 143 [facility] CBC AUTO DIFFon 10-08-2022 BASO # 0.0 103/ul Normal 0.0-0.1 [facility] Comment on above: Performed By: #### C BC #### [facility] [address] [place] [address] [address] Jj Torre Basophils/100 WBC (Bld) 0.4 % Normal 0.2-2.0 [facility] Comment on above: Performed By: #### C BC #### [facility] [address] [place] [address] [address] Jj Torre EO # 0.1 103/ul Normal 0.0-0.7 [facility] Comment on above: Performed By: #### C BC #### [facility] [address] [place] [address] Dr. Jj Torre Eosinophils/100 WBC (Bld) 1.5 % Normal 0.9-7.0 [facility] Comment on above: Performed By: #### C BC #### [facility] [address] [place] [address] Dr. Jj Torre Erythrocyte distribution width (RBC) [Ratio] 13.5 % Normal 11.0-15.0 [facility] Comment on above: Performed By: #### C BC #### [facility] [address] [place] [address] Dr. Jj Torre Hematocrit (Bld) [Volume fraction] 45.1 % Normal 36.0-48.0 [facility] Comment on above: Performed By: #### C BC #### [facility] [address] [place] [address] Dr. Jj Torre Hemoglobin (Bld) [Mass/Vol] 15.0 g/dL Normal 12.0-16.0 [facility] Comment on above: Performed By: #### C BC #### [facility] [address] [place] [address] Dr. Jj Torre IG # 0.01 10e3/ul Normal 0.00-0.03 [facility] Comment on above: Performed By: #### C BC #### [facility] [address] [place] [address] Dr. Jj Torre IG % 0.1 % Normal 0.0-0.5 [facility] Comment on above: Performed By: #### C BC #### [facility] [address] [place] [address] Dr. Jj Torre LYMPH # 2.3 103/ul Normal 1.2-3.8 [facility] Comment on above: Performed By: #### C BC #### [facility] [address] [place] [address] Dr. Jj Torre Lymphocytes/100 WBC (Bld) 28.9 % Normal 20.5-60.0 [facility] Comment on above: Performed By: #### C BC #### [facility] [address] [place] [address] Dr. Jj Torre MANUAL DIFF REQ NO Normal [facility] Comment on above: Performed By: #### C BC #### [facility] [address] [place] [address] Dr. Jj Torre MCH (RBC) [Entitic mass] 26.7 pg Normal 26.7-34.0 [facility] Comment on above: Performed By: #### C BC #### [facility] [address] [place] [address] Dr. Jj Torre MCHC (RBC) [Mass/Vol] 33.3 g/dL Normal 29.9-35.2 [facility] Comment on above: Performed By: #### C BC #### [facility] [address] [place] [address] Dr. Jj Torre MCV (RBC) [Entitic vol] 80.2 fL Critically low 81.0-99.0 [facility] Comment on above: Performed By: #### C BC #### [facility] [address] [place] [address] Dr. Jj Torre MONO # 0.6 103/ul Normal 0.3-0.8 [facility] Comment on above: Performed By: #### C BC #### [facility] [address] [place] [address] Dr. Jj Torre Monocytes/100 WBC (Bld) 7.7 % Normal 1.7-12.0 [facility] Comment on above: Performed By: #### C BC #### [facility] [address] [place] [address] Dr. Jj Torre NEUT # 5.0 103/ul Normal 1.4-6.5 [facility] Comment on above: Performed By: #### C BC #### [facility] [address] [place] [address] Dr. Jj Torre Neutrophils/100 WBC (Bld) 61.4 % Normal 43.0-75.0 [facility] Comment on above: Performed By: #### C BC #### [facility] [address] [place] [address] [address] Jj Torre Platelet mean volume (Bld) [Entitic vol] 9.2 fL Critically low 9.5-13.5 [facility] Comment on above: Performed By: #### C BC #### [facility] [address] [place] [address] [address] Jj Torre PLT 214 103/ul Normal 150-450 [facility] Comment on above: Performed By: #### C BC #### [facility] [address] [place] [address] [address] Jj Torre RBC 5.62 106/ul Critically high 4.20-5.40 [facility] Comment on above: Performed By: #### C BC #### [facility] [address] [place] [address] Dr. Jj Torre WBC 8.1 103/ul Normal 4.0-11.0 [facility] Comment on above: Performed By: #### C BC #### [facility] [address] [place] [address] Dr. Jj Torre GLYCOHEMOGLOBIN A1Con 2022 ADA RECOMMENDATION SEE BELOW Normal [facility] Comment on above: Result Comment: ADA RECOMMENDED LIMIT 4.0 - 6.0 ADA THERAPEUTIC TARGET < 7.0 ACTION SUGGESTED > 7.0 Performed By: #### A 1C #### [facility] [address] [place] [address] Dr. Jj Torre Glucose [Mass/Vol] 258 mg/dL Normal [facility] Comment on above: Performed By: #### A 1C #### [facility] [address] [place] [address] Dr. Jj Torre HbA1c (Bld) [Mass fraction] 10.6 % Critically high 4.5-6.2 [facility] Comment on above: Performed By: #### A 1C #### [facility] [address] [place] [address] Dr. Jj Torre MICROALBUMIN, RAND URon - mALB 1.7 mg/L Normal <=30.0 [facility] Comment on above: Performed By: #### M ALBR #### [facility] [address] [place] [address] [address] Jj Torre PROF 14(COMP METB)on 023 Albumin [Mass/Vol] 3.3 g/dL Critically low 3.4-5.0 [facility] Comment on above: Performed By: #### C MP #### [facility] [address] [place] [address] [address] Jj Torre Albumin/Globulin [Mass ratio] 0.7 {ratio} Normal [facility] Comment on above: Performed By: #### C MP #### [facility] [address] [place] [address] Dr. Jj Torre ALP [Catalytic activity/Vol] 104 U/L Normal 46-116 [facility] Comment on above: Performed By: #### C MP #### [facility] [address] [place] [address] Dr. Jj Torre ALT [Catalytic activity/Vol] 13 U/L Critically low 14-59 [facility] Comment on above: Performed By: #### C MP #### [facility] [address] [place] [address] Dr. Jj Torre Anion gap [Moles/Vol] 7.8 mmol/L Normal [facility] Comment on above: Performed By: #### C MP #### [facility] [address] [place] [address] Dr. Jj Torre AST [Catalytic activity/Vol] 9 U/L Critically low 15-37 [facility] Comment on above: Performed By: #### C MP #### [facility] [address] [place] [address] Dr. Jj Torre Bilirubin [Mass/Vol] 0.5 mg/dL Normal 0.2-1.0 [facility] Comment on above: Performed By: #### C MP #### [facility] [address] [place] [address] Dr. Jj Torre Calcium [Mass/Vol] 9.6 mg/dL Normal 8.5-10.1 [facility] Comment on above: Performed By: #### C MP #### [facility] [address] [place] [address] [address] Jj Torre Chloride [Moles/Vol] 100 mmol/L Normal 98-107 [facility] Health Comment on above: Performed By: #### C MP #### [facility] [address] [address] [address] Jj Torre CO2 [Moles/Vol] 30.1 mmol/L Normal 21.0-32.0 [facility] Comment on above: Performed By: #### C MP #### [facility] [address] [address] [address] Jj Torre Creatinine [Mass/Vol] 0.56 mg/dL Normal 0.55-1.02 [facility] Comment on above: Performed By: #### C MP #### [facility] [address] [place] [address] Dr. Jj Torre EGFR-AF AZERBAIJANI >60 Normal >=60 [facility] Comment on above: Performed By: #### C MP #### [facility] [address] [address] [address] Jj Torre EGFR-NON AF AZERBAIJANI >60 Normal >=60 [facility] Comment on above: Performed By: #### C MP #### [facility] [address] [place] [address] Dr. Jj Torre Globulin (S) [Mass/Vol] 4.5 g/dL Normal [facility] Comment on above: Performed By: #### C MP #### [facility] [address] [address] [address] Jj Torre Glucose [Mass/Vol] 343 mg/dL Critically high 74-106 [facility] Comment on above: Performed By: #### C MP #### [facility] [address] [place] [address] Dr. Jj Torre Potassium [Moles/Vol] 3.9 mmol/L Normal 3.5-5.1 [facility] Comment on above: Performed By: #### C MP #### [facility] [address] [place], [place] [address] Dr. Jj oTrre Protein [Mass/Vol] 7.8 g/dL Normal 6.4-8.2 [facility] Comment on above: Performed By: #### C MP #### [facility] [address], [place] [address] Dr. Jj Torre Sodium [Moles/Vol] 134 mmol/L Critically low 136-145 [facility] Comment on above: Performed By: #### C MP #### [facility] [address], [place] [address] Dr. Jj Torre Urea nitrogen [Mass/Vol] 11.0 mg/dL Normal 7.0-18.0 [facility] Comment on above: Performed By: #### C MP #### [facility] [address], [place] [address] Dr. Jj Torre Urea nitrogen/Creatinine [Mass ratio] 19.6 mg/mg Normal [facility] Comment on above: Performed By: #### C MP #### [facility] [address], [place] [address] Dr[address] Jj Torre US venous duplex LE BIon US venous duplex LE [facility] [place] [address] Ultrasound Report Signed Patient: Kei Davis MR#: [id number] : 1950 Acct:[id number] Age/Sex: 72 / F ADM Date: 06/21/22 Loc: Room: Type: [facility] Attending Dr: Sheila Alvarez PLATE MAKER-C Ordering Provider: Sheila Alvarez APRN Date of [...] Armando Cramer MD06/24/2022 4:41 PM Dictation Location: [place] [address] Tech: Yeimy Maynard Transcribed By: [facility] 06/24/22 1641 Dictated By: Armando Cramer MD 06/24/22 1640 Signed By: 06/24/22 1641 [facility] Vital Signs Date Time Vital Sign Value Performing Clinician Facility 02-07-2025 14:05-0400 Body mass index (BMI) [Ratio] 38.14 kg/m2 Almazoskar Pérez PLATE MAKER Work Phone: [facility] 02-07-2025 14:05-0400 Body temperature 98.1 [degF] Almaz Aichholz PLATE MAKER Work Phone: [facility] 02-07-2025 14:05-0400 Body weight 115.12 kg Almaz Aichholz PLATE MAKER Work Phone: [facility] 02-07-2025 14:05-0400 Diastolic blood pressure 88 mm[Hg] Almaz Aiccharliez PLATE MAKER Work Phone: [facility] 02-07-2025 14:05-0400 Heart rate 84 /min Almaz Aichholz PLATE MAKER Work Phone: [facility] 02-07-2025 14:05-0400 Respiratory rate 20 /min Almaz Aichholz PLATE MAKER Work Phone: [facility] 02-07-2025 14:05-0400 SaO2% (BldA) [Mass fraction] 94 % Almaz Humphreyz PLATE MAKER Work Phone: [facility] 02-07-2025 14:05-0400 Systolic blood pressure 160 mm[Hg] Almaz Aichholz PLATE MAKER Work Phone: [facility] 12-28-2024 14:08-0400 Body mass index (BMI) [Ratio] 38.68 kg/m2 Almaz Aichholz PLATE MAKER Work Phone: [facility] 12-28-2024 14:08-0400 Body temperature 98.6 [degF] Almaz Aichholz PLATE MAKER Work Phone: [facility] 12-28-2024 14:08-0400 Body weight 116.76 kg Almaz Aichholz PLATE MAKER Work Phone: [facility] 12-28-2024 14:08-0400 Diastolic blood pressure 80 mm[Hg] Almaz Aichholz PLATE MAKER Work Phone: [facility] 12-28-2024 14:08-0400 Heart rate 85 /min Almaz Aichholz PLATE MAKER Work Phone: [facility] 12-28-2024 14:08-0400 Respiratory rate 20 /min Almaz Aichholz PLATE MAKER Work Phone: [facility] 12-28-2024 14:08-0400 SaO2% (BldA) [Mass fraction] 92 % Almaz Aichholz PLATE MAKER Work Phone: [facility] 12-28-2024 14:08-0400 Systolic blood pressure 160 mm[Hg] Almaz Aichholz PLATE MAKER Work Phone: [facility] 11-08-2024 13:42-0400 Body mass index (BMI) [Ratio] 37.66 kg/m2 Almaz Aichholz PLATE MAKER Work Phone: [facility] 11-08-2024 13:42-0400 Body temperature 98.1 [degF] Almaz Aichholz PLATE MAKER Work Phone: [facility] 11-08-2024 13:42-0400 Body weight 113.67 kg Almaz Aichholz PLATE MAKER Work Phone: [facility] 11-08-2024 13:42-0400 Diastolic blood pressure 82 mm[Hg] Almaz Aichholz PLATE MAKER Work Phone: [facility] 11-08-2024 13:42-0400 Heart rate 95 /min Almaz Aichholz PLATE MAKER Work Phone: [facility] 11-08-2024 13:42-0400 Respiratory rate 20 /min Almazoskar Cobbholz PLATE MAKER Work Phone: [facility] 11-08-2024 13:42-0400 SaO2% (BldA) [Mass fraction] 93 % Almaz Jordynholz PLATE MAKER Work Phone: [facility] 11-08-2024 13:42-0400 Systolic blood pressure 138 mm[Hg] Almaz Aichholz PLATE MAKER Work Phone: [facility] 10-06-2024 14:56-0400 Diastolic blood pressure 72 mm[Hg] Almaz Aichholz PLATE MAKER Work Phone: [facility] 10-06-2024 14:56-0400 Systolic blood pressure 132 mm[Hg] Almaz Aichholz PLATE MAKER Work Phone: [facility] 10-06-2024 14:19-0400 Body height 173.7 cm Almaz Jordynholz PLATE MAKER Work Phone: [facility] 10-06-2024 14:19-0400 Body mass index (BMI) [Ratio] 37.54 kg/m2 Almaz Miahhholz PLATE MAKER Work Phone: [facility] 10-06-2024 14:19-0400 Body temperature 97.81 [degF] Almaz Jordynholz PLATE MAKER Work Phone: [facility] 10-06-2024 14:19-0400 Body weight 113.31 kg Almaz Jordynholz PLATE MAKER Work Phone: [facility] 10-06-2024 14:19-0400 Heart rate 85 /min Almaz Aichholz PLATE MAKER Work Phone: [facility] 10-06-2024 14:19-0400 Respiratory rate 19 /min Almaz Miahhholz PLATE MAKER Work Phone: [facility] 10-06-2024 14:19-0400 SaO2% (BldA) [Mass fraction] 97 % Almaz Miahhholz PLATE MAKER Work Phone: [facility] 09-07-2024 14:20-0500 Diastolic blood pressure 90 mm[Hg] Almaz Yinz PLATE MAKER Work Phone: [facility] 09-07-2024 14:20-0500 Systolic blood pressure 148 mm[Hg] Almaz Jordynholz PLATE MAKER Work Phone: [facility] 09-07-2024 14:14-0500 Body mass index (BMI) [Ratio] 37.56 kg/m2 Almaz Jordynholz PLATE MAKER Work Phone: [facility] 09-07-2024 14:14-0500 Body temperature 98.49 [degF] Almaz Aichholz PLATE MAKER Work Phone: [facility] 09-07-2024 14:14-0500 Body weight 108.77 kg Almaz Jordynholz PLATE MAKER Work Phone: [facility] 09-07-2024 14:14-0500 Heart rate 77 /min Almaz Jordynholz PLATE MAKER Work Phone: [facility] 09-07-2024 14:14-0500 Respiratory rate 18 /min Almaz Jordynholz PLATE MAKER Work Phone: [facility] 09-07-2024 14:14-0500 SaO2% (BldA) [Mass fraction] 94 % Almaz Jordynholz PLATE MAKER Work Phone: [facility] 04-21-2024 09:45-0400 Body height 170.2 cm Almaz Jordynholz PLATE MAKER Work Phone: [facility] 04-21-2024 09:45-0400 Body mass index (BMI) [Ratio] 36.21 kg/m2 Almaz Miahhholz PLATE MAKER Work Phone: [facility] 04-21-2024 09:45-0400 Body temperature 98.1 [degF] Almaz Jordynholz PLATE MAKER Work Phone: [facility] 04-21-2024 09:45-0400 Body weight 104.87 kg Almaz iMahhholz PLATE MAKER Work Phone: [facility] 04-21-2024 09:45-0400 Diastolic blood pressure 70 mm[Hg] Almaz Pérez PLATE MAKER Work Phone: [facility] 04-21-2024 09:45-0400 Heart rate 86 /min Almaz Pérez PLATE MAKER Work Phone: [facility] 04-21-2024 09:45-0400 Respiratory rate 19 /min Almaz Pérez PLATE MAKER Work Phone: [facility] 04-21-2024 09:45-0400 SaO2% (BldA) [Mass fraction] 96 % Almaz Pérez PLATE MAKER Work Phone: [facility] 04-21-2024 09:45-0400 Systolic blood pressure 130 mm[Hg] Almaz Pérez PLATE MAKER Work Phone: [facility] 04-15-2023 11:15-0400 Body height 172.72 cm Chivo Bullard Other [employer] Other 04-15-2023 11:15-0400 Body mass index (BMI) [Ratio] 27.06 kg/m2 Chivo Bullard Other [employer] Other 04-15-2023 11:15-0400 Body temperature 97.3 [degF] Chivo Bullard Other [employer] Other 04-15-2023 11:15-0400 Body weight 80.74 kg Chivo Bullard Other [employer] Other 04-15-2023 11:15-0400 Diastolic blood pressure 82 mm[Hg] Chivo Bullard Other [employer] Other 04-15-2023 11:15-0400 SaO2% (BldA) [Mass fraction] 98 % Chivo Bullard Other [employer] Other 04-15-2023 11:15-0400 Systolic blood pressure 138 mm[Hg] Chivo Bullard Other [employer] Other 11-26-2022 11:45-0400 Body height 172.72 cm Sheila Villarreallinwood Other [employer] Other 11-26-2022 11:45-0400 Body mass index (BMI) [Ratio] 27.06 kg/m2 Sheila Villarreallinwood Other [employer] Other 11-26-2022 11:45-0400 Body temperature 97.8 [degF] Sheila Villarreallinwood Other [employer] Other 11-26-2022 11:45-0400 Body weight 80.74 kg Sheila Villarreallinwood Other [employer] Other 11-26-2022 11:45-0400 Diastolic blood pressure 72 mm[Hg] Sheila Villarreallinwood Other [employer] Other 11-26-2022 11:45-0400 SaO2% (BldA) [Mass fraction] 98 % Sheila Villarreallinwood Other [employer] Other 11-26-2022 11:45-0400 Systolic blood pressure 116 mm[Hg] Sheila Villarrealraúlo Other [employer] Other 07-01-2022 12:00-0500 Body height 172.72 cm Sheila Rutlinwood Other [employer] Other 07-01-2022 12:00-0500 Body mass index (BMI) [Ratio] 27.06 kg/m2 Sheila Alvarez Other [employer] Other 07-01-2022 12:00-0500 Body temperature 97.1 [degF] Sheila Alvarez Other [employer] Other 07-01-2022 12:00-0500 Body weight 80.74 kg Sheila Alvarez Other [employer] Other 07-01-2022 12:00-0500 Diastolic blood pressure 60 mm[Hg] Sheila Alvarez Other [employer] Other 07-01-2022 12:00-0500 SaO2% (BldA) [Mass fraction] 97 % Sheila Alvarez Other [employer] Other 07-01-2022 12:00-0500 Systolic blood pressure 142 mm[Hg] Sheila Alvarez Other [employer] Other 11-19-2021 12:00-0400 Body height 172.72 cm Chivo Bullard Other [employer] Other 11-19-2021 12:00-0400 Body mass index (BMI) [Ratio] 30.86 kg/m2 Chivo Bullard Other [employer] Other 11-19-2021 12:00-0400 Body temperature 97 [degF] Chivo Bullard Other [employer] Other 11-19-2021 12:00-0400 Body weight 92.08 kg Chivo Buehrer Other [employer] Other 11-19-2021 12:00-0400 Diastolic blood pressure 74 mm[Hg] Chivo Buehrer Other [employer] Other 11-19-2021 12:00-0400 SaO2% (BldA) [Mass fraction] 92 % Chivo Buehrer Other [employer] Other 11-19-2021 12:00-0400 Systolic blood pressure 138 mm[Hg] Chivo Buehrer Other [employer] Other 09-03-2021 13:00-0500 Body height 172.72 cm Chivo Vikasehrer Other [employer] Other 09-03-2021 13:00-0500 Body mass index (BMI) [Ratio] 30.86 kg/m2 Chivo Buehrer Other [employer] Other 09-03-2021 13:00-0500 Body temperature 98.5 [degF] Chivo Beanehrer Other [employer] Other 09-03-2021 13:00-0500 Body weight 92.08 kg Chivo Buehrer Other [employer] Other 09-03-2021 13:00-0500 Diastolic blood pressure 92 mm[Hg] Chivo Buehrer Other [employer] Other 09-03-2021 13:00-0500 SaO2% (BldA) [Mass fraction] 96 % Chivo Buehrer Other [employer] Other 09-03-2021 13:00-0500 Systolic blood pressure 160 mm[Hg] Chivo Bullard Other [employer] Other Encounters Encounter Date Encounter Type Care Provider Facility Start: 02-07-2025 End: 02-07-2025 Bamboo flowsheet Almaz Pérez PLATE MAKER Work Phone: [facility] Start: 02-07-2025 End: 02-07-2025 Bamboo flowsheet Almaz Pérez PLATE MAKER Work Phone: [facility] Start: 02-07-2025 End: 02-07-2025 Office outpatient visit 25 minutes Almaz Pérez PLATE MAKER Work Phone: [facility] Comment on above: Primary hypertension (Primary Dx); Morbid (severe) obesity due to excess calories ([facility]); 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, unspecified retinopathy severity (HCC); Type 2 diabetes with nephropathy (HCC); Bilateral lower extremity edema; Type 2 diabetes mellitus with other specified complication, without long-term current use of insulin (HCC); Paroxysmal atrial fibrillation (HCC) Start: 02-04-2025 End: 02-04-2025 Clinisync Result Encounter Almaz Pérez PLATE MAKER Work Phone: [facility] External Department Unsolicited Start: 02-04-2025 End: 02-04-2025 Clinisync Result Encounter Almaz Beto PLATE MAKER Work Phone: [facility] External Department Unsolicited Start: 12-28-2024 End: 12-28-2024 Bamboo flowsheet Almaz Pérez PLATE MAKER Work Phone: [facility] Start: 12-28-2024 End: 12-28-2024 Bamboo flowsheet Almaz Pérez PLATE MAKER Work Phone: [facility] Start: 12-28-2024 End: 12-28-2024 Office outpatient visit 25 minutes Almaz Jordynholz PLATE MAKER Work Phone: [facility] Comment on above: Primary hypertension (CMS/HCC) (Primary Dx); Bilateral lower extremity edema; Morbid (severe) obesity due to excess calories (CMS/HCC); Type 2 diabetes mellitus with other specified complication, without long-term current use of insulin Start: 12-28-2024 End: 12-28-2024 ambulatory ALMAZ AICHHOLZ Not Available Start: 11-15-2024 End: 11-15-2024 Clinisync Result Encounter Almaz Aicgabeholz PLATE MAKER Work Phone: [facility] External Department Unsolicited Start: 11-15-2024 End: 11-15-2024 Clinisync Result Encounter Almaz Jordynholz PLATE MAKER Work Phone: [facility] External Department Unsolicited Start: 11-08-2024 End: 11-08-2024 Bamboo flowsheet Almaz Aichholz PLATE MAKER Work Phone: [facility] Start: 11-08-2024 End: 11-08-2024 Bamboo flowsheet Almaz Aichholz PLATE MAKER Work Phone: [facility] Start: 11-08-2024 End: 11-08-2024 Office outpatient visit 25 minutes Almaz Aichholz PLATE MAKER Work Phone: [facility] Comment on above: Bilateral lower extr [...] (CMS/HCC) Start: 11-08-2024 End: 11-08-2024 ambulatory ALMAZ AICHHOLZ Not Available Start: 10-06-2024 End: 10-06-2024 Bamboo flowsheet Almaz Miahhholz PLATE MAKER Work Phone: [facility] Start: 10-06-2024 End: 10-06-2024 Bamboo flowsheet Almaz Aichholz PLATE MAKER Work Phone: [facility] Start: 10-06-2024 End: 10-06-2024 Office outpatient visit 15 minutes Almaz Humphreyz PLATE MAKER Work Phone: [facility] Comment on above: Other chest pain (Pr imary Dx); Morbid (severe) obesity due to excess calories (CMS/HCC); Primary hypertension (CMS/HCC) Start: 10-06-2024 End: 10-06-2024 ambulatory ALMAZ JORDYNHOLZ Not Available Start: 09-19-2024 End: 09-19-2024 Orders Only Almaz Miahhdavidz PLATE MAKER Work Phone: [facility] Comment on above: Other chest pain (Pr imary Dx) Start: 09-16-2024 End: 09-17-2024 Clinisync Result Encounter Almaz Aichholz PLATE MAKER Work Phone: [facility] Unsolicited Start: 09-16-2024 End: 09-17-2024 Clinisync Result Encounter Almaz Aichholz PLATE MAKER Work Phone: [facility] Department Unsolicited Start: 09-08-2024 End: 09-08-2024 Clinisync Result Encounter Almaz Aichholz PLATE MAKER Work Phone: [facility] Unsolicited Start: 09-08-2024 End: 09-08-2024 Clinisync Result Encounter Almaz Aichholz PLATE MAKER Work Phone: [facility] Unsolicited Start: 09-08-2024 End: 09-08-2024 Orders Only Almaz Aichholz PLATE MAKER Work Phone: [facility] Comment on above: Mixed hyperlipidemia (CMS/HCC) (Primary Dx) Start: 09-07-2024 End: 02-11-2025 Bamboo flowsheet Almaz Miahhholz PLATE MAKER Work Phone: [facility] Start: 09-07-2024 End: 09-07-2024 Bamboo flowsheet Almaz Pérez PLATE MAKER Work Phone: [facility] Start: 09-07-2024 End: 09-07-2024 Office outpatient visit 25 minutes Almaz Pérez PLATE MAKER Work Phone: [facility] Comment on above: Other chest pain (Pr imary Dx); Type 2 diabetes mellitus with other specified complication ([facility]/HCC); Type 2 diabetes mellitus with diabetic polyneuropathy ([facility]/HCC); Morbid (severe) obesity due to excess calories ([facility]); Primary hypertension ([facility]); Type 2 diabetes with nephropathy ([facility]); Bilateral lower extremity edema; 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, unspecified retinopathy severity ([facility]); On statin therapy Start: 09-07-2024 End: 09-07-2024 ambulatory ALMAZ AICHHOLZ Not Available Start: 07-26-2024 End: 07-26-2024 Bamboo flowsheet Almaz Pérez PLATE MAKER Work Phone: [facility] Start: 07-26-2024 End: 07-26-2024 Bamboo flowsheet Almaz Beto PLATE MAKER Work Phone: [facility] Start: 07-26-2024 Patient encounter procedure Almaz Pérez PLATE MAKER Work Phone: [facility] Start: 07-26-2024 End: 07-26-2024 ambulatory ALMAZ AICHHOLZ Not Available Start: 07-12-2024 End: 07-12-2024 Refill Almaz Beto PLATE MAKER Work Phone: [facility] Comment on above: Primary hypertension (CMS/HCC) Start: 05-24-2024 End: 05-24-2024 Refill Almaz Humphreyz PLATE MAKER Work Phone: [facility] Comment on above: Type 2 diabetes jimmy itus with other specified complication, without long-term current use of insulin ([facility]) Start: 05-12-2024 End: 05-12-2024 Refill Almaz Aichholz PLATE MAKER Work Phone: [facility] Comment on above: Type 2 diabetes jimmy itus with other specified complication, without long-term current use of insulin ([facility]) Start: 04-21-2024 End: 04-21-2024 Bamboo flowsheet Almaz Aichholz PLATE MAKER Work Phone: [facility] Start: 04-21-2024 End: 04-21-2024 Bamboo flowsheet Almaz Aichholz PLATE MAKER Work Phone: [facility] Start: 04-21-2024 End: 04-21-2024 Office outpatient visit 25 minutes Almaz Aichholz PLATE MAKER Work Phone: [facility] Comment on above: Type 2 diabetes with nephropathy ([facility]) (Primary Dx); Primary hypertension ([facility]); Obesity (BMI 30-39.9); Current mild episode of major depressive disorder without prior episode ([facility]) ([facility]); Environmental and seasonal allergies Start: 04-21-2024 End: 04-21-2024 ambulatory ALMAZ AICHHOLZ Not Available Start: 04-19-2024 End: 04-19-2024 Clinisync Result Encounter Almaz Aichholz PLATE MAKER Work Phone: [facility] External Department Unsolicited Start: 04-19-2024 End: 04-19-2024 Clinisync Result Encounter Almaz Aichholz PLATE MAKER Work Phone: [facility] External Department Unsolicited Start: 04-16-2024 End: 04-16-2024 Refill Almaz Aichholz PLATE MAKER Work Phone: [facility] Comment on above: Diabetic polyneuropa thy associated with type 2 diabetes mellitus ([facility]) Start: 04-08-2024 End: 04-09-2024 Refill Almaz Aichholz PLATE MAKER Work Phone: [facility] Comment on above: Primary hypertension (CMS/HCC) Start: 01-20-2024 End: 01-20-2024 ambulatory ALMAZ PÉREZ Not Available Start: 09-11-2023 Bamboo flowsheet Marcela sue CHARGE ACCOUNT IDENTIFICATION CLERK [facility] Start: 09-11-2023 Bamboo flowsheet Marcela peacel CHARGE ACCOUNT IDENTIFICATION CLERK [facility] Start: 09-11-2023 End: 09-11-2023 ambulatory Marcela Calvo CHARGE ACCOUNT IDENTIFICATION CLERK [facility] Comment on above: Adhesive capsulitis of right shoulder (Primary Dx); Acute pain of right shoulder Start: 09-09-2023 Bamboo flowsheet Shimon niceton PT Work Phone: [facility] Start: 09-09-2023 Bamboo flowsheet Shimon Chacon kston PT Work Phone: [facility] [...] shoulder Start: 09-04-2023 Bamboo flowsheet Brennan Brink CHARGE ACCOUNT IDENTIFICATION CLERK [facility] Start: 09-04-2023 Bamboo flowsheet Brennan Brink CHARGE ACCOUNT IDENTIFICATION CLERK [facility] Start: 09-04-2023 End: 09-04-2023 ambulatory Brennan Brink CHARGE ACCOUNT IDENTIFICATION CLERK [facility] Comment on above: Adhesive capsulitis of right shoulder (Primary Dx); Acute pain of right shoulder Start: 04-15-2023 End: 04-15-2023 ambulatory Chivo Bullard Other [employer] Other Start: 04-15-2023 Office outpatient vi sit 25 minutes Chivo Bullard [facility] Start: 11-26-2022 End: 11-26-2022 ambulatory Sheila Alvarez Other [employer] Other Start: 11-26-2022 Patient encounter procedure Sheila Alvarez [facility] Start: 11-11-2022 End: 11-11-2022 ambulatory Sheila Tesfaye Carlosyulissa Facility:[facility] Start: 11-08-2022 (EVLT) EVLT saphenou s vein ablation Chivo Bullard [facility] Start: 11-08-2022 End: 11-08-2022 ambulatory Chivo Bullard Other [employer] Other Start: 10-08-2022 End: 10-09-[address] GUS HODGE Facility: Start: 07-01-2022 End: 07-01-2022 ambulatory Sheila Villarrealraúlyulissa Other [employer] Other Start: 07-01-2022 Follow-up encounter Sheila Kim [facility] Start: 06-21-2022 End: 06-21-2022 ambulatory Sheila R Carlosyulissa Facility:[facility] Start: 06-12-2022 (Sclerother) Sclerotherapy Sheila Kim [facility] Start: 06-12-2022 End: 06-12-2022 ambulatory Sheila Villarrealraúlyulissa Other [employer] Other Start: 11-19-2021 End: 11-19-2021 ambulatory Chivo Bullard Other [employer] Other Start: 11-19-2021 Office outpatient vi sit 15 minutes Chivo Bullard [facility] Start: 10-24-2021 End: 10-24-2021 ambulatory Chivo Bullard Other [employer] Other Start: 10-24-2021 Telephone encounter Chivo Bullard [facility] Start: 09-03-2021 End: 09-03-2021 ambulatory Chivo Bullard Other [employer] Other Start: 09-03-2021 Office outpatient vi sit 25 minutes Chivo Sotonathalie [facility] Procedures Date Procedure Procedure Detail Performing Clinician Start: 02-04-2025 ALL BASIC METABOLIC PANEL Almaz Beto PLATE [employer] Work Phone: Start: 11-15-2024 MLR HEMOGLOBIN A1C Almaz Dooleyalfonzo PLATE MAKER Work Phone: Start: 09-16-2024 CA ECHO DOPPLER COMPLETE Almaz Beto PLATE MAKER Work Phone: Start: 09-16-2024 ECG 12-LEAD Almaz Mary pina PLATE MAKER Work Phone: Start: 09-08-2024 ALL CBC WITH AUTO DIFF Almaz Beto PLATE MAKER Work Phone: Start: 08-10-2024 Mammography Almaz Miahgabegabe amarjitz [employer]ATE [employer] Work Phone: Start: 04-19-2024 MLR HEMOGLOBIN A1C Almaz Dooleycharliez [employer]ATE MA[employer]ER Work Phone: Start: 08-01-2023 Mammography Almaz Mary olz [employer] Work Phone: Start: 06-25-2023 Mammography Brennan light CHARGE ACCOUNT IDENTIFICATION CLERK Plan of Treatment Date Care Activity Detail Author Start: 06-25-2026 Screening for malignant neoplasm of colon [facility] Start: 11-25-2025 Glaucoma screening Diabetes: Retinopathy Screening [facility] Start: 09-08-2025 Urine screening for protein Diabetes: Urine Protein Screening [facility] Start: 08-10-2025 Screening for malignant neoplasm of breast Mammogram [facility] Start: 07-26-2025 Medicare Annual Wellness (AWV) Medicare Annual Wellness (AWV) [facility] Start: 07-26-2025 End: 07-26-2025 Patient encounter procedure 07/26/2025 10:30 AM EST Office Visit [facility] [address] [place] [address] Almaz Pérez, PLATE MAKER [address] [place] [address] [facility] Start: 07-08-2025 Glaucoma screening Diabetes: Retinopathy Screening [facility] Start: 02-14-2025 Hemoglobin A1c measurement Diabetes: Hemoglobin A1C [facility] Start: 02-07-2025 End: 02-07-2026 Holter monitor study Holter monitor Imaging Routine Paroxysmal atrial fibrillation (HCC) Expected: 02/07/2025 (Approximate), Expires: 02/07/2026 [facility] Work Phone: Comment on above: Expected: 02/07/2025 (Approximate), Expi res: 02/07/2026 Start: 02-07-2025 End: 02-07-2025 Patient encounter procedure 02/07/2025 2:00 PM EDT Office Visit [facility] [address] [place] [address] Almaz Pérez, CIPRIANO [address] [place] [address] [facility] Start: 12-28-2024 End: 12-28-2025 Basic metabolic 1998 panel - Serum or Plasma Basic metabolic panel Lab Routine Bilateral lower extremity edema Type 2 diabetes mellitus with other specified complication, without long-term current use of insulin Primary hypertension (CMS/HCC) Expected: 12/28/2024 (Approximate), Expires: 12/28/2025 [facility] Work Phone: Comment on above: Expected: 12/28/2024 (Approximate), Expi res: 12/28/2025 Start: 12-28-2024 End: 12-28-2024 Patient encounter procedure [facility] Comment on above: Bilateral lower extremity edema (Primary Dx); Morbid (severe) obesity due to excess calories (CMS/HCC); Type 2 diabetes mellitus with other specified complication, without long-term current use of insulin; Primary hypertension (CMS/HCC) Start: 11-08-2024 End: 09-08-2025 Alanine aminotransferase [Enzymatic activity/volume] in Serum or Plasma ALT Lab Routine Mixed hyperlipidemia (CMS/HCC) Expected: 11/08/2024 (Approximate), Expires: 09/08/2025 [facility] Work Phone: Comment on above: Expected: 11/08/2024 (Approximate), Expi res: 09/08/2025 Start: 11-08-2024 End: 09-08-2025 Aspartate aminotransferase [Enzymatic activity/volume] in Serum or Plasma AST Lab Routine Mixed hyperlipidemia (CMS/HCC) Expected: 11/08/2024 (Approximate), Expires: 09/08/2025 [facility] Comment on above: Expected: 11/08/2024 (Approximate), Expi res: 09/08/2025 Start: 11-08-2024 End: 11-08-2025 Comprehensive metabolic 2000 panel - Serum or Plasma Comprehensive metabolic panel Lab Routine Bilateral lower extremity edema Type 2 diabetes mellitus with other specified complication, without long-term current use of insulin Expected: 11/08/2024 (Approximate), Expires: 11/08/2025 [facility] Comment on above: Expected: 11/08/2024 (Approximate), Expi res: 11/08/2025 Start: 11-08-2024 End: 11-08-2025 Hemoglobin A1c/Hemoglobin.total in Blood Hemoglobin A1c Lab Routine Type 2 diabetes with nephropathy ([facility]) Expected: 11/08/2024 (Approximate), Expires: 11/08/2025 [facility] Work Phone: Comment on above: Expected: 11/08/2024 (Approximate), Expi res: 11/08/2025 Start: 11-08-2024 End: 09-08-2025 Lipid 1996 panel - Serum or Plasma Lipid panel Lab Routine Mixed hyperlipidemia ([facility]/HCC) Expected: 11/08/2024 (Approximate), Expires: 09/08/2025 [facility] Comment on above: Expected: 11/08/2024 (Approximate), Expi res: 09/08/2025 Start: 11-08-2024 End: 11-08-2024 Patient encounter procedure [facility] Comment on above: Type 2 diabetes mellitus with diabetic p olyneuropathy, without long-term current use of insulin ([facility]/HCC) (Primary Dx); Primary hypertension ([facility]/HCC); Bilateral lower extremity edema; Morbid (severe) obesity due to excess calories ([facility]/HCC); Type 2 diabetes mellitus with other specified complication, without long-term current use of insulin; Mixed hyperlipidemia (CMS/HCC) Start: 11-05-2024 End: 09-07-2025 Alanine aminotransferase [Enzymatic activity/volume] in Serum or Plasma ALT Lab Routine On statin therapy Expected: 11/05/2024 (Approximate), Expires: 09/07/2025 [facility] Comment on above: Expected: 11/05/2024 (Approximate), Expi res: 09/07/2025 Start: 11-05-2024 End: 09-07-2025 Aspartate aminotransferase [Enzymatic activity/volume] in Serum or Plasma AST Lab Routine On statin therapy Expected: 11/05/2024 (Approximate), Expires: 09/07/2025 [facility] Comment on above: Expected: 11/05/2024 (Approximate), Expi res: 09/07/2025 Start: 11-05-2024 End: 09-07-2025 Lipid 1996 panel - Serum or Plasma Lipid panel Lab Routine On statin therapy Expected: 11/05/2024 (Approximate), Expires: 09/07/2025 [facility] Comment on above: Expected: 11/05/2024 (Approximate), Expi res: 09/07/2025 Start: 10-24-2024 Hemoglobin A1c measurement Diabetes: Hemoglobin A1C [facility] Start: 10-06-2024 End: 10-06-2024 Patient encounter procedure [facility] Comment on above: Morbid (severe) obesity due to excess ca lories ([facility]/HCC) (Primary Dx); Other chest pain Start: 09-19-2024 End: 09-19-2026 NM Heart Perfusion W adenosine and W radionuclide IV STRESS NUCLEAR MEDICINE [facility] Cardiac Nuclear Medicine Routine Other chest pain Expected: 09/19/2024 (Approximate), Expires: 09/19/2026 [facility] Work Phone: Comment on above: Expected: 09/19/2024 (Approximate), Expi res: 09/19/2026 Start: 09-07-2024 End: 09-07-2025 ECG 12 lead ECG 12 lead ECG Routine Primary hypertension (CMS/HCC) Type 2 diabetes with nephropathy (CMS/HCC) Other chest pain Expected: 09/07/2024 (Approximate), Expires: 09/07/2025 [facility] Comment on above: Expected: 09/07/2024 (Approximate), Expi res: 09/07/2025 Start: 09-07-2024 End: 09-07-2026 Echocardiogram 2D complete Echocardiogram 2D complete Echocardiography High Priority Primary hypertension (CMS/HCC) Other chest pain Bilateral lower extremity edema Expected: 09/07/2024 (Approximate), Expires: 09/07/2026 [facility] Work Phone: Comment on above: Expected: 09/07/2024 (Approximate), Expi res: 09/07/2026 Start: 09-07-2024 End: 09-07-2024 Patient encounter procedure 09/07/2024 2:00 PM EST Office Visit [facility] [address] [place] [address] Almaz Pérez, CIPRIANO [address] [place] [phone] Primary hypertension (CMS/HCC) (Primary Dx); Type 2 diabetes mellitus with other specified complication (CMS/HCC); Type 2 diabetes mellitus with diabetic polyneuropathy (CMS/HCC); Morbid (severe) obesity due to excess calories (CMS/HCC); Type 2 diabetes with nephropathy (CMS/HCC) [facility] Comment on above: Primary hypertension (CMS/HCC) (Primary Dx); Type 2 diabetes mellitus with other specified complication (CMS/HCC); Type 2 diabetes mellitus with diabetic polyneuropathy (CMS/HCC); Morbid (severe) obesity due to excess calories (CMS/HCC); Type 2 diabetes with nephropathy (CMS/HCC) Start: 08-06-2024 Pneumococcal Vaccine: 65+ Years (1 - PCV) Pneumococcal Vaccine: 65+ Years (1 - PCV) [facility] Comment on above: Postponed from 1958 (Patient Refus ed) Start: 08-06-2024 Pneumococcal Vaccine: 65+ Years (1 of 2 - PCV) Pneumococcal Vaccine: 65+ Years (1 of 2 - PCV) [facility] Comment on above: Postponed from 1958 (Patient Refus ed) Start: 08-01-2024 Screening for malignant neoplasm of breast Mammogram [facility] Start: 07-26-2024 End: 07-26-2024 Patient encounter procedure [facility] Comment on above: Encounter for subsequent annual wellness visit (AWV) in Medicare patient (Primary Dx); Diabetic polyneuropathy associated with type 2 diabetes mellitus ([facility]/HCC); Primary hypertension ([facility]/HCC); BMI 35.0-35.9,adult; 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, unspecified retinopathy severity (CMS/HCC); Obesity (BMI 30-39.9); Type 2 diabetes with nephropathy (CMS/HCC); Morbid (severe) obesity due to excess calories ([facility]/HCC); Body mass index (BMI) 36.0-36.9, adult; Encounter for screening mammogram for malignant neoplasm of breast Start: 07-19-2024 Hemoglobin A1c measurement Diabetes: Hemoglobin A1C [facility] Start: 07-15-2024 End: 07-15-2024 Patient encounter procedure 07/15/2024 1:20 PM EST Office Visit [facility] [address] [place] [address] Almaz Pérez NP [address] [place] [address] [facility] Start: 06-25-2024 Screening for malignant neoplasm of breast Mammogram [facility] Start: 06-23-2024 Urine screening for protein Diabetes: Urine Protein Screening [facility] Start: 06-10-2024 Medicare Annual Wellness (AWV) Medicare Annual Wellness (AWV) [facility] Start: 04-21-2024 End: 04-21-2024 Patient encounter procedure 04/21/2024 9:40 AM EDT [facility] [address] [place] [address] Almaz Pérez, PLATE MAKER [address] [place] [address] [facility] Start: 01-25-2024 Influenza vaccination Influenza Vaccine (#1) [facility] Comment on above: Postponed from 03/28/2023 (Patient Refus ed) Start: 01-20-2024 Hemoglobin A1c measurement Diabetes: Hemoglobin A1C [facility] Start: 10-20-2023 End: 10-20-2023 Patient encounter procedure 10/20/2023 9:15 AM EDT Office Visit [facility] [address] [facility] [address] [place] [address] Armando Garcia PA [address] [facility] [address] [place] [address] [facility] Start: 09-26-2023 End: 09-26-2023 ambulatory 09/26/2023 10:00 AM EST Treatment [facility] [address] [facility] [address] [place] [address] Brennan Prieto PTA [facility] Start: 09-23-2023 Hemoglobin A1c measurement Diabetes: Hemoglobin A1C [facility] Start: 09-19-2023 End: 09-19-2023 ambulatory 09/19/2023 10:00 AM EST Treatment [facility] [address] [facility] [place] [address] [place] [address] Brennan Prieto PTA [facility] Start: 09-17-2023 End: 09-17-2023 Patient encounter procedure 09/17/2023 9:00 AM EST Office Visit [facility] [address] [place] [address] Almaz Pérez, CIPRIANO [address] [place] [address] [facility] Start: 09-11-2023 End: 09-11-2023 ambulatory [facility] Comment on above: Adhesive capsulitis of right shoulder (P rimary Dx); Acute pain of right shoulder Start: 09-09-2023 End: 09-09-2023 ambulatory 09/09/2023 10:00 AM EST Treatment [facility] [address] [place] [address] Shimon Simmons, PT [address] [place] [address] [facility] Start: 09-08-2023 Chart abstracting 09/08/2023 Abstract [facility] [address] [facility] [place] [address] [place] [address] Armando Garcia, PA [address] [facility] [address] [place] [address] [facility] Start: 09-08-2023 End: 09-08-2023 Patient encounter procedure 09/08/2023 9:30 AM EST Office Visit [facility] [address] [facility] [address] [place] [address] Armando Garcia PA [address] [facility] [address] [place] [address] [facility] Start: 1971 Pneumococcal Vaccine: 65+ Years (1 of 2 - PCV) Pneumococcal Vaccine: 65+ Years (1 of 2 - PCV) [facility] Start: 1962 Glaucoma screening Diabetes: Retinopathy Screening [facility] Start: 1958 Pneumococcal Vaccine: 65+ Years (1 of 2 - PCV) Pneumococcal Vaccine: 65+ Years (1 of 2 - PCV) [facility] Start: 1952 Screening for malignant neoplasm of colon [facility] Payers Date Payer Category Payer Other GENERIC OTHER [id number] 2022 Unknown GENERIC OTHER GE NERIC OTHER [id number] 2022-Present [phone] [address] [address] [place] [address] [id number] 2022 Self-pay 2018 Medicare [id number] 1959 Medicare [id number] 1959 Unknown [id number] 1952 Unknown [id number] 3 1952 Unknown [id number] 59 1952 Unknown [id number] 59 1952 Unknown [id number] 59 1952 Unknown [id number] 59 1952 Unknown [id number] 59 1952 Unknown [id number] 59 1952 Unknown [id number] 59 Unknown [id number] 1 Unknown [id number] 1 Social History Date Type Detail Facility Start: 08-11-2023 End: 07-26-2024 Sex Assigned At [facility] [employer] Other Start: 08-04-2023 Tobacco smoking status NHIS Never smoked tobacco [facility] Start: 08-11-2023 End: 02-07-2025 Alcohol intake Current drinker of alcohol (finding) [facility] Start: 08-11-2023 End: 07-26-2024 Alcohol intake [facility] Start: 08-04-2023 Alcohol Comment DAILY 7 DAYS A WEEK 1 DRINK WHIS[employer] [facility] Start: 1950 Sex Assigned At Not on file N [facility] Medical Equipment Procedure Code Equipment Code Equipment Origin al Text Equipment Identifier Dates [id number] Start: 09-29-2022 Clinical Notes 09-03-2021 to 02-07-2025 Almaz Pérez NP - 02/07/2025 2:42 PM EDGenny Pérez NP - 02/07/2025 2:40 PM EDTHUMBDAVID MCKEON - 02/07/2025 2:00 PM Mary Pérez NP - 02/07/2025 2:00 PM EDTPatient Instructions Note Date & Type Note Facility 02-07-2025 History of Presen t illness Narrative Associated Problem(s): Paroxysmal atrial fibrillation (HCC) Noted on surgery of eye NSR today Order holter monitor 7 day Continue asa, will increase carvediolol to 6.25mg BID Associated Problem(s): Bilateral lower extremity edema Stable on current meds Renal function is stable as well Pt is concerned that she has afib-when she had her right eye cataracts done the nurse wrote down concerns with her possibly having afib. Images from the original note were not [...] Oral, 2 times daily with meals Drug [place] Unilet Lancets 30G misc USE DIRECTED to [...] of left breast on mammography 07/13/2023 Diabetes ([facility]) 08/21/2023 Diabetic neuropathy ([facility]) 08/21/2023 Type 2 diabetes with nephropathy ([facility]) 09/17/2023 metfromin caused severe hair loss Past Surgical History: Procedure Laterality Date GALLBLADDER SURGERY TUBAL LIGATION VASCULAR SURGERY Bilateral legs family history includes Diabetes in her half-sister and mother. OBJECTIVE: Visit Vitals BP 160/88 (BP Location: Left arm, Patient Position: Sitting, BP Cuff Size: Adult long) Pulse 84 Temp 98.1 F (Temporal) Resp 20 Wt 253 lb 12.8 oz SpO2 94% BMI 38.14 kg/m Smoking Status Never BSA 2.36 m Physical Exam Vitals and nursing note [...] Morbid (severe) obesity due to excess calories ([facility]-HCC) Discussed with patient their BMI (actual, verses [...] XR (Glucophage-XR) 500 MG 24 hr tablet Associated Problem(s): Type 2 diabetes mellitus with [...] Morbid (severe) obesity due to excess calories ([facility]) Discussed with patient their BMI (actual, verses recommended). We have also discussed lifestyle modifications: attempts to perform physical activity as chronic conditions allow, also to monitor dietary intake: increasing protein/fruits/veggies and lowering carb intake (unless contraindicated). Limit sodas, juices, and sugary drinks. Protein for breakfast, lunch time Associated Problem(s): Primary hypertension Please check blood pressure daily and record DASH diet Limit caffeine Take medication as directed Contact office if chest pain, pressure, dizziness, shortness of breath, swelling legs Recommend slow position changes Current meds: chris, carvedilol Increase dose to 6.25mg BID documented in this encounter [facility] 02-07-2025 Instructions Almaz Pérez NP - 02/07/2025 2:00 PM EDT Increase dose of carvediolol to 6.25mg twice a day Holter Monitor: we will fax order to [facility] they should call you to set this up: [phone], ext [phone] documented in this encounter [facility] 12-28-2024 History of Presen t illness Narrative [...] Oral, 2 times daily with meals Drug [place] Unilet Lancets 30G [facility] USE DIRECTED to test sugar ONCE DAILY [...] of left breast on mammography 07/13/2023 Diabetes ([facility]) 08/21/2023 Diabetic neuropathy ([facility]) 08/21/2023 Type 2 diabetes with nephropathy ([facility]) 09/17/2023 metfromin caused severe hair [...] lasix at 20mg documented in this encounter [facility] 12-28-2024 Instructions Almaz Pérez NP - 12/28/2024 [...] you are hungry documented in this encounter [facility] 11-08-2024 History of Presen t illness Narrative [...] being taken. She does not see a outside sales account representative.Eye exam is current. Hypertension This is a [...] to test BLOOD SUGAR ONCE DAILY [facility] USE DIRECTED to test sugar ONCE DAILY [...] of left breast on mammography 07/13/2023 Diabetes ([facility]) 08/21/2023 Diabetic neuropathy ([facility]) 08/21/2023 Type 2 diabetes with nephropathy ([facility]) 09/17/2023 metfromin caused severe hair loss Past [...] obesity due to excess calories (CMS/[facility]) Discussed with patient their BMI (actual, verses [...] good glycemic control documented in this encounter [facility] 10-06-2024 History of Presen t illness Narrative Associated Problem(s): Primary hypertension (CMS/HCC) Please check [...] to test BLOOD SUGAR ONCE DAILY Drug [place] Unilet Lancets 30G misc USE DIRECTED to [...] of left breast on mammography 07/13/2023 Diabetes ([facility]) 08/21/2023 Diabetic neuropathy ([facility]) 08/21/2023 Type 2 diabetes with nephropathy ([facility]) 09/17/2023 metfromin caused severe hair [...] List Items Addressed This Visit Primary hypertension ([facility]) Please check blood pressure daily and record [...] test Add diuretic documented in this encounter [facility] 10-06-2024 Instructions Almaz Pérez NP - 10/06/2024 2:00 PM EDT Will still need stress test documented in this encounter [facility] 09-07-2024 History of Presen t illness Narrative [...] There is no history of kidney disease, CAD/DC, heart failure or PVD. Identifiable causes of [...] to test BLOOD SUGAR ONCE DAILY Drug [place] Unilet Lancets 30G mis USE DIRECTED to [...] of left breast on mammography 07/13/2023 Diabetes ([facility]) 08/21/2023 Diabetic neuropathy ([facility]) 08/21/2023 Type 2 diabetes with nephropathy ([facility]) 09/17/2023 metfromin caused severe hair loss Past [...] Visit RESOLVED: Type 2 diabetes with nephropathy ([facility]) Relevant Medications atorvastatin (Lipitor) 10 MG tablet Other Relevant Orders ECG 12 lead Primary hypertension ([facility]) Please check blood pressure daily and record DASH diet Limit caffeine Take medication as directed Contact office if chest pain, pressure, dizziness, shortness of breath, swelling legs Recommend slow position changes Current meds: chris Will check ECHO further evaluation cardiac garay Relevant Orders Echocardiogram 2D complete ECG 12 lead 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 ([facility]/HCC) Relevant Medications amitriptyline (Elavil) 10 MG tablet Morbid (severe) obesity due to excess calories ([facility]) Discussed with patient their BMI (actual, verses recommended). We have also discussed lifestyle modifications: attempts to perform physical activity as chronic conditions allow, also to monitor dietary intake: increasing protein/fruits/veggies and lowering carb intake (unless contraindicated). Limit sodas, juices, and sugary drinks. Type 2 diabetes mellitus with other specified complication ([facility]) Check blood sugars daily, notify if <70 [...] good glycemic control documented in this encounter [facility] 09-07-2024 Instructions Almaz Pérez NP - 09/07/2024 [...] in 4 weeks documented in this encounter [facility] 04-21-2024 History of Presen t illness Narrative [...] compliance problems. There is no history of CAD/DC or heart failure. SUBJECTIVE: MEDICATIONS: Current Outpatient Medications Medication Instructions aspirin 81 mg, Oral, Daily Blood Glucose Monitoring Suppl (True Metrix Air Glucose Meter) w/Device kit USE DIRECTED to test BLOOD SUGAR ONCE DAILY Drug [place] Unilet Lancets 30G misc USE DIRECTED to [...] of left breast on mammography 07/13/2023 Diabetes ([facility]) 08/21/2023 Diabetic neuropathy ([facility]) 08/21/2023 Type 2 diabetes with nephropathy ([facility]) 09/17/2023 metfromin caused severe hair loss Past [...] This Visit Type 2 diabetes with nephropathy ([facility]/HCC) - Primary Significant improvement in A1c Will [...] major depressive disorder without prior episode (HCC) ([facility]) Obesity (BMI 30-39.9) Environmental and seasonal allergies Relevant Medications loratadine (Claritin) 10 MG tablet fluticasone (Flonase) 50 MCG/ACT nasal spray documented in this encounter [facility] 09-09-2023 History of Presen t illness Narrative [...] Physician Signature: Date: documented in this encounter [facility] 09-08-2023 History of Presen t illness Narrative [...] evaluation. CARYN Segal documented in this encounter [facility] 04-15-2023 Evaluation note Encounter Date Diagnosis Assessment Notes Mar, Varicose veins of left leg with edema (ICD-10 - I83.892) Mar, Other Varicose veins I talk with this patient about potentially continuing treatment for her left leg varicose vein. She does not feel that her symptoms are severe enough at this time to warrant intervention. I advised her to consider at least [id number] r graded compression stockings to minimize the [...] any time should she wish additional treatment [employer] Other 05-02-2023 Evaluation note* Encounter Date Diagnosis [...] the meantime with any issues or concerns. [employer] Other 04-01-2023 History general Narrative - Reported* Type Description Date Medical History type II diabetes Surgical History cholecystectomy Surgical History tubal ligation Surgical History MICRO PHLEBECTOMY RT LEG 2021 Surgical History Venaseal Left Leg 10/2022 [employer] Other 12-05-2022 Evaluation note* Encounter Date Diagnosis [...] near future. Patient denies any additional questions. [employer] Other 04-25-2022 Evaluation note* Encounter Date Diagnosis [...] be treated since she has minimal symptoms. [employer] Other 02-07-2022 Evaluation note* Encounter Date Diagnosis [...] of the procedure she agrees to proceed.] [place] [employer] Other Evaluation noteNo [facility]Nort[facility] Other Evaluation note* Diagnosis Adhesive capsulitis of right shoulder- Primary Acute pain of right shoulder documented in this encounter [facility] HealthcareEvaluation note* Diagnosis Acute pain of right shoulder- Primary Adhesive capsulitis of right shoulder documented in this encounter [facility] [employer] note* Diagnosis Adhesive capsulitis of right shoulder- Primary Acute pain of right shoulder documented in this encounter [facility] [employer] note* Diagnosis Adhesive capsulitis of right shoulder- Primary Acute pain of right shoulder documented in this encounter [facility] [employer] note* Diagnosis Calcification of left breast on mammography- Primary Acute bursitis of right shoulder- Primary BMI 35.0-35.9,adult Type 2 diabetes mellitus with diabetic neuropathy, without long-term current use of insulin ([facility]/HCC)- Primary Type 2 diabetes mellitus with other [...] of insulin (CMS/HCC) documented in this encounter [facility] HealthcareEvaluation note* Diagnosis Primary hypertension (CMS/HCC) Unspecified [...] Unspecified essential hypertension documented in this encounter [facility] HealthcareEvaluation note* Diagnosis Diabetic polyneuropathy associated with type 2 diabetes mellitus (CMS/HCC) documented in this encounter [facility]* Diagnosis 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 Primary hypertension (CMS/HCC) Unspecified essential hypertension Obesity (BMI 30-39.9) Current mild episode of major depressive disorder without prior episode (HCC) (CMS/HCC) Environmental and seasonal allergies documented in this encounter [facility] HealthcareEvaluation note* Diagnosis Calcification of left breast [...] On statin therapy documented in this encounter [facility] HealthcareEvaluation note* Diagnosis Calcification of left breast [...] Primary Mixed hyperlipidemia documented in this encounter [facility] HealthcareEvaluation note* Diagnosis Calcification of left breast [...] chest pain- Primary documented in this encounter [facility] HealthcareEvaluation note* Diagnosis Calcification of left [...] Unspecified essential hypertension documented in this encounter [facility] HealthcareEvaluation note* Diagnosis Calcification of left breast [...] diabetes mellitus (CMS/HCC) documented in this encounter [facility] HealthcareEvaluation note* Diagnosis Calcification of left breast [...] disorder without prior episode (HCC) (CMS/[facility]) Environmental and seasonal allergies Encounter for subsequent [...] Morbid (severe) obesity due to excess calories ([facility]) Body mass index (BMI) 36.0-36.9, adult Encounter [...] type 2 diabetes mellitus (CMS/HCC) Primary hypertension (CMS/HCC)- Primary Unspecified essential hypertension Bilateral lower extremity edema Morbid (severe) obesity due to excess calories (CMS/HCC) Type 2 diabetes mellitus with other specified complication, without long-term current use of insulin [facility] Calcification of left breast on mammography- Primary Acute bursitis of right shoulder- Primary BMI 35.0-35.9,adult Type 2 diabetes mellitus with diabetic neuropathy, without long-term current use of insulin (HCC)- Primary Type 2 diabetes mellitus with other specified complication, without long-term current use of insulin (HCC) Body mass index [BMI] 35.0-35.9, adult (Z68.35) Diabetic polyneuropathy associated with type 2 diabetes mellitus (HCC) Primary hypertension Unspecified essential hypertension Diabetic polyneuropathy associated with type 2 diabetes mellitus (HCC)- Primary Primary hypertension Unspecified essential hypertension Type 2 diabetes mellitus with other specified complication, without long-term current use of insulin (HCC) Current mild episode of major depressive disorder without prior episode Type 2 diabetes with nephropathy (HCC)- Primary Obesity (BMI 30-39.9) Dizziness Dizziness and giddiness Primary hypertension Unspecified essential hypertension Type 2 diabetes with nephropathy (HCC)- Primary Primary hypertension Unspecified essential hypertension Obesity (BMI 30-39.9) Dizziness Dizziness and giddiness Type 2 diabetes with nephropathy (HCC)- Primary Primary hypertension Unspecified essential hypertension Obesity (BMI 30-39.9) Type 2 diabetes with nephropathy (HCC)- Primary Primary hypertension Unspecified essential hypertension Obesity (BMI 30-39.9) Current mild episode of major depressive disorder without prior episode Environmental and seasonal allergies Encounter for subsequent annual wellness visit (AWV) in Medicare patient- Primary Diabetic polyneuropathy associated with type 2 diabetes mellitus (HCC) Primary hypertension Unspecified essential hypertension BMI 35.0-35.9,adult 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, unspecified retinopathy severity (HCC) Obesity (BMI 30-39.9) Type 2 diabetes mellitus with other specified complication, without long-term current use of insulin (HCC) Morbid (severe) obesity due to excess calories (CMS-HCC) Body mass index (BMI) 36.0-36.9, adult Encounter for screening mammogram for malignant neoplasm of breast Environmental and seasonal allergies Other chest pain- Primary Type 2 diabetes mellitus with other specified complication (HCC) Type 2 diabetes mellitus with diabetic polyneuropathy (HCC) Morbid (severe) obesity due to excess calories (CMS-HCC) Primary hypertension Unspecified essential hypertension Type 2 diabetes with nephropathy (HCC) Bilateral lower extremity edema 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, unspecified retinopathy severity (HCC) On statin therapy Other chest pain- Primary Morbid (severe) obesity due to excess calories (CMS-HCC) Primary hypertension Unspecified essential hypertension Bilateral lower extremity edema- Primary Type 2 diabetes mellitus with diabetic polyneuropathy, without long-term current use of insulin (HCC) Primary hypertension Unspecified essential hypertension Morbid (severe) obesity due to excess calories (CMS-HCC) Type 2 diabetes mellitus with other specified complication, without long-term current use of insulin (HCC) Mixed hyperlipidemia Mixed hyperlipidemia Environmental and seasonal allergies Diabetic polyneuropathy associated with type 2 diabetes mellitus (HCC) Primary hypertension- Primary Unspecified essential hypertension Bilateral lower extremity edema Morbid (severe) obesity due to excess calories (CMS-HCC) Type 2 diabetes mellitus with other specified complication, without long-term current use of insulin (HCC) Primary hypertension- Primary Unspecified essential hypertension Morbid (severe) obesity due to excess calories (CMS-HCC) 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, unspecified retinopathy severity (HCC) Type 2 diabetes mellitus with other specified complication, without long-term current use of insulin (HCC) Bilateral lower extremity edema Paroxysmal atrial fibrillation (HCC) Atrial fibrillation [facility] - Reported* Type Description Date Medical History diabetes mallitus Medical History [ ] Surgical History cholecystectomy Surgical History tubal ligation Surgical History [ ] [employer] Other History general Narrative - Reported* Type Description Date Medical History type II diabetes Surgical History cholecystectomy Surgical History tubal ligation Surgical History MICRO PHLEBECTOMY RT LEG 2021 [employer] Other Reason for visit NarrativeVASC DR. BULLARD WANTED TO SEE BEFORE DECIDING WHAT PROCEDURE TO DO, Painful varicose veinsNort Instagram Other Revfjb for visit Narrative* Consultation (Routine) - Authorized Specialty Diagnoses / Procedures Referred By Iam t Referred To Contact Physical Therapy Diagnoses Acute pain of right shoulder Adhesive capsulitis of right shoulder Procedures [place] OFFICE/OUTPATIENT [facility] HIGH [facility] 60 MINUTES Armando Garcia PA [address] [place] [address] Troy Shimon Altaf, PT [address] [place] [address] [place] [address] Referral ID Status Reason Start Date Expiration Date Visits Requested Visits Authorized [id number] Authorized Consult and Treat 08/11/2023 02/07/2024 10 30 [facility] Summary Purpose Family History No Family History Records FoundNo Family History Records FoundNo Family History Records Found Advance Directives No Advanced Directives Records FoundNo Advanced Directives Records FoundNo Advanced Directives Records Found Additional Source Comments REASON FOR VISIT (unrecogniz ed section and content) Reason Comments Hypertension Reason Comments Edema Reason Comments Med Refill Reason Comments Pain 4 MO VV F/U NO TESTING, Follow-up varicose vein2 WK FOLLOW UP; VENASEAL LEFT LEG; ULTRASOUND 11/11/22VENASEAL LEFT LEGFOLLOW UP AFTER VARITHENA RIGHT LEG; ULTRASOUND DONE [facility] 06/21/22VARITHENA RT LEGVASC 2 WK S/P MICRO RIGHT LEG, Follow-up after microphlebectomy INFORMATION SOURCE (unrecogn ized section and content) DATE CREATED AUTHOR 10/15/2022 [facility] DATE CREATED AUTHOR AUTHOR'S ORGANIZ ATION 11/22/2022 [facility] DATE CREATED AUTHOR AUTHOR'S ORGANIZ ATION 12/29/2024 [facility] dical Specialists EPIC Care Teams (unrecognized sec tion and content) Patient Account Specialist Relationship Specialty Start Date End Date Bryant Torres MD [address] [place] [address] PCP - General Family Medicine 09/02/23 Almaz Pérez NP [address] [place] [address] Nurse Practitioner Family Medicine 04/27/23 Patient Account Specialist Relationship Specialty Start Date End Date Bryant Torres MD [address] [place] [address] PCP - General Family Medicine 09/02/23 Almaz Pérez NP [address] [place] [address] Nurse Practitioner Family Medicine 04/27/23 Patient Account Specialist Relationship Specialty Start Date End Date Bryant Torres MD [address] [place] [address] PCP - General Family Medicine 09/02/23 Almaz Pérez NP [address] [place] [address] Nurse Practitioner Family Medicine 04/27/23 Patient Account Specialist Relationship Specialty Start Date End Date Bryant Torres MD [address] [place] [address] PCP - General Family Medicine 09/02/23 Almaz Pérez NP [address] [place] [address] Nurse Practitioner Family Medicine 04/27/23 Patient Account Specialist Relationship Specialty Start Date End Date Bryant Torres MD [address] [place] [address] PCP - General Family Medicine 09/02/23 Almaz Pérez NP [address] [place] [address] Nurse Practitioner Family Medicine 04/27/23 Patient Account Specialist Relationship Specialty Start Date End Date Bryant Torres MD [address] [place] [address] PCP - General Family Medicine 09/02/23 Almaz Pérez NP [address] [place] [address] Nurse Practitioner Family Medicine 04/27/23 Patient Account Specialist Relationship Specialty Start Date End Date Bryant Torres MD [address] [place] [address] PCP - General Family Medicine 09/02/23 Almaz Pérez NP [address] [place] [address] Nurse Practitioner Family Medicine 04/27/23 Patient Account Specialist Relationship Specialty Start Date End Date Bryant Torres MD [address] [place] [address] PCP - General Family Medicine 09/02/23 Almaz Pérez NP [address] [place] [address] Nurse Practitioner Family Medicine 04/27/23 Patient Account Specialist Relationship Specialty Start Date End Date Bryant Torres MD [address] [place] [address] PCP - General Family Medicine 09/02/23 Almaz Pérez NP [address] [place] [address] Nurse Practitioner Family Medicine 04/27/23 Patient Account Specialist Relationship Specialty Start Date End Date Bryant Torres MD [address] [place] [address] PCP - General Family Medicine 09/02/23 Almaz Pérez NP [address] [place] [address] Nurse Practitioner Family Medicine 04/27/23 Patient Account Specialist Relationship Specialty Start Date End Date Bryant Torres MD [address] [place] [address] PCP - General Family Medicine 09/02/23 Almaz Pérez NP [address] [place] [address] Nurse Practitioner Family Medicine 04/27/23 Patient Account Specialist Relationship Specialty Start Date End Date Bryant Torres MD [address] [place] [address] PCP - General Family Medicine 09/02/23 Almaz Pérez NP [address] [place] [address] Nurse Practitioner Family Medicine 04/27/23 Patient Account Specialist Relationship Specialty Start Date End Date Bryant Torres MD [address] [place] [address] PCP - General Family Medicine 09/02/23 Almaz Pérez NP [address] [place] [address] PCP - ACO Reach 09/03/24 Almaz Pérez NP [address] [place] [address] Nurse Practitioner Family Medicine 04/27/23 Patient Account Specialist Relationship Specialty Start Date End Date Bryant Torres MD [address] [place] [address] PCP - General Family Medicine 09/02/23 Almaz Pérez NP [address] [place] [address] PCP - ACO Reach 09/03/24 Almaz Pérez NP [address] [place] [address] Nurse Practitioner Family Medicine 04/27/23 Patient Account Specialist Relationship Specialty Start Date End Date Bryant Torres MD [address] [place] [address] PCP - General Family Medicine 09/02/23 Almaz Pérez NP [address] [place] [address] PCP - ACO Reach 09/03/24 Almaz Pérez NP [address] [place] [address] Nurse Practitioner Family Medicine 04/27/23 Patient Account Specialist Relationship Specialty Start Date End Date Bryant Torres MD [address] [place] [address] PCP - General Family Medicine 09/02/23 Almaz Pérez NP [address] [place] [address] PCP - ACO Reach 09/03/24 Almaz Pérez NP [address] [place] [address] Nurse Practitioner Family Medicine 04/27/23 Patient Account Specialist Relationship Specialty Start Date End Date Bryant Torres MD [address] [place] [address] PCP - General Family Medicine 09/02/23 Almaz Pérez NP [address] [place] [address] PCP - ACO Reach 09/03/24 Almaz Pérez NP [address] [place] [address] Nurse Practitioner Family Medicine 04/27/23 Patient Account Specialist Relationship Specialty Start Date End Date Bryant Torres MD [address] [place] [address] PCP - General Family Medicine 09/02/23 Almaz Pérez NP [address] [place] [address] PCP - ACO Reach 09/03/24 Almaz Pérez NP [address] [place] [address] Nurse Practitioner Family Medicine 04/27/23 Patient Account Specialist Relationship Specialty Start Date End Date Bryant Torres MD [address] [place] [address] PCP - General Family Medicine 09/02/23 Almaz Pérez NP [address] [place] [address] PCP - ACO Reach 09/03/24 Almaz Pérez NP [address] [place] [address] Nurse Practitioner Family Medicine 04/27/23 Patient Account Specialist Relationship Specialty Start Date End Date Bryant Torres MD [address] [place] [address] PCP - General Family Medicine 09/02/23 Almaz Pérez NP [address] [place] [address] PCP - ACO Reach 09/03/24 Almaz Pérez NP [address] [place] [address] Nurse Practitioner Family Medicine 04/27/23 Patient Account Specialist Relationship Specialty Start Date End Date Bryant Torres MD [address] [place] [address] PCP - General Family Medicine 09/02/23 Almaz Pérez NP [address] [place] [address] PCP - ACO Reach 09/03/24 Almaz Pérez NP [address] [place] [address] Nurse Practitioner Family Medicine 04/27/23 Patient Account Specialist Relationship Specialty Start Date End Date Bryant Torres MD [address] [place] [address] PCP - General Family Medicine 09/02/23 Almaz Pérez NP [address] [place] [address] PCP - ACO Reach 09/03/24 Almaz Pérez NP [address] [place] [address] Nurse Practitioner Family Medicine 04/27/23 Patient Account Specialist Relationship Specialty Start Date End Date Bryant Torres MD [address] [place] [address] PCP - General Family Medicine 09/02/23 Almaz Pérez NP [address] [place] [address] PCP - ACO Reach 09/03/24 Almaz Pérez NP [address] [place] [address] Nurse Practitioner Family Medicine 04/27/23 Patient Account Specialist Relationship Specialty Start Date End Date Bryant Torres MD [address] [place] [address] PCP - General Family Medicine 09/02/23 Almaz Pérez NP [address] [place] [address] PCP - ACO Reach 09/03/24 Almaz Pérez NP [address] [place] [address] Nurse Practitioner Family Medicine 04/27/23 Patient Account Specialist Relationship Specialty Start Date End Date Bryant Torres MD [address] [place] [address] PCP - General Family Medicine 09/02/23 Almaz Pérez NP [address] [place] [address] PCP - ACO Reach 09/03/24 Almaz Pérez NP [address] [place] [address] Nurse Practitioner Family Medicine 04/27/23 Patient Account Specialist Relationship Specialty Start Date End Date Bryant Torres MD [address] [place] [address] PCP - General Family Medicine 09/02/23 Almaz Pérez NP [address] [place] [address] PCP - ACO Reach 09/03/24 Almaz Pérez NP [address] [place] [address] Nurse Practitioner Family Medicine 04/27/23 Patient Account Specialist Relationship Specialty Start Date End Date Bryant Torres MD [address] [place] [address] PCP - General Family Medicine 09/02/23 Almaz Pérez NP [address] [place] [address] PCP - ACO Reach 09/03/24 Almaz Pérez NP [address] [place] [address] Nurse Practitioner Family Medicine 04/27/23 Patient Account Specialist Relationship Specialty Start Date End Date Bryant Torres MD [address] [place] [address] PCP - General Family Medicine 09/02/23 Almaz Pérez NP [address] [place] [address] PCP - ACO Reach 09/03/24 Almaz Pérez NP [address] [place] [address] Nurse Practitioner Family Medicine 04/27/23 FOR RECORDS [...] BE BASED ON THE PRIMARY CLINICAL RECORDS. [facility]. provides no warranty or guarantee of the accuracy or completeness of information in this document.
== END 2025-02-10 12:42 | disposition home or self-care (01) ==
LOC: CARD 12:42
PROVIDERS: PCP Nurse Practitioner; Visit Provider Nurse Practitioner
DX: I48.0 Paroxysmal atrial fibrillation (principal)
CPT/HCPCS: 93242